=== PATIENT | female | born 1940 | race Caucasian/White ===

== ENCOUNTER 2017-04-16 20:26 | Inpatient (IN) | payer OTHER, MEDICARE ==
--- NOTE | 2017-04-16 20:31 | PDOC ---
History of Present Illness - General History Source: Patient, EMS, Family Exam Limitations: No Limitations - History of Present Illness Initial Comments: 04/16/17 20:31 The patient is a 77 year old female, accompanied by family, with a significant past medical history of colon cancer with metastasis to the liver, diverticulosis, internal hemorrhoids, transverse colon AVM, colon polyps, esophageal and stomach ulcers, who presents to the emergency department via EMS complaining of right sided facial droop, weakness and slurred speech that began approx. 20 minutes ago and lasted for approx. 15 minutes before resolving. The patient's family states the event was witnessed at the dinner table and lasted for 15 minutes. The patient's family explained they notified EMS for help, however, the slurred speech, weakness and right sided facial droop resolved before the ambulance arrived. The patient states she experienced double vision approx. 6 hours ago today that resolved after fifteen minutes. The patient also reports she has been feeling exhausted for the last few months, however, has felt progressively more exhausted in the past two weeks. The patient states she was seen as an outpatient earlier today for a pelvic CT. She denies recent fevers, chills, headache. She denies recent nausea, vomit, diarrhea or constipation. She denies recent chest pain or shortness of breath. Patient was seen and examined by Dr. Lynch immediately upon arrival. Allergies: nebivolol, HCL, Penicillins Primary Care Physician: Dr. Justo Calles Documentation prepared by Justo Gaines, acting as medical detailist for Lizet Lynch MD. <Justo Gaines - Last Filed: 04/17/17 01:22> <Lizet Lynch - Last Filed: 04/17/17 05:00> - General Stated Complaint: STROKE Time Seen by Provider: 04/16/17 20:29 Past History <Justo Gaines - Last Filed: 04/17/17 01:22> - Past Medical History Anemia: No Asthma: Yes (PERSISTENT ASTHMA-NO RECENT ATTACK) Cancer: Yes (COLON CANCER,LIVER CANCER) Cardiac Disorders: Yes (PALPITATIONS; ATRIAL FIB (PAROXYSMAL) CVA: No COPD: No CHF: No Dementia: No Diabetes: No GI Disorders: Yes (GERD,LIEBERMAN'S ESOPHAGUS,ATYPICAL CHEST PAIN,HEARTBURN) Disorders: Yes (H/O RECURRENT URINARY TRACT INFECTION) HTN: Yes Hypercholesterolemia: Yes Liver Disease: Yes Seizures: No Thyroid Disease: No - Surgical History Abdominal Surgery: Yes (REMOVAL 1 LOBE OF THE LIVER) Appendectomy: Yes (DURING LIVER METS RESECTION) Cardiac Surgery: No Cholecystectomy: Yes (DURING LIVER METS RESECTION) Lung Surgery: No Neurologic Surgery: No Orthopedic Surgery: No - Suicide/Smoking/Psychosocial Hx Smoking Status: No Smoking History: Former smoker Have you smoked in the past 12 months: No Number of Cigarettes Smoked Daily: 0 Hx Alcohol Use: No Drug/Substance Use Hx: No Substance Use Type: None Hx Substance Use Treatment: No <Lizet Lynch - Last Filed: 04/17/17 05:00> - Past Medical History Allergies/Adverse Reactions: Allergies Allergy/AdvReac Type Severity Reaction Status Date / Time nebivolol HCl [From Bystolic] Allergy Difficulty Verified 04/16/17 21:01 Breathing Penicillins Allergy Hives Verified 04/16/17 21:01 Home Medications: Ambulatory Orders Diltiazem HCl [Cardizem] 360 mg PO AM 12/09/11 Losartan Potassium [Cozaar] 50 mg PO DAILY 12/09/11 Spironolactone [Aldactone -] 50 mg PO DAILY 12/09/11 Atorvastatin Calcium 20 mg PO DAILY tablet 07/10/14 Pantoprazole Sodium [Protonix -] 40 mg PO BID #30 tablet.ec 11/08/14 Oxycodone HCl 7.5 mg PO PRN PRN 04/24/15 Rivaroxaban [Xarelto -] 15 mg PO DAILY 04/16/17 Review of Systems - Review of Systems Comments:: 04/16/17 20:54 GENERAL/CONSTITUTIONAL: +Weakness (resolved). +Slurred speech (resolved). No fever or chills. HEAD, EYES, EARS, NOSE AND THROAT: No change in vision. No ear pain or discharge. No sore throat. CARDIOVASCULAR: No chest pain or shortness of breath. RESPIRATORY: No cough, wheezing, or hemoptysis. GASTROINTESTINAL: No nausea, vomiting, diarrhea or constipation. GENITOURINARY: No dysuria, frequency, or change in urination. MUSCULOSKELETAL: +Back pain. No joint or muscle swelling or pain. No neck pain. SKIN: No rash NEUROLOGIC: +Right sided facial droop (resolved). No headache, vertigo, loss of consciousness. ENDOCRINE: No increased thirst. No abnormal weight change. HEMATOLOGIC/LYMPHATIC: No anemia, easy bleeding, or history of blood clots. ALLERGIC/IMMUNOLOGIC: No hives or skin allergy. <Justo Gaines - Last Filed: 04/17/17 01:22> *Physical Exam - Physical Exam Comments: 04/16/17 20:56 GENERAL: Awake, alert, and fully oriented, in no acute distress HEAD: No signs of trauma EYES: PERRLA, EOMI, sclera anicteric, conjunctiva clear ENT: Auricles normal inspection, hearing grossly normal, nares patent, oropharynx clear without exudates. Moist mucosa NECK: Normal ROM, supple, no lymphadenopathy, JVD, or masses LUNGS: Breath sounds equal, clear to auscultation bilaterally. No wheezes, and no crackles HEART: Regular rate and rhythm, normal S1 and S2, no murmurs, rubs or gallops ABDOMEN: Soft, nontender, normoactive bowel sounds. No guarding, no rebound. No masses EXTREMITIES: Normal range of motion, no edema. No clubbing or cyanosis. No cords, erythema, or tenderness NEUROLOGICAL: Cranial nerves II through XII grossly intact. Normal speech, normal gait SKIN: Warm, Dry, normal turgor, no rashes or lesions noted. <Justo Gaines - Last Filed: 04/17/17 01:22> NIH Stroke Scale - Last Known Well Date/Time & Onset Date Last Known Well: 04/16/17 Time Last Known Well: 20:00 - Initial Evaluation Level of consciousness: Alert Ask patient the month and their age: Answers both correctly Ask patient to open & close eyes; make fist and let go: Obeys both correctly Best gaze (horizontal eye movement): Normal Visual field testing: No visual field loss Facial paresis (Show teeth/raise eyebrows/close eyes tight): Normal symmetrical movement Motor Function: Left Arm: Normal Motor Function: Right Arm: Normal (extends arm 90 (or 45) degrees for 10 seconds without drift Motor Function: Left Leg: Normal (extends leg 30 degrees for 5 seconds without drift) Motor Function: Right Leg: Normal (extends leg 30 degrees for 5 seconds without drift) Limb Ataxia: No ataxia Sensory(Use pinprick test arms,legs,trunk,face/side to side): Normal Best language (Describe picture, name items, read sentences): No Aphasia Dysarthria (read several words): Normal articulation Extinction and Inattention: No abnormality - Total Score NIH Stroke Scale Score: 0 <Lizet Lynch - Last Filed: 04/17/17 05:00> Heart Score/ECG Review #1 04/16/17 22:21 Vent rate 89 bpm. Normal sinus rhythm. Normal ECG. <Justo Gaines - Last Filed: 04/17/17 01:22> Critical Care Time/MDM Note - Medical Decision Making Note: 04/16/17 20:[address] Justo Calles at 8:42 pm. Pending call back. Second Page sent to Dr. Justo Calles at 9:[address] Caballero partner returned the page at 9:15 pm. Page sent to Dr. Bhatt at 9:18 pm. Page returned by Dr. Pimentel at 9:22 pm. Page sent to Dr. Perry at 9:28 pm. Answering serviced advised Dr. Denney will return the page. Dr. Denney returned the page at 9:30 pm. Page sent to Dr. Denney at 10:20 pm. Page returned by Dr. Denney at 11: [address] Pimentel called at 11:20 pm. Page returned at 11:25 pm. <Justo Gaines - Last Filed: 04/17/17 01:22> - Medical Decision Making Note: 04/16/17 20:34 Pt has a hx of diverticulosis; internal hemorrhoids, transverse colon AVM; colon polyps. Also hx of barrets esophagus; esophageal and stomach ulcers. Hx of colon cancer with mets to the liver; bronchial asthma; on digoxin and coumadin for paroxysmal afib. 04/16/17 20:36 Pt noted to have right facial droop with drooling that began at 8PM. Ambulance called and pt rushed to the ER. She is better at this time. She had no other symptoms, and she has a normal zero stroke scale. Pt sent immediately for CT head. 04/16/17 20:39 Dr. Calles's partner is aware that pt will be admitted; he agrees that pt should be admitted to the hospitalist team 04/16/17 20:47 Dr. 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 Recommends MRI in the AM. 04/16/17 21:[address] Denney is aware of the patient. He recommends atorvastatin to be increased to 40mg QD. 04/16/17 21:[address] Azar placed by myself in the computer. Pt appears to have anemia HB 8.8; I will guaiac her stool. 04/17/17 04:59 guaiac negative. Pt given aspirin. We didn't restart her xarelto, as it is unclear to me what the potential risk of blood thinners is on her metastatic disease. <Lizet Lynch - Last Filed: 04/17/17 05:00> Discharge Disposition <Justo Gaines - Last Filed: 04/17/17 01:22> - Discharge Dispostion Admit: Yes <Lizet Lynch - Last Filed: 04/17/17 05:00> - Diagnosis TIA (transient ischemic attack), Cancer, metastatic to liver, Paroxysmal atrial fibrillation, Anemia - Discharge Dispostion Condition at time of disposition: Guarded
[2017-04-16 21:01] VITALS: BMI 33.2
[2017-04-16 21:21] LABS: BASOPHIL 0.5 % (0-2.0); EOSINOPHIL 1.2 % (0-4.5); MCH 29.4 pg (25.7-33.7); MCHC 33.5 g/dl (32.0-36.0); MEAN CELL VOLUME 87.8 fl (80-96); RDW 14.4 % (11.6-15.6); WHITE BLOOD COUNT 8.7 K/mm3 (4.0-10.0)
[2017-04-16] MEDS ORDERED: ATORVASTATIN CA 40 MG TABLET (FP) PO ONE (21:36)
[2017-04-16 21:47] LABS: AMYLASE 43 U/L (25-115)
[2017-04-16 21:53] LABS: ALBUMIN 3.2 g/dl (3.4-5.0); ALK PHOS 276 U/L (45-117); ANION GAP 8 (8-16); BILIRUBIN,TOTAL 1.7 mg/dL (0.2-1.0); CALCIUM 8.1 mg/dL (8.5-10.1); CO2 25 mmol/L (21-32); CREATININE 1.2 mg/dL (0.55-1.02); GLUCOSE,RANDOM 120 mg/dL (74-106); SGOT/AST 64 U/L (15-37); SGPT/ALT 65 U/L (12-78); TOT PROT 6.4 g/dl (6.4-8.2)
[2017-04-16 22:01] LABS: INR 1.48 (0.82-1.09); PROTHROMBIN TIME (PATIENT) 16.7 SEC (9.98-11.88)
[2017-04-16 22:03] LABS: ACTIVATED PTT 30.6 SECONDS (26.9-34.4)
[2017-04-16] MEDS ORDERED: ATORVASTATIN CA 40 MG TABLET (FP) ONE (22:10)
[2017-04-16 22:35] LABS: HYPOCHROMIA 1+; MACROCYTOSIS 1+; MEAN PLT VOLUME 9.4 fl (7.5-11.1); PLATELET COUNT 82 K/MM3 (134-434)
[2017-04-16] MEDS ORDERED: SODIUM CHLORIDE 0.9% 500 ML INFUS.BAG IV ONE (22:37)
[2017-04-16] MEDS ORDERED: ASPIRIN 81 MG CHEWABLE TABLETS PO ONE (22:38)
[2017-04-16] MEDS ORDERED: ASPIRIN 81 MG CHEWABLE TABLETS ONE (23:24)
--- NOTE | 2017-04-16 23:32 | PN ---
Teaching Attending Note Name of Resident: Jesus Hidalgo ATTENDING PHYSICIAN STATEMENT I saw and evaluated the patient. I reviewed the resident's note and discussed the case with the resident. I agree with the resident's findings and plan as documented. SUBJECTIVE: OBJECTIVE: ASSESSMENT AND PLAN: this is a 77 y/o female patient with hx of paroxysmal atrial fibrillation on riveroxiban, colon cancer with liver mets s/p colectomy, and liver resection 13 years ago, presented to the ER after the patient daughter noticed that she had facial droop, associated with slurred speech. that resolved by the time the patient came to the hospital. when i interviewed the patient, the daughter said that her speech has improved but the facial droop had recurred. patient stated that she felt weaker on her right arm, but that also resolved. patient stated that she has not eaten in 2 days, because she felt nauseated so she hadn't taken her medication neither plan: - admit the patient to tele for stroke - hold anticoagulation until cleared by neurology - repeat Head CT scan - obtain MRI - give the patient aspirn 325mg stat - consult neurology for stroke - start the patient on moderate to high dose statin - maintain permissive hypertension (Sbp 140-160) - IV hydration - pain management 2mg IVP morphine prn pain - Morphine sulfate 15mg q12hrs standing dose - monitor for overdose
[2017-04-17] MEDS ORDERED: morphine SULFATE 4 MG/ML VIAL IVPUSH PRN ×2 (00:23→15:01)
--- NOTE | 2017-04-17 02:14 | HP ---
CHIEF COMPLAINT: Dysarthria, R facial droop PCP: Justo Calles HISTORY OF PRESENT ILLNESS: 77 yo woman w/ pmh of colon/liver ca, chronic afib, HTN, HLD, PUD and diverticulosis who presents to the ED after daughter witnessed her with R side facial droop, R hand weakness and dysarthria that lasted approximately 15-20 minutes and resolved before arrival in ED. Pt endorses 3 days of abdominal pain , fatigue, malaise and poor PO intake prior to today and received an abdominal CT for further work-up of her known liver mets. Pt endorses a prior episode of double vision that lasted 15 minutes earlier in the day. After returning home from the imaging study, pt's daughter noted R side facial droop, dysarthria, and R hand weakness and dysmetria. Pt's daughter immediately notified EMS, however by the time they arrived, the patient's symptoms had resolved. Pt had no LOC, other neurologic symptoms and could comprehend and respond to all conversation. Per pt, she did not note any dysarthria or R hand weakness. Pt has no prior hx of neurologic dz or stroke, however was diagnosed with aFib 4 years ago, for which she was taking xarelto. Pt endorses a prior ?IVC clot in 2003, discovered during her chemotx treatment, but denies any hx of other DVTs, RI, stroke or clotting disorders. Pt had not been taking her xarelto for 2-3 days, due to nausea and poor po intake. Pt denies any fever/chills, MERCER/dizziness, diarrhea/constipation, rashes, CP, SOB , cough, other prior focal neurologic deficits. ER course was notable for: (1) Negative non-con CT scan (2) Hgb 8.8 (3) Recent Travel: None PAST MEDICAL HISTORY: Asthma Diverticulosis Colon/liver cancer Chronic Afib GERD Ervin's esophagus PUD Hemorrhoids Multiple UTI's HLD HTN PAST SURGICAL HISTORY: Cholecystectomy appendectomy liver resection breast cyst excision bowel resection Social History: Smoking: No. Former smoker. Alcohol: No Drugs: No Family History: No prior fam hx of stroke, neurologic disorders or blood clots. Allergies nebivolol HCl [From Bystolic] Allergy (Verified 04/16/17 21:01) Difficulty Breathing sob Penicillins Allergy (Verified 04/16/17 21:01) Hives HOME MEDICATIONS: Home Medications Medication Instructions Recorded Diltiazem HCl [Cardizem] 360 mg PO AM 12/09/11 Losartan Potassium [Cozaar] 50 mg PO DAILY 12/09/11 Spironolactone [Aldactone -] 50 mg PO DAILY 12/09/11 Atorvastatin Calcium 20 mg PO DAILY tablet 07/10/14 Pantoprazole Sodium [Protonix -] 40 mg PO BID #30 tablet.ec 11/08/14 Oxycodone HCl 7.5 mg PO PRN PRN 04/24/15 Rivaroxaban [Xarelto -] 15 mg PO DAILY 04/16/17 REVIEW OF SYSTEMS CONSTITUTIONAL: generalized weakness, malaise, loss of appetite, double vision, lightheadedness Absent: fever, chills, diaphoresis, weight change HEENT: Absent: rhinorrhea, nasal congestion, throat pain, throat swelling, difficulty swallowing CARDIOVASCULAR: irregular heart rate Absent: chest pain, syncope, palpitations, lightheadedness, peripheral edema RESPIRATORY: Absent: cough, shortness of breath, dyspnea with exertion, hemoptysis GASTROINTESTINAL: abdominal pain, Absent: abdominal distension, nausea, vomiting, diarrhea, constipation, melena , hematochezia GENITOURINARY: Absent: dysuria, frequency, urgency, hesitancy, hematuria MUSCULOSKELETAL: Absent: myalgia, arthralgia, joint swelling, back pain, neck pain SKIN: Absent: rash, itching ENDOCRINE: Absent: unexplained weight gain, unexplained weight loss, heat intolerance, cold intolerance NEUROLOGIC: focal weakness Absent: headache, paresthesias, dizziness, unsteady gait, seizure, mental status changes, bladder or bowel incontinence PHYSICAL EXAMINATION Vital Signs - 24 hr 04/16/17 04/17/17 04/17/17 20:27 01:04 01:40 Temperature 98.1 F 97.7 F 98.3 F Pulse Rate 89 83 Pulse Rate [ 79 Right Apical] Respiratory 18 18 20 Rate Blood Pressure 143/82 141/56 Blood Pressure 135/76 [Left Arm] O2 Sat by Pulse 98 99 Oximetry (%) 04/17/17 01:55 Temperature Pulse Rate Pulse Rate [ Right Apical] Respiratory Rate Blood Pressure Blood Pressure [Left Arm] O2 Sat by Pulse 92 L Oximetry (%) GENERAL: Awake, alert, and fully oriented to name/location/date, in no acute distress. HEAD: NCAT EYES: Pupils equal, round and reactive to light, extraocular movements intact, sclera anicteric, conjunctiva clear. No lid lag. EARS, NOSE, THROAT: Ears normal, nares patent, oropharynx clear without exudates. Moist mucous membranes. NECK: Normal range of motion, JVD, or masses. LUNGS: Breath sounds equal, clear to auscultation bilaterally. No wheezes, and no crackles. No accessory muscle use. HEART: Regular rate and rhythm, normal S1 and S2 without murmur, rub or gallop. ABDOMEN: Mildly tender to palpation in BL supra-inguinal regions. Soft, not distended, normoactive bowel sounds, no rebound, no masses. No hepatomegaly or splenomegaly. UPPER EXTREMITIES: 2+ pulses, warm, well-perfused. No cyanosis. No clubbing. No peripheral edema. Anterior bruise on R forearm. LOWER EXTREMITIES: 2+ pulses, warm, well-perfused. No calf tenderness. No peripheral edema. NEUROLOGICAL: Mild dysarthria. Upon cranial nerve exam, R lateral tongue deviation, R facial droop, diminished eyelid closure on R side. EOMI intact. Facial sensation to light touch, preserved BL. 4/5 medical imaging technologist strength in R hand, 5/5 in L hand. 5/5 strength in arm flexors and extensors. 5/5 strength BL in proximal and distal flexors and extensors. Sensation to light touch preserved, equal on both sides in all four extremities/across dermatomes. Gait not evaluated. Psych: Refused serial 7s. wide load escort memory deficit, only able to recall last two president. Abstract thinking intact. SKIN: Warm, dry, normal turgor, normal cap refill. Laboratory Results - last 24 hr CBC, BMP 04/16/17 21:00 04/16/17 21:00 04/16/17 04/16/17 04/16/17 21:00 21:00 21:00 WBC 8.7 D RBC 2.99 L D Hgb 8.8 L D Hct 26.2 L D MCV 87.8 MCH 29.4 MCHC 33.5 RDW 14.4 Plt Count 82 L D MPV 9.4 D Neutrophils % 78.0 Lymphocytes % 12.1 D Monocytes % 8.2 Eosinophils % 1.2 Basophils % 0.5 Hypochromia 1+ Macrocytosis 1+ PT with INR 16.70 H INR 1.48 H PTT (Actin FS) 30.6 Sodium 138 Potassium 4.3 Chloride 105 Carbon Dioxide 25 Anion Gap 8 BUN 23 H Creatinine 1.2 H Creat Clearance w eGFR 43.45 Random Glucose 120 H Calcium 8.1 L Total Bilirubin 1.7 H D AST 64 H D ALT 65 D Alkaline Phosphatase 276 H D Total Protein 6.4 Albumin 3.2 L D Total Amylase Lipase Stool Occult Blood Digoxin 04/16/17 04/16/17 04/16/17 21:00 21:00 22:20 WBC RBC Hgb Hct MCV MCH MCHC RDW Plt Count MPV Neutrophils % Lymphocytes % Monocytes % Eosinophils % Basophils % Hypochromia Macrocytosis PT with INR INR PTT (Actin FS) Sodium Potassium Chloride Carbon Dioxide Anion Gap BUN Creatinine Creat Clearance w eGFR Random Glucose Calcium Total Bilirubin AST ALT Alkaline Phosphatase Total Protein Albumin Total Amylase 43 Lipase 287 Stool Occult Blood Negative Digoxin 0.0787 L No micro pending Imaging: Non Head CT 04/16 - No acute pathology, mass or acute bleed. Chest CT 04/16 - No CT findings of acute pathology are identified involving the chest. Minimal to mild bilateral lower lobe discoid atelectasis/linear scarring. Stable benign 0.4 cm left lower lobe pulmonary nodule in comparison to a [address] study. Possible mild cardiomegaly. ASSESSMENT/PLAN: 77 yo woman w/ pmh of colon/liver ca, chronic afib, HTN, HLD, PUD and diverticulosis who presents to the ED after daughter witnessed her with R side facial droop, R hand weakness and dysarthria that lasted approximately 15-20 minutes and resolved before arrival in ED. #TIA - Thrombolytics contraindicated in this patient, given age/unknown brain parenchyma given metastatic dz - Stat MRI in AM - Hold AC until clearance from neuro team - Aspirin 325mg once. 81mg PO daily - Start moderate/high dose statin - Permissive hypertension (140-160) - Carotid dopplers - Neurology consulted #Afib - Pt on xarelto for AC. Missed last 3 days due to nausea/poor PO intake. - Cardiology consulted (Dr. Azar) - Hold AC in setting of - Cardiac monitoring - F/u EKG results #Mild HERBERTH - BUN/Cr 23/1.2 on admission - IVFs - Daily BMPs - Trend Cr #Anemia - Hgb 8.8. Patient denies any recent bleeds, melena, hematuria - Stool guiac - Trend H/H - Anemia panel #Liver mets - Oncology team consulted (Dr. Bhatt) - Trend LFTs - F/u abdominal CT - Will require outpt f/u #HTN - Hold home HTN meds in setting of possible infarct - Permissive hypertension (140-160) #HLD - Moderate/high dose statin - Lipid panel #Chronic back pain - MS contin 15mg BID - Morphine sulfate 2mg IVP prn - Monitor for signs of overdose #PUD - PPI FEN: Fluids: 75cc NS Electrolytes: Trend BUN/Cr Nutrition: NPO until cleared by S+S Dispo: Admit to tele for monitoring of MS/neurologic assessment in setting of possible stroke. Plan discussed with attending, Dr. Aniceto Hidalgo, PGY1 Visit type - Emergency Visit Emergency Visit: Yes ED Registration Date: 04/16/17 Care time: The patient presented to the Emergency Department on the above date and was hospitalized for further evaluation of their emergent condition. - New Patient This patient is new to me today: Yes Date on this admission: 04/17/17 - Critical Care Critical Care patient: No
[2017-04-17] MEDS ORDERED: ATORVASTATIN CA 40 MG TABLET (FP) PO SCH ×2 (05:00→22:00)
[2017-04-17] MEDS ORDERED: LOSARTAN POTASSIUM 50 MG TABLET (FP) PO SCH (07:00)
[2017-04-17] MEDS ORDERED: PANTOPRAZOLE 40 MG TABLET (FP) PO SCH (07:30)
[2017-04-17 08:18] LABS: INR 1.48 (0.82-1.09); PROTHROMBIN TIME (PATIENT) 16.7 SEC (9.98-11.88)
[2017-04-17 08:21] LABS: ACTIVATED PTT 29.5 SECONDS (26.9-34.4)
[2017-04-17 08:26] LABS: ALK PHOS 254 U/L (45-117); ANION GAP 8 (8-16); BILIRUBIN,TOTAL 2.5 mg/dL (0.2-1.0); CALCIUM 7.9 mg/dL (8.5-10.1); CHOLESTEROL 157 mg/dL (50-200); CO2 24 mmol/L (21-32); CREATININE 1.1 mg/dL (0.55-1.02); GLUCOSE,RANDOM 104 mg/dL (74-106); MAGNESIUM 2.3 mg/dL (1.8-2.4); SGOT/AST 74 U/L (15-37); SGPT/ALT 60 U/L (12-78); THYROID STIMULATING HORMONE 1.03 uIU/ml (0.358-3.74); TOT PROT 5.8 g/dl (6.4-8.2)
--- NOTE | 2017-04-17 08:30 | CON.CARD ---
Consult Consult Specialty:: cardio Referred by:: hospitalist Reason for Consultation:: afib, CVA - History of Present Illness Chief Complaint: slurred speech, facial droop History of Present Illness: 77 year old female presented with right sided facial droop, weakness and slurred speech on DOA. sx's lasted approx 15 min, fully resolved. she also had episode of double vision earlier in the day that fully resolved after about 15 min. sees me for PAF, which is very symptomatic with rapid HRs when it recurs. has had no sx's in long time, however last saw me 05/08 and has not made her f/ u appts since then. she recently held all meds including xarelto for approx 2d due to ongoing sx's of abdominal pain, fatigue, malaise, decr appetite at present she was trying to go to bathroom and legs felt weak and slipped to ground. urinated a bit on floor. denies hitting her head. RN at bedside, she intends to inform hospitalist. pt currently denies any cp, sob, palpitations including at home recently. ongoing diffuse abd pain lower rib cage down to lower quadrants. PMH: PAF, rapid HRs colon cancer with metastasis to the liver, diverticulosis, internal hemorrhoids, transverse colon AVM, colon polyps, severe GERD, ? moran's; esophageal and stomach ulcers - Alcohol/Substance Use Hx Alcohol Use: No - Smoking History Smoking history: Former smoker Have you smoked in the past 12 months: No Aproximately how many cigarettes per day: 0 If you are a former smoker, when did you quit?: 20 years Home Medications - Allergies Allergies/Adverse Reactions: Allergies Allergy/AdvReac Type Severity Reaction Status Date / Time nebivolol HCl [From Bystolic] Allergy Difficulty Verified 04/16/17 21:01 Breathing Penicillins Allergy Hives Verified 04/16/17 21:01 - Home Medications Home Medications: Ambulatory Orders Diltiazem HCl [Cardizem] 360 mg PO AM 12/09/11 Losartan Potassium [Cozaar] 50 mg PO DAILY 12/09/11 Spironolactone [Aldactone -] 50 mg PO DAILY 12/09/11 Atorvastatin Calcium 20 mg PO DAILY tablet 07/10/14 Pantoprazole Sodium [Protonix -] 40 mg PO BID #30 tablet.ec 11/08/14 Oxycodone HCl 7.5 mg PO PRN PRN 04/24/15 Rivaroxaban [Xarelto -] 15 mg PO DAILY 04/16/17 Family Disease History - Family Disease History Family History: Denies (no known CMP) Review of Systems - Review of Systems Constitutional: reports: Loss of Appetite. denies: Chills, Fever Eyes: denies: Eye Pain HENT: denies: Nasal Congestion Neck: denies: Stiffness Cardiovascular: denies: Palpitations Respiratory: denies: Orthopnea, PND Gastrointestinal: denies: Diarrhea, Rectal Bleeding Genitourinary: denies: Burning, Hematuria Musculoskeletal: denies: Muscle Pain Integumentary: denies: Rash Neurological: denies: Numbness, Seizure, Syncope Endocrine: denies: Excessive Sweating Hematology/Lymphatic: denies: Excessive Bleeding Vital Signs: Vital Signs Temperature 97.6 F 04/17/17 06:00 Pulse Rate 71 04/17/17 06:00 Respiratory Rate 20 04/17/17 06:00 Blood Pressure 152/59 04/17/17 06:00 O2 Sat by Pulse Oximetry (%) 92 L 04/17/17 06:00 Constitutional: Yes: Well Nourished, No Distress Eyes: No: Sclera Icterus HENT: No: Nasal Congestion Neck: No: Decreased ROM Respiratory: Yes: CTA Bilaterally. No: Accessory Muscle Use, Rales, Wheezes Gastrointestinal: Yes: Normal Bowel Sounds, Distention (seated on edge of bed). No: Hepatomegaly, Palpable Mass, Tenderness Cardiovascular: Yes: Regular Rate and Rhythm JVD: No Carotid Bruit: No PMI: Non-Displaced Heart Sounds: Yes: S1, S2. No: Gallop Murmur: No: Systolic Murmur, Diastolic Murmur Musculoskeletal: Yes: Other (No kyphosis) Extremities: No: Cold, Cyanosis Edema: No Peripheral Pulses: 2+ Left Carotid, 2+ Right Carotid, 2+ Left Doralis Pedis, 2+ Right Dorsalis Pedis Integumentary: No: Jaundice Neurological: Yes: Alert. No: Seizure Psychiatric: No: Agitated - Other Data Labs, Other Data: CBC, BMP 04/16/17 21:00 INR, PTT INR 1.48 (0.82-1.09) H 04/17/17 06:00 Laboratory Tests 04/16/17 04/16/17 21:00 21:00 WBC 8.7 D Hgb 8.8 L D Plt Count 82 L D Sodium 138 Potassium 4.3 Carbon Dioxide 25 BUN 23 H Creatinine 1.2 H Total Bilirubin 1.7 H D AST 64 H D ALT 65 D Alkaline Phosphatase 276 H D tele: NSR Assessment/Plan CXR: clear lungs/pleura CT head: no acute pathology ECG--NSR, normal axis/intervals; inferior q waves; no ST-T abn (no change vs prior here, 10/2008) TIA: -2 episodes on DOA, in setting of missing home AC dose x 2d -presumed embolic -CT head negative, hence large infarct at risk of hemorrhage seems unlikely -awaiting MRI brain and neuro input this AM re: timing of re-initiation of home AC (xarelto) -check carotid dopplers PAF: -in sinus here -intolerant of low dose metoprolol and bystolic at low doses (profound fatigue, bronchospasm) -has tolerated high dose diltiazem (without signif GERD s.e.) -tolerated digoxin in past, but stopped given age and decr GFR--could add back if rapid HRs -on Xarelto at home--resume once cleared by neuro (acute cva) HTN: -bp controlled here -bp targets per neuro -cont home meds for now CKD: -baseline creat runs 1.1-1.5 -renal fxn stable here CAD: -cor calcium score intermediate (slightly above 50th %ile) -MPI in past equivocal ? apical ischemia vs variable breast artifact -never had anginal sx's -ecg no acute ischemic changes here -cont home regimen: statin (atorva 10 at home), ARB, no ASA (on AC) HPL: -intolerant atorva 20. -LDL runs 90s on atorva 10, similar here -same med regimen asthma: -intolerant of B-B in past -no current wheezing/sob colon cancer with liver mets/anemia/anorexia/abd pain: -? sx's related to tumor -all LFTs mildly elevated, abd distended -per hospitalist +/- Onc as indicated
--- NOTE | 2017-04-17 09:45 | PN ---
Physical Exam: SUBJECTIVE: Patient seen and examined Patient is a 77 y/o female patient with hx of paroxysmal atrial fibrillation on riveroxiban, colon cancer with liver mets s/p colectomy, and liver resection 13 years ago, presented to the ED for having a facial droop, associated with slurred speech that her daughter noticed while visiting her, Her symptoms resolved by the time the patient came to the hospital. As per patient her speech is better but the facial droop continued. Patient stated that she is weaker on her right arm and the left is ok and LEs are ok. Patient stated that she has not eaten in 2 days, because she felt nauseated so she hadn't taken her medication OBJECTIVE: Vital Signs Temperature 99.5 F 04/17/17 09:02 Pulse Rate 75 04/17/17 09:02 Respiratory Rate 20 04/17/17 09:02 Blood Pressure 147/66 04/17/17 09:02 O2 Sat by Pulse Oximetry (%) 92 L 04/17/17 06:00 GENERAL: The patient is awake, alert, and fully oriented, in no acute distress. HEAD: Normal with no signs of trauma. EYES: PERRL, extraocular movements intact, sclera anicteric, conjunctiva clear. ENT: Ears normal, oropharynx clear without exudates, very dry mucous membranes. NECK: Trachea midline, full range of motion, supple. LUNGS: Breath sounds equal, clear to auscultation bilaterally, no wheezes, no crackles, no accessory muscle use. HEART: Regular rate and rhythm, S1, S2 without murmur, rub or gallop. ABDOMEN: Soft, nontender, nondistended, normoactive bowel sounds, no guarding, no rebound, no hepatosplenomegaly, no masses. EXTREMITIES: 2+ pulses, warm, well-perfused, no edema. RUE weak 3/5 , LUE 5/5 , LEs 5/5. NEUROLOGICAL: Cranial nerves II through XII grossly intact. positive facial droop , but normal speech, gait not observed. PSYCH: Normal mood, normal affect. SKIN: Warm, dry, normal turgor, no rashes or lesions noted CBCD WBC 8.7 K/mm3 (4.0-10.0) D 04/16/17 21:00 RBC 2.99 M/mm3 (3.60-5.2) L D 04/16/17 21:00 Hgb 8.8 GM/dL (10.7-15.3) L D 04/16/17 21:00 Hct 26.2 % (32.4-45.2) L D 04/16/17 21:00 MCV 87.8 fl (80-96) 04/16/17 21:00 MCHC 33.5 g/dl (32.0-36.0) 04/16/17 21:00 RDW 14.4 % (11.6-15.6) 04/16/17 21:00 Plt Count 82 K/MM3 (134-434) L D 04/16/17 21:00 MPV 9.4 fl (7.5-11.1) D 04/16/17 21:00 CMP Sodium 137 mmol/L (136-145) 04/17/17 06:00 Potassium 4.5 mmol/L (3.5-5.1) 04/17/17 06:00 Chloride 105 mmol/L (98-107) 04/17/17 06:00 Carbon Dioxide 24 mmol/L (21-32) 04/17/17 06:00 Anion Gap 8 (8-16) 04/17/17 06:00 BUN 20 mg/dL (7-18) H 04/17/17 06:00 Creatinine 1.1 mg/dL (0.55-1.02) H 04/17/17 06:00 Creat Clearance w eGFR 48.04 (>60) 04/17/17 06:00 Random Glucose 104 mg/dL (74-106) 04/17/17 06:00 Calcium 7.9 mg/dL (8.5-10.1) L 04/17/17 06:00 Total Bilirubin 2.5 mg/dL (0.2-1.0) H D 04/17/17 06:00 AST 74 U/L (15-37) H 04/17/17 06:00 ALT 60 U/L (12-78) 04/17/17 06:00 Alkaline Phosphatase 254 U/L (45-117) H 04/17/17 06:00 Total Protein 5.8 g/dl (6.4-8.2) L 04/17/17 06:00 Albumin 3.0 g/dl (3.4-5.0) L 04/17/17 06:00 Active Medications Generic Name Dose Route Start Last Admin Trade Name Freq PRN Reason Stop Dose Admin Aspirin 81 mg 04/17/17 10:00 04/17/17 09:08 Ecotrin - PO 81 mg DAILY ELANA Administration Atorvastatin Calcium 40 mg 04/17/17 22:00 Lipitor - PO HS ELANA Morphine Sulfate 2 mg 04/17/17 00:23 Morphine Sulfate IVPUSH Q4H PRN PAIN Morphine Sulfate 15 mg 04/17/17 10:00 04/17/17 09:09 Ms Contin - PO Not Given BID ELANA Pantoprazole Sodium 40 mg 04/17/17 07:30 04/17/17 09:08 Protonix - PO 40 mg BID ELANA Administration Home Medications Medication Instructions Recorded Diltiazem HCl [Cardizem] 360 mg PO AM 12/09/11 Losartan Potassium [Cozaar] 50 mg PO DAILY 12/09/11 Spironolactone [Aldactone -] 50 mg PO DAILY 12/09/11 Atorvastatin Calcium 20 mg PO DAILY tablet 07/10/14 Pantoprazole Sodium [Protonix -] 40 mg PO BID #30 tablet.ec 11/08/14 Oxycodone HCl 7.5 mg PO PRN PRN 04/24/15 Rivaroxaban [Xarelto -] 15 mg PO DAILY 04/16/17 ASSESSMENT/PLAN: Patient is a 77 yo woman w/ pmh of colon/liver ca, chronic afib, HTN, HLD, PUD and diverticulosis who presents to the ED after daughter witnessed her with R side facial droop, R hand weakness and dysarthria that lasted approximately 15- 20 minutes and resolved before arrival in ED. Patient is admitted for recurrent TIA. #Acute recurrent TIA: On aspirin and started the patient back on Xarelto, discussed with Neurologist and . ok to restart on Xarelto. Seen By Neuro ordered MRI, Thrombolytics not given since was not recommended with hx of metastatic disease. On Lipitor 40mg po daily. Neuro and Cardio consult appreciated. #P-afib on Xarelto will continue # Acute dehydration: patient looks very dry will start her on IVF. D51/2NS at 83cc/hr x 1 liter. #Chronic back pain on MS contin 15mg BID, Morphine sulfate 2mg IVP prn Dysphagia whole diet, with monitoring. DVT Px: On XArelto Visit type - Emergency Visit Emergency Visit: Yes ED Registration Date: 04/16/17 Care time: The patient presented to the Emergency Department on the above date and was hospitalized for further evaluation of their emergent condition. - New Patient This patient is new to me today: Yes Date on this admission: 04/17/17 - Critical Care Critical Care patient: No
[2017-04-17] MEDS ORDERED: morphine SO4 SUSTAINED ACTING 15 MG TABLET.SA PO SCH (10:00)
[2017-04-17] MEDS ORDERED: ASPIRIN COATED 81 MG TABLET.EC PO SCH (10:00)
--- NOTE | 2017-04-17 11:03 | CON.NEURO ---
Consult Consult Specialty:: Neurology Referred by:: Dr. Dean Reason for Consultation:: Stroke - History of Present Illness Chief Complaint: dysarthria, right facial droop and right hand weakness - History Source History Provided By: Patient, Medical Record Limitations to Obtaining History: No Limitations - Past Medical History Cardio/Vascular: Yes: AFIB, HTN Gastrointestinal: Yes: Cancer (colon with liver mets ), Diverticulosis, GERD, Peptic Ulcer Disease Hepatobiliary: Yes: Other (mets to liver recently identified) - Past Surgical History Past Surgical History: Yes: Colectomy - Alcohol/Substance Use Hx Alcohol Use: No - Smoking History Smoking history: Former smoker Have you smoked in the past 12 months: No Aproximately how many cigarettes per day: 0 If you are a former smoker, when did you quit?: 20 years Home Medications - Allergies Allergies/Adverse Reactions: Allergies Allergy/AdvReac Type Severity Reaction Status Date / Time nebivolol HCl [From Bystolic] Allergy Difficulty Verified 04/16/17 21:01 Breathing Penicillins Allergy Hives Verified 04/16/17 21:01 - Home Medications Home Medications: Ambulatory Orders Diltiazem HCl [Cardizem] 360 mg PO AM 12/09/11 Losartan Potassium [Cozaar] 50 mg PO DAILY 12/09/11 Spironolactone [Aldactone -] 50 mg PO DAILY 12/09/11 Atorvastatin Calcium 20 mg PO DAILY tablet 07/10/14 Pantoprazole Sodium [Protonix -] 40 mg PO BID #30 tablet.ec 11/08/14 Oxycodone HCl 7.5 mg PO PRN PRN 04/24/15 Rivaroxaban [Xarelto -] 15 mg PO DAILY 04/16/17 Review of Systems - Review of Systems Constitutional: reports: Lethargy, Loss of Appetite, Malaise Physical Exam-Neuro Vital Signs: Vital Signs Temperature 99.5 F 04/17/17 09:02 Pulse Rate 75 04/17/17 09:02 Respiratory Rate 20 04/17/17 09:02 Blood Pressure 147/66 04/17/17 09:02 O2 Sat by Pulse Oximetry (%) 93 L 04/17/17 09:00 Constitutional: Yes: Thin Labs: CBC, BMP 04/16/17 21:00 04/17/17 06:00 INR, PTT INR 1.48 (0.82-1.09) H 04/17/17 06:00 - Neuro Exam Level Of Consciousness: Yes: Alert, Oriented to Person, Oriented to Place, Oriented to Time Eyes: Yes: MIGUEL, Other (VFF) Speech: Slurred Cranial Nerves II-XII Intact: No (Right central pattern facial weakness) DTR's: 0 Left Achilles, 0 Right Achilles, 2+ Left Bicep, 2+ Right Bicep, 2+ Left Tricep, 2+ Right Tricep, 2+ Left Brachioradialis, 2+ Right Brachioradialis Babinski: Present (right) Response to light touch: Normal Coordination: Normal: Finger to Nose, Heel to Harrison (no ataxia but limited by some weakness) Motor Strength: 4/5: Right Arm, 5/5: Left Arm, Left Leg, Right Leg (Right pronator drift) Gait: Deferred NIH Stroke Scale - Last Known Well Date/Time & Onset Date Last Known Well: 04/16/17 - Initial Evaluation Level of consciousness: Alert Ask patient to open & close eyes; make fist and let go: Obeys both correctly Best gaze (horizontal eye movement): Normal Visual field testing: No visual field loss Facial paresis (Show teeth/raise eyebrows/close eyes tight): Partial paralysis ( total or near paralysis of lower face) Motor Function: Left Arm: Normal Motor Function: Right Arm: Drift Motor Function: Left Leg: Normal (extends leg 30 degrees for 5 seconds without drift) Motor Function: Right Leg: Normal (extends leg 30 degrees for 5 seconds without drift) Limb Ataxia: No ataxia Sensory(Use pinprick test arms,legs,trunk,face/side to side): Normal Best language (Describe picture, name items, read sentences): No Aphasia Dysarthria (read several words): Mild to moderate slurring of words Extinction and Inattention: Inattention or extinction bilaterally to one of the sensory modalities Imaging - Results Cat Scan: Report Reviewed, Image Reviewed (no acute intracranial abnormality) Problem List - Problems (1) Lacunar infarction Code(s): I63.9 - CEREBRAL INFARCTION, UNSPECIFIED (2) Cancer, metastatic to liver Code(s): C78.7 - SECONDARY MALIG NEOPLASM OF LIVER AND INTRAHEPATIC BILE DUCT (3) Paroxysmal atrial fibrillation Code(s): I48.0 - PAROXYSMAL ATRIAL FIBRILLATION Assessment/Plan The patient presented with transient deficits which improved and then got worse again. She had a negative CT scan on presentation but no TPA was given because of rapidly improving symptoms and recent Xarelto use. She now has what appears to be a fixed deficit with mild weakness of the face and hand and some dysarthria. This is likely to be lacunar, which typically stutters, but in the setting of PAF, less likely could be embolic. The course is much more typical of a lacune. There is no neurologic contraindication to anticoagulation, but would review risks in setting of metastatic disease if there are any. I would get an MRI brain, and although contrast would be useful, as she has impaired renal function, contrast may be deferred for the time being. Carotid dopplers should also be performed.
[2017-04-17] MEDS ORDERED: DEXTROSE 5%-0.45% SALINE 1,000 ML IV SCH ×2 (11:45→15:01)
[2017-04-17] MEDS ORDERED: RIVAROXABAN 15 MG TABLET PO SCH (12:00)
[2017-04-17] MEDS ORDERED: AMIODARONE HCL 150 MG/3 ML VIAL ONE (12:57)
[2017-04-17] MEDS ORDERED: AMIODARONE HCL 150 MG/3 ML VIAL IVPB ONE (13:30)
--- NOTE | 2017-04-17 13:45 | HOSP ---
Subjective - Review of Symptoms Events since last encounter: Called by the nurse that the patient went into rapid Afib, cardiology was contacted and patient was started on Amio drip and being transferred to ICU. Intencivist was called and patient was accepted to ICU. Physical Examination Vital Signs: Vital Signs Temperature 99.3 F 04/17/17 10:30 Pulse Rate 113 H 04/17/17 10:30 Respiratory Rate 20 04/17/17 10:30 Blood Pressure 155/74 04/17/17 10:30 O2 Sat by Pulse Oximetry (%) 93 L 04/17/17 09:00 Labs: CBC, BMP 04/16/17 21:00 04/17/17 06:00
--- NOTE | 2017-04-17 14:18 | CONSULT ---
Consult - text type - Consultation Consultation Note: 77 year old female presented with right sided facial droop, weakness and slurred speech. sx's lasted approx 15 min, fully resolved. she also had episode of double vision earlier in the day that fully resolved after about 15 min. she recently held all meds including xarelto for approx 2d due to ongoing sx's of abdominal pain, fatigue, malaise, decr appetite pt currently denies any cp, sob, palpitations. ongoing diffuse abd pain lower rib cage down to lower quadrants. PMH: PAF, rapid HRs colon cancer with metastasis to the liver, > 10yrs. ago, s/p hepatic resection diverticulosis, internal hemorrhoids, transverse colon AVM, colon polyps, severe GERD, ? moran's; esophageal and stomach ulcers - Alcohol/Substance Use Hx Alcohol Use: No - Smoking History Smoking history: Former smoker Allergies/Adverse Reactions: Allergies Allergy/AdvReac Type Severity Reaction Status Date / Time nebivolol HCl [From Bystolic] Allergy Difficulty Verified 04/16/17 21:01 Breathing Penicillins Allergy Hives Verified 04/16/17 21:01 - Home Medications Home Medications: Ambulatory Orders Diltiazem HCl [Cardizem] 360 mg PO AM 12/09/11 Losartan Potassium [Cozaar] 50 mg PO DAILY 12/09/11 Spironolactone [Aldactone -] 50 mg PO DAILY 12/09/11 Atorvastatin Calcium 20 mg PO DAILY tablet 07/10/14 Pantoprazole Sodium [Protonix -] 40 mg PO BID #30 tablet.ec 11/08/14 Oxycodone HCl 7.5 mg PO PRN PRN 04/24/15 Rivaroxaban [Xarelto -] 15 mg PO DAILY 04/16/17 Current Medications Generic Name Dose Route Start Last Admin Trade Name Freq PRN Reason Stop Dose Admin Aspirin 81 mg 04/17/17 10:00 04/17/17 09:08 Ecotrin - PO 81 mg DAILY ELANA Administration Atorvastatin Calcium 40 mg 04/17/17 22:00 Lipitor - PO HS ELANA Chlorhexidine Gluconate 1 applic 04/17/17 22:00 Hibiclens For Decolonization - TP HS ELANA Dextrose/Sodium Chloride 1,000 mls @ 83 mls/hr 04/17/17 11:45 D5-1/2ns - IV 04/17/17 23:48 ASDIR ELANA Amiodarone HCl 450 mg/ 250 mls @ 16.66 mls/hr 04/17/17 14:45 Dextrose IVPB TITR ELANA Protocol 0.5 MG/MIN Morphine Sulfate 2 mg 04/17/17 00:23 Morphine Sulfate IVPUSH Q4H PRN PAIN Morphine Sulfate 15 mg 04/17/17 10:00 04/17/17 09:09 Ms Contin - PO Not Given BID [facility] Mupirocin 1 applic 04/17/17 22:00 Bactroban Ointment (For Decolonization) - NS 04/22/17 21:59 BID [facility] Pantoprazole Sodium 40 mg 04/17/17 07:30 04/17/17 09:08 Protonix - PO 40 mg BID ELANA Administration Rivaroxaban 15 mg 04/17/17 12:00 04/17/17 13:52 Xarelto - PO 15 mg DAILY ELANA Administration Vital Signs: Last Vital Signs Temp Pulse Resp BP Pulse Ox 99.3 F 113 H 20 155/74 93 L 04/17/17 10:30 04/17/17 10:30 04/17/17 10:30 04/17/17 10:30 04/17/17 09:00 Respiratory: Yes: CTA Bilaterally. Gastrointestinal: Yes: Normal Bowel Sounds, Distention (seated on edge of bed). No: Hepatomegaly, Palpable Mass, Tenderness Cardiovascular: Yes: Regular Rate and Rhythm Musculoskeletal: Yes: Other (No kyphosis) Abnormal Lab Results 04/16/17 04/16/17 04/16/17 21:00 21:00 21:00 RBC 2.99 L D Hgb 8.8 L D Hct 26.2 L D Plt Count 82 L D PT with INR 16.70 H INR 1.48 H BUN 23 H Creatinine 1.2 H Random Glucose 120 H Calcium 8.1 L Total Bilirubin 1.7 H D AST 64 H D Alkaline Phosphatase 276 H D Total Protein Albumin 3.2 L D Digoxin 04/16/17 04/17/17 04/17/17 21:00 06:00 06:00 RBC Hgb Hct Plt Count PT with INR 16.70 H INR 1.48 H BUN 20 H Creatinine 1.1 H Random Glucose Calcium 7.9 L Total Bilirubin 2.5 H D AST 74 H Alkaline Phosphatase 254 H Total Protein 5.8 L Albumin 3.0 L Digoxin 0.0787 L Active Medications Generic Name Dose Route Start Last Admin Trade Name Freq PRN Reason Stop Dose Admin Aspirin 81 mg 04/17/17 10:00 04/17/17 09:08 Ecotrin - PO 81 mg DAILY ELANA Administration Atorvastatin Calcium 40 mg 04/17/17 22:00 Lipitor - PO HS [facility] Chlorhexidine Gluconate 1 applic 04/17/17 22:00 Hibiclens For Decolonization - TP HS [facility] Dextrose/Sodium Chloride 1,000 mls @ 83 mls/hr 04/17/17 11:45 D5-1/2ns - IV 04/17/17 23:48 ASDIR ELANA Amiodarone HCl 450 mg/ 250 mls @ 16.66 mls/hr 04/17/17 14:45 Dextrose IVPB TITR ELANA Protocol 0.5 MG/MIN Morphine Sulfate 2 mg 04/17/17 00:23 Morphine Sulfate IVPUSH Q4H PRN PAIN Morphine Sulfate 15 mg 04/17/17 10:00 04/17/17 09:09 Ms Contin - PO Not Given BID [facility] Mupirocin 1 applic 04/17/17 22:00 Bactroban Ointment (For Decolonization) - NS 04/22/17 21:59 BID ELANA Pantoprazole Sodium 40 mg 04/17/17 07:30 04/17/17 09:08 Protonix - PO 40 mg BID ELANA Administration Rivaroxaban 15 mg 04/17/17 12:00 04/17/17 13:52 Xarelto - PO 15 mg DAILY ELANA Administration Assessment/Plan 77 y/o patient with h/o HTN, hyperlipimia, CAD, afib, h/o colon cancer s/p resectionof liver mets > 10yrs. ago, with recent onset fatigue, malaise, wt, loss, nauseea, abdominal pain CT scans showed multiple liver mets, rt. and lt. liver lobe, concerning for mets. she comes in with rt. fcial droop/afib. Stopped xeralto 2d ago. ? lacunar infarct. MRI brain pending. ? hypercoagulab;e state of malignancy discussed with neuro/primary teams Bein transferred to icu for amiodarone drip Patient received 15mg xeralto today. Would consider switching to heparin drip without bolus tomorrow as may need biopsy of liver lesions once stabilized clinically As[place] awaiting MRI of brain Mild thrombocytopenuia--check culture/TSH/B12/folate Discussed withpatients daughter/son--poor performance status , stroke, liver mets. Need for biopsy when stab;e. Treatment options based on biopsy
[2017-04-17] MEDS ORDERED: AMIODARONE HCL INJECTION 450 MG in DEXTROSE 5%-WATER - 241 ML IVPB SCH (14:45)
--- NOTE | 2017-04-17 20:41 | CONSULT ---
Consult Consult Specialty:: PULM/CCM Referred by:: Dr. Natalie Boss Reason for Consultation:: A-Fib w/ RVR - History of Present Illness Chief Complaint: CVA History of Present Illness: Ms. Smith is a 77 y/o woman (pt of Dr. Justo Calles) w/ p-A-Fib on Xarelto, Colon CA w/ extensive mets to liver, diverticulosis, internal hemorrhoids, transverse colon AVMs, colon polyps, esophageal and stomach ulcers. Pt BIBA on 04/16 c/o sudden R sided facial droop, weakness, and slurred speech c/w lacunar infarction (NCHCT negative but NOT a TPA candidate 2/2 recent Xarelto & GI bleeding issues as outlined above ). The pt denied any CP, SOB, fevers, chills, MERCER, N/V/D or constipation. Pt on floor convalescing then A-Fib w/ RVR today requiring Amio load & Amio gtt + a gumby down to floor incident w/ no reported head trauma. Pt Transferred to the ICU for A-Fib w/ RVR. - History Source History Provided By: Patient, Medical Record Limitations to Obtaining History: Clinical Condition - Past Medical History Cardio/Vascular: Yes: AFIB, HTN Gastrointestinal: Yes: Cancer (colon with liver mets ), Diverticulosis, GERD, Peptic Ulcer Disease Hepatobiliary: Yes: Other (mets to liver recently identified) Heme/Onc: Yes: Cancer, Other (Colon CA) - Past Surgical History Past Surgical History: Yes: Colectomy - Alcohol/Substance Use Hx Alcohol Use: No - Smoking History Smoking history: Former smoker Have you smoked in the past 12 months: No Aproximately how many cigarettes per day: 0 If you are a former smoker, when did you quit?: 20 years Home Medications - Allergies Allergies/Adverse Reactions: Allergies Allergy/AdvReac Type Severity Reaction Status Date / Time nebivolol HCl [From Bystolic] Allergy Difficulty Verified 04/16/17 21:01 Breathing Penicillins Allergy Hives Verified 04/16/17 21:01 - Home Medications Home Medications: Ambulatory Orders Diltiazem HCl [Cardizem] 360 mg PO AM 12/09/11 Losartan Potassium [Cozaar] 50 mg PO DAILY 12/09/11 Spironolactone [Aldactone -] 50 mg PO DAILY 12/09/11 Atorvastatin Calcium 20 mg PO DAILY tablet 07/10/14 Pantoprazole Sodium [Protonix -] 40 mg PO BID #30 tablet.ec 11/08/14 Oxycodone HCl 7.5 mg PO PRN PRN 04/24/15 Rivaroxaban [Xarelto -] 15 mg PO DAILY 04/16/17 Family Disease History - Family Disease History Family History: Denies Review of Systems - Review of Systems Constitutional: reports: Loss of Appetite, Malaise, Unintentional Wgt. Loss, Weakness Eyes: reports: Blurred Vision HENT: reports: No Symptoms Neck: reports: No Symptoms Cardiovascular: reports: No Symptoms Respiratory: reports: No Symptoms Gastrointestinal: reports: No Symptoms Genitourinary: reports: No Symptoms Breasts: reports: No Symptoms Reported Musculoskeletal: reports: No Symptoms Integumentary: reports: No Symptoms Neurological: reports: Change in Speech, Weakness Endocrine: reports: Unexplained Weight Loss Hematology/Lymphatic: reports: No Symptoms Psychiatric: reports: No Symptoms Pain Intensity: 0 Physical Exam Vital Signs: Vital Signs Temperature 99.3 F 04/17/17 10:30 Pulse Rate 113 H 04/17/17 10:30 Respiratory Rate 20 04/17/17 10:30 Blood Pressure 155/74 04/17/17 10:30 O2 Sat by Pulse Oximetry (%) 93 L 04/17/17 09:00 Constitutional: Yes: Well Nourished, No Distress, Calm Eyes: Yes: WNL, Conjunctiva Clear, EOM Intact HENT: Yes: Other (R sided Facial Droop) Neck: Yes: WNL, Supple, Trachea Midline Cardiovascular: Yes: WNL, Pulse Irregular Respiratory: Yes: WNL, Regular, CTA Bilaterally Gastrointestinal: Yes: WNL, Normal Bowel Sounds, Soft ...Rectal Exam: Yes: Deferred Renal/: Yes: WNL Breast(s): Yes: WNL Musculoskeletal: Yes: Other (Ecchymosis --> R Hip) Extremities: Yes: Other (R sided weakness.) Edema: No Peripheral Pulses WNL: Yes Neurological: Yes: WNL, Alert, Oriented, Facial Droop, Weakness (R > L) ...Motor Strength: RUE (Weakness), RLE (Weakness) Psychiatric: Yes: WNL, Alert, Oriented Labs: CBC, BMP 04/16/17 21:00 04/17/17 06:00 Imaging - Results Chest X-ray: Image Reviewed (04/16: Clear (My Read).) EKG: Image Reviewed (RSR in the 70's w/o ectopy, No ST or T-wave aberrations, no acute process.) Problem List - Problems (1) Lacunar infarction Code(s): I63.9 - CEREBRAL INFARCTION, UNSPECIFIED (2) Paroxysmal atrial fibrillation Code(s): I48.0 - PAROXYSMAL ATRIAL FIBRILLATION (3) Cancer, metastatic to liver Code(s): C78.7 - SECONDARY MALIG NEOPLASM OF LIVER AND INTRAHEPATIC BILE DUCT Assessment/Plan ASSESS: This is a 77 y/o woman w/ p-A-Fib on Xarelto as well as Colon CA w/ extensive mets to liver who presents now w/ a lacunar infarct c/b A-Fib w/ RVR requiring Amio gtt. Pt is now back in RSR ready for return transfer back to Tele. PLAN: -NPO -Cont Xarelto -Convert IV Amio to PO & Transfer pt to Tele -Supp FiO2 for an SpO2 > 92% -Maintain permissive hypertension (SBP 140-160) -ASA -Lipitor -Repeat NCHCT -Carotid Dopplers -MRI/MRA Brain -S&S -NEURO to follow -Protonix -SCDs -No need for ICU care Thank you for this Interesting Consult DGL [facility] PULM/CCM
--- NOTE | 2017-04-17 22:29 | HOSP ---
Subjective - Review of Symptoms Subjective: Resident was paged on this patient who was transferred to ICU to be put on amio drip to control rapid afib w/ RVR. Patient reportedly fell on 4S prior to arriving to the ICU. Patient had an MRI head planned but unable to complete currently because of her status on amiodarone drip in ICU. Patient states that she hit her right hip. Denies pain to the area. Physical Examination Vital Signs: Vital Signs Temperature 101.6 F H 04/17/17 22:00 Pulse Rate 80 04/17/17 22:00 Respiratory Rate 23 04/17/17 22:00 Blood Pressure 148/58 04/17/17 22:00 O2 Sat by Pulse Oximetry (%) 94 L 04/17/17 21:00 Cardiovascular: Yes: Regular Rate and Rhythm Respiratory: Yes: Regular, CTA Bilaterally Extremities: Yes: Other (large area of ecchymosis noted on posterior R thigh) Peripheral Pulses WNL: Yes Labs: CBC, BMP 04/16/17 21:00 04/17/17 06:00 Hospitalist Encounter Assessment: Large ecchymotic area of posterior R thigh due to trauma from mechanical fall Recommendations/Interventions: Will do X-ray of R hip to r/o fracture Monitor for further swelling, edema, erythema Visit type - Emergency Visit Emergency Visit: No - New Patient This patient is new to me today: Yes Date on this admission: 04/17/17 - Critical Care Critical Care patient: Yes Total Critical Care Time (in minutes): 10
[2017-04-17] MEDS: MUPIROCIN 2% TOPICAL OINTMENT FOR DECOLONIZATION NS SCH (22:33)
[2017-04-17] MEDS: morphine SO4 SUSTAINED ACTING 15 MG TABLET.SA PO SCH (22:33)
[2017-04-17] MEDS: CHLORHEXIDINE GLUCONATE 4% CLEANSER FOR DECOLONIZATION TP SCH (22:33)
[2017-04-17] MEDS: ATORVASTATIN CA 40 MG TABLET (FP) PO SCH (22:33)
[2017-04-17] MEDS: PANTOPRAZOLE 40 MG TABLET (FP) PO SCH (22:33)
[2017-04-17] MEDS ORDERED: ACETAMINOPHEN 325 MG TABLET (FP) PO STA (22:35)
[2017-04-17] MEDS ORDERED: LACTATED RINGERS SOLUTION 1,000 ML/1,000 ML INFUS.BAG IV STA (23:35)
[2017-04-18] MEDS ORDERED: PT OWN MED DRAWER 7, Y5N ONE (01:01)
[2017-04-18 06:47] LABS: BASOPHIL 0.6 % (0-2.0); EOSINOPHIL 0.5 % (0-4.5); MCH 29.1 pg (25.7-33.7); MCHC 32.9 g/dl (32.0-36.0); MEAN CELL VOLUME 88.4 fl (80-96); MEAN PLT VOLUME 9.7 fl (7.5-11.1); NEUTROPHILS 80.6 % (42.8-82.8); PLATELET COUNT 83 K/MM3 (134-434); RDW 14.6 % (11.6-15.6); WHITE BLOOD COUNT 8.8 K/mm3 (4.0-10.0)
[2017-04-18 07:01] LABS: INR 2.35 (0.82-1.09); PROTHROMBIN TIME (PATIENT) 26.5 SEC (9.98-11.88)
[2017-04-18 07:04] LABS: ACTIVATED PTT 28.3 SECONDS (26.9-34.4)
[2017-04-18 07:52] LABS: FERRITIN 1749.629 ng/ml (6.9-282.5); FREE T4 1.21 ng/dl (0.76-1.46); THYROID STIMULATING HORMONE 1.71 uIU/ml (0.358-3.74)
--- NOTE | 2017-04-18 09:12 | PN ---
Progress Note (short form) - Note Progress Note: Patient seen and examined in the ICU. Awake and alert. HR much improved on Amiodarone drip . Denies CP or SOB. No dizziness. Intake & Output 04/15/17 04/16/17 04/17/17 04/18/17 23:59 23:59 23:59 23:59 Intake Total 482 1244.4 Balance 482 1244.4 Weight 170 lb 158 lb 6 oz 163 lb 12.855 oz Last Vital Signs Temp Pulse Resp BP Pulse Ox 98 F 62 16 123/58 94 L 04/18/17 06:00 04/18/17 06:00 04/18/17 06:00 04/18/17 06:00 04/17/17 21:00 Active Medications Aspirin (Ecotrin -) 81 mg PO DAILY [facility] Atorvastatin Calcium (Lipitor -) 40 mg PO HS [facility] Last Admin: 04/17/17 22:33 Dose: 40 mg Chlorhexidine Gluconate (Hibiclens For Decolonization -) 1 applic TP HS [facility] Last Admin: 04/17/17 22:33 Dose: 1 applic Amiodarone HCl 450 mg/ (Dextrose) 250 mls @ 16.66 mls/hr IVPB TITR ELANA; 0.5 MG/ MIN PRN Reason: Protocol Last Titration: 04/17/17 21:00 Dose: 0.5 mg/min, 16.66 mls/hr Dextrose/Sodium Chloride (D5-1/2ns -) 1,000 mls @ 83 mls/hr IV ASDIR ELANA Morphine Sulfate (Ms Contin -) 15 mg PO BID [facility] Last Admin: 04/17/17 22:33 Dose: 15 mg Morphine Sulfate (Morphine Sulfate) 2 mg IVPUSH Q4H PRN PRN Reason: PAIN Mupirocin (Bactroban Ointment (For Decolonization) -) 1 applic NS BID [facility] Stop: 04/22/17 21:59 Last Admin: 04/17/17 22:33 Dose: 1 applic Pantoprazole Sodium (Protonix -) 40 mg PO BID [facility] Last Admin: 04/17/17 22:33 Dose: 40 mg Rivaroxaban (Xarelto -) 15 mg PO DAILY [facility] Constitutional: Yes: Well Nourished, No Distress Eyes: Yes: WNL, Conjunctiva Clear, EOM Intact HENT: Yes: Other (R sided Facial Droop) Neck: Yes: WNL, Supple, Trachea Midline Cardiovascular: Yes: WNL, Pulse Irregular Respiratory: Yes: WNL, Regular, CTA Bilaterally Gastrointestinal: Yes: WNL, Normal Bowel Sounds, Soft ...Rectal Exam: Yes: Deferred Renal/: Yes: WNL Breast(s): Yes: WNL Musculoskeletal: Yes: Other (Ecchymosis --> R Hip) Extremities: Yes: Other (R sided weakness.) Edema: No Peripheral Pulses WNL: Yes Neurological: Yes: WNL, Alert, Oriented, Facial Droop, Weakness (R > L) ...Motor Strength: RUE (Weakness), RLE (Weakness) Psychiatric: Yes: WNL, Alert, Oriented Labs: Laboratory Results - last 24 hr 04/17/17 04/18/17 04/18/17 06:00 05:20 05:20 WBC 8.8 RBC 2.45 L Hgb 7.1 L D Hct 21.7 L D MCV 88.4 MCH 29.1 MCHC 32.9 RDW 14.6 Plt Count 83 L MPV 9.7 Neutrophils % 80.6 Lymphocytes % 8.9 D Monocytes % 9.4 Eosinophils % 0.5 Basophils % 0.6 PT with INR INR PTT (Actin FS) Fibrinogen Sodium 137 Potassium 4.5 Chloride 105 Carbon Dioxide 24 Anion Gap 8 BUN 20 H Creatinine 1.1 H Creat Clearance w eGFR 48.04 Random Glucose 104 Calcium 7.9 L Phosphorus 3.0 Magnesium 2.3 Ferritin 1749.629 H Total Bilirubin 2.5 H D AST 74 H ALT 60 Alkaline Phosphatase 254 H Total Protein 5.8 L Albumin 3.0 L Triglycerides 121 D Cholesterol 157 D Total LDL Cholesterol 98 HDL Cholesterol 42 TSH 1.03 1.71 D Free T4 1.21 04/18/17 05:20 WBC RBC Hgb Hct MCV MCH MCHC RDW Plt Count MPV Neutrophils % Lymphocytes % Monocytes % Eosinophils % Basophils % PT with INR 26.50 H INR 2.35 H D PTT (Actin FS) 28.3 Fibrinogen 146.0 L Sodium Potassium Chloride Carbon Dioxide Anion Gap BUN Creatinine Creat Clearance w eGFR Random Glucose Calcium Phosphorus Magnesium Ferritin Total Bilirubin AST ALT Alkaline Phosphatase Total Protein Albumin Triglycerides Cholesterol Total LDL Cholesterol HDL Cholesterol TSH Free T4 Problem List - Problems (1) Lacunar infarction Code(s): I63.9 - CEREBRAL INFARCTION, UNSPECIFIED (2) Paroxysmal atrial fibrillation Code(s): I48.0 - PAROXYSMAL ATRIAL FIBRILLATION (3) Cancer, metastatic to liver Code(s): C78.7 - SECONDARY MALIG NEOPLASM OF LIVER AND INTRAHEPATIC BILE DUCT Assessment/Plan ASSESS: This is a 77 y/o woman w/ p-A-Fib on Xarelto as well as Colon CA w/ extensive mets to liver who presents now w/ a lacunar infarct c/b A-Fib w/ RVR requiring Amio gtt. Pt is now back in RSR ready for return transfer back to [facility]. PLAN: Amiodarone drip per Cardiology Xarelto Supp FiO2 for an SpO2 > 92% Maintain permissive hypertension (SBP 140-160) ASA Lipitor Carotid Dopplers MRI/MRA Brain Protonix SCDs Dr Lacey Critical care time spent in reviewing chart, evaluating patient and formulating plan - 40 minutes.
[2017-04-18] MEDS: ASPIRIN COATED 81 MG TABLET.EC PO SCH (09:47)
[2017-04-18] MEDS: morphine SO4 SUSTAINED ACTING 15 MG TABLET.SA PO SCH ×2 (09:48→21:58)
[2017-04-18] MEDS: PANTOPRAZOLE 40 MG TABLET (FP) PO SCH ×2 (09:48→21:58)
[2017-04-18] MEDS: MUPIROCIN 2% TOPICAL OINTMENT FOR DECOLONIZATION NS SCH ×2 (09:48→21:56)
[2017-04-18] MEDS ORDERED: RIVAROXABAN 15 MG TABLET PO SCH (10:00)
--- NOTE | 2017-04-18 10:19 | PN ---
Progress Note, Physician Chief Complaint: abd distension/discomfort History of Present Illness: abd discomfort better today palpitations yesterday--resolved no cp, sob - Current Medication List Current Medications: Active Medications Aspirin (Ecotrin -) 81 mg PO DAILY [facility] Last Admin: 04/18/17 09:47 Dose: 81 mg Atorvastatin Calcium (Lipitor -) 40 mg PO HS [facility] Last Admin: 04/17/17 22:33 Dose: 40 mg Chlorhexidine Gluconate (Hibiclens For Decolonization -) 1 applic TP HS [facility] Last Admin: 04/17/17 22:33 Dose: 1 applic Diltiazem HCl (Cardizem Cd -) 360 mg PO DAILY [facility] Last Admin: 04/18/17 09:48 Dose: 360 mg Dextrose/Sodium Chloride (D5-1/2ns -) 1,000 mls @ 83 mls/hr IV ASDIR [facility] Morphine Sulfate (Ms Contin -) 15 mg PO BID [facility] Last Admin: 04/18/17 09:48 Dose: 15 mg Morphine Sulfate (Morphine Sulfate) 2 mg IVPUSH Q4H PRN PRN Reason: PAIN Mupirocin (Bactroban Ointment (For Decolonization) -) 1 applic NS BID [facility] Stop: 04/22/17 21:59 Last Admin: 04/18/17 09:48 Dose: 1 applic Pantoprazole Sodium (Protonix -) 40 mg PO BID [facility] Last Admin: 04/18/17 09:48 Dose: 40 mg Rivaroxaban (Xarelto -) 15 mg PO DAILY [facility] - Objective Vital Signs: Vital Signs Temperature 98 F 04/18/17 06:00 Pulse Rate 62 04/18/17 06:00 Respiratory Rate 16 04/18/17 06:00 Blood Pressure 123/58 04/18/17 06:00 O2 Sat by Pulse Oximetry (%) 94 L 04/17/17 21:00 Constitutional: Yes: Well Nourished, No Distress, Calm Cardiovascular: Yes: Regular Rate and Rhythm, S1, S2. No: JVD, Gallop, Murmur Respiratory: Yes: Regular, CTA Bilaterally. No: Accessory Muscle Use, Rales, Wheezes Gastrointestinal: Yes: Distention Extremities: No: Cold Edema: No Neurological: Yes: Alert, Oriented Psychiatric: No: Agitated Labs: CBC, BMP 04/18/17 05:20 04/17/17 06:00 INR, PTT INR 2.35 (0.82-1.09) H D 04/18/17 05:20 Fibrinogen 146.0 mg/dL (238-498) L 04/18/17 05:20 - ....Imaging EKG: Other (tele: NSR today) Assessment/Plan carotids: mild athero, no stenosis acute CVA: -2 episodes on DOA, in setting of missing home AC dose x 2d -CT head no infarct or bleed -neuro input reviewed: clinical course (stuttering) more likely lacunar than embolic--MRI brain pending (no neuro contraindication to AC) -carotid dopplers unremarkable -f/u echo PAF: -in sinus here -intolerant of low dose metoprolol and bystolic at low doses (profound fatigue, bronchospasm) -has tolerated high dose diltiazem (without signif GERD s.e.) -tolerated digoxin in past, but stopped given age and decr GFR--could add back if rapid HRs -rapid AF 150s on 04/18, began when pt was transported back to the floor from testing. she had not received any of her home cardizem CD 360 mg since admit, hence this may have contributed. -given very short AF duration, with pt's previously known refractory HRs (160) despite this dose of cardizem as outpt, and marked intolerance to even low doses of BB, she was pharmacologically cardioverted with amio bolus yest. -currently in sinus -long term care administrator po amio not a good option given lab evidence of liver dysfunction ( albumin 3.0, LFTs all up) with mult liver tumors per dr kothari -stop amio gtt. resume home cardizem--difficulty swallowing pills at present per RN--will change to short-acting dilt 90mg q6h to be crushed for her, though not a good long-term option--reassess once appetite/GI tolerance improves. -will add digoxin given renal fxn is stable and HR was very rapid on cardizem alone in past. -INR 1.4 on admit, hadn't taken xarelto in approx 48 hrs per family--? lingering drug effect vs liver dysfunction (uncertain per heme) -received xarelto on 04/17, INR 2.3 today -she will need liver biopsy so would like reversible AC agent on board until then -d/w'd dr kothari: plan to hold AC today and start UFH tomorrow -despite some incr risk of bleeding with uncertain degree of decr'd hepatic synthetic function, this pt with malignancy has proven that she remains hypercoagulable given TIA x 2 on DOA; hence benefits of AC likely > risks here. HTN: -bp controlled here -bp targets per neuro -cont home meds for now CKD: -baseline creat runs 1.1-1.5 -renal fxn stable here CAD: -cor calcium score intermediate (slightly above 50th %ile) -MPI in past equivocal ? apical ischemia vs variable breast artifact -never had anginal sx's -ecg no acute ischemic changes here -cont home regimen: statin (atorva 10 at home), ARB, no ASA (on AC) HPL: -intolerant atorva 20. -LDL runs 90s on atorva 10, similar here -same med regimen asthma: -intolerant of B-B in past -no current wheezing/sob colon cancer with liver mets/anemia/anorexia/abd pain: -? sx's related to tumor -all LFTs mildly elevated, abd distended -per hospitalist +/- Onc as indicated ok for transfer to tele est'd time spent in review of data and formulating mgmt plan = 35 min
--- NOTE | 2017-04-18 12:06 | PN ---
Progress Note (short form) - Note Progress Note: Patient off unit in MRI. Will f/u Wednesday. Problem List - Problems (1) Lacunar infarction Code(s): I63.9 - CEREBRAL INFARCTION, UNSPECIFIED (2) Cancer, metastatic to liver Code(s): C78.7 - SECONDARY MALIG NEOPLASM OF LIVER AND INTRAHEPATIC BILE DUCT (3) Paroxysmal atrial fibrillation Code(s): I48.0 - PAROXYSMAL ATRIAL FIBRILLATION
--- NOTE | 2017-04-18 12:58 | PN ---
Progress Note (short form) - Note Progress Note: Patient answers all the questions unable to move her right lower and upper extremities. Son and daughter is at bedside. Vital Signs Temperature 98.9 F 04/18/17 10:00 Pulse Rate 63 04/18/17 10:00 Respiratory Rate 18 04/18/17 10:00 Blood Pressure 132/58 04/18/17 10:00 O2 Sat by Pulse Oximetry (%) 94 L 04/18/17 09:00 GENERAL: The patient is awake, alert, and fully oriented, in no acute distress. HEAD: Normal with no signs of trauma. EYES: PERRL, extraocular movements intact, sclera anicteric, conjunctiva clear, positive for facial droop. ENT: Ears normal, oropharynx clear without exudates, very dry mucous membranes. NECK: Trachea midline, full range of motion, supple. LUNGS: Breath sounds equal, clear to auscultation bilaterally, no wheezes, no crackles, no accessory muscle use. HEART: Regular rate and rhythm, S1, S2 without murmur, rub or gallop. ABDOMEN: Soft, nontender, nondistended, normoactive bowel sounds, no guarding, no rebound, no hepatosplenomegaly, no masses. EXTREMITIES: 2+ pulses, warm, well-perfused, no edema. RUE weak 2/5 , LUE 5/5 , LuEs 5/5.LLE 2/5 NEUROLOGICAL: Cranial nerves II through XII grossly intact. positive facial droop , but normal speech, gait not observed., PSYCH: Normal mood, normal affect. SKIN: Warm, dry, normal turgor, no rashes or lesions noted INR, PTT INR 2.35 (0.82-1.09) H D 04/18/17 05:20 Fibrinogen 146.0 mg/dL (238-498) L 04/18/17 05:20 CBCD WBC 8.8 K/mm3 (4.0-10.0) 04/18/17 05:20 RBC 2.45 M/mm3 (3.60-5.2) L 04/18/17 05:20 Hgb 7.1 GM/dL (10.7-15.3) L D 04/18/17 05:20 Hct 21.7 % (32.4-45.2) L D 04/18/17 05:20 MCV 88.4 fl (80-96) 04/18/17 05:20 MCHC 32.9 g/dl (32.0-36.0) 04/18/17 05:20 RDW 14.6 % (11.6-15.6) 04/18/17 05:20 Plt Count 83 K/MM3 (134-434) L 04/18/17 05:20 MPV 9.7 fl (7.5-11.1) 04/18/17 05:20 CMP Sodium 137 mmol/L (136-145) 04/17/17 06:00 Potassium 4.5 mmol/L (3.5-5.1) 04/17/17 06:00 Chloride 105 mmol/L (98-107) 04/17/17 06:00 Carbon Dioxide 24 mmol/L (21-32) 04/17/17 06:00 Anion Gap 8 (8-16) 04/17/17 06:00 BUN 20 mg/dL (7-18) H 04/17/17 06:00 Creatinine 1.1 mg/dL (0.55-1.02) H 04/17/17 06:00 Creat Clearance w eGFR 48.04 (>60) 04/17/17 06:00 Random Glucose 104 mg/dL (74-106) 04/17/17 06:00 Calcium 7.9 mg/dL (8.5-10.1) L 04/17/17 06:00 Total Bilirubin 2.5 mg/dL (0.2-1.0) H D 04/17/17 06:00 AST 74 U/L (15-37) H 04/17/17 06:00 ALT 60 U/L (12-78) 04/17/17 06:00 Alkaline Phosphatase 254 U/L (45-117) H 04/17/17 06:00 Total Protein 5.8 g/dl (6.4-8.2) L 04/17/17 06:00 Albumin 3.0 g/dl (3.4-5.0) L 04/17/17 06:00 Current Medications Generic Name Dose Route Start Last Admin Trade Name Freq PRN Reason Stop Dose Admin Aspirin 81 mg 04/18/17 10:00 04/18/17 09:47 Ecotrin - PO 81 mg DAILY ELANA Administration Atorvastatin Calcium 40 mg 04/17/17 22:00 04/17/17 22:33 Lipitor - PO 40 mg HS ELANA Administration Chlorhexidine Gluconate 1 applic 04/17/17 22:00 04/17/17 22:33 Hibiclens For Decolonization - TP 1 applic HS ELANA Administration Digoxin 0.125 mg 04/18/17 10:30 Lanoxin - PO DAILY ELANA Diltiazem HCl 90 mg 04/19/17 00:01 Cardizem - PO Q6HPO [facility] Dextrose/Sodium Chloride 1,000 mls @ 83 mls/hr 04/17/17 15:01 D5-1/2ns - IV ASDIR ELANA Morphine Sulfate 15 mg 04/17/17 22:00 04/18/17 09:48 Ms Contin - PO 15 mg BID ELANA Administration Morphine Sulfate 2 mg 04/17/17 15:01 Morphine Sulfate IVPUSH Q4H PRN PAIN Mupirocin 1 applic 04/17/17 22:00 04/18/17 09:48 Bactroban Ointment (For Decolonization) - NS 04/22/17 21:59 1 applic BID [facility] Administration Pantoprazole Sodium 40 mg 04/17/17 22:00 04/18/17 09:48 Protonix - PO 40 mg BID ELANA Administration Rivaroxaban 15 mg 04/18/17 10:00 04/18/17 10:22 Xarelto - PO Not Given DAILY [facility] Home Medications Medication Instructions Recorded Diltiazem HCl [Cardizem] 360 mg PO AM 12/09/11 Losartan Potassium [Cozaar] 50 mg PO DAILY 12/09/11 Spironolactone [Aldactone -] 50 mg PO DAILY 12/09/11 Atorvastatin Calcium 20 mg PO DAILY tablet 07/10/14 Pantoprazole Sodium [Protonix -] 40 mg PO BID #30 tablet.ec 11/08/14 Oxycodone HCl 7.5 mg PO PRN PRN 04/24/15 Rivaroxaban [Xarelto -] 15 mg PO DAILY 04/16/17 carotids: mild athero, no stenosis MRI of the head without contrast: A/P: Patient is a 77 yo woman w/ pmh of colon/liver ca, chronic afib, HTN, HLD, PUD and diverticulosis who presents to the ED after daughter witnessed her with R side facial droop, R hand weakness and dysarthria that lasted approximately 15- 20 minutes and resolved before arrival in ED. Patient is admitted for recurrent TIA. #Acute CVA with recurrent TIAs: will hold Xarelto today , will start Heparin as per discussed with no Heparin bolus as per discussion with Public Affairs Specialist . Neurologist and paper sales representative are on case. MRI Multiple punctate acute infarctions and one moderate sized left MCA branch infarction with petechial hemorrhage. As per neurologist; a bit higher risk,but does not think that the size of the infarction nor the petechial hemorrhage preludes anticoagulation, preferably with a reversible agent for the time being. She is at very high risk for recurrent infarction because of the atrial fibrillation. discussed with Dr. Pimentel. On Lipitor 40mg po daily. #P-afib rate is stable off Xarelto now, off amnio drip today since patient is back to her sinus now , discontinued by paper sales representative , discussed with . # Acute dehydration: patient looks very dry will start her on IVF. D51/2NS at 83cc/hr x 1 liter. f/u echo #Chronic back pain on MS contin 15mg BID, Morphine sulfate 2mg IVP prn HTN: controlled on Cardizem 90mg q6 ,continue CKD: baseline creat runs 1.1-1.5, stable CAD: cont home regimen: statin (atorva 10 at home), ARB, no ASA (on AC) HPL: intolerant atorva 20; LDL in 90s asthma: intolerant of B-B in past; no current wheezing/sob Hx of colon cancer with liver mets all LFTs mildly elevated, abd distended Dysphagia whole diet, with monitoring. DVT Px: On XArelto( hold for now) , will start Heparin without BOLUS in ICU monitor setting. Visit type - Emergency Visit Emergency Visit: Yes ED Registration Date: 04/16/17 Care time: The patient presented to the Emergency Department on the above date and was hospitalized for further evaluation of their emergent condition. - New Patient This patient is new to me today: No - Critical Care Critical Care patient: Yes Total Critical Care Time (in minutes): 35 Critical Care Statement: The care of this patient involved high complexity decision making to prevent further life threatening deterioration of the patient 's condition and/or to evaluate & treat vital organ system(s) failure or risk of failure.
[2017-04-18] MEDS: DIGOXIN 0.125 MG TABLET (FP) PO SCH (16:45)
--- NOTE | 2017-04-18 16:56 | PN ---
Progress Note (short form) - Note Progress Note: Patient seen and examined Lethargic, Rt. hemiparesis Arousable. Oriented in place and person Last Vital Signs Temp Pulse Resp BP Pulse Ox 98.6 F 50 L 21 103/46 94 L 04/18/17 14:00 04/18/17 16:45 04/18/17 16:00 04/18/17 16:00 04/18/17 09:00 Cor: RSR, No murmurs, No gallops Lungs: Clear to P&A Abd: Soft, Normal bowel sounds, No organomegaly Ext:Rt. hemiplegia Abnormal Lab Results 04/18/17 04/18/17 04/18/17 05:20 05:20 05:20 RBC 2.45 L Hgb 7.1 L D Hct 21.7 L D Plt Count 83 L PT with INR 26.50 H INR 2.35 H D Fibrinogen 146.0 L Ferritin 1749.629 H 04/18/17 17:00 RBC Hgb Hct Plt Count PT with INR 20.50 H INR 1.81 H Fibrinogen 175.0 L Ferritin Home Medication List Medication Instructions Recorded Confirmed Type Diltiazem HCl [Cardizem] 360 mg PO AM 12/09/11 04/16/17 History Losartan Potassium [Cozaar] 50 mg PO DAILY 12/09/11 04/16/17 History Spironolactone [Aldactone -] 50 mg PO DAILY 12/09/11 04/16/17 History Atorvastatin Calcium 20 mg PO DAILY tablet 07/10/14 04/16/17 History Oxycodone HCl 7.5 mg PO PRN PRN 04/24/15 04/16/17 History Rivaroxaban [Xarelto -] 15 mg PO DAILY 04/16/17 04/16/17 History Active Medications Generic Name Dose Route Start Last Admin Trade Name Freq PRN Reason Stop Dose Admin Aspirin 81 mg 04/18/17 10:00 04/18/17 09:47 Ecotrin - PO 81 mg DAILY ELANA Administration Atorvastatin Calcium 40 mg 04/17/17 22:00 04/17/17 22:33 Lipitor - PO 40 mg HS ELANA Administration Chlorhexidine Gluconate 1 applic 04/17/17 22:00 04/17/17 22:33 Hibiclens For Decolonization - TP 1 applic HS ELANA Administration Digoxin 0.125 mg 04/18/17 10:30 04/18/17 16:45 Lanoxin - PO Not Given DAILY [facility] Diltiazem HCl 90 mg 04/19/17 00:01 Cardizem - PO Q6HPO [facility] Dextrose/Sodium Chloride 1,000 mls @ 83 mls/hr 04/17/17 15:01 D5-1/2ns - IV ASDIR ELANA Morphine Sulfate 15 mg 04/17/17 22:00 04/18/17 09:48 Ms Contin - PO 15 mg BID ELANA Administration Morphine Sulfate 2 mg 04/17/17 15:01 Morphine Sulfate IVPUSH Q4H PRN PAIN Mupirocin 1 applic 04/17/17 22:00 04/18/17 09:48 Bactroban Ointment (For Decolonization) - NS 04/22/17 21:59 1 applic BID ELANA Administration Pantoprazole Sodium 40 mg 04/17/17 22:00 04/18/17 09:48 Protonix - PO 40 mg BID ELANA Administration A/P 77 y/o patient with h/o HTN, hyperlipimia, CAD, afib, h/o colon cancer s/p resectionof liver mets > 10yrs. ago, with recent onset fatigue, malaise, wt, loss, nauseea, abdominal pain CT scans showed multiple liver mets, rt. and lt. liver lobe, concerning for mets. she comes in with rt. fcial droop/afib. Stopped xeralto 2d ago. Resumed xeralto yesterday Progression of CVA -- hypercoagulable state of malignancy MRI Mod. Lt. frontal infarct with petechial hemorrhages and multiple b/l cerebral and cerebellar infarcts discussed with neurology high risk of bleeding/clotting . high risk of clotting given hypercoagulable state of malignancy and high risk of bleeding given extensive liver mets. difficult situation. discussed with patients son and daughter will start heparin drip without bolus. High risk of bleeding/clotting they understand Poor prognosis
[2017-04-18 17:54] LABS: INR 1.81 (0.82-1.09); PROTHROMBIN TIME (PATIENT) 20.5 SEC (9.98-11.88)
[2017-04-18 17:57] LABS: ACTIVATED PTT 27.2 SECONDS (26.9-34.4)
[2017-04-18] MEDS ORDERED: HEPARIN NA (PORCINE) 5,000 UNITS/ML 1ML VIAL IVPUSH PRN ×2 (18:06)
[2017-04-18] MEDS ORDERED: HEPARIN INFUSION - 25,000 UNITS/500 ML INFUS.BAG IVPB SCH (18:15)
[2017-04-18] MEDS: PHYTONADIONE 10 MG/1 ML AMP SQ SCH (21:56)
[2017-04-18] MEDS: CHLORHEXIDINE GLUCONATE 4% CLEANSER FOR DECOLONIZATION TP SCH (21:57)
[2017-04-18] MEDS: ATORVASTATIN CA 40 MG TABLET (FP) PO SCH (21:57)
[2017-04-19] MEDS: dilTIAZem HCL 60 MG TABLET (FP) PO SCH ×3 (00:19→17:51)
--- NOTE | 2017-04-19 06:32 | PN ---
Physical Exam: SUBJECTIVE: Patient seen and examined by me this AM - No major complaints. In good spirits, interactive with interviewer. - Denies any MERCER/dizziness, CP, palpitations, cough, SOB, N/V, fevers/chills, diarrhea/constipation, dysuria OBJECTIVE: Vital Signs Intake & Output 04/16/17 04/17/17 04/18/17 04/19/17 23:59 23:59 23:59 23:59 Intake Total 482 2273.4 1603 Output Total 1100 400 Balance 482 1173.4 1203 Weight 77.111 kg 71.838 kg 74.3 kg 73.663 kg Period Temp Pulse Resp BP Sys/Sheppard Pulse Ox Last 24 Hr 98.2 F-98.9 F 46-82 14-21 97-140/43-59 94-98 GENERAL: Awake, alert, and fully oriented to name/location/date, in no acute distress. Resting comfortably HEAD: NCAT EYES: Pupils equal, round and reactive to light, sclera anicteric, conjunctiva clear. No lid lag. Significant R sided visual field defect. Pt cannot look to R (lateral deviation of r eye, medial deviation of L eye), w/ mild deviation to L of both eyes. EARS, NOSE, THROAT: Ears normal, nares patent, oropharynx clear without exudates. Moist mucous membranes. NECK: Normal range of motion, JVD, or masses. LUNGS: Breath sounds equal, clear to auscultation bilaterally. No wheezes, and no crackles. No accessory muscle use. HEART: Regular rate and rhythm, normal S1 and S2 without murmur, rub or gallop. ABDOMEN: Soft, not distended, normoactive bowel sounds, no rebound, no masses. No hepatomegaly or splenomegaly. UPPER EXTREMITIES: 2+ pulses, warm, well-perfused. No cyanosis. No clubbing. No peripheral edema. Still w/ anterior bruise on R forearm, healing. LOWER EXTREMITIES: 2+ pulses, warm, well-perfused. No calf tenderness. No peripheral edema. NEUROLOGICAL: Mild dysarthria. Still with R lateral tongue deviation, R facial droop, diminished eyelid closure strength on R side. Unable to look right, slight L side drift on both eyes. Facial sensation to light touch diminished on R side. 1/5 shoulder shrug on R side, preserved on L side. 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 Complete paralysis of R hand, arm. 5/5 strength in arm flexors and extensors in L arm. 5/5 strength in L leg, 0/5 in distal muscle groups on R side, 3/5 in proximal muscle groups. Complete hemiparesis to light touch in R arm and leg. preserved light touch sensation on L side. unable to evaluate gait. 2+ L biceps, patellar reflex. 3+ R biceps, patellar reflex. Psych: Refused serial 3s. equipment operator intermodal yard memory deficit, unable/refused to list current/prior presidents. Poor mental calculation (unable to tabulate 7 quarters value). Poor abstract thinking. Short term memory deficit (0/3 object recall). SKIN: Warm, dry, normal turgor, normal cap refill. Laboratory Results - last 24 hr CBC, BMP 04/19/17 05:00 04/19/17 05:00 Laboratory Tests 04/16/17 04/16/17 04/16/17 21:00 21:00 21:00 WBC 8.7 D RBC 2.99 L D Hgb 8.8 L D Hct 26.2 L D MCV 87.8 MCH 29.4 MCHC 33.5 RDW 14.4 Plt Count 82 L D MPV 9.4 D Neutrophils % 78.0 Lymphocytes % 12.1 D Monocytes % 8.2 Eosinophils % 1.2 Basophils % 0.5 Hypochromia 1+ Macrocytosis 1+ PT with INR 16.70 H INR 1.48 H PTT (Actin FS) 30.6 Fibrinogen Sodium 138 Potassium 4.3 Chloride 105 Carbon Dioxide 25 Anion Gap 8 BUN 23 H Creatinine 1.2 H Creat Clearance w eGFR 43.45 Random Glucose 120 H Hemoglobin A1c % Calcium 8.1 L Phosphorus Magnesium Iron TIBC Iron Saturation Ferritin Total Bilirubin 1.7 H D AST 64 H D ALT 65 D Alkaline Phosphatase 276 H D Total Protein 6.4 Albumin 3.2 L D Triglycerides Cholesterol Total LDL Cholesterol HDL Cholesterol Total Amylase Lipase Vitamin B12 TSH Free T4 Stool Occult Blood Digoxin Blood Type Antibody Screen Crossmatch 04/16/17 04/16/17 04/16/17 21:00 21:00 22:20 WBC RBC Hgb Hct MCV MCH MCHC RDW Plt Count MPV Neutrophils % Lymphocytes % Monocytes % Eosinophils % Basophils % Hypochromia Macrocytosis PT with INR INR PTT (Actin FS) Fibrinogen Sodium Potassium Chloride Carbon Dioxide Anion Gap BUN Creatinine Creat Clearance w eGFR Random Glucose Hemoglobin A1c % Calcium Phosphorus Magnesium Iron TIBC Iron Saturation Ferritin Total Bilirubin AST ALT Alkaline Phosphatase Total Protein Albumin Triglycerides Cholesterol Total LDL Cholesterol HDL Cholesterol Total Amylase 43 Lipase 287 Vitamin B12 TSH Free T4 Stool Occult Blood Negative Digoxin 0.0787 L Blood Type Antibody Screen Crossmatch 04/17/17 04/17/17 04/17/17 06:00 06:00 06:00 WBC RBC Hgb Hct MCV MCH MCHC RDW Plt Count MPV Neutrophils % Lymphocytes % Monocytes % Eosinophils % Basophils % Hypochromia Macrocytosis PT with INR 16.70 H INR 1.48 H PTT (Actin FS) 29.5 Fibrinogen Sodium 137 Potassium 4.5 Chloride 105 Carbon Dioxide 24 Anion Gap 8 BUN 20 H Creatinine 1.1 H Creat Clearance w eGFR 48.04 Random Glucose 104 Hemoglobin A1c % 5.4 D Calcium 7.9 L Phosphorus 3.0 Magnesium 2.3 Iron TIBC Iron Saturation Ferritin Total Bilirubin 2.5 H D AST 74 H ALT 60 Alkaline Phosphatase 254 H Total Protein 5.8 L Albumin 3.0 L Triglycerides 121 D Cholesterol 157 D Total LDL Cholesterol 98 HDL Cholesterol 42 Total Amylase Lipase Vitamin B12 TSH 1.03 Free T4 Stool Occult Blood Digoxin Blood Type Antibody Screen Crossmatch 04/18/17 04/18/17 04/18/17 05:20 05:20 05:20 WBC 8.8 RBC 2.45 L Hgb 7.1 L D Hct 21.7 L D MCV 88.4 MCH 29.1 MCHC 32.9 RDW 14.6 Plt Count 83 L MPV 9.7 Neutrophils % 80.6 Lymphocytes % 8.9 D Monocytes % 9.4 Eosinophils % 0.5 Basophils % 0.6 Hypochromia Macrocytosis PT with INR INR PTT (Actin FS) Fibrinogen Sodium Potassium Chloride Carbon Dioxide Anion Gap BUN Creatinine Creat Clearance w eGFR Random Glucose Hemoglobin A1c % Calcium Phosphorus Magnesium Iron 27 TIBC 187 L Iron Saturation 14 L Ferritin 1749.629 H Total Bilirubin AST ALT Alkaline Phosphatase Total Protein Albumin Triglycerides Cholesterol Total LDL Cholesterol HDL Cholesterol Total Amylase Lipase Vitamin B12 654 TSH 1.71 D Free T4 1.21 Stool Occult Blood Digoxin Blood Type Antibody Screen Crossmatch 04/18/17 04/18/17 04/18/17 05:20 17:00 17:00 WBC RBC Hgb Hct MCV MCH MCHC RDW Plt Count MPV Neutrophils % Lymphocytes % Monocytes % Eosinophils % Basophils % Hypochromia Macrocytosis PT with INR 26.50 H 20.50 H INR 2.35 H D 1.81 H PTT (Actin FS) 28.3 27.2 Fibrinogen 146.0 L 175.0 L Sodium Potassium Chloride Carbon Dioxide Anion Gap BUN Creatinine Creat Clearance w eGFR Random Glucose Hemoglobin A1c % Calcium Phosphorus Magnesium Iron TIBC Iron Saturation Ferritin Total Bilirubin AST ALT Alkaline Phosphatase Total Protein Albumin Triglycerides Cholesterol Total LDL Cholesterol HDL Cholesterol Total Amylase Lipase Vitamin B12 TSH Free T4 Stool Occult Blood Digoxin Blood Type A POSITIVE Antibody Screen Negative Crossmatch See Detail 04/19/17 04/19/17 04/19/17 00:30 05:00 05:00 WBC 9.9 RBC 3.16 L D Hgb 9.4 L D Hct 27.7 L D MCV 87.9 MCH 29.9 MCHC 34.1 RDW 14.4 Plt Count 91 L MPV 10.2 Neutrophils % Lymphocytes % Monocytes % Eosinophils % Basophils % Hypochromia Macrocytosis PT with INR 18.50 H INR 1.64 H PTT (Actin FS) 49.0 H D Fibrinogen Sodium Potassium Chloride Carbon Dioxide Anion Gap BUN Creatinine Creat Clearance w eGFR Random Glucose Hemoglobin A1c % Calcium Phosphorus Magnesium Iron TIBC Iron Saturation Ferritin Total Bilirubin AST ALT Alkaline Phosphatase Total Protein Albumin Triglycerides Cholesterol Total LDL Cholesterol HDL Cholesterol Total Amylase Lipase Vitamin B12 TSH Free T4 Stool Occult Blood Digoxin Blood Type Antibody Screen Crossmatch 04/19/17 04/19/17 05:00 05:00 WBC RBC Hgb Hct MCV MCH MCHC RDW Plt Count MPV Neutrophils % Lymphocytes % Monocytes % Eosinophils % Basophils % Hypochromia Macrocytosis PT with INR INR PTT (Actin FS) Fibrinogen 195.0 L Sodium 134 L Potassium 4.8 Chloride 103 Carbon Dioxide 25 Anion Gap 6 L BUN 23 H Creatinine 1.3 H Creat Clearance w eGFR 39.61 Random Glucose 96 Hemoglobin A1c % Calcium 7.2 L Phosphorus Magnesium Iron TIBC Iron Saturation Ferritin Total Bilirubin 3.3 H D AST 100 H D ALT 72 Alkaline Phosphatase 234 H Total Protein 5.3 L Albumin 2.6 L Triglycerides Cholesterol Total LDL Cholesterol HDL Cholesterol Total Amylase Lipase Vitamin B12 TSH Free T4 Stool Occult Blood Digoxin Blood Type Antibody Screen Crossmatch Active Medications Generic Name Dose Route Start Last Admin Trade Name Freq PRN Reason Stop Dose Admin Aspirin 81 mg 04/18/17 10:00 04/18/17 09:47 Ecotrin - PO 81 mg DAILY ELANA Administration Atorvastatin Calcium 40 mg 04/17/17 22:00 04/18/17 21:57 Lipitor - PO 40 mg HS ELANA Administration Chlorhexidine Gluconate 1 applic 04/17/17 22:00 04/18/17 21:57 Hibiclens For Decolonization - TP 1 applic HS ELANA Administration Digoxin 0.125 mg 04/18/17 10:30 04/18/17 16:45 Lanoxin - PO Not Given DAILY ELANA Diltiazem HCl 90 mg 04/19/17 00:01 04/19/17 06:13 Cardizem - PO 90 mg Q6HPO ELANA Administration Heparin Sodium (Porcine) 1,000 unit 04/18/17 18:06 04/19/17 01:06 Heparin - IVPUSH 1,000 unit PRN PRN Administration Heparin Heparin Sodium (Porcine) 5,000 unit 04/18/17 18:06 Heparin - IVPUSH PRN PRN Heparin Dextrose/Sodium Chloride 1,000 mls @ 83 mls/hr 04/17/17 15:01 D5-1/2ns - IV ASDIR ELANA Heparin Sodium/Dextrose 25,000 units in 500 mls @ 16 mls/hr 04/18/17 18:15 01:01 Heparin Infusion - IVPB 900 units/hr TITR ELANA 18 mls/hr Protocol Titration 800 UNITS/HR Morphine Sulfate 15 mg 04/17/17 22:00 04/18/17 21:58 Ms Contin - PO 15 mg BID ELANA Administration Morphine Sulfate 2 mg 04/17/17 15:01 Morphine Sulfate IVPUSH Q4H PRN PAIN Mupirocin 1 applic 04/17/17 22:00 04/18/17 21:56 Bactroban Ointment (For Decolonization) - NS 04/22/17 21:59 1 applic BID ELANA Administration Pantoprazole Sodium 40 mg 04/17/17 22:00 04/18/17 21:58 Protonix - PO 40 mg BID ELANA Administration Phytonadione 5 mg 04/18/17 20:15 04/18/17 21:56 Aqua Mephyton Injection - SQ 04/20/17 10:01 5 mg DAILY ELANA Administration Microbiology 04/17/17 16:10 Blood - Peripheral Venous Blood Culture - Preliminary NO GROWTH OBTAINED AFTER 24 HOURS, INCUBATION TO CONTINUE FOR 4 DAYS. 04/17/17 16:10 Blood - Peripheral Venous Blood Culture - Preliminary NO GROWTH OBTAINED AFTER 24 HOURS, INCUBATION TO CONTINUE FOR 4 DAYS. Imaging: Non Head CT 04/16 - No acute pathology, mass or acute bleed. Chest CT 04/16 - No CT findings of acute pathology are identified involving the chest. Minimal to mild bilateral lower lobe discoid atelectasis/linear scarring. Stable benign 0.4 cm left lower lobe pulmonary nodule in comparison to a [address] study. Possible mild cardiomegaly. Head MRI 04/18 - Multiple bilateral cerebral and cerebellar acute infarcts are noted as discussed above. An acute left frontal cortical infarct is seen containing a trace amount of acute petechial blood. ASSESSMENT/PLAN: 77 yo woman w/ pmh of colon/liver ca, chronic afib, HTN, HLD, PUD and diverticulosis who presented to the ED after daughter witnessed her with R side facial droop, R hand weakness and dysarthria, intially resolved, then worsened during admission to include fixed R side paralysis/hemiparesis. Brain MRI with multiple bilateral cerebral/cerebellar infarcts, w/ evidence of mild acute bleeding, believed to be embolic shower or possible lacunar infarct. #Acute multi-infarct CVA - MRI w/ multiple bilateral cerebral/cerebellar infarcts. Pt with R sided hemiparesis/paralysis, dysarthria. - Serial neuro exams qshift - Repeat head CT in 48 hours. - Continue heparin gtt. No boluses. Bridge to coumadin - Off aspirin - Atorvastatin 40mg daily - Carotid doppler w/ mild atherosclerotic dz w/ no significant plaque - F/u echo results. Ordered on admission, still pending - Neurology following. Recs greatly appreciated. #Afib - Pt on xarelto for AC as outpt. Held on admission. Resumed on 04/17, transitioned to heparin gtt 04/18 - Cardiology consulted (Dr. Azar). Recs appreciated. - Rapid Afib w/ rvr to 150s on 04/18 - Poor BB tolerance (fatigue, bronchospasm) - High dose Cardizem 60mg q6h per cardiology - Continue heparin gtt for AC - Cardiac monitoring - F/u EKG results - Off amiodarone gtt #Mild HERBERTH - BUN/Cr 23/1.2 on admission. Remained in range of 1.1-1.3 - Continue IVFs - Daily BMPs - Trend Cr #Anemia - Hgb 7.1 04/18 AM. Transfused 2 units pRBCs per Heme/onc team, f/u Hgb 9.4 04/19. Patient denies any recent bleeds, melena, hematuria - Continue to Trend H/H - Iron 27, TIBC 187, iron sat 14, ferritin 1750 - Monitor for signs of bleeding - High risk of bleeding/clotting given malignancy, liver mets, baseline elevated INR - Heme/onc following. Recs appreciated #Liver mets - Oncology team following - Continue to trend LFTs - Bx of liver lesions - Will require outpt f/u for further management #HTN - Cardizem 60mg q6 - Monitor for hypotension given bradycardia to 40s today #HLD - Atorvastatin 40mg PO #Chronic back pain - MS contin 15mg BID #PUD - PPI #PPX: - heparin gtt FEN: Fluids:83 d51/2ns Electrolytes: Trend BUN/Cr Nutrition: dysphagia puree per S+S Dispo: Transfer to tele for continued monitoring in setting of multi-infarct/ lacunar stroke and paroxysmal aFib. Plan discussed with attending, Dr. Karyn Hidalgo, PGY1 Visit type - Emergency Visit Emergency Visit: Yes ED Registration Date: 04/16/17 Care time: The patient presented to the Emergency Department on the above date and was hospitalized for further evaluation of their emergent condition. - New Patient This patient is new to me today: No - Critical Care Critical Care patient: Yes Total Critical Care Time (in minutes): 35 Critical Care Statement: The care of this patient involved high complexity decision making to prevent further life threatening deterioration of the patient 's condition and/or to evaluate & treat vital organ system(s) failure or risk of failure.
[2017-04-19 06:33] LABS: INR 1.64 (0.82-1.09); PROTHROMBIN TIME (PATIENT) 18.5 SEC (9.98-11.88)
[2017-04-19 06:39] LABS: MCH 29.9 pg (25.7-33.7); MCHC 34.1 g/dl (32.0-36.0); MEAN CELL VOLUME 87.9 fl (80-96); MEAN PLT VOLUME 10.2 fl (7.5-11.1); PLATELET COUNT 91 K/MM3 (134-434); RDW 14.4 % (11.6-15.6); WHITE BLOOD COUNT 9.9 K/mm3 (4.0-10.0)
[2017-04-19 08:01] LABS: ALBUMIN 2.6 g/dl (3.4-5.0); ANION GAP 6 (8-16); BILIRUBIN,TOTAL 3.3 mg/dL (0.2-1.0); CALCIUM 7.2 mg/dL (8.5-10.1); CO2 25 mmol/L (21-32); CREATININE 1.3 mg/dL (0.55-1.02); GLUCOSE,RANDOM 96 mg/dL (74-106); SGOT/AST 100 U/L (15-37); SGPT/ALT 72 U/L (12-78)
[2017-04-19 08:02] LABS: ALK PHOS 234 U/L (45-117); TOT PROT 5.3 g/dl (6.4-8.2)
--- NOTE | 2017-04-19 08:54 | PN ---
Progress Note (short form) - Note Progress Note: 77 yo woman w/ pmh of colon/liver ca, chronic afib, HTN, HLD, PUD and diverticulosis who presents to the ED after daughter witnessed her with R side facial droop, R hand weakness and dysarthria that lasted approximately 15-20 minutes and resolved before arrival in ED. Patient is admitted for recurrent TIA. noted to have inc right side weakness yesterday. Found to have embolic shower . MRI as below. MRI CLINICAL INFORMATION GIVEN: TIA The exam consists of sagittal, coronal and transaxial images obtained utilizing fast spin-echo, fast spin-echo FLAIR, susceptibility weighted and diffusion weighted spin-echo echo - planar pulse sequences. A moderate-sized acute infarct is seen involving the left frontal cortex and adjacent insular cortex. A trace amount of acute petechial blood is seen within the left frontal cortical component. Multiple punctate acute nonhemorrhagic infarcts are seen within the frontal, temporal and parietal cortices bilaterally as well as the basal ganglia bilaterally and cerebellar hemispheres bilaterally. There is also a punctate right occipital cortical infarct. There is no extra-axial fluid collection. The ventricles , cisterns and craniocervical junction appear unremarkable. Signal void is seen within the intracranial vertebral and internal carotid arteries as well as the basilar artery consistent with vessel patency. IMPRESSION: Multiple bilateral cerebral and cerebellar acute infarcts are noted as discussed above. An acute left frontal cortical infarct is seen containing a trace amount of acute petechial blood. EXAm : awake and alert, right sided neglect vs field cut (likely latter) , right hemiparesis 2/5 (F/A/L) ; embolic shower ( with largest in L MCa distribution) in setting of AFIB--with future risk of rembolization , although large stroke size with inherent risk for hemorrhagic transformation; can do AC with heparin for now, consider repeat HD ct in 48 hours to follow evolution of stroke. DC ASA when heparin starts. Statin, REHAB. Dr [place]
[2017-04-19] MEDS: PANTOPRAZOLE 40 MG TABLET (FP) PO SCH ×2 (09:15→21:23)
[2017-04-19] MEDS: morphine SO4 SUSTAINED ACTING 15 MG TABLET.SA PO SCH ×2 (09:15→21:23)
[2017-04-19] MEDS: PHYTONADIONE 10 MG/1 ML AMP SQ SCH (09:15)
[2017-04-19] MEDS: ASPIRIN COATED 81 MG TABLET.EC PO SCH (09:16)
[2017-04-19] MEDS: MUPIROCIN 2% TOPICAL OINTMENT FOR DECOLONIZATION NS SCH ×2 (09:19→21:23)
--- NOTE | 2017-04-19 10:19 | CONSULT ---
Admitting History and Physical - Primary Care Physician PCP: Natalie Boss - Admission History of Present Illness: Per EMR: 77 yo woman w/ pmh of colon/liver ca, chronic afib, HTN, HLD, PUD and diverticulosis who presents to the ED after daughter witnessed her with R side facial droop, R hand weakness and dysarthria that lasted approximately 15-20 minutes and resolved before arrival in ED. Patient is admitted for recurrent TIA, noted to have increased right side weakness and found to have embolic shower. MRI Multiple bilateral cerebral and cerebellar acute infarcts are noted as discussed above. An acute left frontal cortical infarct is seen containing a trace amount of acute petechial blood. History Source: Family Member, Medical Record Limitations to Obtaining History: Clinical Condition, Poor Historian - Past Medical History Cardiovascular: Yes: AFIB, HTN Gastrointestinal: Yes: Cancer (colon with liver mets ), Diverticulosis, GERD, Peptic Ulcer Disease Hepatobiliary: Yes: Other (mets to liver recently identified) Heme/Onc: Yes: Cancer, Other (Colon CA) - Past Surgical History Past Surgical History: Yes: Colectomy - Smoking History Smoking history: Former smoker Have you smoked in the past 12 months: No Aproximately how many cigarettes per day: 0 If you are a former smoker, when did you quit?: 20 years - Alcohol/Substance Use Hx Alcohol Use: No History - Admission Reason For Visit: ANEMIA,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 Chest CT 04/16 - No CT findings of acute pathology are identified involving the chest. Minimal to mild bilateral lower lobe discoid atelectasis/ linear scarring. Stable benign 0.4 cm left lower lobe pulmonary nodule in comparison to a [address] study. Possible mild cardiomegaly.) MRI: Report Reviewed (CLINICAL INFORMATION GIVEN: TIA The exam consists of sagittal, coronal and transaxial images obtained utilizing fast spin-echo, fast spin-echo FLAIR, susceptibility weighted and diffusion weighted spin-echo echo - planar pulse sequences. A moderate-sized acute infarct is seen involving the left frontal cortex and adjacent insular cortex. A trace amount of acute petechial blood is seen within the left frontal cortical component. Multiple punctate acute nonhemorrhagic infarcts are seen within the frontal, temporal and parietal cortices bilaterally as well as the basal ganglia bilaterally and cerebellar hemispheres bilaterally. There is also a punctate right occipital cortical infarct. There is no extra-axial fluid collection. The ventricles , cisterns and craniocervical junction appear unremarkable. Signal void is seen within the intracranial vertebral and internal carotid arteries as well as the basilar artery consistent with vessel patency. IMPRESSION: Multiple bilateral cerebral and cerebellar acute infarcts are noted as discussed above. An acute left frontal cortical infarct is seen containing a trace amount of acute petechial blood.) - General Mental Status: Awake and Alert, Able to Follow Commands, Forgetful, Vague, Intermittently Confused Attention: Distractible Ability to Follow Directions: Fair Head/Neck Control: Good - Hearing Hearing: Normal Hearing Aide: No Speech Evaluation - Communication Primary Language: SL[place] Communication: Yes: Simple Responses - Speech Production Able to Make Needs Known: Yes: WNL Intelligibility: Yes: WNL - Speech Characteristics Voice Loudness: Normal Voice Pitch: Yes: Normal Voice Phonatory-based Quality: Yes: Normal Speech Pattern: Normal Speech Clarity: < 100% Nasal Resonance: Normal Articulation: Yes: Precise Rate of Speech: Intact - Language/Auditory Comprehension Follows: Yes: 1 Stage Simple Commands - Language/Verbal Expression Aware of Errors: No Attempts to Correct Errors: No - Memory/Perception Short Term Memory: Yes: Moderately Impaired Hemaniopsia: Yes: Right Visual Neglect: Yes: Right - Swallow Evaluation/Bedside Assessment Current Nutritional Intake: Dysphagia Whole, Ogden Textured Liquids, Other ( Monitor while eating) Facial Symmetry at Rest: Facial Droop Right Facial Symmetry on Retraction: Facial Droop Right Pucker Lips: Droops Right Smile: Droops Right Lingual Movement: Deviates Right Lingual Speed of Movement: Reduced (mild) Lingual Movement Strgth Against Opposition: Reduced (mild) Lingual Movement Characteristics: Normal Velopharyngeal Movement: Normal Laryngeal Movement: Reduced Excursion, Labored,delay initiation, Reduced Velocity Rate of Intake: Slow/Holding Labial Seal: Impaired Right Chewing: Impaired Oral Prep Time: Increased A-P Transit: Impaired Pocketing: Present Right Timing of Swallow: Delayed Coughing/Throat Clear: No Change in Voice: No Recommendations - Speech Evaluation, Impression/Plan Impression: Cognitive deficits with impaired memory and insight. Right neglect/ hemianopsia. Able to cross midline with moderate cues. - Disposition Discharge to: To be Determined - Dysphagia Impressions/Plan Swallowing Skills: Impaired Dysphagia Impressions: Mild Impairment, Moderate Impairment, Risk of Aspiration *Silent aspiration: cannot be R/O at bedside Dysphagia Treatment Plan: Chin Tuck/Down, Safe Rate, 1/2 tsp. at a time, Elevate HOB during feed Recommendations: Modified Barium Swallow (to upgrade diet with safety) - Recommendations Diet Consistency: Dysphagia Pureed Medication Administration: Crushed with applesauce Liquids: Ogden Thick Supplement: Magic Cup, Other (Ensure Compact)
[2017-04-19] MEDS ORDERED: dilTIAZem HCL 60 MG TABLET (FP) PO SCH (10:25)
--- NOTE | 2017-04-19 10:25 | PN ---
Progress Note, Physician Chief Complaint: rapid AF, CVA History of Present Illness: denies palpitations, sob, cp abd discomfort continues - Current Medication List Current Medications: Active Medications Atorvastatin Calcium (Lipitor -) 40 mg PO HS [facility] Last Admin: 04/18/17 21:57 Dose: 40 mg Chlorhexidine Gluconate (Hibiclens For Decolonization -) 1 applic TP HS [facility] Last Admin: 04/18/17 21:57 Dose: 1 applic Digoxin (Lanoxin -) 0.125 mg PO DAILY [facility] Last Admin: 04/18/17 16:45 Dose: Not Given Diltiazem HCl (Cardizem -) 90 mg PO Q6HPO [facility] Last Admin: 04/19/17 06:13 Dose: 90 mg Dextrose/Sodium Chloride (D5-1/2ns -) 1,000 mls @ 83 mls/hr IV ASDIR ELANA Heparin Sodium/Dextrose (Heparin Infusion -) 25,000 units in 500 mls @ 16 mls/ hr IVPB TITR ELANA; 800 UNITS/HR PRN Reason: Protocol Last Titration: 04/19/17 01:01 Dose: 900 units/hr, 18 mls/hr Morphine Sulfate (Ms Contin -) 15 mg PO BID [facility] Last Admin: 04/19/17 09:15 Dose: 15 mg Morphine Sulfate (Morphine Sulfate) 2 mg IVPUSH Q4H PRN PRN Reason: PAIN Mupirocin (Bactroban Ointment (For Decolonization) -) 1 applic NS BID [facility] Stop: 04/22/17 21:59 Last Admin: 04/19/17 09:19 Dose: 1 applic Pantoprazole Sodium (Protonix -) 40 mg PO BID [facility] Last Admin: 04/19/17 09:15 Dose: 40 mg Phytonadione (Aqua Mephyton Injection -) 5 mg SQ DAILY [facility] Stop: 04/20/17 10:01 Last Admin: 04/19/17 09:15 Dose: 5 mg - Objective Vital Signs: Vital Signs Temperature 98.6 F 04/19/17 06:00 Pulse Rate 55 L 04/19/17 10:12 Respiratory Rate 15 04/19/17 08:00 Blood Pressure 110/47 04/19/17 08:00 O2 Sat by Pulse Oximetry (%) 90 L 04/19/17 10:12 Constitutional: Yes: Well Nourished, No Distress, Calm Cardiovascular: Yes: Regular Rate and Rhythm, S1, S2. No: JVD, Gallop, Murmur Respiratory: Yes: Regular, CTA Bilaterally. No: Accessory Muscle Use, Rales, Wheezes Gastrointestinal: Yes: Distention Extremities: No: Cold Edema: No Neurological: Yes: Alert. No: Seizure Psychiatric: No: Agitated Labs: CBC, BMP 04/19/17 05:00 04/19/17 05:00 INR, PTT INR 1.64 (0.82-1.09) H 04/19/17 05:00 Fibrinogen 195.0 mg/dL (238-498) L 04/19/17 05:00 - ....Imaging EKG: Other (tele: NSR with sinus esteban 40s often, to 50s) Assessment/Plan carotids: mild athero, no stenosis acute CVA: -2 episodes on DOA, in setting of missing home AC dose x 2d -CT head no infarct or bleed -neuro input reviewed: clinical course (stuttering) more likely lacunar than embolic--MRI brain pending (no neuro contraindication to AC) -carotid dopplers unremarkable -f/u echo PAF, sick sinus syndrome: -in sinus here -intolerant of low dose metoprolol and bystolic at low doses (profound fatigue, bronchospasm) -has tolerated high dose diltiazem (without signif GERD s.e.) -tolerated digoxin in past, but stopped given age and decr GFR--could add back if rapid HRs -rapid AF 150s on 04/18, began when pt was transported back to the floor from testing. she had not received any of her home cardizem CD 360 mg since admit, hence this may have contributed. -given very short AF duration, with pt's previously known refractory HRs (160) despite this dose of cardizem as outpt, and marked intolerance to even low doses of BB, she was pharmacologically cardioverted with amio bolus yest. -currently in sinus -longterm po amio not a good option given lab evidence of liver dysfunction ( albumin 3.0, LFTs all up) with mult liver tumors per dr kothari -stop amio gtt. resume home cardizem--difficulty swallowing pills at present per RN--will change to short-acting dilt 90mg q6h to be crushed for her, though not a good long-term option--reassess once appetite/GI tolerance improves. -will add digoxin given renal fxn is stable and HR was very rapid on cardizem alone in past. -04/19: currently sinus esteban 40s consistently, ? hi vagal tone given ongoing GI sx's and bedrest--d/c digoxin, decr diltiazem dose -if recurrent rapid AF, will consider flecainide or other anti-arrhythmic, with EP input (if any are safe with liver dysfunction) -hope to avoid AVN ablation/PPM; -INR 1.4 on admit, hadn't taken xarelto in approx 48 hrs per family--? lingering drug effect vs liver dysfunction (uncertain per heme) -received xarelto on 04/17, INR 2.3 today -she will need liver biopsy so would like reversible AC agent on board until then -d/w'd dr kothari: transitioned pt to [facility] gtt now -despite some incr risk of bleeding with uncertain degree of decr'd hepatic synthetic function, this pt with malignancy has proven that she remains hypercoagulable given TIA x 2 on DOA; hence benefits of AC likely > risks here. HTN: -bp controlled here -bp targets per neuro -cont home meds for now CKD: -baseline creat runs 1.1-1.5 -renal fxn stable here CAD: -cor calcium score intermediate (slightly above 50th %ile) -MPI in past equivocal ? apical ischemia vs variable breast artifact -never had anginal sx's -ecg no acute ischemic changes here -cont home regimen: statin (atorva 10 at home), ARB, no ASA (on AC) HPL: -intolerant atorva 20. -LDL runs 90s on atorva 10, similar here -same med regimen asthma: -intolerant of B-B in past -no current wheezing/sob colon cancer with liver mets/anemia/anorexia/abd pain: -? sx's related to tumor -all LFTs mildly elevated, abd distended -per hospitalist +/- Onc as indicated ok for transfer to tele est'd time spent in review of data and formulating mgmt plan = 35 min
--- NOTE | 2017-04-19 11:58 | PN ---
Teaching Attending Note Name of Resident: Eric Acosta ATTENDING PHYSICIAN STATEMENT I saw and evaluated the patient. I reviewed the resident's note and discussed the case with the resident. I agree with the resident's findings and plan as documented. SUBJECTIVE: Patient seen and examined in the ICU. Drowsy but easily arousable. Mildly confused. HR better. Denies CP or SOB. No dizziness. Intake & Output 04/16/17 04/17/17 04/18/17 04/19/17 23:59 23:59 23:59 23:59 Intake Total 482 2273.4 1603 Output Total 1100 400 Balance 482 1173.4 1203 Weight 170 lb 158 lb 6 oz 163 lb 12.855 oz 162 lb 6.4 oz Last Vital Signs Temp Pulse Resp BP Pulse Ox 99.0 F 55 L 17 119/46 90 L 04/19/17 10:00 04/19/17 10:12 04/19/17 10:00 04/19/17 10:00 04/19/17 10:12 Active Medications Atorvastatin Calcium (Lipitor -) 40 mg PO HS [facility] Last Admin: 04/18/17 21:57 Dose: 40 mg Chlorhexidine Gluconate (Hibiclens For Decolonization -) 1 applic TP HS [facility] Last Admin: 04/18/17 21:57 Dose: 1 applic Diltiazem HCl (Cardizem -) 60 mg PO Q6HPO [facility] Dextrose/Sodium Chloride (D5-1/2ns -) 1,000 mls @ 83 mls/hr IV ASDIR ELANA Heparin Sodium/Dextrose (Heparin Infusion -) 25,000 units in 500 mls @ 16 mls/ hr IVPB TITR ELANA; 800 UNITS/HR PRN Reason: Protocol Last Titration: 04/19/17 01:01 Dose: 900 units/hr, 18 mls/hr Morphine Sulfate (Ms Contin -) 15 mg PO BID [facility] Last Admin: 04/19/17 09:15 Dose: 15 mg Morphine Sulfate (Morphine Sulfate) 2 mg IVPUSH Q4H PRN PRN Reason: PAIN Mupirocin (Bactroban Ointment (For Decolonization) -) 1 applic NS BID [facility] Stop: 04/22/17 21:59 Last Admin: 04/19/17 09:19 Dose: 1 applic Pantoprazole Sodium (Protonix -) 40 mg PO BID [facility] Last Admin: 04/19/17 09:15 Dose: 40 mg Phytonadione (Aqua Mephyton Injection -) 5 mg SQ DAILY [facility] Stop: 04/20/17 10:01 Last Admin: 04/19/17 09:15 Dose: 5 mg Constitutional: Yes: Well Nourished, No Distress Eyes: Yes: WNL, Conjunctiva Clear, EOM Intact HENT: Yes: Other (R sided Facial Droop) Neck: Yes: WNL, Supple, Trachea Midline Cardiovascular: Yes: WNL, Pulse Irregular Respiratory: Yes: WNL, Regular, CTA Bilaterally Gastrointestinal: Yes: WNL, Normal Bowel Sounds, Soft ...Rectal Exam: Yes: Deferred Renal/: Yes: WNL Breast(s): Yes: WNL Musculoskeletal: Yes: Other (Ecchymosis --> R Hip) Extremities: Yes: Other (R sided weakness.) Edema: No Peripheral Pulses WNL: Yes Neurological: Yes: WNL, Alert, Oriented, Facial Droop, Weakness (R > L) ...Motor Strength: RUE (Weakness), RLE (Weakness) Psychiatric: Yes: WNL, Alert, Oriented Labs: Laboratory Results - last 24 hr 04/18/17 04/18/17 04/18/17 05:20 05:20 17:00 WBC RBC Hgb Hct MCV MCH MCHC RDW Plt Count MPV Manual Slide Review PT with INR INR PTT (Actin FS) Fibrinogen Sodium Potassium Chloride Carbon Dioxide Anion Gap BUN Creatinine Creat Clearance w eGFR Random Glucose Calcium Iron 27 TIBC 187 L Iron Saturation 14 L Total Bilirubin AST ALT Alkaline Phosphatase Total Protein Albumin Vitamin B12 654 Blood Type A POSITIVE Antibody Screen Negative Crossmatch See Detail 04/18/17 04/19/17 04/19/17 17:00 00:30 05:00 WBC 9.9 RBC 3.16 L D Hgb 9.4 L D Hct 27.7 L D MCV 87.9 MCH 29.9 MCHC 34.1 RDW 14.4 Plt Count 91 L MPV 10.2 Manual Slide Review No Result Required. PT with INR 20.50 H INR 1.81 H PTT (Actin FS) 27.2 49.0 H D Fibrinogen 175.0 L Sodium Potassium Chloride Carbon Dioxide Anion Gap BUN Creatinine Creat Clearance w eGFR Random Glucose Calcium Iron TIBC Iron Saturation Total Bilirubin AST ALT Alkaline Phosphatase Total Protein Albumin Vitamin B12 Blood Type Antibody Screen Crossmatch 04/19/17 04/19/17 04/19/17 05:00 05:00 05:00 WBC RBC Hgb Hct MCV MCH MCHC RDW Plt Count MPV Manual Slide Review PT with INR 18.50 H INR 1.64 H PTT (Actin FS) Fibrinogen 195.0 L Sodium 134 L Potassium 4.8 Chloride 103 Carbon Dioxide 25 Anion Gap 6 L BUN 23 H Creatinine 1.3 H Creat Clearance w eGFR 39.61 Random Glucose 96 Calcium 7.2 L Iron TIBC Iron Saturation Total Bilirubin 3.3 H D AST 100 H D ALT 72 Alkaline Phosphatase 234 H Total Protein 5.3 L Albumin 2.6 L Vitamin B12 Blood Type Antibody Screen Crossmatch 04/19/17 05:00 WBC RBC Hgb Hct MCV MCH MCHC RDW Plt Count MPV Manual Slide Review PT with INR INR PTT (Actin FS) 56.5 H Fibrinogen Sodium Potassium Chloride Carbon Dioxide Anion Gap BUN Creatinine Creat Clearance w eGFR Random Glucose Calcium Iron TIBC Iron Saturation Total Bilirubin AST ALT Alkaline Phosphatase Total Protein Albumin Vitamin B12 Blood Type Antibody Screen Crossmatch Problem List - Problems (1) Lacunar infarction Code(s): I63.9 - CEREBRAL INFARCTION, UNSPECIFIED (2) Paroxysmal atrial fibrillation Code(s): I48.0 - PAROXYSMAL ATRIAL FIBRILLATION (3) Cancer, metastatic to liver Code(s): C78.7 - SECONDARY MALIG NEOPLASM OF LIVER AND INTRAHEPATIC BILE DUCT Assessment/Plan ASSESS: This is a 77 y/o woman w/ p-A-Fib on Xarelto as well as Colon CA w/ extensive mets to liver who presents now w/ a lacunar infarct c/b A-Fib w/ RVR requiring Amio gtt. Pt is now back in [facility] ready for return transfer back to [facility]. PLAN: Rate control per Cardiology IV Heparin O2 for an SpO2 > 92% BP control Lipitor Protonix SCDs Follow Coags Cardiac Telemetry monitoring Should further discuss GOC Dr Lacey Critical care time spent in reviewing chart, evaluating patient and formulating plan - 40 minutes.
[2017-04-19] MEDS: DIGOXIN 0.125 MG TABLET (FP) PO SCH (12:17)
--- NOTE | 2017-04-19 14:42 | PN ---
Physical Exam: SUBJECTIVE: Patient seen and examined at bedside. Pt has no complaints at this time. Facial droop is persistent at this time. OBJECTIVE: Vital Signs Period Temp Pulse Resp BP Sys/Sheppard Pulse Ox Last 24 Hr 98.2 F-99.0 F 46-82 14-21 97-121/43-56 90-98 GENERAL: The patient is awake, alert, and fully oriented, in no acute distress. HEAD: Normal with no signs of trauma. R facial droop. EYES: PERRL, extraocular movements intact, sclera anicteric, conjunctiva clear. No ptosis. ENT:oropharynx clear without exudates, moist mucous membranes. NECK: Trachea midline, full range of motion, supple. LUNGS: Breath sounds equal, clear to auscultation bilaterally, no wheezes, no crackles, no accessory muscle use. HEART: Regular rate and rhythm, S1, S2 without murmur, rub or gallop. ABDOMEN: Soft, nontender, nondistended, normoactive bowel sounds, no guarding, no rebound, no hepatosplenomegaly, no masses. EXTREMITIES: 2+ pulses, warm, well-perfused, no edema. NEUROLOGICAL: Right facial droop. Right sided weakness diffusely PSYCH: Normal mood, normal affect. SKIN: Warm, dry, normal turgor, no rashes or lesions noted Laboratory Results - last 24 hr 04/18/17 04/18/17 04/18/17 05:20 17:00 17:00 WBC RBC Hgb Hct MCV MCH MCHC RDW Plt Count MPV Manual Slide Review PT with INR 20.50 H INR 1.81 H PTT (Actin FS) 27.2 Fibrinogen 175.0 L Sodium Potassium Chloride Carbon Dioxide Anion Gap BUN Creatinine Creat Clearance w eGFR Random Glucose Calcium Iron 27 TIBC 187 L Iron Saturation 14 L Total Bilirubin AST ALT Alkaline Phosphatase Total Protein Albumin Blood Type A POSITIVE Antibody Screen Negative Crossmatch See Detail 04/19/17 04/19/17 04/19/17 00:30 05:00 05:00 WBC 9.9 RBC 3.16 L D Hgb 9.4 L D Hct 27.7 L D MCV 87.9 MCH 29.9 MCHC 34.1 RDW 14.4 Plt Count 91 L MPV 10.2 Manual Slide Review No Result Required. PT with INR 18.50 H INR 1.64 H PTT (Actin FS) 49.0 H D Fibrinogen Sodium Potassium Chloride Carbon Dioxide Anion Gap BUN Creatinine Creat Clearance w eGFR Random Glucose Calcium Iron TIBC Iron Saturation Total Bilirubin AST ALT Alkaline Phosphatase Total Protein Albumin Blood Type Antibody Screen Crossmatch 04/19/17 04/19/17 04/19/17 05:00 05:00 05:00 WBC RBC Hgb Hct MCV MCH MCHC RDW Plt Count MPV Manual Slide Review PT with INR INR PTT (Actin FS) 56.5 H Fibrinogen 195.0 L Sodium 134 L Potassium 4.8 Chloride 103 Carbon Dioxide 25 Anion Gap 6 L BUN 23 H Creatinine 1.3 H Creat Clearance w eGFR 39.61 Random Glucose 96 Calcium 7.2 L Iron TIBC Iron Saturation Total Bilirubin 3.3 H D AST 100 H D ALT 72 Alkaline Phosphatase 234 H Total Protein 5.3 L Albumin 2.6 L Blood Type Antibody Screen Crossmatch Active Medications Generic Name Dose Route Start Last Admin Trade Name Freq PRN Reason Stop Dose Admin Atorvastatin Calcium 40 mg 04/17/17 22:00 04/18/17 21:57 Lipitor - PO 40 mg HS E[facility]NA Administration Chlorhexidine Gluconate 1 applic 04/17/17 22:00 04/18/17 21:57 Hibiclens For Decolonization - TP 1 applic HS E[facility]NA Administration Diltiazem HCl 60 mg 04/19/17 10:25 04/19/17 12:02 Cardizem - PO Not Given Q6HPO ELANA Dextrose/Sodium Chloride 1,000 mls @ 83 mls/hr 04/17/17 15:01 D5-1/2ns - IV ASDIR ELANA Heparin Sodium/Dextrose 25,000 units in 500 mls @ 16 mls/hr 04/18/17 18:15 01:01 Heparin Infusion - IVPB 900 units/hr TITR ELANA 18 mls/hr Protocol Titration 800 UNITS/HR Morphine Sulfate 15 mg 04/17/17 22:00 04/19/17 09:15 Ms Contin - PO 15 mg BID E[facility] Administration Morphine Sulfate 2 mg 04/17/17 15:01 Morphine Sulfate IVPUSH Q4H PRN PAIN Mupirocin 1 applic 04/17/17 22:00 04/19/17 09:19 Bactroban Ointment (For Decolonization) - NS 04/22/17 21:59 1 applic BID [facility] Administration Pantoprazole Sodium 40 mg 04/17/17 22:00 04/19/17 09:15 Protonix - PO 40 mg BID [facility] Administration Phytonadione 5 mg 04/18/17 20:15 04/19/17 09:15 Aqua Mephyton Injection - SQ 04/20/17 10:01 5 mg DAILY [facility] Administration ASSESSMENT/PLAN: Pt is a 77F w/ PMH colon CA with mult mets to liver, pAfib on Xarelto who presented to ED with R facial droop. Pt had missed a few days of Xarelto. Pt found to have lacunar infarct and Afib w/ RVR requiring amio drip. #CVA -likely 2/2 to missed Xarelto doses in pt w/ Afib -persistent R facial droop -CT & MRI done. B/l cerebral and cerebellar infarcts, left frontal infarct. -neuro on board #Afib -Af w/ RVR requiring Amio drip. rate in low 100s at this time -on heparin -Tele monitoring -cardizem #HTN -BP under control currently #HLD -statin #Colon CA with liver mets -Heme/Onc on board -f/u recs #PUD -Protonix #FEN #PPx -heparin -Protonix #Dispo -transfer to Tele Eric Acosta MD PGY-1 ICU Visit type - Emergency Visit Emergency Visit: No - New Patient This patient is new to me today: No - Critical Care Critical Care patient: No - Discharge Referral Referred to [facility] No
[2017-04-19] MEDS ORDERED: morphine SULFATE 4 MG/ML VIAL IVPUSH PRN (16:42)
[2017-04-19] MEDS ORDERED: DEXTROSE 5%-0.45% SALINE 1,000 ML IV SCH (16:42)
[2017-04-19] MEDS: HEPARIN INFUSION - 25,000 UNITS/500 ML INFUS.BAG IVPB SCH (17:49)
--- NOTE | 2017-04-19 17:50 | PN ---
Progress Note (short form) - Note Progress Note: Patient seen and examined More awake today conversant Last Vital Signs Temp Pulse Resp BP Pulse Ox 98.6 F 54 L 16 109/40 90 L 04/19/17 14:00 04/19/17 16:00 04/19/17 16:00 04/19/17 16:00 04/19/17 10:12 Cor: RSR, No murmurs, No gallops Lungs: Clear to P&A Abd: Soft, Normal bowel sounds, No organomegaly Ext:Rt. hemiparesis Abnormal Lab Results 04/18/17 04/18/17 04/18/17 05:20 17:00 17:00 RBC Hgb Hct Plt Count PT with INR 20.50 H INR 1.81 H PTT (Actin FS) Fibrinogen 175.0 L Sodium Anion Gap BUN Creatinine Calcium TIBC 187 L Iron Saturation 14 L Total Bilirubin AST Alkaline Phosphatase Total Protein Albumin Crossmatch See Detail 04/19/17 04/19/17 04/19/17 00:30 05:00 05:00 RBC 3.16 L D Hgb 9.4 L D Hct 27.7 L D Plt Count 91 L PT with INR 18.50 H INR 1.64 H PTT (Actin FS) 49.0 H D Fibrinogen Sodium Anion Gap BUN Creatinine Calcium TIBC Iron Saturation Total Bilirubin AST Alkaline Phosphatase Total Protein Albumin Crossmatch 04/19/17 04/19/17 04/19/17 05:00 05:00 05:00 RBC Hgb Hct Plt Count PT with INR INR PTT (Actin FS) 56.5 H Fibrinogen 195.0 L Sodium 134 L Anion Gap 6 L BUN 23 H Creatinine 1.3 H Calcium 7.2 L TIBC Iron Saturation Total Bilirubin 3.3 H D AST 100 H D Alkaline Phosphatase 234 H Total Protein 5.3 L Albumin 2.6 L Crossmatch Active Medications Generic Name Dose Route Start Last Admin Trade Name Freq PRN Reason Stop Dose Admin Atorvastatin Calcium 40 mg 04/19/17 22:00 Lipitor - PO HS ELANA Chlorhexidine Gluconate 1 applic 04/19/17 22:00 Hibiclens For Decolonization - TP HS ELANA Diltiazem HCl 60 mg 04/19/17 18:00 Cardizem - PO Q6HPO ELANA Dextrose/Sodium Chloride 1,000 mls @ 83 mls/hr 04/19/17 16:42 D5-1/2ns - IV ASDIR ELANA Heparin Sodium/Dextrose 25,000 units in 500 mls @ 16 mls/hr 04/19/17 16:42 Heparin Infusion - IVPB TITR [facility] Protocol 800 UNITS/HR Morphine Sulfate 15 mg 04/19/17 22:00 Ms Contin - PO BID ELANA Morphine Sulfate 2 mg 04/19/17 16:42 Morphine Sulfate IVPUSH Q4H PRN PAIN Mupirocin 1 applic 04/19/17 22:00 Bactroban Ointment (For Decolonization) - NS 04/22/17 21:59 BID [facility] Pantoprazole Sodium 40 mg 04/19/17 22:00 Protonix - PO BID [facility] Phytonadione 5 mg 04/20/17 10:00 Aqua Mephyton Injection - SQ 04/20/17 10:01 DAILY ELANA A/P 77 y/o patient with h/o HTN, hyperlipimia, CAD, afib, h/o colon cancer s/p resectionof liver mets > 10yrs. ago, with recent onset fatigue, malaise, wt, loss, nauseea, abdominal pain CT scans showed multiple liver mets, rt. and lt. liver lobe, concerning for mets. she comes in with rt. fcial droop/afib. Stopped xeralto 2d ago. Resumed xeralto 04/17---switched to heparin 04/18 MRI Mod. Lt. frontal infarct with petechial hemorrhages and multiple b/l cerebral and cerebellar infarcts high risk of bleeding/clotting . high risk of clotting given hypercoagulable state of malignancy and high risk of bleeding given extensive liver mets/ baseline elevated INR. to repeat Ct head per neurology in 48hrs, ? biopsy of liver lesions
--- NOTE | 2017-04-19 20:22 | PN ---
Teaching Attending Note Name of Resident: Jesus Hidalgo ATTENDING PHYSICIAN STATEMENT I saw and evaluated the patient. I reviewed the resident's note and discussed the case with the resident. I agree with the resident's findings and plan as documented. SUBJECTIVE: Patient is comfortable, with no acute distress.follows command. OBJECTIVE: Vital Signs Temperature 99.1 F 04/19/17 18:33 Pulse Rate 57 L 04/19/17 18:33 Respiratory Rate 18 04/19/17 18:33 Blood Pressure 125/49 04/19/17 18:33 O2 Sat by Pulse Oximetry (%) 90 L 04/19/17 10:12 CBCD WBC 9.9 K/mm3 (4.0-10.0) 04/19/17 05:00 RBC 3.16 M/mm3 (3.60-5.2) L D 04/19/17 05:00 Hgb 9.4 GM/dL (10.7-15.3) L D 04/19/17 05:00 Hct 27.7 % (32.4-45.2) L D 04/19/17 05:00 MCV 87.9 fl (80-96) 04/19/17 05:00 MCHC 34.1 g/dl (32.0-36.0) 04/19/17 05:00 RDW 14.4 % (11.6-15.6) 04/19/17 05:00 Plt Count 91 K/MM3 (134-434) L 04/19/17 05:00 MPV 10.2 fl (7.5-11.1) 04/19/17 05:00 CMP Sodium 134 mmol/L (136-145) L 04/19/17 05:00 Potassium 4.8 mmol/L (3.5-5.1) 04/19/17 05:00 Chloride 103 mmol/L (98-107) 04/19/17 05:00 Carbon Dioxide 25 mmol/L (21-32) 04/19/17 05:00 Anion Gap 6 (8-16) L 04/19/17 05:00 BUN 23 mg/dL (7-18) H 04/19/17 05:00 Creatinine 1.3 mg/dL (0.55-1.02) H 04/19/17 05:00 Creat Clearance w eGFR 39.61 (>60) 04/19/17 05:00 Random Glucose 96 mg/dL (74-106) 04/19/17 05:00 Calcium 7.2 mg/dL (8.5-10.1) L 04/19/17 05:00 Total Bilirubin 3.3 mg/dL (0.2-1.0) H D 04/19/17 05:00 AST 100 U/L (15-37) H D 04/19/17 05:00 ALT 72 U/L (12-78) 04/19/17 05:00 Alkaline Phosphatase 234 U/L (45-117) H 04/19/17 05:00 Total Protein 5.3 g/dl (6.4-8.2) L 04/19/17 05:00 Albumin 2.6 g/dl (3.4-5.0) L 04/19/17 05:00 Current Medications Generic Name Dose Route Start Last Admin Trade Name Freq PRN Reason Stop Dose Admin Atorvastatin Calcium 40 mg 04/19/17 22:00 Lipitor - PO HS [facility] Chlorhexidine Gluconate 1 applic 04/19/17 22:00 Hibiclens For Decolonization - TP HS ELANA Diltiazem HCl 60 mg 04/19/17 18:00 04/19/17 17:51 Cardizem - PO Not Given Q6HPO ELANA Dextrose/Sodium Chloride 1,000 mls @ 83 mls/hr 04/19/17 16:42 D5-1/2ns - IV ASDIR ELANA Heparin Sodium/Dextrose 25,000 units in 500 mls @ 16 mls/hr 04/19/17 16:42 17:49 Heparin Infusion - IVPB 900 units/hr TITR ELANA 18 mls/hr Protocol Administration 800 UNITS/HR Morphine Sulfate 15 mg 04/19/17 22:00 Ms Contin - PO BID ELANA Morphine Sulfate 2 mg 04/19/17 16:42 Morphine Sulfate IVPUSH Q4H PRN PAIN Mupirocin 1 applic 04/19/17 22:00 Bactroban Ointment (For Decolonization) - NS 04/22/17 21:59 BID [facility] Pantoprazole Sodium 40 mg 04/19/17 22:00 Protonix - PO BID [facility] Phytonadione 5 mg 04/20/17 10:00 Aqua Mephyton Injection - SQ 04/20/17 10:01 DAILY ELANA Home Medications Medication Instructions Recorded Diltiazem HCl [Cardizem] 360 mg PO AM 12/09/11 Losartan Potassium [Cozaar] 50 mg PO DAILY 12/09/11 Spironolactone [Aldactone -] 50 mg PO DAILY 12/09/11 Atorvastatin Calcium 20 mg PO DAILY tablet 07/10/14 Pantoprazole Sodium [Protonix -] 40 mg PO BID #30 tablet.ec 11/08/14 Oxycodone HCl 7.5 mg PO PRN PRN 04/24/15 Rivaroxaban [Xarelto -] 15 mg PO DAILY 04/16/17 PE:very mild dysarthria, right side hemiplegia, p=0/5 right side, 5/5 left side. rest of PE per resident's note carotids: mild athero, no stenosis MRI of the head without contrast: CLINICAL INFORMATION GIVEN: TIA The exam consists of sagittal, coronal and transaxial images obtained utilizing fast spin-echo, fast spin-echo FLAIR, susceptibility weighted and diffusion weighted spin-echo echo - planar pulse sequences. A moderate-sized acute infarct is seen involving the left frontal cortex and adjacent insular cortex. A trace amount of acute petechial blood is seen within the left frontal cortical component. Multiple punctate acute nonhemorrhagic infarcts are seen within the frontal, temporal and parietal cortices bilaterally as well as the basal ganglia bilaterally and cerebellar hemispheres bilaterally. There is also a punctate right occipital cortical infarct. There is no extra-axial fluid collection. The ventricles , cisterns and craniocervical junction appear unremarkable. Signal void is seen within the intracranial vertebral and internal carotid arteries as well as the basilar artery consistent with vessel patency. IMPRESSION: Multiple bilateral cerebral and cerebellar acute infarcts are noted as discussed above. An acute left frontal cortical infarct is seen containing a trace amount of acute petechial blood. ASSESSMENT AND PLAN: Patient is a 77 yo woman w/ pmh of colon/liver ca, chronic afib, HTN, HLD, PUD and diverticulosis who presents to the ED after daughter witnessed her with R side facial droop, R hand weakness and dysarthria that lasted approximately 15- 20 minutes and resolved before arrival in ED. Patient is admitted for recurrent TIA. #Acute CVA started the patient on Heparin drip continue as per discussed with no Heparin bolus as per discussion with Production Expert . Neurologist and blender conveyor operator are on case as well, agreeable to Heparin drip since has a high risk for further infarction. MRI Multiple punctate acute infarctions and one moderate sized left MCA branch infarction with petechial hemorrhage. As per neurologist; a high risk for bleed ,but does not think that the size of the infarction nor the petechial hemorrhage preludes anticoagulation , preferably with a reversible agent for the time being. She is at very high risk for recurrent infarction because of the atrial fibrillation. discussed with Dr. Pimentel. continue Lipitor 40mg po daily. #P-afib rate is controlled on Heparin drip now s/p off Xarelto now, off amnio drip today since patient is back to her sinus now , discontinued by blender conveyor operator , discussed with . # Acute dehydration: patient looks very dry continue IVF. D51/2NS at 83cc/hr for now #Chronic back pain on MS contin 15mg BID, Morphine sulfate 2mg IVP prn HTN: controlled on Cardizem 60mg q6 reduced from 90mg since developed bradycardia CKD: stable baseline creat runs 1.1-1.5 CAD: cont home regimen: statin (atorva 10 at home), ARB, off ASA now HPL: intolerant atorva 20; LDL in 90s asthma: intolerant of B-B in past; no current wheezing/sob Hx of colon cancer with liver mets all LFTs mildly elevated. Dysphagia whole diet, with monitoring. DVT Px: on Heparin drip , off XArelto discontinued as per Production Expert continue Heparin without BOLUS in ICU monitor setting.
[2017-04-19] MEDS ORDERED: CHLORHEXIDINE GLUCONATE 4% CLEANSER FOR DECOLONIZATION TP SCH (22:00)
[2017-04-19] MEDS ORDERED: ATORVASTATIN CA 40 MG TABLET (FP) PO SCH (22:00)
--- NOTE | 2017-04-19 23:05 | EKG ---
Test Reason : Blood Pressure : / mmHG Vent. Rate : 089 BPM Atrial Rate : 089 BPM P-R Int : 168 ms QRS Dur : 074 ms QT Int : 356 ms P-R-T Axes : 067 -20 011 degrees QTc Int : 433 ms NORMAL SINUS RHYTHM NORMAL ECG WHEN COMPARED WITH ECG OF 19-NOV-2008 17:46, T WAVE VARIATION Confirmed by ELVA MOON MD ([id number]) on 04/19/2017 11:05:16 PM Referred By: Confirmed By:ELVA MOON MD
[2017-04-20] MEDS: dilTIAZem HCL 60 MG TABLET (FP) PO SCH ×4 (00:52→17:35)
[2017-04-20 06:29] LABS: BASOPHIL 0.5 % (0-2.0); EOSINOPHIL 2.5 % (0-4.5); MCH 29.4 pg (25.7-33.7); MCHC 33.6 g/dl (32.0-36.0); MEAN CELL VOLUME 87.5 fl (80-96); MEAN PLT VOLUME 10.1 fl (7.5-11.1); NEUTROPHILS 74.6 % (42.8-82.8); PLATELET COUNT 95 K/MM3 (134-434); RDW 14.5 % (11.6-15.6); WHITE BLOOD COUNT 7.7 K/mm3 (4.0-10.0)
[2017-04-20 07:09] LABS: ALBUMIN 2.2 g/dl (3.4-5.0); ANION GAP 7 (8-16); BILIRUBIN,TOTAL 2.4 mg/dL (0.2-1.0); CO2 23 mmol/L (21-32); CREATININE 1.1 mg/dL (0.55-1.02); GLUCOSE,RANDOM 123 mg/dL (74-106); SGOT/AST 91 U/L (15-37); SGPT/ALT 70 U/L (12-78); TOT PROT 4.9 g/dl (6.4-8.2)
--- NOTE | 2017-04-20 07:23 | PN ---
Physical Exam: SUBJECTIVE: Patient seen and examined this AM - No major overnight events. Pt with no new complaints. Tired, but in NAD. - R-sided paralysis, facial droop, dysarthria still present. - Denies any fever, CP, SOB, N/V, LE edema, palpitations. - Endorses feeling better today. 1 BM overnight OBJECTIVE: Vital Signs Intake & Output 04/17/17 04/18/17 04/19/17 04/20/17 23:59 23:59 23:59 23:59 Intake Total 482 2273.4 3035 1212 Output Total 1100 1320 300 Balance 482 1173.4 1715 912 Weight 71.838 kg 74.3 kg 73.663 kg 77.156 kg Period Temp Pulse Resp BP Sys/Sheppard Pulse Ox Last 24 Hr 98.3 F-99.1 F 51-103 13-18 104-125/40-68 90-96 GENERAL: A&O to name and place but not date. Drowsy today, in NAD. HEAD: NCAT EYES: Pupils equal, round and reactive to light, sclera anicteric, conjunctiva clear. No lid lag. Still with significant R sided visual field defect. Pt cannot look to R (lateral deviation of r eye, medial deviation of L eye), w/ mild deviation to L of both eyes. Unclear if motor defect or due to visual field deficit. EARS, NOSE, THROAT: Ears normal, nares patent, oropharynx clear without exudates. Moist mucous membranes. NECK: Normal range of motion, JVD, or masses. LUNGS: Breath sounds equal, clear to auscultation bilaterally. No wheezes, and no crackles. No accessory muscle use. HEART: Regular rate and rhythm, normal S1 and S2 without murmur, rub or gallop. ABDOMEN: Soft, not distended, normoactive bowel sounds, no rebound, no masses. No hepatomegaly or splenomegaly. UPPER EXTREMITIES: 2+ pulses, warm, well-perfused. No cyanosis. No clubbing. No peripheral edema. LOWER EXTREMITIES: 2+ pulses, warm, well-perfused. No calf tenderness. No peripheral edema. NEUROLOGICAL: Still with mild dysarthria. Unchanged R lateral tongue deviation, R facial droop, diminished eyelid closure strength on R side. Unable to look right, slight L side drift on both eyes. No facial sensation to light touch on R side. 1/5 shoulder shrug on R side, preserved on L side. 0/5 real estate appraiser strength in R hand, 5/5 in L hand. Complete paralysis of R hand, arm. 5/5 strength in L arm , leg grossly. 3/5 in R proximal muscle groups. Still with complete hemiparesis to light touch in R arm and leg. preserved light touch sensation on L side. unable to evaluate gait. 2+ L biceps, patellar reflex. 3+ R biceps, 2 patellar reflex. + babinski on R side, - on L SKIN: Warm, dry, normal turgor, normal cap refill. Laboratory Results - last 24 hr CBC, BMP 04/20/17 05:00 04/20/17 05:00 Laboratory Results - last 24 hr 04/19/17 04/19/17 04/20/17 05:00 05:00 05:00 WBC RBC Hgb Hct MCV MCH MCHC RDW Plt Count MPV Neutrophils % Lymphocytes % Monocytes % Eosinophils % Basophils % Manual Slide Review No Result Required. PTT (Actin FS) 56.5 H Sodium 133 L Potassium 4.1 Chloride 103 Carbon Dioxide 23 Anion Gap 7 L BUN 20 H Creatinine 1.1 H Creat Clearance w eGFR 48.04 Random Glucose 123 H D Calcium 7.0 L Total Bilirubin 2.4 H D AST 91 H ALT 70 Alkaline Phosphatase 268 H Total Protein 4.9 L Albumin 2.2 L Digoxin 0.0702 L 04/20/17 04/20/17 05:00 05:00 WBC 7.7 RBC 3.06 L Hgb 9.0 L Hct 26.8 L MCV 87.5 MCH 29.4 MCHC 33.6 RDW 14.5 Plt Count 95 L MPV 10.1 Neutrophils % 74.6 Lymphocytes % 10.7 D Monocytes % 11.7 H Eosinophils % 2.5 D Basophils % 0.5 Manual Slide Review PTT (Actin FS) 62.2 H Sodium Potassium Chloride Carbon Dioxide Anion Gap BUN Creatinine Creat Clearance w eGFR Random Glucose Calcium Total Bilirubin AST ALT Alkaline Phosphatase Total Protein Albumin Digoxin 04/18/17 04/19/17 04/19/17 05:20 05:00 05:00 WBC RBC Hgb Hct MCV MCH MCHC RDW Plt Count MPV Neutrophils % Lymphocytes % Monocytes % Eosinophils % Basophils % Manual Slide Review No Result Required. PTT (Actin FS) Sodium 134 L Potassium 4.8 Chloride 103 Carbon Dioxide 25 Anion Gap 6 L BUN 23 H Creatinine 1.3 H Creat Clearance w eGFR 39.61 Random Glucose 96 Calcium 7.2 L Iron 27 TIBC 187 L Iron Saturation 14 L Total Bilirubin 3.3 H D AST 100 H D ALT 72 Alkaline Phosphatase 234 H Total Protein 5.3 L Albumin 2.6 L 04/19/17 04/20/17 04/20/17 05:00 05:00 05:00 WBC 7.7 RBC 3.06 L Hgb 9.0 L Hct 26.8 L MCV 87.5 MCH 29.4 MCHC 33.6 RDW 14.5 Plt Count 95 L MPV 10.1 Neutrophils % 74.6 Lymphocytes % 10.7 D Monocytes % 11.7 H Eosinophils % 2.5 D Basophils % 0.5 Manual Slide Review PTT (Actin FS) 56.5 H 62.2 H Sodium Potassium Chloride Carbon Dioxide Anion Gap BUN Creatinine Creat Clearance w eGFR Random Glucose Calcium Iron TIBC Iron Saturation Total Bilirubin AST ALT Alkaline Phosphatase Total Protein Albumin Active Medications Generic Name Dose Route Start Last Admin Trade Name Freq PRN Reason Stop Dose Admin Atorvastatin Calcium 40 mg 04/19/17 22:00 04/19/17 21:23 Lipitor - PO 40 mg HS ELANA Administration Chlorhexidine Gluconate 1 applic 04/19/17 22:00 04/19/17 21:23 Hibiclens For Decolonization - TP 1 applic HS ELANA Administration Diltiazem HCl 60 mg 04/19/17 18:00 04/20/17 05:50 Cardizem - PO 60 mg Q6HPO ELANA Administration Dextrose/Sodium Chloride 1,000 mls @ 83 mls/hr 04/19/17 16:42 04/19/17 21:25 D5-1/2ns - IV 83 mls/hr ASDIR ELANA Administration Heparin Sodium/Dextrose 25,000 units in 500 mls @ 16 mls/hr 04/19/17 16:42 17:49 Heparin Infusion - IVPB 900 units/hr TITR [facility] 18 mls/hr Protocol Administration 800 UNITS/HR Morphine Sulfate 15 mg 04/19/17 22:00 04/19/17 21:23 Ms Contin - PO 15 mg BID ELANA Administration Morphine Sulfate 2 mg 04/19/17 16:42 Morphine Sulfate IVPUSH Q4H PRN PAIN Mupirocin 1 applic 04/19/17 22:00 04/19/17 21:23 Bactroban Ointment (For Decolonization) - NS 04/22/17 21:59 1 applic BID ELANA Administration Pantoprazole Sodium 40 mg 04/19/17 22:00 04/19/17 21:23 Protonix - PO 40 mg BID ELANA Administration Phytonadione 5 mg 04/20/17 10:00 Aqua Mephyton Injection - SQ 04/20/17 10:01 DAILY [facility] Microbiology 04/17/17 16:10 Blood - Peripheral Venous Blood Culture - Preliminary NO GROWTH OBTAINED AFTER 48 HOURS, INCUBATION TO CONTINUE FOR 3 DAYS. 04/17/17 16:10 Blood - Peripheral Venous Blood Culture - Preliminary NO GROWTH OBTAINED AFTER 48 HOURS, INCUBATION TO CONTINUE FOR 3 DAYS. EKG 04/16 - Normal ekg. NSR. Rate of 90. Normal axis. Imaging: Non Head CT 04/16 - No acute pathology, mass or acute bleed. Chest CT 04/16 - No CT findings of acute pathology are identified involving the chest. Minimal to mild bilateral lower lobe discoid atelectasis/linear scarring. Stable benign 0.4 cm left lower lobe pulmonary nodule in comparison to a [address] study. Possible mild cardiomegaly. Head MRI 04/18 - Multiple bilateral cerebral and cerebellar acute infarcts are noted as discussed above. An acute left frontal cortical infarct is seen containing a trace amount of acute petechial blood. Echo 04/20 - Received this AM. results pending. ASSESSMENT/PLAN: 77 yo woman w/ pmh of colon/liver ca, chronic afib, HTN, HLD, PUD and diverticulosis who presented to the ED after daughter witnessed her with R side facial droop, R hand weakness and dysarthria, intially resolved, then worsened during admission to include fixed R side paralysis/hemiparesis. Brain MRI with multiple bilateral cerebral/cerebellar infarcts, w/ evidence of mild acute bleeding, believed to be embolic shower or possible lacunar infarct. #Acute multi-infarct CVA - MRI w/ multiple bilateral cerebral/cerebellar infarcts. Pt with R sided hemiparesis/paralysis, dysarthria. - Serial neuro exams qshift - Repeat head CT tomorrow AM. - Continue heparin gtt. No boluses. Bridge to coumadin, confirm w/ heme/onc - Atorvastatin 40mg daily - Carotid doppler w/ mild atherosclerotic dz w/ no significant plaque - F/u echo results. Ordered on admission, done this morning 04/20 - Neurology following. Recs greatly appreciated. #Afib - Pt on xarelto for AC as outpt. Held on admission. Resumed on 04/17, transitioned to heparin gtt 04/18. Found to be in A-flutter today w/ rate in 80s - Cardiology consulted (Dr. Azar). Recs appreciated. - Rapid Afib w/ rvr to 150s on 04/18 - Poor BB tolerance (fatigue, bronchospasm) - High dose Cardizem 60mg q6h per cardiology. 30mg prn dose added for breakthrough tachy. - Continue heparin gtt for AC per neuro. F/u with heme/onc for fci AC plan. - Cardiac monitoring - F/u EKG results - Off amiodarone gtt #Mild HERBERTH - BUN/Cr 23/1.2 on admission. Remained in range of 1.1-1.3 - Continue IVFs 50cc NS - Daily BMPs - Trend Cr #Anemia - Hgb 7.1 04/18 AM. Transfused 2 units pRBCs per Heme/onc team, f/u Hgb 9.4 04/19. Patient denies any recent bleeds, melena, hematuria - Continue to Trend H/H - Iron 27, TIBC 187, iron sat 14, ferritin 1750 - Monitor for signs of bleeding - High risk of bleeding/clotting given malignancy, liver mets, baseline elevated INR - Heme/onc following. Recs appreciated #Transaminitis/Hyperbilirubinemia - T Bili decreased from 3.3 -> 2.4 this AM. LFTs downtrending. - trend LFTs - Send d-bili - Consider hemolysis panel #Mild Hyponatremia - 133 this AM - Switched from 1/2d5NS to NS - Daily labs #Liver mets - Oncology team following - Continue to trend LFTs - Bx of liver lesions - Will require outpt f/u for further management #HTN - Cardizem 60mg q6 - Monitor for hypotension given bradycardia to 40s today #HLD - Atorvastatin 40mg PO #Chronic back pain - MS contin 15mg BID #PUD - PPI #PPX: - heparin gtt FEN: Fluids: NS 50cc/hr Electrolytes: Trend BUN/Cr Nutrition: dysphagia puree per S+S Dispo: Transfer to tele for continued monitoring in setting of multi-infarct/ lacunar stroke and paroxysmal aFib. Plan discussed with attending, Dr. Karyn Hidalgo, PGY1 Visit type - Emergency Visit Emergency Visit: Yes ED Registration Date: 04/16/17 Care time: The patient presented to the Emergency Department on the above date and was hospitalized for further evaluation of their emergent condition. - New Patient This patient is new to me today: No - Critical Care Critical Care patient: Yes Total Critical Care Time (in minutes): 35 Critical Care Statement: The care of this patient involved high complexity decision making to prevent further life threatening deterioration of the patient 's condition and/or to evaluate & treat vital organ system(s) failure or risk of failure.
[2017-04-20 07:24] LABS: ALK PHOS 268 U/L (45-117)
--- NOTE | 2017-04-20 07:34 | MSN ---
Progress Note (short form) - Note Progress Note: SUBJECTIVE CC: R facial droop, diplopia, slurred speech, weakness HPI: 77 year old woman with PMHx of paroxysmal a-fib currently controlled with heparin gtt, colon ca w/ liver mets s/p liver resection and colectomy, diverticulosis, PUD, HTN and hyperlipidemia presented to the ER on 04/16/17 20: 30 with complaint of R sided facial droop, weakness, and slurred speech. Patient 's family stated the event was witnessed at the dinner table, lasting for approximately 15 minutes and resolved before EMS arrived. Pt also reported transient diplopia, fatigue for the past two weeks. Patient reports she was dx with paroxysmal a-fib in 2012 managed with xarelto. Pt stated she was experiencing nausea and poor po intake for the past 3 days prior to admission and did not take any medications, including xarelto, during this time. Pt denied recent fevers, chills, headache, n/v, chest pain, SOB or constipation at the time. Pt denied loss of consciousness and was able to comprehend and respond appropriately to all conversation. Pt reported abdominal discomfort upon admission. Since admission, Pt has undergone head CT which showed no acute pathology, chest CT w/o acute pathology, and head MRI showing multiple b/l cerebral and cerebellar infarcts with an acute L frontal cortical infarct containing a trace amount of acute petechial blood. Pt is now hemiparetic on the R side with R facial droop, decreased sensation on R side hyperreflexic on R side and positive Babinski on R foot. Pt had an episode of rapid A-fib with HR 113 BPM on 04/17/17 13:41, beginning when pt was transported back to [facility] from testing; she had not yet received any of her home cardizem since admission. She was pharmacologically converted with Amiodarone bolus 150 mg at 04/17/17 13:20 and then continued on Amio drip 16.66 mls/hr @ 0.5 mg/min. Pt was transferred to the ICU due to rapid A-fib with RVR. Xarelto 15 mg PO daily home med was D/C 04/17/17 13:52 and Heparin IV 16 mls/hr @800 U/hr was begun on 04/18/17 18:15 as per neurologist recommendations for CVA with inherent risk for hemorrhagic transformation. Amiodarone was d/c by Dr. Azar on 04/19/17 10:24 due to lab evidence of liver dysfunction with mult. liver tumors per Dr. Pimentel. Home cardizem 60mg q6h was restarted on 04/19/17 afternoon. Patient was seen and examined today. R side of body has increased flaccid muscle tone compared to yesterday. Rapid alternating movements and pronator drift are absent on L side. No overnight events. Pt no longer reports abdominal discomfort. OBJECTIVE Last Vital Signs Temp Pulse Resp BP Pulse Ox 98.4 F 80 16 93/45 95 04/20/17 10:00 04/20/17 12:00 04/20/17 12:00 04/20/17 12:00 04/20/17 08:06 General: Pt is alert and oriented, drowsy, cooperative with interview in no acute distress. Head: Normocephalic, atraumatic. Eyes: PERRLA, no APD, no scleroicterus, moist and pink conjunctiva. Eyes deviated to L. Nose: Nares patent. Throat: Moist mucus membranes. Uvula deviated, tongue deviates to L side. Heart: Afib, no murmurs, rubs, gallops Lungs: CTAB, no crackles/wheezing/rhonchi, chest is non-tender to palpation. Abdomen: Soft, NT/ND, +BS in all 4 quadrants. Extremities: No clubbing, cyanosis, or edema. +2 radial pulses, +2 DP pulses. Neurological Exam: Mental status: Orientation: Alert and oriented to person and place, not to time. Language: Fluent, mild dysarthria Cognition: MMSE = 17/30 Orientation 2/5 State, county, town, building, floor 5/5 Apple, table, margoth (repeat) 3/3 Serial 7's 0/5 Apple, table, margoth (recall, 0 semantic cues) 0/3 Pencil, watch 2/2 No ifs ands or buts 05/24 Paper in L hand, fold in half, put on floor 2/3 Close your eyes 05/24 Write a sentence 05/24 Copy pentagons 0 Cranial nerves/Muscle strength CN II: PERRLA, can recognize objects and shapes, not letters (w/ or w/o bifocals at near and far vision) CN III/IV/: eyes deviated to L side, unsure if EOM intact due to patient drowsiness, will retest tomorrow. CN VII: Facial movement asymmetrical, R facial droop CN VIII: hearing intact to voice and finger rub B/L CN IX/X/XII: tongue deviated to L side, uvula deviation, gag reflex not tested due to pt discomfort. CN XI: able to rotate head against resistance B/L, SCM & trapezius 0/5 muscle strength on R side, 5/5 muscle strength on L side. Flaccid motor tone on R side, normal tone on L side. R side biceps, triceps, SCM, Wrist flexors/extensors, finger hands hanger 0/5 R side finger abductors, hip flexors, quadriceps, plantar flexors and extensors 0/5 L side biceps, triceps, SCM, wrist flexors/extensors, finger hands hanger 5/5 L side finger abductors, hip flexors, quadriceps, plantar flexors and extensors 5/5 Reflexes L biceps 2/5, L brachioradialis 2/5, L patellar 2/5 R biceps 3/5, R brachioradialis 3/5, R patellar 3/5 Babinski present on R side, absent on L side Sensation: Sensation intact to soft touch throughout L side of body, absent on R side of body Cerebellar fxn: Finger to nose test: normal on L, absent on R Heel to webster test: normal on L, absent on R Rapid alternating movements: normal on L, absent on R Pronator drift: will retest tomorrow Gait: Not tested due to hemiparesis Labs: CBC, BMP 04/20/17 05:00 04/20/17 05:00 Anion Gap Anion Gap 7 (8-16) L 04/20/17 05:00 Abnormal Lab Results 04/20/17 04/20/17 04/20/17 05:00 05:00 05:00 RBC 3.06 L Hgb 9.0 L Hct 26.8 L Plt Count 95 L Monocytes % 11.7 H PTT (Actin FS) 62.2 H Sodium 133 L Anion Gap 7 L BUN 20 H Creatinine 1.1 H Random Glucose 123 H D Calcium 7.0 L Total Bilirubin 2.4 H D AST 91 H Alkaline Phosphatase 268 H Total Protein 4.9 L Albumin 2.2 L Digoxin 0.0702 L Laboratory Results - last 24 hr 04/20/17 04/20/17 04/20/17 05:00 05:00 05:00 WBC 7.7 RBC 3.06 L Hgb 9.0 L Hct 26.8 L MCV 87.5 MCH 29.4 MCHC 33.6 RDW 14.5 Plt Count 95 L MPV 10.1 Neutrophils % 74.6 Lymphocytes % 10.7 D Monocytes % 11.7 H Eosinophils % 2.5 D Basophils % 0.5 PTT (Actin FS) 62.2 H Sodium 133 L Potassium 4.1 Chloride 103 Carbon Dioxide 23 Anion Gap 7 L BUN 20 H Creatinine 1.1 H Creat Clearance w eGFR 48.04 Random Glucose 123 H D Calcium 7.0 L Total Bilirubin 2.4 H D AST 91 H ALT 70 Alkaline Phosphatase 268 H Total Protein 4.9 L Albumin 2.2 L Digoxin 0.0702 L INR, PTT INR 1.64 (0.82-1.09) H 04/19/17 05:00 Fibrinogen 195.0 mg/dL (238-498) L 04/19/17 05:00 Imaging: Non Head CT 04/16 - No acute pathology, mass or acute bleed. Chest CT 04/16 - No CT findings of acute pathology are identified involving the chest. Minimal to mild bilateral lower lobe discoid atelectasis/linear scarring. Stable benign 0.4 cm left lower lobe pulmonary nodule in comparison to a [address] study. Possible mild cardiomegaly. Head MRI 04/18 - Multiple bilateral cerebral and cerebellar acute infarcts are noted as discussed above. An acute left frontal cortical infarct is seen containing a trace amount of acute petechial blood. ASSESSMENT/PLAN: 77 year old woman with PMHx of p-a-fib on heparin gtt, colon ca w/ liver mets s/ p liver resection & colectomy, HTN, HLD, PUD and diverticulosis admitted for R side facial droop, R hand weakness and dysarthria that resolved then worsened during admission. She now has fixed R hemiparesis. Brain MRI shows multiple B/L cerebral/cerebellar infarcts with evidence of mild acute bleeding, believed to be embolic shower in distribution of L MCA or possible lacunar infarct. #Acute multi-infarct CVA - MRI w/ multiple bilateral cerebral/cerebellar infarcts. R sided hemiparesis/paralysis, dysarthria. - Serial neuro exams every shift. - Repeat head CT ordered for 04/21/17 9:00 AM - Continue heparin gtt. No boluses. Bridge to coumadin - Atorvastatin 40mg daily - F/u echo results. Ordered on admission, was performed today. - Neurology on board, recs appreciated. #Afib - Pt on xarelto home med. Held on admission secondary to acute CVA. Resumed on 04/17, transitioned to heparin gtt 04/18 - Rapid Afib w/ rvr beginning 04/17; HR to 150s on 04/18 - Poor BB tolerance (fatigue, bronchospasm) - High dose Cardizem 60mg q6h per cardiology - Continue heparin gtt for AC - Cardiac monitoring - F/u EKG results - Off amiodarone gtt per cardiology #Mild HERBERTH - BUN/Cr 23/1.2 on admission. Remained in range of 1.1-1.3 - Continue IVFs - Daily BMPs - Trend Cr - BUN/CR remains stable at pt baseline. #Anemia - Hgb 7.1 04/18 AM. Transfused 2 units pRBCs per Heme/onc team, f/u Hgb 9.4 04/19. - Hb now 9.0 04/20/17 5:00 AM - Patient denies any recent bleeds, melena, hematuria - Continue to Trend H/H - Iron 27, TIBC 187, iron sat 14, ferritin 1750 - Monitor for signs of bleeding - High risk of bleeding/clotting given malignancy, liver mets, baseline elevated INR - Heme/onc following. Recs appreciated #Liver mets - Oncology team following - Continue to trend LFTs - Bx of liver lesions - Will require outpatient f/u for further management #HTN - continue Cardizem 60mg q6 #HLD - Atorvastatin 40mg PO #Chronic back pain - MS contin 15mg BID #PUD - continue Protonix #PPX: - heparin gtt FEN: Fluids: IV NS 50 cc/hr Electrolytes: Trend BUN/Cr
[2017-04-20] MEDS ORDERED: PT OWN MED DRAWER 7, Y5N ONE (09:18)
[2017-04-20] MEDS ORDERED: PHYTONADIONE 10 MG/1 ML AMP SQ SCH (10:00)
[2017-04-20] MEDS ORDERED: SODIUM CHLORIDE 1,000 ML IV SCH (10:15)
[2017-04-20] MEDS: morphine SO4 SUSTAINED ACTING 15 MG TABLET.SA PO SCH ×2 (10:18→22:00)
[2017-04-20] MEDS: PANTOPRAZOLE 40 MG TABLET (FP) PO SCH (10:18)
[2017-04-20] MEDS: MUPIROCIN 2% TOPICAL OINTMENT FOR DECOLONIZATION NS SCH (10:29)
--- NOTE | 2017-04-20 11:22 | PN ---
Progress Note (short form) - Note Progress Note: Chief Complaint: rapid AF, CVA History of Present Illness: dilt decreased from 90 q6h to 60 q6h yesterday b/c of HR's in 40's. Na trending down. Changed from D5 to NS today. denies palpitations, sob, cp. + sleepy today. Current Medications Atorvastatin Calcium (Lipitor -) 40 mg PO HS [facility] Last Admin: 04/19/17 21:23 Dose: 40 mg Chlorhexidine Gluconate (Hibiclens For Decolonization -) 1 applic TP HS [facility] Last Admin: 04/19/17 21:23 Dose: 1 applic Diltiazem HCl (Cardizem -) 60 mg PO Q6HPO [facility] Last Admin: 04/20/17 05:50 Dose: 60 mg Heparin Sodium/Dextrose (Heparin Infusion -) 25,000 units in 500 mls @ 16 mls/ hr IVPB TITR [facility]; 800 UNITS/HR PRN Reason: Protocol Last Admin: 04/19/17 17:49 Dose: 900 units/hr, 18 mls/hr Sodium Chloride (Normal Saline -) 1,000 mls @ 50 mls/hr IV ASDIR E[facility] Stop: 04/21/17 10:03 Last Admin: 04/20/17 10:24 Dose: 50 mls/hr Morphine Sulfate (Ms Contin -) 15 mg PO BID [facility] Last Admin: 04/20/17 10:18 Dose: Not Given Morphine Sulfate (Morphine Sulfate) 2 mg IVPUSH Q4H PRN PRN Reason: PAIN Mupirocin (Bactroban Ointment (For Decolonization) -) 1 applic NS BID [facility] Stop: 04/22/17 21:59 Last Admin: 04/20/17 10:29 Dose: 1 applic Pantoprazole Sodium (Protonix -) 40 mg PO BID [facility] Last Admin: 04/20/17 10:18 Dose: 40 mg Vital Signs - 24 hr 04/19/17 04/19/17 04/19/17 12:00 12:17 14:00 Temperature 98.6 F Pulse Rate 55 L 51 L 53 L Respiratory 17 16 Rate Blood Pressure 118/50 108/45 O2 Sat by Pulse Oximetry (%) 04/19/17 04/19/17 04/19/17 16:00 18:33 20:58 Temperature 99.1 F Pulse Rate 54 L 57 L Respiratory 16 18 Rate Blood Pressure 109/40 125/49 O2 Sat by Pulse 95 Oximetry (%) 04/19/17 04/19/17 04/20/17 21:05 22:41 00:27 Temperature 98.7 F Pulse Rate 72 103 H 92 H Respiratory 18 13 13 Rate Blood Pressure 114/47 104/68 116/54 O2 Sat by Pulse Oximetry (%) 04/20/17 04/20/17 04/20/17 02:00 04:00 06:00 Temperature 98.3 F 98.6 F Pulse Rate 82 91 H 91 H Respiratory 18 18 14 Rate Blood Pressure 119/68 107/68 116/66 O2 Sat by Pulse Oximetry (%) 04/20/17 04/20/17 04/20/17 07:56 08:00 08:06 Temperature Pulse Rate 82 Respiratory 14 13 Rate Blood Pressure 114/61 O2 Sat by Pulse 95 Oximetry (%) 04/20/17 10:00 Temperature 98.4 F Pulse Rate 82 Respiratory 16 Rate Blood Pressure 103/53 O2 Sat by Pulse Oximetry (%) Intake & Output 04/18/17 04/19/17 04/20/17 04/21/17 07:59 07:59 07:59 07:59 Intake Total 1726.4 2632 2644 Output Total 1500 1220 Balance 1726.4 1132 1424 Weight 163 lb 12.855 oz 162 lb 6.4 oz 170 lb 1.6 oz Constitutional: Yes: Well Nourished, No Distress, Calm Cardiovascular: Yes: Regular Rate and Rhythm, S1, S2. No: JVD, Gallop, Murmur Respiratory: Yes: Regular, CTA Bilaterally. No: Accessory Muscle Use, Rales, Wheezes Gastrointestinal: Yes: Distention Extremities: No: Cold Edema: No Neurological: Yes: Alert. No: Seizure Psychiatric: No: Agitated Labs: CBC, BMP 04/20/17 05:00 04/20/17 05:00 Laboratory Tests 04/18/17 04/20/17 04/20/17 05:20 05:00 05:00 PTT (Actin FS) 62.2 H Total Bilirubin 2.4 H D AST 91 H ALT 70 Alkaline Phosphatase 268 H Albumin 2.2 L TSH 1.71 D Digoxin 0.0702 L - ....Imaging EKG: Other (tele: NSR with sinus esteban 40s often, to 50s) Assessment/Plan carotids: mild athero, no stenosis acute CVA: -2 episodes on DOA, in setting of missing home AC dose x 2d -neuro input reviewed: embolic shower ( with largest in L MCa distribution) in setting of AFIB--with future risk of rembolization , although large stroke size with inherent risk for hemorrhagic transformation -> Ok for heparin gtt for now, consider repeat HD ct to follow evolution of stroke. con't Statin, REHAB. -carotid dopplers unremarkable -echo ordered, pending. PAF, sick sinus syndrome: -intolerant of low dose metoprolol and bystolic at low doses (profound fatigue, bronchospasm) -has tolerated high dose diltiazem (without signif GERD s.e.) -tolerated digoxin in past, but stopped given age and decr GFR--could add back if rapid HRs -rapid AF 150s on 04/18, began when pt was transported back to the floor from testing. she had not received any of her home cardizem CD 360 mg since admit, hence this may have contributed. Given very short AF duration, with pt's previously known refractory HRs (160) despite this dose of cardizem as outpt, and marked intolerance to even low doses of BB, she was pharmacologically cardioverted with amio bolus. [facility] po amio not a good option given lab evidence of liver dysfunction (albumin 3.0, LFTs all up) with mult liver tumors per dr kothari --> stopped amio gtt and resumed home cardizem (c/b difficulty swallowing pills --> changed to short-acting dilt 90mg q6h to be crushed for her , though not a good long-term option--reassess once appetite/GI tolerance improves). -if recurrent rapid AF, will consider flecainide or other anti-arrhythmic, with EP input (if any are safe with liver dysfunction) -hope to avoid AVN ablation/PPM; -04/19: currently sinus esteban 40s consistently, ? hi vagal tone given ongoing GI sx's and bedrest decr diltiazem dose - 04/20: bradycardia improved, con't same mgm't - Had been on xarelto at home. despite some incr risk of bleeding with uncertain degree of decr'd hepatic synthetic function, this pt with malignancy has proven that she remains hypercoagulable given TIA x 2 on DOA; hence benefits of AC likely > risks here. Changed to reversible hep gtt per neuro in recent infarcts and also in anticipation of possible liver bx. HTN: -bp controlled here/borderline low on dilt. (holding home aldactone/losartan) -bp targets per neuro CKD: -baseline creat runs 1.1-1.5 -renal fxn stable here. 04/19 hyponatremia slightly worse. IVF changed from D5 to NS. CAD: -cor calcium score intermediate (slightly above 50th %ile) -MPI in past equivocal ? apical ischemia vs variable breast artifact -never had anginal sx's -ecg no acute ischemic changes here -cont home regimen: statin (atorva 10 at home), no ASA (on AC) HPL: -LDL runs 90s on atorva 10, similar here. intolerant atorva 20 in past, but tolerating atorva 40 here in setting of cva. ? need to decrease dose in setting of liver mets/mildly elevated lfts. asthma: -intolerant of B-B in past -no current wheezing/sob colon cancer with liver mets/anemia/anorexia/abd pain: -? sx's related to tumor -all LFTs mildly elevated, abd distended -per hospitalist +/- Onc as indicated ok for transfer to tele est'd time spent in review of data and formulating mgmt plan = 35 min
--- NOTE | 2017-04-20 11:25 | PN ---
Progress Note (short form) - Note Progress Note: 77 yo woman w/ pmh of colon/liver ca, chronic afib, HTN, HLD, PUD and diverticulosis who presents to the ED after daughter witnessed her with R side facial droop, R hand weakness and dysarthria that lasted approximately 15-20 minutes and resolved before arrival in ED. Patient is admitted for recurrent TIA. noted to have inc right side weakness yesterday. Found to have embolic shower . -Today pts.exam reveals plegic right side --Await repeat CT head, increased weakness on right side is likely due to focal cerebral edema. QWould cont. heparin. Jameson Flynn MD
--- NOTE | 2017-04-20 11:58 | PN ---
Teaching Attending Note Name of Resident: Eric Acosta ATTENDING PHYSICIAN STATEMENT I saw and evaluated the patient. I reviewed the resident's note and discussed the case with the resident. I agree with the resident's findings and plan as documented. SUBJECTIVE: Patient seen and examined in the ICU. Remains drowsy but easily arousable. Mildly confused. Weakness on the right slightly worse today. HR better. Denies CP or SOB. No dizziness. Intake & Output 04/17/17 04/18/17 04/19/17 04/20/17 23:59 23:59 23:59 23:59 Intake Total 482 2273.4 3035 1212 Output Total 1100 1320 300 Balance 482 1173.4 1715 912 Weight 158 lb 6 oz 163 lb 12.855 oz 162 lb 6.4 oz 170 lb 1.6 oz Last Vital Signs Temp Pulse Resp BP Pulse Ox 98.4 F 82 16 103/53 95 04/20/17 10:00 04/20/17 10:00 04/20/17 10:00 04/20/17 10:00 04/20/17 08:06 Active Medications Atorvastatin Calcium (Lipitor -) 40 mg PO HS [facility] Last Admin: 04/19/17 21:23 Dose: 40 mg Chlorhexidine Gluconate (Hibiclens For Decolonization -) 1 applic TP HS [facility] Last Admin: 04/19/17 21:23 Dose: 1 applic Diltiazem HCl (Cardizem -) 60 mg PO Q6HPO [facility] Last Admin: 04/20/17 05:50 Dose: 60 mg Heparin Sodium/Dextrose (Heparin Infusion -) 25,000 units in 500 mls @ 16 mls/ hr IVPB TITR E[facility]; 800 UNITS/HR PRN Reason: Protocol Last Admin: 04/19/17 17:49 Dose: 900 units/hr, 18 mls/hr Sodium Chloride (Normal Saline -) 1,000 mls @ 50 mls/hr IV ASDIR [facility] Stop: 04/21/17 10:03 Last Admin: 04/20/17 10:24 Dose: 50 mls/hr Morphine Sulfate (Ms Contin -) 15 mg PO BID [facility] Last Admin: 04/20/17 10:18 Dose: Not Given Morphine Sulfate (Morphine Sulfate) 2 mg IVPUSH Q4H PRN PRN Reason: PAIN Mupirocin (Bactroban Ointment (For Decolonization) -) 1 applic NS BID [facility] Stop: 04/22/17 21:59 Last Admin: 04/20/17 10:29 Dose: 1 applic Pantoprazole Sodium (Protonix -) 40 mg PO BID [facility] Last Admin: 04/20/17 10:18 Dose: 40 mg Constitutional: Yes: Well Nourished, No Distress Eyes: Yes: WNL, Conjunctiva Clear, EOM Intact HENT: Yes: Other (R sided Facial Droop) Neck: Yes: WNL, Supple, Trachea Midline Cardiovascular: Yes: WNL, Pulse Irregular Respiratory: Yes: Few rhonchi Gastrointestinal: Yes: WNL, Normal Bowel Sounds, Soft ...Rectal Exam: Yes: Deferred Renal/: Yes: WNL Breast(s): Yes: WNL Musculoskeletal: Yes: Other (Ecchymosis --> R Hip) Extremities: Yes: Other (R sided weakness.) Edema: No Peripheral Pulses WNL: Yes Neurological: Yes: WNL, Alert, Oriented, Facial Droop, Weakness (R > L) ...Motor Strength: RUE (Weakness), RLE (Weakness) Psychiatric: Yes: WNL, Alert, Oriented Labs: Laboratory Results - last 24 hr 04/20/17 04/20/17 04/20/17 05:00 05:00 05:00 WBC 7.7 RBC 3.06 L Hgb 9.0 L Hct 26.8 L MCV 87.5 MCH 29.4 MCHC 33.6 RDW 14.5 Plt Count 95 L MPV 10.1 Neutrophils % 74.6 Lymphocytes % 10.7 D Monocytes % 11.7 H Eosinophils % 2.5 D Basophils % 0.5 PTT (Actin FS) 62.2 H Sodium 133 L Potassium 4.1 Chloride 103 Carbon Dioxide 23 Anion Gap 7 L BUN 20 H Creatinine 1.1 H Creat Clearance w eGFR 48.04 Random Glucose 123 H D Calcium 7.0 L Total Bilirubin 2.4 H D AST 91 H ALT 70 Alkaline Phosphatase 268 H Total Protein 4.9 L Albumin 2.2 L Digoxin 0.0702 L Problem List - Problems (1) Lacunar infarction Code(s): I63.9 - CEREBRAL INFARCTION, UNSPECIFIED (2) Paroxysmal atrial fibrillation Code(s): I48.0 - PAROXYSMAL ATRIAL FIBRILLATION (3) Cancer, metastatic to liver Code(s): C78.7 - SECONDARY MALIG NEOPLASM OF LIVER AND INTRAHEPATIC BILE DUCT Assessment/Plan ASSESS: This is a 77 y/o woman w/ p-A-Fib on Xarelto as well as Colon CA w/ extensive mets to liver who presents now w/ a lacunar infarct c/b A-Fib w/ RVR requiring Amio gtt. Pt is now back in [facility] ready for return transfer back to [facility]. PLAN: Rate control per Cardiology IV Heparin O2 for an SpO2 > 92% BP control Lipitor Protonix SCDs Follow Coags Cardiac Telemetry monitoring For possible biopsy Should further discuss GOC Dr Lacey Critical care time spent in reviewing chart, evaluating patient and formulating plan - 40 minutes.
[2017-04-20] MEDS ORDERED: dilTIAZem HCL 30 MG TABLET (FP) PO ONE (12:46)
--- NOTE | 2017-04-20 13:04 | PN ---
Physical Exam: SUBJECTIVE: Patient seen and examined at bedside. No acute events overnight. NAD. Afebrile. Pt has no new complaints. Facial droop and paralaysis are the same since yesterday. OBJECTIVE: Vital Signs Period Temp Pulse Resp BP Sys/Sheppard Pulse Ox Last 24 Hr 98.3 F-99.1 F 53-103 13-18 93-125/40-68 95-95 GENERAL: The patient is awake, alert, and fully oriented, in no acute distress. HEAD: Normal with no signs of trauma. R facial droop. EYES: PERRL, extraocular movements intact, sclera anicteric, conjunctiva clear. No ptosis. ENT:oropharynx clear without exudates, moist mucous membranes. NECK: Trachea midline, full range of motion, supple. LUNGS: Breath sounds equal, clear to auscultation bilaterally, no wheezes, no crackles, no accessory muscle use. HEART: Regular rate and rhythm, S1, S2 without murmur, rub or gallop. ABDOMEN: Soft, nontender, nondistended, normoactive bowel sounds, no guarding, no rebound, no hepatosplenomegaly, no masses. EXTREMITIES: 2+ pulses, warm, well-perfused, no edema. NEUROLOGICAL: Right facial droop. Right sided weakness 0/5 diffusely PSYCH: Normal mood, normal affect. SKIN: Warm, dry, normal turgor, no rashes or lesions noted Laboratory Results - last 24 hr 04/20/17 04/20/17 04/20/17 05:00 05:00 05:00 WBC 7.7 RBC 3.06 L Hgb 9.0 L Hct 26.8 L MCV 87.5 MCH 29.4 MCHC 33.6 RDW 14.5 Plt Count 95 L MPV 10.1 Neutrophils % 74.6 Lymphocytes % 10.7 D Monocytes % 11.7 H Eosinophils % 2.5 D Basophils % 0.5 PTT (Actin FS) 62.2 H Sodium 133 L Potassium 4.1 Chloride 103 Carbon Dioxide 23 Anion Gap 7 L BUN 20 H Creatinine 1.1 H Creat Clearance w eGFR 48.04 Random Glucose 123 H D Calcium 7.0 L Total Bilirubin 2.4 H D AST 91 H ALT 70 Alkaline Phosphatase 268 H Total Protein 4.9 L Albumin 2.2 L Digoxin 0.0702 L Active Medications Generic Name Dose Route Start Last Admin Trade Name Freq PRN Reason Stop Dose Admin Atorvastatin Calcium 40 mg 04/19/17 22:00 04/19/17 21:23 Lipitor - PO 40 mg HS ELANA Administration Chlorhexidine Gluconate 1 applic 04/19/17 22:00 04/19/17 21:23 Hibiclens For Decolonization - TP 1 applic HS ELANA Administration Diltiazem HCl 60 mg 04/19/17 18:00 04/20/17 05:50 Cardizem - PO 60 mg Q6HPO ELANA Administration Diltiazem HCl 30 mg 04/20/17 12:46 Cardizem - PO 04/20/17 12:47 PRN ONE Heparin Sodium/Dextrose 25,000 units in 500 mls @ 16 mls/hr 04/19/17 16:42 17:49 Heparin Infusion - IVPB 900 units/hr TITR ELANA 18 mls/hr Protocol Administration 800 UNITS/HR Sodium Chloride 1,000 mls @ 50 mls/hr 04/20/17 10:15 04/20/17 10:24 Normal Saline - IV 04/21/17 10:03 50 mls/hr ASDIR ELANA Administration Morphine Sulfate 15 mg 04/19/17 22:00 04/20/17 10:18 Ms Contin - PO Not Given BID ELANA Morphine Sulfate 2 mg 04/19/17 16:42 Morphine Sulfate IVPUSH Q4H PRN PAIN Mupirocin 1 applic 04/19/17 22:00 04/20/17 10:29 Bactroban Ointment (For Decolonization) - NS 04/22/17 21:59 1 applic BID ELANA Administration Ranitidine HCl 150 mg 04/21/17 10:00 Zantac - PO DAILY [facility] ASSESSMENT/PLAN: Pt is a 77F w/ PMH colon CA with mult mets to liver, pAfib on Xarelto who presented to ED with R facial droop. Pt had missed a few days of Xarelto. Pt found to have lacunar infarct and Afib w/ RVR requiring amio drip. #Neuro -CVA -CT & MRI done. B/l cerebral and cerebellar infarcts, left frontal infarct. -likely 2/2 to missed Xarelto doses in pt w/ Afib -persistent R facial droop and right sided weakness -neuro on board -per neuro, c/w heparin for now #Afib -Af w/ RVR requiring Amio drip. rate in low 100s at this time. Amio drip completed -on heparin -Tele monitoring -cardidaniel #HTN -BP under control currently -Pt on NS #HLD -statin #Colon CA with liver mets -Heme/Onc on board -per heme/onc, pt is at high risk of clot due to hypercoagulable state #PUD -Zantac #FEN -NS at 50 -hyponatremia -dysphagia diet #PPx -heparin -zantac D/C bravo #Dispo -transfer to Tele Eric Acosta MD PGY-1 ICU Visit type - Emergency Visit Emergency Visit: No - New Patient This patient is new to me today: No - Critical Care Critical Care patient: No - Discharge Referral Referred to [facility] Med [facility] No
--- NOTE | 2017-04-20 14:12 | PN ---
Progress Note, WIRE STRETCHER - Note Progress Note: For me, speech production is more precise, swallow seems improved in VOM and ROM. More readily crossing midline to the right with mild cues. Still confused with deficits in memory and insight. Accepting Magic cup. Consider adding Ensure compact. Selected Entries 04/20/17 04/20/17 04/20/17 02:00 06:00 10:00 Breakfast Temperature 98.3 F 98.6 F 98.4 F 04/20/17 13:06 Breakfast 25% Temperature Laboratory Tests 04/20/17 05:00 WBC 7.7 Responsive cough with sip trial of thin liquid. Took magic cup, mashed potatoes without difficulty. MBS to upgrade diet with safety 04/21? if medically stable.
[2017-04-20] MEDS: HEPARIN INFUSION - 25,000 UNITS/500 ML INFUS.BAG IVPB SCH ×2 (16:51→17:38)
--- NOTE | 2017-04-20 17:21 | PN ---
Teaching Attending Note Name of Resident: Jesus Hidalgo ATTENDING PHYSICIAN STATEMENT I saw and evaluated the patient. I reviewed the resident's note and discussed the case with the resident. I agree with the resident's findings and plan as documented. SUBJECTIVE: Patient is comfortably lying in bed , follows commands. OBJECTIVE: Vital Signs Temperature 99.7 F H 04/20/17 16:00 Pulse Rate 65 04/20/17 16:00 Respiratory Rate 18 04/20/17 16:00 Blood Pressure 105/56 04/20/17 16:00 O2 Sat by Pulse Oximetry (%) 95 04/20/17 08:06 CBCD WBC 7.7 K/mm3 (4.0-10.0) 04/20/17 05:00 RBC 3.06 M/mm3 (3.60-5.2) L 04/20/17 05:00 Hgb 9.0 GM/dL (10.7-15.3) L 04/20/17 05:00 Hct 26.8 % (32.4-45.2) L 04/20/17 05:00 MCV 87.5 fl (80-96) 04/20/17 05:00 MCHC 33.6 g/dl (32.0-36.0) 04/20/17 05:00 RDW 14.5 % (11.6-15.6) 04/20/17 05:00 Plt Count 95 K/MM3 (134-434) L 04/20/17 05:00 MPV 10.1 fl (7.5-11.1) 04/20/17 05:00 CMP Sodium 133 mmol/L (136-145) L 04/20/17 05:00 Potassium 4.1 mmol/L (3.5-5.1) 04/20/17 05:00 Chloride 103 mmol/L (98-107) 04/20/17 05:00 Carbon Dioxide 23 mmol/L (21-32) 04/20/17 05:00 Anion Gap 7 (8-16) L 04/20/17 05:00 BUN 20 mg/dL (7-18) H 04/20/17 05:00 Creatinine 1.1 mg/dL (0.55-1.02) H 04/20/17 05:00 Creat Clearance w eGFR 48.04 (>60) 04/20/17 05:00 Random Glucose 123 mg/dL (74-106) H D 04/20/17 05:00 Calcium 7.0 mg/dL (8.5-10.1) L 04/20/17 05:00 Total Bilirubin 2.4 mg/dL (0.2-1.0) H D 04/20/17 05:00 AST 91 U/L (15-37) H 04/20/17 05:00 ALT 70 U/L (12-78) 04/20/17 05:00 Alkaline Phosphatase 268 U/L (45-117) H 04/20/17 05:00 Total Protein 4.9 g/dl (6.4-8.2) L 04/20/17 05:00 Albumin 2.2 g/dl (3.4-5.0) L 04/20/17 05:00 Current Medications Generic Name Dose Route Start Last Admin Trade Name Freq PRN Reason Stop Dose Admin Atorvastatin Calcium 40 mg 04/19/17 22:00 04/19/17 21:23 Lipitor - PO 40 mg HS ELANA Administration Chlorhexidine Gluconate 1 applic 04/19/17 22:00 04/19/17 21:23 Hibiclens For Decolonization - TP 1 applic HS ELANA Administration Diltiazem HCl 60 mg 04/19/17 18:00 04/20/17 13:00 Cardizem - PO 60 mg Q6HPO ELANA Administration Heparin Sodium/Dextrose 25,000 units in 500 mls @ 16 mls/hr 04/19/17 16:42 16:51 Heparin Infusion - IVPB 900 units/hr TITR ELANA 18 mls/hr Protocol Administration 800 UNITS/HR Sodium Chloride 1,000 mls @ 50 mls/hr 04/20/17 10:15 04/20/17 10:24 Normal Saline - IV 04/21/17 10:03 50 mls/hr ASDIR ELANA Administration Morphine Sulfate 15 mg 04/19/17 22:00 04/20/17 10:18 Ms Contin - PO Not Given BID ELANA Morphine Sulfate 2 mg 04/19/17 16:42 Morphine Sulfate IVPUSH Q4H PRN PAIN Mupirocin 1 applic 04/19/17 22:00 04/20/17 10:29 Bactroban Ointment (For Decolonization) - NS 04/22/17 21:59 1 applic BID ELANA Administration Ranitidine HCl 150 mg 04/21/17 10:00 Zantac - PO DAILY [facility] Home Medications Medication Instructions Recorded Diltiazem HCl [Cardizem] 360 mg PO AM 12/09/11 Losartan Potassium [Cozaar] 50 mg PO DAILY 12/09/11 Spironolactone [Aldactone -] 50 mg PO DAILY 12/09/11 Atorvastatin Calcium 20 mg PO DAILY tablet 07/10/14 Pantoprazole Sodium [Protonix -] 40 mg PO BID #30 tablet.ec 11/08/14 Oxycodone HCl 7.5 mg PO PRN PRN 04/24/15 Rivaroxaban [Xarelto -] 15 mg PO DAILY 04/16/17 No change in PE PE:very mild dysarthria, right side hemiplegia, p=0/5 right side, 5/5 left side. rest of PE per resident's note carotids: mild athero, no stenosis MRI of the head without contrast: CLINICAL INFORMATION GIVEN: TIA The exam consists of sagittal, coronal and transaxial images obtained utilizing fast spin-echo, fast spin-echo FLAIR, susceptibility weighted and diffusion weighted spin-echo echo - planar pulse sequences. A moderate-sized acute infarct is seen involving the left frontal cortex and adjacent insular cortex. A trace amount of acute petechial blood is seen within the left frontal cortical component. Multiple punctate acute nonhemorrhagic infarcts are seen within the frontal, temporal and parietal cortices bilaterally as well as the basal ganglia bilaterally and cerebellar hemispheres bilaterally. There is also a punctate right occipital cortical infarct. There is no extra-axial fluid collection. The ventricles , cisterns and craniocervical junction appear unremarkable. Signal void is seen within the intracranial vertebral and internal carotid arteries as well as the basilar artery consistent with vessel patency. IMPRESSION: Multiple bilateral cerebral and cerebellar acute infarcts are noted as discussed above. An acute left frontal cortical infarct is seen containing a trace amount of acute petechial blood. ASSESSMENT AND PLAN: Patient is a 77 yo woman w/ pmh of colon/liver ca, chronic afib, HTN, HLD, PUD and diverticulosis who presents to the ED after daughter witnessed her with R side facial droop, R hand weakness and dysarthria that lasted approximately 15- 20 minutes and resolved before arrival in ED. Patient is admitted for recurrent TIA. #Acute CVA with right sided hemiplegia continue Heparin drip as per discussed with no Heparin bolus as per discussion with Temperature Control Inspector . Neurologist and unit assembler are on case as well, agreeable to Heparin drip since has a high risk for further infarction. #P-afib rate is controlled on Cardizem 60mg continue also on Heparin drip now s/ p off Xarelto now, s/p amnio drip , patient is back to her sinus now , discontinued by unit assembler , discussed with . # Acute dehydration: continue IVF. D51/2NS at 83cc/hr #Chronic back pain on MS contin 15mg BID, Morphine sulfate 2mg IVP prn HTN: controlled on Cardizem 60mg q6 reduced from 90mg since developed bradycardia CKD: stable baseline creat runs 1.1-1.5 CAD: cont home regimen: statin (atorva 10 at home), ARB, off ASA now HPL: intolerant atorva 20; LDL in 90s asthma: intolerant of B-B in past; no current wheezing/sob Hx of colon cancer with liver mets all LFTs mildly elevated. Dysphagia whole diet, with monitoring. DVT Px: on Heparin drip , off XArelto discontinued as per Temperature Control Inspector continue Heparin without BOLUS in ICU monitor setting.
[2017-04-20] MEDS ORDERED: HEPARIN INFUSION - 25,000 UNITS/500 ML INFUS.BAG IVPB SCH (18:29)
[2017-04-20] MEDS ORDERED: morphine SULFATE 4 MG/ML VIAL IVPUSH PRN (18:29)
[2017-04-20 18:59] LABS: INR 1.35 (0.82-1.09); PROTHROMBIN TIME (PATIENT) 15.3 SEC (9.98-11.88)
--- NOTE | 2017-04-20 20:17 | PN ---
Progress Note (short form) - Note Progress Note: Patient seen and examined Family at bedside and reviewed case with them Past history of colon ca with liver mets treated with liver resection and chemotherapy greater than 10 years earlier. Presents now with multiple DATA GOVERNANCE CONSULTANT infarcts , hypercoaguable state, liver masses suspicious for mets. Was being monitored with colonoscopies post treatment. Has atrial fib . Currently on heparin drip. Last Vital Signs Temp Pulse Resp BP Pulse Ox 99.7 F H 75 18 116/41 95 04/20/17 16:00 04/20/17 18:00 04/20/17 18:00 04/20/17 18:00 04/20/17 08:06 HEENT: ERVIN, EOM Intact Oropharynx: No thrush, No mucositis,facial weakness Right sided weakness Cor: atrial fib Lungs:decreased breath sounds Abd: Soft, Normal bowel sounds, No organomegaly Ext:No significant edema Skin: No rashes, Integument intact right sided weakness CBC, BMP 04/20/17 05:00 04/20/17 05:00 Current Medications Generic Name Dose Route Start Last Admin Trade Name Freq PRN Reason Stop Dose Admin Atorvastatin Calcium 40 mg 04/20/17 22:00 Lipitor - PO HS ELANA Chlorhexidine Gluconate 1 applic 04/20/17 22:00 Hibiclens For Decolonization - TP HS ELANA Diltiazem HCl 60 mg 04/21/17 00:00 Cardizem - PO Q6HPO ELANA Sodium Chloride 1,000 mls @ 50 mls/hr 04/20/17 10:15 04/20/17 10:24 Normal Saline - IV 04/21/17 10:03 50 mls/hr ASDIR ELANA Administration Heparin Sodium/Dextrose 25,000 units in 500 mls @ 16 mls/hr 04/20/17 18:29 18:48 Heparin Infusion - IVPB 900 units/hr TITR ELANA 18 mls/hr Protocol Administration 800 UNITS/HR Morphine Sulfate 15 mg 04/20/17 22:00 Ms Contin - PO BID ELANA Morphine Sulfate 2 mg 04/20/17 18:29 Morphine Sulfate IVPUSH Q4H PRN PAIN Mupirocin 1 applic 04/20/17 22:00 Bactroban Ointment (For Decolonization) - NS 04/22/17 21:59 BID ELANA Ranitidine HCl 150 mg 04/21/17 10:00 Zantac - PO DAILY ELANA Impression: Hypercoaguable state likely causing DATA GOVERNANCE CONSULTANT events with multiple infarcts. Atrial fib Heparin therapy Liver masses suspicious for mets Anemia Thrombocytopenia Plan: Swallowing study P.T. Would obtain pallitive care consult Defer for now on establishing diagnosis of ca by liver biopsy as it will not change prognosis nor management. In future, based upon status can decide. Q & A Time > 30 minutes
[2017-04-20] MEDS ORDERED: CHLORHEXIDINE GLUCONATE 4% CLEANSER FOR DECOLONIZATION TP SCH (22:00)
[2017-04-20] MEDS: ATORVASTATIN CA 40 MG TABLET (FP) PO SCH (22:00)
[2017-04-20] MEDS ORDERED: MUPIROCIN 2% TOPICAL OINTMENT FOR DECOLONIZATION NS SCH (22:00)
[2017-04-21] MEDS: dilTIAZem HCL 60 MG TABLET (FP) PO SCH ×4 (00:05→19:35)
--- NOTE | 2017-04-21 05:59 | HOSP ---
Subjective - Review of Symptoms Subjective: Paged earlier by nursing staff about concern of urinary retention due to pt not voiding since bravo was removed. Bladder scan at the time was noted to be 300cc. Plan was to repeat bladder scan in 2 hrs to see progression. --Repeat bladder scan showing 520cc/hr When talking to pt she states, how she, "will pee. [she] knows it." Option of straight catherization was presented to pt and pt is adamantly refusing care. Pt is of sound mind and has intact decision-making ability. Pt has refused medications prior including her Cardizem. Risks of waiting to void has been explained including, but not limited to possible bladder rupture if obstructive process is occurring. Pt accepted risk again stating "This is a bunch of nonsense." --Will let day team know about refusal Physical Examination Vital Signs: Vital Signs Temperature 98.0 F 04/21/17 02:00 Pulse Rate 100 H 04/21/17 02:00 Respiratory Rate 18 04/21/17 02:00 Blood Pressure 123/98 04/21/17 02:00 O2 Sat by Pulse Oximetry (%) 95 04/20/17 21:00 Labs: CBC, BMP 04/20/17 05:00 04/20/17 05:00
--- NOTE | 2017-04-21 06:56 | PN ---
Physical Exam: SUBJECTIVE: Patient seen and examined this AM by me - Seen in AM. More agitated, determined to leave. Endorses exasperation with medical staff. No other major overnight events. - Pt unable to void after bravo d/c yesterday. Bladder scans overnight 300, 520ml. Counseled that she will require straight cath in AM. Per nursing cath, but residual volume on f/u bladder scan 427cc. Bravo was placed in PM - Denies CP, SOB, cough, N/V, new focal neurologic deficits, MERCER/dizziness. States that she feels her R leg is improving and she can move it. - Pt with trace evidence of hemorrhagic conversion in anterior portion of L MCA infarct demarkation. Neurology/Dr. Flynn informed, advised cessation of all AC for 3 days. Pt heparin gtt held. - Family meeting this PM regarding update on hospital course. Son (health-care proxy) was informed update about progression of events since admission, appraised of recent evidence of possible hemorrhagic conversation and decision to d/c heparin gtt. Family acknowledged understanding, aware of risks/benefits and tenuous situation with balancing risk of future clots/current possible bleed. - Code status discussed with pt at bedside with Dr. Herring in attendance. Pt stated she wants DNR/DNI status, understands the implications and gave verbal confirmation. OBJECTIVE: Vital Signs Intake & Output 04/18/17 04/19/17 04/20/17 04/21/17 23:59 23:59 23:59 23:59 Intake Total 2273.4 3035 1928 716 Output Total 1100 1320 700 Balance 1173.4 1715 1228 716 Weight 74.3 kg 73.663 kg 77.156 kg Period Temp Pulse Resp BP Sys/Sheppard Pulse Ox Last 24 Hr 97.3 F-99.7 F 65-126 13-18 93-130/41-98 95-95 GENERAL: A&O to name and place but not date (states it is april). More agitated today, alert. HEAD: NCAT EYES: Pupils equal, round and reactive to light, sclera anicteric, conjunctiva clear. No lid lag. No longer with visual field defect. R lateral gaze improved BL, though still limited in range, velocity. All other EOMI intact. EARS, NOSE, THROAT: R tongue deviation, L uvular deviation. Ears normal, nares patent, oropharynx clear without exudates. Moist mucous membranes. NECK: Normal range of motion, JVD, or masses. LUNGS: Bibasilar crackles. No wheezes, and no crackles. No accessory muscle use. HEART: Irregularly irregular, normal S1 and S2 without murmur, rub or gallop. ABDOMEN: Soft, not distended, normoactive bowel sounds, no rebound, no masses. No hepatomegaly or splenomegaly. UPPER EXTREMITIES: 2+ pulses, warm, well-perfused. No cyanosis. No clubbing. LOWER EXTREMITIES: 2+ pulses, warm, well-perfused. No calf tenderness. No peripheral edema. NEUROLOGICAL: Improving dysarthria. Still w/ R lateral tongue deviation, improved R facial droop. Decreased facial sensation to light touch on R side V1. Endorses no sensation v2-3 on R side to light touch. 1/5 shoulder shrug on R side, 5/5 L side. 0/5 welding systems and equipment repairer strength in R hand, 5/5 in L hand. 0/5 R hand, arm. 5/5 strength in L arm, leg grossly. 3/5 in R proximal muscle groups. 1/5 dorsi/plantar flexion. Still with complete hemiparesis to light touch in R arm. BL sensation to light touch sensation now. unable to evaluate gait. 2+ L biceps, patellar reflex. 3+ R biceps, 2+ patellar reflex. Still with + babinski on R side, - on L SKIN: Warm, dry, normal turgor, normal cap refill. Laboratory Results - last 24 hr CBC, BMP CBC, BMP 04/21/17 06:00 Laboratory Results - last 24 hr 04/18/17 04/20/17 04/21/17 05:20 17:00 06:00 WBC RBC Hgb Hct 21.9 L MCV MCH MCHC RDW Plt Count MPV Neutrophils % Lymphocytes % Monocytes % Eosinophils % Basophils % PT with INR 15.30 H INR 1.35 H PTT (Actin FS) 63.2 H Folate 2071 Folate Hemolysate 453.5 04/21/17 06:00 WBC 9.8 RBC 3.28 L Hgb 9.7 L Hct 28.5 L MCV 86.9 MCH 29.4 MCHC 33.8 RDW 14.5 Plt Count 116 L D MPV 9.2 Neutrophils % 81.9 Lymphocytes % 7.4 L D Monocytes % 9.8 Eosinophils % 0.4 D Basophils % 0.5 PT with INR INR PTT (Actin FS) Folate Folate Hemolysate Active Medications Generic Name Dose Route Start Last Admin Trade Name Freq PRN Reason Stop Dose Admin Atorvastatin Calcium 40 mg 04/20/17 22:00 04/20/17 22:00 Lipitor - PO Not Given HS ELANA Diltiazem HCl 60 mg 04/21/17 00:00 04/21/17 06:19 Cardizem - PO 60 mg Q6HPO ELANA Administration Sodium Chloride 1,000 mls @ 50 mls/hr 04/20/17 10:15 04/20/17 10:24 Normal Saline - IV 04/21/17 10:03 50 mls/hr ASDIR ELANA Administration Heparin Sodium/Dextrose 25,000 units in 500 mls @ 16 mls/hr 04/20/17 18:29 18:48 Heparin Infusion - IVPB 900 units/hr TITR ELANA 18 mls/hr Protocol Administration 800 UNITS/HR Morphine Sulfate 15 mg 04/20/17 22:00 04/20/17 22:00 Ms Contin - PO Not Given BID ELANA Morphine Sulfate 2 mg 04/20/17 18:29 Morphine Sulfate IVPUSH Q4H PRN PAIN Ranitidine HCl 150 mg 04/21/17 10:00 Zantac - PO DAILY [facility] 04/17/17 16:10 Blood - Peripheral Venous Blood Culture - Preliminary NO GROWTH OBTAINED AFTER 72 HOURS, INCUBATION TO CONTINUE FOR 2 DAYS. 04/17/17 16:10 Blood - Peripheral Venous Blood Culture - Preliminary NO GROWTH OBTAINED AFTER 72 HOURS, INCUBATION TO CONTINUE FOR 2 DAYS. 04/18/17 18:00 Urine - Urine Bravo Urine Culture - Final NO GROWTH OBTAINED Imaging: Non Head CT 04/16 - No acute pathology, mass or acute bleed. Chest CT 04/16 - No CT findings of acute pathology are identified involving the chest. Minimal to mild bilateral lower lobe discoid atelectasis/linear scarring. Stable benign 0.4 cm left lower lobe pulmonary nodule in comparison to a 2004 CT study. Possible mild cardiomegaly. Head MRI 04/18 - Multiple bilateral cerebral and cerebellar acute infarcts are noted as discussed above. An acute left frontal cortical infarct is seen containing a trace amount of acute petechial blood. Echo 04/20 - LV function normal. Mild biatrial enlargement. Mild MR, TR. Moderate aortic regurgitation. Normal RV pressure. Mild pulmonic valve regurgitation. Non-con CT head 04/21 - Left middle cerebral artery territory acute/subacute infarct with faint hemorrhagic transformation seen along its anterior margin. Moderate chronic microvascular ischemic changes are present. Previously visualized small other acute/subacute infarcts are difficult to evaluate on this exam. Follow-up MRI would be the study of choice for further evaluation. ASSESSMENT/PLAN: 77 yo woman w/ pmh of colon/liver ca, chronic afib, HTN, HLD, PUD and diverticulosis who presented to the ED after daughter witnessed her with R side facial droop, R hand weakness and dysarthria, intially resolved, then worsened during admission to include fixed R side paralysis/hemiparesis. Brain MRI with multiple bilateral cerebral/cerebellar infarcts, w/ evidence of mild acute bleeding, believed to be embolic shower or possible lacunar infarct. F/u CT scan notable for possible hemorrhagic conversion and heparin gtt held at recommendation of neurology/Dr. Flynn for 3 days with f/u CT scan order for 12 hours later to r/o significant bleed. #Acute multi-infarct CVA - MRI w/ multiple bilateral cerebral/cerebellar infarcts. Pt with R sided hemiparesis/paralysis, dysarthria. Repeat head CT scan 04/21 with suspected hemorrhagic conversion, heparin gtt held per neuro recs - Serial neuro exams qshift - Holding heparin gtt in setting of suspected hemorrhagic conversion for 72 hours. - f/u repeat CT scan tonight - Atorvastatin 40mg daily - Carotid doppler w/ mild atherosclerotic dz w/ no significant plaque - Echo (04/21) with no residual clot, but technically limited - Neurology following. Continue recs greatly appreciated. - Will require heme/onc recs for long-term AC #Afib - Pt on xarelto for AC as outpt. Started on heparin gtt, held now in setting of suspected hemorrhagic conversion - Cardiology following. Recs appreciated. - Rapid Afib w/ rvr to 150s on 04/18 - Poor BB tolerance (fatigue, bronchospasm) - Switched to cardizem CD 240mg daily #Mild HERBERTH - BUN/Cr 23/1.2 on admission. Remained in range of 1.1-1.3 - Continue IVFs 50cc NS - Daily BMPs - Trend Cr #Anemia - Hgb 9.7 uptrending (9.0 yesterday) - Continue to Trend H/H - Iron 27, TIBC 187, iron sat 14, ferritin 1750 - Monitor for signs of bleeding - High risk of bleeding/clotting given malignancy, liver mets, baseline elevated INR - Ferrous sulfate 325 BID - Heme/onc following. Recs appreciated #Urinary retention - bladder scan this AM 520cc in AM. Failed TOV overnight after d/c bravo yesterday - Straight cath in AM. repeat 420 cc on bladder scan. Bravo placed #Transaminitis/Hyperbilirubinemia - T Bili 2.4 (04/20). Repeat LFTs tomorrow. - Continue to trend LFTs #Liver mets - Oncology team following - Continue to trend LFTs - Bx of liver lesion - Will require outpt f/u for further management #HTN - Cardizem CD 240mg - Monitor for bradycardia, hypotension #HLD - Atorvastatin 40mg PO #Chronic back pain - MS contin 15mg BID PO - d/c IV morphine #PUD - Zantac #PPX: - SCDs FEN: Fluids: NS 50cc/hr Electrolytes: Trend BUN/Cr Nutrition: dysphagia puree per S+S Code status: DNR/DNI Dispo: Monitor on tele for continued monitoring in setting of multi-infarct/ lacunar stroke and paroxysmal aFib. Plan discussed with attending, Dr. Mandie Hidalgo, PGY1 Visit type - Emergency Visit Emergency Visit: Yes ED Registration Date: 04/16/17 Care time: The patient presented to the Emergency Department on the above date and was hospitalized for further evaluation of their emergent condition. - New Patient This patient is new to me today: No - Critical Care Critical Care patient: No
[2017-04-21 07:26] LABS: BASOPHIL 0.5 % (0-2.0); EOSINOPHIL 0.4 % (0-4.5); MCH 29.4 pg (25.7-33.7); MCHC 33.8 g/dl (32.0-36.0); MEAN CELL VOLUME 86.9 fl (80-96); MEAN PLT VOLUME 9.2 fl (7.5-11.1); NEUTROPHILS 81.9 % (42.8-82.8); PLATELET COUNT 116 K/MM3 (134-434); RDW 14.5 % (11.6-15.6); WHITE BLOOD COUNT 9.8 K/mm3 (4.0-10.0)
--- NOTE | 2017-04-21 07:44 | MSN ---
Addendum entered and electronically signed by RickeyJoselyn JcarlosQuentinKeyona, 15:45: repeat bladder scan 04/21 3:12 PM -- 437 cc/hr order for straight cath explained to patient and she is cooperative and agreeable. Original Note: Progress Note (short form) - Note Progress Note: SUBJECTIVE CC: R facial droop, diplopia, slurred speech, weakness HPI: 77 year old woman with PMHx of paroxysmal a-fib currently controlled with heparin gtt, colon ca w/ liver mets s/p liver resection and colectomy, diverticulosis, PUD, HTN and hyperlipidemia presented to the ER on 04/16/17 20: 30 with complaint of R sided facial droop, weakness, and slurred speech. Patient 's family stated the event was witnessed at the dinner table, lasting for approximately 15 minutes and resolved before EMS arrived. Pt also reported transient diplopia, fatigue for the past two weeks. Patient reports she was dx with paroxysmal a-fib in 2012 managed with xarelto. Pt stated she was experiencing nausea and poor po intake for the past 3 days prior to admission and did not take any medications, including xarelto, during this time. Pt denied recent fevers, chills, headache, n/v, chest pain, SOB or constipation at the time. Pt denied loss of consciousness and was able to comprehend and respond appropriately to all conversation. Pt reported abdominal discomfort upon admission. Since admission, Pt has undergone head CT which showed no acute pathology, chest CT w/o acute pathology, and head MRI showing multiple b/l cerebral and cerebellar infarcts with an acute L frontal cortical infarct containing a trace amount of acute petechial blood with possible lacunar stroke in L MCA distribution. Pt is now hemiparetic on the R side with R facial droop, decreased sensation on R side, hyperreflexic on R side and positive Babinski on R foot. Pt had an episode of rapid A-fib with HR 113 BPM on 04/17/17 13:41, beginning when pt was transported back to [facility] from testing; she had not yet received any of her home cardizem since admission. She was pharmacologically converted with Amiodarone bolus 150 mg at 04/17/17 13:20 and then continued on Amio drip 16.66 mls/hr @ 0.5 mg/min. Pt was transferred to the ICU due to rapid A-fib with RVR. Xarelto 15 mg PO daily home med was D/C 04/17/17 13:52 and Heparin IV 16 mls/hr @800 U/hr was begun on 04/18/17 18:15 as per neurologist recommendations for CVA with inherent risk for hemorrhagic transformation. Amiodarone was d/c by Dr. Azar on 04/19/17 10:24 due to lab evidence of liver dysfunction with mult. liver tumors per Dr. Pimentel. Home cardizem 60mg q6h was restarted on 04/19/17 afternoon. Pt was transferred from ICU to fourth floor yesterday evening. Bravo cath was removed around 04/20/17 18:00 prior to transfer to fourth floor. boat repairer was paged by nursing staff yesterday evening after the transfer regarding concern of urinary retention since pt had not voided since bravo was removed. Bladder scan at the time was 300cc. Repeat bladder scan at 20:00 showed 520cc/ hr urinary retention. Patient was seen and examined today at 8:00 AM. R side of body has increased muscle tone compared to yesterday. Motor strength on R LE appears to be better than yesterday with voluntary movement. Eyes appear to be less deviated to left side as compared to yesterday. Dysarthria sounds as if it is improving. Pt was drowsy, slightly irritated and stated she was unable to void. Pt re-examined at 2:20 PM, pt has not been able to void since bravo cath was removed yesterday evening. Pt was counseled to continue drinking thickened liquids to encourage voiding. Pt states, "I think I will be able to go later". Pt states she is in a better mood than yesterday and hopeful that she is regaining motor strength and sensation on the R side. Family was at bedside and pt appears relaxed and comfortable. OBJECTIVE Last Vital Signs Temp Pulse Resp BP Pulse Ox 98.7 F 87 18 123/78 95 04/21/17 10:00 04/21/17 11:37 04/21/17 11:19 04/21/17 11:19 04/21/17 13:19 General: Pt alert and oriented to name and place, cooperative with interview in no acute distress, resting comfortably. Head: normocephalic, atraumatic Eyes: pupils equal, round and reactive to light, unable to accomodate, no APD, sclera anicteric, conjunctiva clear. No lid lag on top and bottom. Significant R sided visual field defect. Right eye medial deviation; Left eye lateral deviation. Unable to look to right side. Heart: Afib, no murmurs appreciated. Lungs: CTAB, no crackles/wheezing/rhonchi. Chest nontender to palpation. Abdomen: Soft, NT/ND, +BS in all 4 quadrants Upper extremities: 2+ radial pulses, warm, well perfused. Normal capillary refill <2s. No cyanosis, clubbing or peripheral edema. Lower extremities: 2+ dorsalis pedis pulses, warm, well perfused. Normal capillary refill <2s. No cyanosis, clubbing or peripheral edema. NEUROLOGICAL EXAM: Fluent, trace dysarthria. Unchanged R lateral tongue deviation, R facial droop, diminished eyelid closure strength on R side. Unable to look right, slight L side drift on both eyes. No facial sensation to light touch on R side. Cranial nerves/Muscle strength CN II: Pupils equal, round and reactive to light. Still having difficulty recognizing letters at near and far distance with/without bifocals. CN III/IV/: eyes laterally deviated to L side, CN VII: Facial movement asymmetrical, R facial droop CN VIII: hearing intact to voice and finger rub B/L CN IX/X/XII: tongue laterally deviated to R side, uvula deviation to L side, gag reflex not tested due to pt discomfort. CN XI: able to rotate head against resistance B/L, SCM & trapezius 0/5 muscle strength on R side, 5/5 muscle strength on L side. 0/5 shoulder shrug. R side biceps, triceps, SCM, Wrist flexors/extensors, finger statement clerk, finger abductors 0/5 R side hip flexors 1/5, quadriceps 1/5, plantar flexors and extensors 1/5 L side biceps, triceps, SCM, wrist flexors/extensors, finger statement clerk 5/5 L side finger abductors, hip flexors, quadriceps, plantar flexors and extensors 5/5 Reflexes L biceps 2/5, L brachioradialis 2/5, L patellar 2/5 R biceps 3/5, R brachioradialis 3/5, R patellar 3/5 Babinski present on R side, absent on L side Sensation: Sensation intact to soft touch throughout L side of body Sensation intact to soft touch and finger taps C5, C6 dermatome distribution on R side; absent in C7, C8 dermatome distribution on R side Sensation intact to soft touch and finger taps L5, S1 dermatome distribution on R side; absent in L2 to L4 dermatome distribution on R side. Cerebellar fxn: Rapid alternating movements: normal on L, absent on R Gait: Not tested due to hemiparesis CBC, BMP 04/21/17 06:00 Abnormal Lab Results 04/20/17 04/20/17 04/21/17 05:00 17:00 06:00 RBC 3.28 L Hgb 9.7 L Hct 28.5 L Plt Count 116 L D Lymphocytes % 7.4 L D PT with INR 15.30 H INR 1.35 H Sodium 133 L Anion Gap 7 L BUN 20 H Creatinine 1.1 H Random Glucose 123 H D Calcium 7.0 L Total Bilirubin 2.4 H D AST 91 H Alkaline Phosphatase 268 H Total Protein 4.9 L Albumin 2.2 L Digoxin 0.0702 L Laboratory Results - last 24 hr 04/20/17 04/20/17 04/21/17 05:00 17:00 06:00 WBC 9.8 RBC 3.28 L Hgb 9.7 L Hct 28.5 L MCV 86.9 MCH 29.4 MCHC 33.8 RDW 14.5 Plt Count 116 L D MPV 9.2 Neutrophils % 81.9 Lymphocytes % 7.4 L D Monocytes % 9.8 Eosinophils % 0.4 D Basophils % 0.5 PT with INR 15.30 H INR 1.35 H Sodium 133 L Potassium 4.1 Chloride 103 Carbon Dioxide 23 Anion Gap 7 L BUN 20 H Creatinine 1.1 H Creat Clearance w eGFR 48.04 Random Glucose 123 H D Calcium 7.0 L Total Bilirubin 2.4 H D AST 91 H ALT 70 Alkaline Phosphatase 268 H Total Protein 4.9 L Albumin 2.2 L Digoxin 0.0702 L Hepatic Panel Total Bilirubin 2.4 mg/dL (0.2-1.0) H D 04/20/17 05:00 AST 91 U/L (15-37) H 04/20/17 05:00 ALT 70 U/L (12-78) 04/20/17 05:00 Alkaline Phosphatase 268 U/L (45-117) H 04/20/17 05:00 Albumin 2.2 g/dl (3.4-5.0) L 04/20/17 05:00 Imaging: Non contrast Head CT 04/16 - No acute pathology, mass or acute bleed. Chest CT 04/16 - No CT findings of acute pathology are identified involving the chest. Minimal to mild bilateral lower lobe discoid atelectasis/linear scarring. Stable benign 0.4 cm left lower lobe pulmonary nodule in comparison to a [address] study. Possible mild cardiomegaly. Head MRI 04/18 - Multiple bilateral cerebral and cerebellar acute infarcts are noted as discussed above. An acute left frontal cortical infarct is seen containing a trace amount of acute petechial blood. Non contrast Head CT 04/21 - L MCA territory acute/subacute infarct with faint hemorrhagic transformation seen along its anterior margin. Moderate chronic microvascular ischemic changes are present. Previously visualized small other acute/subacute infarcts difficult to evaluate on this exam. Recommended follow up MRI of head for further eval. Echo 04/20/17 - Normal L ventricular size, thickness and function. Normal L vent. EF. Upper septal hypertrophy sigmoid septum, normal variant. Mild dilation of L atrium. Mild dilation of R atrium. Mild mitral valve thickening. Mild wen regurg. Mild tricuspid regurg. R ventricular systolic pressure normal. Moderate aortic regurg. Mild pulmonic valvular regurg. R ventricular not well visualized. -- study technically difficult due to suboptimal images. Regional wall motion abnormalities cannot be excluded due to limited visualization. ASSESSMENT/PLAN: 77 year old woman with PMHx of p-a-fib on heparin gtt, colon ca w/ liver mets s/ p liver resection & colectomy, HTN, HLD, PUD and diverticulosis admitted for R side facial droop, R hand weakness and dysarthria that resolved then worsened during admission. She now has fixed R hemiparesis. Brain MRI shows multiple B/L cerebral/cerebellar infarcts with evidence of mild acute bleeding, believed to be embolic shower in distribution of L MCA or possible lacunar infarct. #Urinary retention - bladder scan 04/20 18:00 -- 300 cc/hr - bladder scan 04/20 20:00 -- 520 cc/hr - repeat bladder scan 04/21 3:12 PM -- 437 cc/hr #Acute multi-infarct CVA - MRI w/ multiple bilateral cerebral/cerebellar infarcts. R sided hemiparesis/paralysis, dysarthria. - Serial neuro exams every shift. - Neuro recommended to stop all anticoagulants 04/21 - hold for 3 days due to head CT findings. - Repeat head MRI ordered per recommendation from head CT findings. - Atorvastatin 40mg daily - no acute changes seen on echo. - Neurology on board, recs appreciated. - Neuro on board, recs appreciated. #Afib - Pt on xarelto home med. Held on admission secondary to acute CVA. Resumed on 04/17, transitioned to heparin gtt 04/18 - Rapid Afib w/ rvr beginning 04/17; HR to 150s on 04/18 - Poor BB tolerance (fatigue, bronchospasm) - High dose Cardizem 60mg q6h per cardiology - Cardizem 60 mg q6h D/C 04/21/17 14:50; switched to Cardizem Cd 240 mg PO daily #Mild HERBERTH - BUN/Cr 23/1.2 on admission. Remained in range of 1.1-1.3 - Daily BMPs - Trend Cr - BUN/CR remains stable at pt baseline. #Anemia - Hgb 7.1 04/18 AM. Transfused 2 units pRBCs per Heme/onc team, f/u Hgb 9.4 04/19. - Hb now 9.7 04/21/17 - Patient denies any recent bleeds, melena, hematuria - Continue to Trend H/H - Iron 27, TIBC 187, iron sat 14, ferritin 1750 - Iron twice a day. - Monitor for signs of bleeding - High risk of bleeding/clotting given malignancy, liver mets, baseline elevated INR - Heme/onc following. Recs appreciated #Liver mets - Oncology team following - Continue to trend LFTs - Bx of liver lesions - Will require outpatient f/u for further management #HTN - switched to Cardizem Cd 240 mg PO daily 04/21/17 #HLD - Atorvastatin 40mg PO #Chronic back pain - MS contin 15mg BID #PUD - continue Protonix #PPX: - All anticoagulants D/C per neuro recommendations; hold for 3 days then reevaluate. FEN: Nutrition: Thickened liquid puree diet Electrolytes: Trend BUN/Cr
[2017-04-21 08:07] LABS: HEMATOCRIT 21.9 % (34.0-46.6)
[2017-04-21 08:21] LABS: ANION GAP 8 (8-16); CALCIUM 7.6 mg/dL (8.5-10.1); CO2 22 mmol/L (21-32); CREATININE 1.1 mg/dL (0.55-1.02); GLUCOSE,RANDOM 137 mg/dL (74-106)
--- NOTE | 2017-04-21 10:47 | PN ---
Progress Note (short form) - Note Progress Note: Patient seen and examined O/E HEENT: ERVIN, EOM Intact Oropharynx: No thrush, No mucositis,facial weakness Right sided weakness Cor: irregualr Lungs:decreased breath sounds Abd: Soft, Normal bowel sounds, No organomegaly Ext:No significant edema Skin: No rashes, Integument intact right sided weakness Last Vital Signs Temp Pulse Resp BP Pulse Ox 97.3 F L 126 H 18 130/73 95 04/21/17 06:00 04/21/17 06:00 04/21/17 06:00 04/21/17 06:00 04/20/17 21:00 CBC, BMP 04/21/17 06:00 04/21/17 06:00 Current Medications Generic Name Dose Route Start Last Admin Trade Name Freq PRN Reason Stop Dose Admin Atorvastatin Calcium 40 mg 04/20/17 22:00 04/20/17 22:00 Lipitor - PO Not Given HS ELANA Diltiazem HCl 60 mg 04/21/17 00:00 04/21/17 06:19 Cardizem - PO 60 mg Q6HPO ELANA Administration Heparin Sodium/Dextrose 25,000 units in 500 mls @ 16 mls/hr 04/20/17 18:29 18:48 Heparin Infusion - IVPB 900 units/hr TITR ELANA 18 mls/hr Protocol Administration 800 UNITS/HR Morphine Sulfate 15 mg 04/20/17 22:00 04/20/17 22:00 Ms Contin - PO Not Given BID ELANA Morphine Sulfate 2 mg 04/20/17 18:29 Morphine Sulfate IVPUSH Q4H PRN PAIN Ranitidine HCl 150 mg 04/21/17 10:00 Zantac - PO DAILY ELANA INR, PTT INR 1.35 (0.82-1.09) H 04/20/17 17:00 Fibrinogen 195.0 mg/dL (238-498) L 04/19/17 05:00 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 Atrial fib Heparin therapy Liver masses suspicious for mets Anemia Thrombocytopenia Plan: will f/u CTH repeat Would need ad terminal makeup operator AC choice of AC to be determined Suspicion of metastatic ca , w/u deferred for now in her present condition consider palliative eval too.
[2017-04-21] MEDS: RANITIDINE HCL 150 MG TABLET (FP) PO SCH (11:12)
[2017-04-21] MEDS: morphine SO4 SUSTAINED ACTING 15 MG TABLET.SA PO SCH ×3 (11:12→23:02)
--- NOTE | 2017-04-21 11:32 | PN ---
Progress Note (short form) - Note Progress Note: History of Present Illness: no cp sob palps dizzy Current Medications Generic Name Dose Route Start Last Admin Trade Name Freq PRN Reason Stop Dose Admin Atorvastatin Calcium 40 mg 04/20/17 22:00 04/20/17 22:00 Lipitor - PO Not Given HS ELANA Diltiazem HCl 60 mg 04/21/17 00:00 04/21/17 11:13 Cardizem - PO 60 mg Q6HPO ELANA Administration Heparin Sodium/Dextrose 25,000 units in 500 mls @ 16 mls/hr 04/20/17 18:29 11:14 Heparin Infusion - IVPB 900 units/hr TITR ELANA 18 mls/hr Protocol Titration 800 UNITS/HR Morphine Sulfate 15 mg 04/20/17 22:00 04/21/17 11:12 Ms Contin - PO 15 mg BID ELANA Administration Morphine Sulfate 2 mg 04/20/17 18:29 Morphine Sulfate IVPUSH Q4H PRN PAIN Ranitidine HCl 150 mg 04/21/17 10:00 04/21/17 11:12 Zantac - PO 150 mg DAILY ELANA Administration Vital Signs Period Temp Pulse Resp BP Sys/Sheppard Pulse Ox Last 24 Hr 97.3 F-99.7 F 65-126 16-18 93-130/41-98 95 Constitutional: Yes: Well Nourished, No Distress, Calm Cardiovascular: Yes: Regular Rate and Rhythm, S1, S2. No: JVD, Gallop, Murmur Respiratory: Yes: Regular, CTA Bilaterally. No: Accessory Muscle Use, Rales, Wheezes Gastrointestinal: Yes: Distention Extremities: No: Cold Edema: No Neurological: Yes: Alert. No: Seizure Psychiatric: No: Agitated Labs: CBC, BMP 04/21/17 06:00 04/21/17 06:00 tele: afib, rate controlled carotids: mild athero, no stenosis echo 03/2017: tds; nl lv, rv not seen, mild lily, mild mr, mild pr, mild tr, mod ar, nl rvsp Assessment/Plan acute CVA: -2 episodes on DOA, in setting of missing home AC dose x 2d -neuro input reviewed: embolic shower ( with largest in L MCa distribution) in setting of AFIB--with future risk of rembolization , although large stroke size with inherent risk for hemorrhagic transformation -> Ok for heparin gtt for now, consider repeat HD ct to follow evolution of stroke. con't Statin, REHAB. -carotid dopplers unremarkable -echo tds but unremarkable PAF, sick sinus syndrome: -intolerant of low dose metoprolol and bystolic at low doses (profound fatigue, bronchospasm) -has tolerated high dose diltiazem (without signif GERD s.e.) -tolerated digoxin in past, but stopped given age and decr GFR--could add back if rapid HRs -rapid AF 150s on 04/18, began when pt was transported back to the floor from testing. she had not received any of her home cardizem CD 360 mg since admit, hence this may have contributed. Given very short AF duration, with pt's previously known refractory HRs (160) despite this dose of cardizem as outpt, and marked intolerance to even low doses of BB, she was pharmacologically cardioverted with amio bolus. skilled nursing po amio not a good option given lab evidence of liver dysfunction (albumin 3.0, LFTs all up) with mult liver tumors per dr kothari --> stopped amio gtt and resumed home cardizem (c/b difficulty swallowing pills --> changed to short-acting dilt 90mg q6h to be crushed for her , though not a good long-term option--reassess once appetite/GI tolerance improves). -if recurrent rapid AF, will consider flecainide or other anti-arrhythmic, with EP input (if any are safe with liver dysfunction) -hope to avoid AVN ablation/PPM; -04/19: currently sinus esteban 40s consistently, ? hi vagal tone given ongoing GI sx's and bedrest decr diltiazem dose - 04/20-29: bradycardia improved, con't same mgm't - Had been on xarelto at home. despite some incr risk of bleeding with uncertain degree of decr'd hepatic synthetic function, this pt with malignancy has proven that she remains hypercoagulable given TIA x 2 on DOA; hence benefits of AC likely > risks here. Changed to reversible hep gtt per neuro in recent infarcts and also in anticipation of possible liver bx. HTN: -bp controlled here/borderline low on dilt. (holding home aldactone/losartan) -bp targets per neuro CKD: -baseline creat runs 1.1-1.5 -renal fxn stable here. 04/19 hyponatremia slightly worse. IVF changed from D5 to NS. CAD: -cor calcium score intermediate (slightly above 50th %ile) -MPI in past equivocal ? apical ischemia vs variable breast artifact -never had anginal sx's -ecg no acute ischemic changes here -cont home regimen: statin (atorva 10 at home), no ASA (on AC) HPL: -LDL runs 90s on atorva 10, similar here. intolerant atorva 20 in past, but tolerating atorva 40 here in setting of cva. ? need to decrease dose in setting of liver mets/mildly elevated lfts. asthma: -intolerant of B-B in past -no current wheezing/sob colon cancer with liver mets/anemia/anorexia/abd pain: -? sx's related to tumor -all LFTs mildly elevated, abd distended -per hospitalist +/- Onc as indicated
[2017-04-21] MEDS ORDERED: SODIUM CHLORIDE 1,000 ML IV SCH (16:00)
[2017-04-21] MEDS ORDERED: GLYCERIN 1 RECTAL SUPPOSITORY, ADULT PR ONE (16:08)
[2017-04-21] MEDS: FERROUS SO4 325 MG TABLET (FP) PO SCH ×2 (16:45→23:03)
[2017-04-21] MEDS: POLYETHYLENE GLYCOL 3350 119 GM BTL PO SCH ×2 (16:46→23:03)
--- NOTE | 2017-04-21 17:27 | PN ---
Teaching Attending Note Name of Resident: Jesus Hidalgo ATTENDING PHYSICIAN STATEMENT I saw and evaluated the patient. I reviewed the resident's note and discussed the case with the resident. I agree with the resident's findings and plan as documented. SUBJECTIVE: Denies any pain .denies any visual field deficits. over night she had urinary retention but refused bravo and straight cath . OBJECTIVE: NAD , AAOX3 HEENT: dry MM. no LAP . R lower facial droop. EOMI intact except fro a minimal lag in R lateral gaze. Uvula is deviated to R . has difficulty sticking her tongue out . CV: irreg irreg Lung: bibasilar crackles Abd: soft, NT< ND, NL BS Ext: no edema , no erythema . Neuro exam : R lower facial droop. EOMI intact except for a minimal lag in R lateral gaze. Uvula is deviated to R . has difficulty sticking her tongue out . round equal pupils , reactive to light . visual filed with LL field defect. Strength : RUE: shoulder shrug 1/5 . shoulder abduction , flexion, biceps, triceps and wrist flexion/ extension 0/5 . hand coldfusion 0/5 LUE: shoulder shrug, shoulder abduction , flexion, biceps, triceps and wrist flexion/ extension 5/5 . hand coldfusion 5/5 RLE: hip flexion 1/5, knee flexion/extension 0/5, ankle dorsiflexion/plantar flexion 1/5 . Babinski's upwards. LLE: hip flexion 5/5, knee flexion/extension 5/5, ankle dorsiflexion/plantar flexion 5/5 . Babinski's downwards Sensation to light touch : NL all over and symmetric ASSESSMENT AND PLAN: 77 y/o unfortunate lady with h/o A fib, TIAx2 , colon cancer and newly diagnosed liver mass HLP, PUD and other medical problems who presented with facial droop , dysarthria, and R sided weakness. 1- Acute CVA with multiple infarcts ( L MCA with brain stem infarcts ) : in setting of A fib . motor function and sensation slightly improved - repeat CT scan today with evidence of hemorrhage. - repeat CT scan in 12 hours - dc heparin gtt - D/w Dr. Redding: will monitor x 3 days before decision on resuming AC - speech eval , PT eval 2- Chronic back pain: - dc IV morphine 3- A fib with RVR: now controlled . - change short acting cardizem to po - off heparin gtt for above reason 4- h/o HTN: BP is nL now - cont to hold losartan - cont cardizem 5- Urinary retention : - insert bravo . agreeable 6- HERBERTH: due to volume depletion . low oral intake - ass IVF - encourage oral feeding 7- Add SCDs HLOC . D/W family in detail. DNR/DNI
[2017-04-21] MEDS ORDERED: oxyCODONE HCL 5 MG TABLET PO PRN (17:30)
--- NOTE | 2017-04-21 19:51 | PN ---
Progress Note (short form) - Note Progress Note: 77 yo woman w/ pmh of colon/liver ca, chronic afib, HTN, HLD, PUD and diverticulosis who presents to the ED after daughter witnessed her with R side facial droop, R hand weakness and dysarthria that lasted approximately 15-20 minutes and resolved before arrival in ED. Patient is admitted for recurrent TIA. noted to have inc right side weakness yesterday. Found to have embolic shower . -Today 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 --Repeat CT head reveals acute/subacute left MCA territory infarct with minimal hemorrhagic transformation along ant. edges A&P: Left MCA territory infarct, with minimal hemorrhagic transformation. Would hold a/c for three days than resume. Pt. requires long-term anticoagulation given risk of embolii(as has already ocurred), given this risk and her malignancy induced hypercoagulable state it would be reasonable to anticoagulate her in the longer term. Would repeat CT head on Wednesday am and if not contraindicated would resume a/c. Thank you, Jameson Flynn MD
[2017-04-21] MEDS: ATORVASTATIN CA 40 MG TABLET (FP) PO SCH (23:02)
[2017-04-22] MEDS: dilTIAZem HCL 60 MG TABLET (FP) PO SCH (01:15)
--- NOTE | 2017-04-22 06:33 | MSN ---
Progress Note (short form) - Note Progress Note: SUBJECTIVE CC: R facial droop, diplopia, slurred speech, weakness HPI: Patient was seen and examined today. R side of body appears to have flaccid motor tone. Eyes appear to be less deviated to left lateral gaze as compared to yesterday. Mild dysarthria sounds unchanged from yesterday. Pt is in better mood today and states she is tolerating the Edwards cath well with no c/ o. Pt denies CP, SOB, cough, dizziness, N/V, new focal neurologic deficits, leg swelling and pain. She is hopeful she will regain motor strength and sensation on R side of body. All AC (hep gtt) currently held for 3 days as per neuro rec (Dr. Flynn) on due to risk of hemorrhagic conversion. Will continue to hold hep gtt for 2 days. ASA 81mg PO daily added to her medication list 04/22. Nurse reported BP was low this morning -- approximately 90/60. Cardizem Cd was held until BP is stable. OBJECTIVE Last Vital Signs Temp Pulse Resp BP Pulse Ox 97.9 F 90 18 112/62 89 L 04/22/17 10:00 04/22/17 10:00 04/22/17 10:00 04/22/17 10:00 04/22/17 09:00 General: Pt is alert and oriented, cooperative with interview in no acute distress. Head: normocephalic, atraumatic Eyes: pupils equal, round and reactive to light, unable to accommodate, no APD, sclera anicteric, conjunctiva clear. No lid lag on top and bottom. Significant R sided visual field defect. Right eye medial deviation; Left eye lateral deviation. Unable to look to right side. Heart: Afib, no murmurs appreciated. Lungs: CTAB, no crackles/wheezing/rhonchi. Chest nontender to palpation. Abdomen: Soft, NT/ND, +BS in all 4 quadrants Upper extremities: 2+ radial pulses, warm, well perfused. Normal capillary refill <2s. No cyanosis, clubbing or peripheral edema. Large ecchymosis noted on L cubital fossa; unchanged in size or coloration from yesterday. Lower extremities: 2+ dorsalis pedis pulses, warm, well perfused. Normal capillary refill <2s. No cyanosis, clubbing or peripheral edema. NEUROLOGICAL EXAM: Fluent, dysarthric. Mild R lateral tongue deviation at rest, R facial droop. Unable to look right on voluntary gaze, slight L side drift on both eyes at rest. Cranial nerves/Muscle strength CN II: Pupils equal, round and reactive to light. Still having difficulty recognizing letters at near and far distance with/without bifocals. CN III/IV/: eyes laterally deviated to L side, CN VII: Facial movement asymmetrical, R facial droop CN VIII: hearing intact to voice and finger rub B/L CN IX/X/XII: tongue laterally deviated to R side at rest; pt able to move tongue completely to R, unable to move tongue to L. Uvula - mild deviation to L , gag reflex not tested. CN XI: able to rotate head against resistance B/L, SCM & trapezius 0/5 muscle strength on R side, 5/5 muscle strength on L side. 0/5 shoulder shrug. R side biceps, triceps, SCM, Wrist flexors/extensors, finger aircraft ordnance technician, finger abductors 0/5 R side hip flexors 0/5, quadriceps 0/5, plantar flexors and extensors 1/5 L side biceps, triceps, SCM, wrist flexors/extensors, finger aircraft ordnance technician 5/5 L side finger abductors, hip flexors, quadriceps, plantar flexors and extensors 5/5 Reflexes L biceps +2, L brachioradialis +2, L patellar +2 R biceps +3, R brachioradialis +3, R patellar +3 Babinski reflex: + R, - L Sensation: No facial sensation to light touch on R side. Sensation intact to soft touch throughout L side of body Sensation absent to soft touch and finger taps C5, C6, C7, C8 dermatome distribution on R side Sensation intact to soft touch and finger taps L5, S1 dermatome distribution on R side; absent in L2 to L4 dermatome distribution on R side. Cerebellar fxn: Rapid alternating movements: normal on L, absent on R Gait: Not tested due to hemiparesis LABS CBC, BMP 04/22/17 06:30 04/22/17 06:30 Abnormal Lab Results 04/18/17 04/22/17 04/22/17 17:00 06:30 06:30 WBC 10.6 H RBC 2.96 L Hgb 8.7 L D Hct 26.4 L Plt Count 123 L Monocytes % 10.6 H Chloride 108 H Anion Gap 6 L BUN 21 H Calcium 7.6 L Total Bilirubin 2.1 H AST 282 H D ALT 214 H D Alkaline Phosphatase 339 H D Total Protein 5.3 L Albumin 2.3 L Crossmatch See Detail Laboratory Results - last 24 hr 04/18/17 04/22/17 04/22/17 17:00 06:30 06:30 WBC 10.6 H RBC 2.96 L Hgb 8.7 L D Hct 26.4 L MCV 89.1 MCH 29.4 MCHC 33.0 RDW 15.4 Plt Count 123 L MPV 9.1 Neutrophils % 78.0 Lymphocytes % 9.5 D Monocytes % 10.6 H Eosinophils % 1.2 D Basophils % 0.7 PTT (Actin FS) 30.9 D Sodium Potassium Chloride Carbon Dioxide Anion Gap BUN Creatinine Creat Clearance w eGFR Random Glucose Calcium Total Bilirubin AST ALT Alkaline Phosphatase Total Protein Albumin Blood Type A POSITIVE Antibody Screen Negative Crossmatch See Detail 04/22/17 06:30 WBC RBC Hgb Hct MCV MCH MCHC RDW Plt Count MPV Neutrophils % Lymphocytes % Monocytes % Eosinophils % Basophils % PTT (Actin FS) Sodium 137 Potassium 4.4 Chloride 108 H Carbon Dioxide 23 Anion Gap 6 L BUN 21 H Creatinine 1.0 Creat Clearance w eGFR 53.62 Random Glucose 102 D Calcium 7.6 L Total Bilirubin 2.1 H AST 282 H D ALT 214 H D Alkaline Phosphatase 339 H D Total Protein 5.3 L Albumin 2.3 L Blood Type Antibody Screen Crossmatch Imaging: Non contrast Head CT 04/16 - No acute pathology, mass or acute bleed. Chest CT 04/16 - No CT findings of acute pathology are identified involving the chest. Minimal to mild bilateral lower lobe discoid atelectasis/linear scarring. Stable benign 0.4 cm left lower lobe pulmonary nodule in comparison to a [address] study. Possible mild cardiomegaly. Head MRI 04/18 - Multiple bilateral cerebral and cerebellar acute infarcts are noted as discussed above. An acute left frontal cortical infarct is seen containing a trace amount of acute petechial blood. Non contrast Head CT 04/21 AM- L MCA territory acute/subacute infarct with faint hemorrhagic transformation seen along its anterior margin. Moderate chronic microvascular ischemic changes are present. Previously visualized small other acute/subacute infarcts difficult to evaluate on this exam. Recommended follow up MRI of head for further eval. Echo 04/20/17 - Normal L ventricular size, thickness and function. Normal L vent. EF. Upper septal hypertrophy sigmoid septum, normal variant. Mild dilation of L atrium. Mild dilation of R atrium. Mild mitral valve thickening. Mild wen regurg. Mild tricuspid regurg. R ventricular systolic pressure normal. Moderate aortic regurg. Mild pulmonic valvular regurg. R ventricular not well visualized. -- study technically difficult due to suboptimal images. Regional wall motion abnormalities cannot be excluded due to limited visualization. Repeat non contrast head CT 04/21 PM - Unchanged extent of L MCA territory infarct with stable local mass effects and no evidence of hemorrhagic transformation. Medications: Active Medications Generic Name Dose Route Start Last Admin Trade Name Freq PRN Reason Stop Dose Admin Aspirin 81 mg 04/22/17 09:15 04/22/17 10:02 Ecotrin - PO Not Given DAILY ELANA Atorvastatin Calcium 40 mg 04/20/17 22:00 04/21/17 23:02 Lipitor - PO 40 mg HS ELANA Administration Diltiazem HCl 240 mg 04/22/17 10:00 04/22/17 09:38 Cardizem Cd - PO Not Given DAILY ELANA Ferrous Sulfate 325 mg 04/21/17 15:00 04/22/17 09:13 Feosol - PO 325 mg BID ELANA Administration Sodium Chloride 1,000 mls @ 100 mls/hr 04/22/17 12:35 04/22/17 12:49 Normal Saline - IV 04/22/17 15:55 100 mls/hr ASDIR ELANA Administration Morphine Sulfate 15 mg 04/21/17 17:45 04/22/17 09:18 Ms Contin - PO Not Given BID ELANA Polyethylene Glycol 17 gm 04/21/17 16:15 04/22/17 09:56 Miralax (For Daily Use) - PO 17 gm BID ELANA Administration Ranitidine HCl 150 mg 04/21/17 10:00 04/22/17 09:13 Zantac - PO 150 mg DAILY ELANA Administration ASSESSMENT/PLAN 77 year old woman with PMHx of paroxysmal afib, colon ca w/ liver mets s/p liver resection & colectomy, HTN, HLD, PUD and diverticulosis admitted for R side facial droop, R hand weakness and dysarthria that resolved then worsened during admission to include fixed R hemiparesis. Pt remains stable, no new focal neurologic deficits. #Acute multi-infarct CVA - MRI w/ multiple bilateral cerebral/cerebellar infarcts and large infarct in L MCA territory. Pt with R sided hemiparesis/ paralysis, dysarthria. - Repeat head CT scan 04/21 with suspected hemorrhagic conversion, heparin gtt held for 2 more days per neuro recs - f/u CT scan 04/21 23:00 unchanged - ASA 81 mg PO daily added to med regimen - Serial neuro exams qshift - Atorvastatin 40mg daily - Neurology following. Recs appreciated. - Hep to coumadin bridge for terminal superintendent AC. Heme/onc recs appreciated regarding residential AC. #Afib - Pt on xarelto for AC as outpatient. Started on heparin gtt in ICU, held on 04/21 for 3 days due to suspected hemorrhagic conversion - Continue to hold hep gtt for 2 days as per neuro rec. ASA 81 mg PO daily added to med regimen. - Hep to coumadin bridge for residential AC. - Cardiology following. Recs appreciated. - Rapid Afib w/ rvr to 150s on 04/18; pharmacological conversion with amio gtt - Poor BB tolerance (fatigue, bronchospasm) in ER - Continue cardizem CD 240mg daily; pt tolerating well. #Mild HERBERTH - BUN/Cr 23/1.2 on admission. Remained in range of 1.1-1.3 - IVF NS 100 cc/hr - Daily BMPs - Continue to trend Cr #Anemia - Hgb 8.7 downtrending (9.7 04/21) - Continue to Trend H/H - Monitor for signs of bleeding - High risk of bleeding/clotting given malignancy, liver mets, baseline elevated INR, held hep gtt ppx - Ferrous sulfate 325 BID - Heme/onc following. Continued recs appreciated. #Urinary retention - Edwards placed 12/19 PM for urinary retention; pt tolerating well - Continue voiding trials to see if cath is necessary. #Liver mets - Oncology team following. - No longer necessary to trend LFTs given known liver masses. Will not slip box changer. - Bx of liver masses - Will need outpt f/u for further management #HTN - Cardizem CD 240mg PO daily - Monitor for bradycardia, hypotension #HLD - Atorvastatin 40mg PO daily #Chronic back pain - MS contin 15mg BID PO #PUD - Zantac 150 mg PO daily #PPX: - SCDs - ASA 81 mg PO daily FEN: Fluids: NS 100cc/hr Electrolytes: Trend BUN/Cr Nutrition: dysphagia puree per S+S Code status: DNR/DNI Dispo: Monitor on tele for continued monitoring in setting of multi-infarct/ lacunar stroke and paroxysmal aFib.
[2017-04-22 07:53] LABS: BASOPHIL 0.7 % (0-2.0); EOSINOPHIL 1.2 % (0-4.5); MCH 29.4 pg (25.7-33.7); MEAN CELL VOLUME 89.1 fl (80-96); MEAN PLT VOLUME 9.1 fl (7.5-11.1); PLATELET COUNT 123 K/MM3 (134-434); RDW 15.4 % (11.6-15.6); WHITE BLOOD COUNT 10.6 K/mm3 (4.0-10.0)
--- NOTE | 2017-04-22 08:13 | PN ---
Physical Exam: SUBJECTIVE: Patient seen and examined by me this AM - No major overnight events. Decreased UOP per nursing. Pt with no complaints - Denies fever/chills, MERCER/dizziness, SOB, cough, N/V, abdominal pain, dysuria, diarrhea. Feels that she can move her L foot a little more - Per nursing, pt w/ minimal bravo outpt in AM. Bladder scan with 200cc. Instructed to flush bravo, rescan in PM. - Constipation of 5+ days with no BM OBJECTIVE: Vital Signs CBC, BMP 04/22/17 06:30 Period Temp Pulse Resp BP Sys/Sheppard Pulse Ox Last 24 Hr 98.2 F-99 F 87-99 18-18 109-145/52-78 95-98 GENERAL: A&O to name and place but not date (states it is april). More agitated today, alert. HEAD: NCAT EYES: Pupils equal, round and reactive to light, sclera anicteric, conjunctiva clear. No lid lag. No visual field defect. R lateral gaze improved BL, though still limited in range, velocity. All other EOMI intact. EARS, NOSE, THROAT: R tongue deviation, L uvular deviation. Ears normal, nares patent, oropharynx clear without exudates. Moist mucous membranes. NECK: Normal range of motion, JVD, or masses. LUNGS: Still with trace bibasilar crackles. No wheezes, and no crackles. No accessory muscle use. HEART: Irregularly irregular, normal S1 and S2 without murmur, rub or gallop. ABDOMEN: Soft, not distended, normoactive bowel sounds, no rebound, no masses. No hepatomegaly or splenomegaly. UPPER EXTREMITIES: 2+ pulses, warm, well-perfused. No cyanosis. No clubbing. LOWER EXTREMITIES: 2+ pulses, warm, well-perfused. No calf tenderness. No peripheral edema. NEUROLOGICAL: Still with dysarthria. Still w/ R lateral tongue deviation, improved R facial droop. Endorses BL symmetric facial sensation. 0/5 shoulder shrug on R side, 5/5 L side. 0/5 vending route driver strength in R hand, 5/5 in L hand. 0/5 R hand, arm. 5/5 strength in L arm, leg grossly. No pronator drift, dysdiadokinesia in L hand. 1/5 in R proximal muscle groups. 1/5 dorsi/plantar flexion. No sensation light touch in R arm. BL sensation to light touch sensation now in LEs, except lateral L hip. unable to evaluate gait. 2+ L biceps, patellar reflex. 3+ R biceps, 2+ patellar reflex. Still with + babinski on R side, - on L SKIN: Warm, dry, normal turgor, normal cap refill. Laboratory Results - last 24 hr CBC, BMP 04/22/17 06:30 04/18/17 04/18/17 04/21/17 05:20 17:00 06:00 WBC RBC Hgb Hct 21.9 L MCV MCH MCHC RDW Plt Count MPV Neutrophils % Lymphocytes % Monocytes % Eosinophils % Basophils % Sodium 135 L Potassium 4.1 Chloride 105 Carbon Dioxide 22 Anion Gap 8 BUN 19 H Creatinine 1.1 H Random Glucose 137 H Calcium 7.6 L Folate 2071 Folate Hemolysate 453.5 Blood Type A POSITIVE Antibody Screen Negative Crossmatch See Detail 04/22/17 06:30 WBC 10.6 H RBC 2.96 L Hgb 8.7 L D Hct 26.4 L MCV 89.1 MCH 29.4 MCHC 33.0 RDW 15.4 Plt Count 123 L MPV 9.1 Neutrophils % 78.0 Lymphocytes % 9.5 D Monocytes % 10.6 H Eosinophils % 1.2 D Basophils % 0.7 Sodium Potassium Chloride Carbon Dioxide Anion Gap BUN Creatinine Random Glucose Calcium Folate Folate Hemolysate Blood Type Antibody Screen Crossmatch Active Medications Generic Name Dose Route Start Last Admin Trade Name Freq PRN Reason Stop Dose Admin Atorvastatin Calcium 40 mg 04/20/17 22:00 04/21/17 23:02 Lipitor - PO 40 mg HS ELANA Administration Diltiazem HCl 240 mg 04/22/17 10:00 Cardizem Cd - PO DAILY ELANA Ferrous Sulfate 325 mg 04/21/17 15:00 04/21/17 23:03 Feosol - PO 325 mg BID ELANA Administration Sodium Chloride 1,000 mls @ 50 mls/hr 04/21/17 16:00 04/21/17 16:46 Normal Saline - IV 04/22/17 15:55 50 mls/hr ASDIR ELANA Administration Morphine Sulfate 15 mg 04/21/17 17:45 04/21/17 23:02 Ms Contin - PO 15 mg BID ELANA Administration Polyethylene Glycol 17 gm 11/29/17 16:15 04/21/17 23:03 Miralax (For Daily Use) - PO 17 gm BID ELANA Administration Ranitidine HCl 150 mg 04/21/17 10:00 04/21/17 11:12 Zantac - PO 150 mg DAILY ELANA Administration Microbiology 04/17/17 16:10 Blood - Peripheral Venous Blood Culture - Preliminary NO GROWTH OBTAINED AFTER 96 HOURS, INCUBATION TO CONTINUE FOR 1 DAYS. 04/17/17 16:10 Blood - Peripheral Venous Blood Culture - Preliminary NO GROWTH OBTAINED AFTER 96 HOURS, INCUBATION TO CONTINUE FOR 1 DAYS. 04/20/17 11:00 Nares - Mrsa Screen - Left MRSA Screen - Final NO MRSA ISOLATED 04/20/17 11:00 Nares - Right Nares MRSA Screen - Final NO MRSA ISOLATED 04/18/17 18:00 Urine - Urine Bravo Urine Culture - Final NO GROWTH OBTAINED Imaging: Non Head CT 04/16 - No acute pathology, mass or acute bleed. Chest CT 04/16 - No CT findings of acute pathology are identified involving the chest. Minimal to mild bilateral lower lobe discoid atelectasis/linear scarring. Stable benign 0.4 cm left lower lobe pulmonary nodule in comparison to a [address] study. Possible mild cardiomegaly. Head MRI 04/18 - Multiple bilateral cerebral and cerebellar acute infarcts are noted as discussed above. An acute left frontal cortical infarct is seen containing a trace amount of acute petechial blood. Echo 04/20 - LV function normal. Mild biatrial enlargement. Mild MR, TR. Moderate aortic regurgitation. Normal RV pressure. Mild pulmonic valve regurgitation. Non-con CT head 04/21 - Left middle cerebral artery territory acute/subacute infarct with faint hemorrhagic transformation seen along its anterior margin. Moderate chronic microvascular ischemic changes are present. Previously visualized small other acute/subacute infarcts are difficult to evaluate on this exam. Follow-up MRI would be the study of choice for further evaluation. F/u non-con CT 04/21 PM - Unchanged extent of the left MCA territory infarct with stable local mass effects and no evidence of hemorrhagic transformation. ASSESSMENT/PLAN: 77 yo woman w/ pmh of colon/liver ca, chronic afib, HTN, HLD, PUD and diverticulosis who presented to the ED after daughter witnessed her with R side facial droop, R hand weakness and dysarthria, intially resolved, then worsened during admission to include fixed R side paralysis/hemiparesis. Brain MRI with multiple bilateral cerebral/cerebellar infarcts, w/ evidence of mild acute bleeding, believed to be embolic shower or possible lacunar infarct. F/u CT scan notable for possible hemorrhagic conversion and heparin gtt held at recommendation of neurology/Dr. Flynn, however repeat CT with no evidence of hemorrhagic conversion. Per Dr. Redding, start on ASA, hold hep gtt for 3 days. #Acute multi-infarct CVA - MRI w/ multiple bilateral cerebral/cerebellar infarcts. Pt with R sided hemiparesis/paralysis, dysarthria. Repeat head CT scan 04/21 with suspected hemorrhagic conversion, heparin gtt held per neuro recs - Serial neuro exams qshift - Holding heparin gtt in setting of suspected hemorrhagic conversion until sat 04/24 - repeat CT with no evidence of hemorrhagic conversion - Atorvastatin 40mg daily - Carotid doppler w/ mild atherosclerotic dz w/ no significant plaque - Echo (04/21) with no residual clot, but technically limited - Neurology following. Continue recs greatly appreciated. - Will require heme/onc recs for long-term AC - start on ASA #Afib - Pt on xarelto for AC as outpt. Started on heparin gtt, held now in setting of suspected hemorrhagic conversion. - Cardiology following. Recs appreciated. - Rapid Afib w/ rvr to 150s on 04/18 - Poor BB tolerance (fatigue, bronchospasm) - Held cardizem CD in setting of hypotension to 90s systolic this AM. Restarted on Cardizem 30mg q6h #Mild HERBERTH - BUN/Cr 23/1.2 on admission. Remained in range of 1.1-1.3 - Increase IVFs from 50 to 100cc - Daily BMPs - Trend Cr #Anemia - Hgb 9.7 uptrending (9.0 yesterday) - Continue to Trend H/H - Iron 27, TIBC 187, iron sat 14, ferritin 1750 - Monitor for signs of bleeding - High risk of bleeding/clotting given malignancy, liver mets, baseline elevated INR - D/c Ferrous sulfate 325 BID. Likely not iron deficient, more likely anemia of chronic dz - Heme/onc following. Recs appreciated #Urinary retention - Bravo placed yesterday - Monitor for adequate flow. Flush if needed. #Transaminitis/Hyperbilirubinemia - AST 282, ALT 218, Alk phos 339. Uptrending. Tbili downtrending 2.4 -> 2.1 today - Continue to trend LFTs - Likely due to hypoperfusion, especially considering limited hepatic reserve #Liver mets - Oncology team following - Continue to trend LFTs - Bx of liver lesion - Will require outpt f/u for further management #HTN - Cardizem CD 240mg held due to hypotension. Switched to cardizem 30mg q6h - Continue to monitor for bradycardia, hypotension #HLD - Atorvastatin 40mg PO #Chronic back pain - MS contin 15mg BID PO #PUD - Zantac #PPX: - SCDs FEN: Fluids: NS 100cc/hr Electrolytes: Trend BUN/Cr Nutrition: dysphagia puree per S+S Code status: DNR/DNI Dispo: Monitor on tele for continued monitoring in setting of multi-infarct/ lacunar stroke and paroxysmal aFib. Plan discussed with attending, Dr. Mandie Hidalgo, PGY1 Visit type - Emergency Visit Emergency Visit: Yes ED Registration Date: 04/16/17 Care time: The patient presented to the Emergency Department on the above date and was hospitalized for further evaluation of their emergent condition. - New Patient This patient is new to me today: No - Critical Care Critical Care patient: No
[2017-04-22 08:29] LABS: ALBUMIN 2.3 g/dl (3.4-5.0); ANION GAP 6 (8-16); BILIRUBIN,TOTAL 2.1 mg/dL (0.2-1.0); CALCIUM 7.6 mg/dL (8.5-10.1); CO2 23 mmol/L (21-32); GLUCOSE,RANDOM 102 mg/dL (74-106); SGOT/AST 282 U/L (15-37); SGPT/ALT 214 U/L (12-78); TOT PROT 5.3 g/dl (6.4-8.2)
[2017-04-22 08:30] LABS: ALK PHOS 339 U/L (45-117)
[2017-04-22] MEDS: RANITIDINE HCL 150 MG TABLET (FP) PO SCH (09:13)
[2017-04-22] MEDS: FERROUS SO4 325 MG TABLET (FP) PO SCH ×2 (09:13→21:57)
[2017-04-22] MEDS: morphine SO4 SUSTAINED ACTING 15 MG TABLET.SA PO SCH ×2 (09:18→21:51)
--- NOTE | 2017-04-22 09:41 | PN ---
Progress Note (short form) - Note Progress Note: 77 yo woman w/ pmh of colon/liver ca, chronic afib, HTN, HLD, PUD and diverticulosis who presents to the ED after daughter witnessed her with R side facial droop, R hand weakness and dysarthria that lasted approximately 15-20 minutes and resolved before arrival in ED. Patient is admitted for recurrent TIA. noted to have inc right side weakness yesterday. Found to have embolic shower . Vital Signs Temperature 99 F 04/22/17 06:00 Pulse Rate 89 04/22/17 06:00 Respiratory Rate 18 04/22/17 06:00 Blood Pressure 119/54 04/22/17 06:00 O2 Sat by Pulse Oximetry (%) 98 04/21/17 22:00 CBCD WBC 10.6 K/mm3 (4.0-10.0) H 04/22/17 06:30 RBC 2.96 M/mm3 (3.60-5.2) L 04/22/17 06:30 Hgb 8.7 GM/dL (10.7-15.3) L D 04/22/17 06:30 Hct 26.4 % (32.4-45.2) L 04/22/17 06:30 MCV 89.1 fl (80-96) 04/22/17 06:30 MCHC 33.0 g/dl (32.0-36.0) 04/22/17 06:30 RDW 15.4 % (11.6-15.6) 04/22/17 06:30 Plt Count 123 K/MM3 (134-434) L 04/22/17 06:30 MPV 9.1 fl (7.5-11.1) 04/22/17 06:30 CMP Sodium 137 mmol/L (136-145) 04/22/17 06:30 Potassium 4.4 mmol/L (3.5-5.1) 04/22/17 06:30 Chloride 108 mmol/L (98-107) H 04/22/17 06:30 Carbon Dioxide 23 mmol/L (21-32) 04/22/17 06:30 Anion Gap 6 (8-16) L 04/22/17 06:30 BUN 21 mg/dL (7-18) H 04/22/17 06:30 Creatinine 1.0 mg/dL (0.55-1.02) 04/22/17 06:30 Creat Clearance w eGFR 53.62 (>60) 04/22/17 06:30 Calcium 7.6 mg/dL (8.5-10.1) L 04/22/17 06:30 Total Bilirubin 2.1 mg/dL (0.2-1.0) H 04/22/17 06:30 AST 282 U/L (15-37) H D 04/22/17 06:30 ALT 214 U/L (12-78) H D 04/22/17 06:30 Alkaline Phosphatase 339 U/L (45-117) H D 04/22/17 06:30 Total Protein 5.3 g/dl (6.4-8.2) L 04/22/17 06:30 Albumin 2.3 g/dl (3.4-5.0) L 04/22/17 06:30 -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 --Repeat CT head reveals acute/subacute left MCA territory infarct with minimal hemorrhagic transformation along ant. edges A&P: Left MCA territory infarct, with minimal hemorrhagic transformation. Would hold a/c for three days than resume. Pt. requires long-term anticoagulation given risk of embolii(as has already ocurred), afib, given this risk and her malignancy induced hypercoagulable state it would be reasonable to anticoagulate her in the longer term- coumadin. spoke to team Dr Redding
[2017-04-22] MEDS: ASPIRIN COATED 81 MG TABLET.EC PO SCH ×2 (09:56→10:02)
[2017-04-22] MEDS: POLYETHYLENE GLYCOL 3350 119 GM BTL PO SCH ×2 (09:56→21:58)
--- NOTE | 2017-04-22 10:48 | PN ---
Progress Note (short form) - Note Progress Note: History of Present Illness: no cp sob palps dizzy Current Medications Generic Name Dose Route Start Last Admin Trade Name Zari PRN Reason Stop Dose Admin Aspirin 81 mg 04/22/17 09:15 04/22/17 10:02 Ecotrin - PO Not Given DAILY ELANA Atorvastatin Calcium 40 mg 04/20/17 22:00 04/21/17 23:02 Lipitor - PO 40 mg HS ELANA Administration Diltiazem HCl 240 mg 04/22/17 10:00 04/22/17 09:38 Cardizem Cd - PO Not Given DAILY ELANA Ferrous Sulfate 325 mg 04/21/17 15:00 04/22/17 09:13 Feosol - PO 325 mg BID ELANA Administration Sodium Chloride 1,000 mls @ 50 mls/hr 04/21/17 16:00 04/21/17 16:46 Normal Saline - IV 04/22/17 15:55 50 mls/hr ASDIR ELANA Administration Morphine Sulfate 15 mg 04/21/17 17:45 04/22/17 09:18 Ms Contin - PO Not Given BID ELANA Polyethylene Glycol 17 gm 04/21/17 16:15 04/22/17 09:56 Miralax (For Daily Use) - PO 17 gm BID ELANA Administration Ranitidine HCl 150 mg 04/21/17 10:00 04/22/17 09:13 Zantac - PO 150 mg DAILY ELANA Administration Vital Signs Period Temp Pulse Resp BP Sys/Sheppard Pulse Ox Last 24 Hr 98.2 F-99 F 87-99 18-18 109-145/54-78 95-98 Constitutional: Yes: Well Nourished, No Distress, Calm Cardiovascular: Yes: Regular Rate and Rhythm, S1, S2. No: JVD, Gallop, Murmur Respiratory: Yes: Regular, CTA Bilaterally. No: Accessory Muscle Use, Rales, Wheezes Gastrointestinal: Yes: Distention Extremities: No: Cold Edema: No Neurological: Yes: Alert. No: Seizure Psychiatric: No: Agitated Labs: CBC, BMP 04/22/17 06:30 04/22/17 06:30 tele: afib, rate controlled carotids: mild athero, no stenosis echo 03/2017: tds; nl lv, rv not seen, mild lily, mild mr, mild pr, mild tr, mod ar, nl rvsp Assessment/Plan acute CVA: -2 episodes on DOA, in setting of missing home AC dose x 2d (has afib) -neuro input reviewed: embolic shower ( with largest in L MCa distribution) -holding ac for now as per neuro due to minimal hemoragic transformation on imaging -carotid dopplers unremarkable -echo tds but unremarkable PAF, sick sinus syndrome: -intolerant of low dose metoprolol and bystolic at low doses (profound fatigue, bronchospasm) -has tolerated high dose diltiazem (without signif GERD s.e.) -tolerated digoxin in past, but stopped given age and decr GFR--could add back if rapid HRs -rapid AF 150s on 04/18, began when pt was transported back to the floor from testing. she had not received any of her home cardizem CD 360 mg since admit, hence this may have contributed. Given very short AF duration, with pt's previously known refractory HRs (160) despite this dose of cardizem as outpt, and marked intolerance to even low doses of BB, she was pharmacologically cardioverted with amio bolus. equipment operator intermodal yard po amio not a good option given lab evidence of liver dysfunction (albumin 3.0, LFTs all up) with mult liver tumors per dr kothari --> stopped amio gtt and resumed home cardizem (c/b difficulty swallowing pills --> changed to short-acting dilt 90mg q6h to be crushed for her , though not a good long-term option--reassess once appetite/GI tolerance improves). -if recurrent rapid AF, will consider flecainide or other anti-arrhythmic, with EP input (if any are safe with liver dysfunction) -hope to avoid AVN ablation/PPM; -04/19: currently sinus esteban 40s consistently, ? hi vagal tone given ongoing GI sx's and bedrest decr diltiazem dose - 04/20-30: bradycardia improved, con't same mgm't - Had been on xarelto at home. despite some incr risk of bleeding with uncertain degree of decr'd hepatic synthetic function, this pt with malignancy has proven that she remains hypercoagulable given TIA x 2 on DOA; hence benefits of AC likely > risks here HTN: -stable CKD: -baseline creat runs 1.1-1.5 -renal fxn stable here. 04/19 hyponatremia slightly worse. IVF changed from D5 to NS. CAD: -cor calcium score intermediate (slightly above 50th %ile) -MPI in past equivocal ? apical ischemia vs variable breast artifact -never had anginal sx's -ecg no acute ischemic changes here -cont home regimen: statin (atorva 10 at home), no ASA (on AC) HPL: -LDL runs 90s on atorva 10, similar here. intolerant atorva 20 in past, but tolerating atorva 40 here in setting of cva. ? need to decrease dose in setting of liver mets/mildly elevated lfts. asthma: -intolerant of B-B in past -no current wheezing/sob colon cancer with liver mets/anemia/anorexia/abd pain: -? sx's related to tumor -all LFTs mildly elevated, abd distended -per hospitalist +/- Onc as indicated
--- NOTE | 2017-04-22 12:16 | PN ---
Progress Note, [employer] - Note Progress Note: Selected Entries 04/21/17 04/21/17 04/21/17 02:00 03:00 06:00 Breakfast Lunch 50% Temperature 98.0 F 98.6 F 97.3 F L 04/21/17 04/21/17 04/21/17 09:10 10:00 18:46 Breakfast 25% Lunch Temperature 98.7 F 98.2 F 04/21/17 04/22/17 04/22/17 22:00 02:00 06:00 Breakfast Lunch Temperature 98.2 F 98.4 F 99 F 04/22/17 04/22/17 10:00 10:48 Breakfast 50% Lunch Temperature 97.9 F Laboratory Tests 04/22/17 06:30 WBC 10.6 H Reviewed MBS and rec of chopped/nectar thick liquids with meals with nursing and family. Between meals, trial of free water protocol. Monitor tolerance.
[2017-04-22] MEDS ORDERED: SODIUM CHLORIDE 1,000 ML IV SCH (12:35)
--- NOTE | 2017-04-22 15:36 | PN ---
Teaching Attending Note Name of Resident: Jesus Hidalgo ATTENDING PHYSICIAN STATEMENT I saw and evaluated the patient. I reviewed the resident's note and discussed the case with the resident. I agree with the resident's findings and plan as documented. SUBJECTIVE: No fever or chills. no pain, she feels her R sided strength is coming back OBJECTIVE: NAD , AAOX3 CV: irreg irreg Lung: bibasilar crackles, improved Ext: no edema , no erythema . Neuro exam : R lower facial droop. EOMI intact except for a minimal lag in R lateral gaze. Uvula is deviated to R . minimal tongue movement to L. round equal pupils , reactive to light . Strength : RUE: shoulder shrug 1/5. shoulder abduction , flexion, biceps, triceps and wrist flexion/ extension 0/5 . hand sap bpc developer 0/5 LUE: shoulder shrug, shoulder abduction , flexion, biceps, triceps and wrist flexion/ extension 5/5 . hand sap bpc developer 5/5 RLE: hip flexion 1/5, knee flexion/extension 0/5, ankle dorsiflexion/plantar flexion 1/5. Babinski's upwards. LLE: hip flexion 5/5, knee flexion/extension 5/5, ankle dorsiflexion/plantar flexion 5/5 . Babinski's downwards Sensation to light touch: NL all over and symmetric except for decreased sensation on leg and foot reflexes : 2+ biceps b/l. knee jerk 1+ b/l ASSESSMENT AND PLAN: 77 y/o unfortunate lady with h/o A fib, TIAx2 , colon cancer and newly diagnosed liver mass HLP, PUD and other medical problems who presented with facial droop , dysarthria, and R sided weakness. 1- Acute CVA with multiple infarcts with small peticheal bleed after AC Imaging d/w Dr. Shankar this am , Blood seen o n MRI and CT form yesterday am, but not on CT last night ( CT sensitivity < MRI). d/w Dr. Redding. - hold AC till Wednesday - start ASA in mean time - follow neuro exam - PT - Avoid hypotension: hypotensive this am , increase IVF 2- A fib with RVR: now controlled. Cardizem held this am due to hypotension - resume cardizem when BP improves. can do short acting 30 q6 today then switch to CD in am 4- H/o HTN: - cont to hold losartan - resume cardizem as soon as appropriate 5- Urinary retention : - insert bravo. agreeable 6- HERBERTH: due to volume depletion. low oral intake - increase IVF - encourage oral intake 7- SCDs HLOC . DNR/DNI
[2017-04-22] MEDS ORDERED: dilTIAZem HCL 60 MG TABLET (FP) PO SCH (18:00)
[2017-04-22] MEDS: ATORVASTATIN CA 40 MG TABLET (FP) PO SCH (21:57)
[2017-04-23] MEDS: dilTIAZem HCL 30 MG TABLET (FP) PO SCH ×2 (01:19→05:03)
--- NOTE | 2017-04-23 06:16 | MSN ---
Progress Note (short form) - Note Progress Note: SUBJECTIVE CC: R facial droop, diplopia, slurred speech, weakness HPI: Patient was seen and examined today. She states she feels better today and believes her R side is moving better. She reports having had a bowel movement on 04/21. Nurse states her bowel movement was a smear with normal coloration. Pt states she has no urge to have BM. Pt encouraged to increase oral intake of thickened nutrients. Pt also reports sleeping throughout the night, eating "about the same" as before admission to the hospital, and less diplopia. Pt denies new bruises, headache, blurry vision, n/v, or diarrhea. OBJECTIVE Last Vital Signs Temp Pulse Resp BP Pulse Ox 99 F 128 H 20 125/60 93 L 04/23/17 05:53 04/23/17 05:53 04/23/17 05:53 04/23/17 05:53 04/22/17 22:00 General: Pt is alert and oriented, cooperative with interview in no acute distress. Head: normocephalic, atraumatic Eyes: pupils equal, round and reactive to light. EOMI with mild difficulty on R lateral gaze. No APD, sclera anicteric, conjunctiva clear. No lid lag on top and bottom. No R visual field defect to finger counting. Mild right eye medial deviation; mild left eye lateral deviation at rest. Throat: Tongue appears dry; Mild dryness of mucous membranes Heart: Irregularly irregular, no murmurs appreciated. Lungs: CTAB, no crackles/wheezing/rhonchi. Chest nontender to palpation. Abdomen: Soft, NT/ND, +BS in all 4 quadrants; tympanic to percussion in all 4 quadrants. Upper extremities: 2+ radial pulses, warm, well perfused. Normal capillary refill <2s. No cyanosis, clubbing or peripheral edema. Large ecchymosis noted on L antecubital fossa; decreased in size and pipe supervisor in coloration compared to yesterday. Lower extremities: 2+ dorsalis pedis pulse on R; 1+ dorsalis pedis pulse on L, warm, well perfused. Normal capillary refill <2s. No cyanosis, clubbing or peripheral edema. NEUROLOGICAL EXAM: Fluent, dysarthric. Mild R lateral tongue deviation at rest, R facial droop. Slight L side drift on both eyes at rest. Cranial nerves/Muscle strength CN II: Pupils equal, round and reactive to light. CN III/IV/: eyes laterally deviated to L side, CN VII: Facial movement asymmetrical, R facial droop CN VIII: hearing intact to voice and finger rub B/L CN IX/X/XII: tongue mild lateral deviation to R side at rest; pt able to move tongue completely to R and L. Gag reflex not tested. CN XI: able to rotate head against resistance B/L, SCM & trapezius 0/5 muscle strength on R side, 5/5 muscle strength on L side. 0/5 shoulder shrug. R side biceps, triceps, SCM, Wrist flexors/extensors, finger endless steamer tender, finger abductors 0/5 R side hip flexors 0/5, quadriceps 0/5, plantar flexors and extensors 1/5 L side biceps, triceps, SCM, wrist flexors/extensors, finger endless steamer tender 5/5 L side finger abductors, hip flexors, quadriceps, plantar flexors and extensors 5/5 Reflexes L biceps +2, L brachioradialis +2, L patellar +2 R biceps +3, R brachioradialis +3, R patellar +3 Babinski reflex: + R, - L Sensation: No facial sensation to light touch on R side. Sensation intact to soft touch throughout L side of body Sensation absent to soft touch throughout R side of body Cerebellar fxn: Rapid alternating movements: normal on L, absent on R Finger to nose: Mild impairment Gait: Not tested due to hemiparesis Labs: CBC, BMP 04/23/17 07:00 04/23/17 07:00 Abnormal Lab Results 04/23/17 04/23/17 07:00 07:00 WBC 11.3 H RBC 2.82 L Hgb 8.2 L Hct 25.0 L Plt Count 105 L Monocytes % 10.4 H Chloride 110 H Carbon Dioxide 20 L BUN 24 H Random Glucose 112 H Calcium 7.7 L Total Bilirubin 1.9 H AST 287 H ALT 271 H D Alkaline Phosphatase 358 H Total Protein 5.2 L Albumin 2.3 L Laboratory Results - last 24 hr 04/23/17 04/23/17 07:00 07:00 WBC 11.3 H RBC 2.82 L Hgb 8.2 L Hct 25.0 L MCV 88.9 MCH 29.0 MCHC 32.6 RDW 15.5 Plt Count 105 L MPV 9.2 Neutrophils % 79.2 Lymphocytes % 8.1 Monocytes % 10.4 H Eosinophils % 1.5 Basophils % 0.8 Sodium 138 Potassium 4.6 Chloride 110 H Carbon Dioxide 20 L Anion Gap 8 BUN 24 H Creatinine 1.0 Creat Clearance w eGFR 53.62 Random Glucose 112 H Calcium 7.7 L Total Bilirubin 1.9 H AST 287 H ALT 271 H D Alkaline Phosphatase 358 H Total Protein 5.2 L Albumin 2.3 L Hepatic Panel Total Bilirubin 1.9 mg/dL (0.2-1.0) H 04/23/17 07:00 AST 287 U/L (15-37) H 04/23/17 07:00 ALT 271 U/L (12-78) H D 04/23/17 07:00 Alkaline Phosphatase 358 U/L (45-117) H 04/23/17 07:00 Albumin 2.3 g/dl (3.4-5.0) L 04/23/17 07:00 Active Medications Generic Name Dose Route Start Last Admin Trade Name Yousifq PRN Reason Stop Dose Admin Aspirin 81 mg 04/22/17 09:15 04/23/17 09:31 Ecotrin - PO 81 mg DAILY ELANA Administration Atorvastatin Calcium 40 mg 04/20/17 22:00 04/22/17 21:57 Lipitor - PO 40 mg HS ELANA Administration Diltiazem HCl 240 mg 04/24/17 10:00 Cardizem Cd - PO DAILY ELANA Ferrous Sulfate 325 mg 04/21/17 15:00 04/23/17 09:31 Feosol - PO 325 mg BID ELANA Administration Sodium Chloride 1,000 mls @ 100 mls/hr 04/23/17 06:00 04/23/17 06:30 Normal Saline - IV 100 mls/hr ASDIR ELANA Administration Morphine Sulfate 15 mg 04/21/17 17:45 04/23/17 09:30 Ms Contin - PO Not Given BID ELANA Polyethylene Glycol 17 gm 04/21/17 16:15 04/23/17 09:31 Miralax (For Daily Use) - PO 17 gm BID ELANA Administration Ranitidine HCl 150 mg 04/21/17 10:00 04/23/17 09:31 Zantac - PO 150 mg DAILY ELANA Administration Imaging: Non contrast Head CT 04/16 - No acute pathology, mass or acute bleed. Chest CT 04/16 - No CT findings of acute pathology are identified involving the chest. Minimal to mild bilateral lower lobe discoid atelectasis/linear scarring. Stable benign 0.4 cm left lower lobe pulmonary nodule in comparison to a [address] study. Possible mild cardiomegaly. Head MRI 04/18 - Multiple bilateral cerebral and cerebellar acute infarcts are noted as discussed above. An acute left frontal cortical infarct is seen containing a trace amount of acute petechial blood. Non contrast Head CT 04/21 AM- L MCA territory acute/subacute infarct with faint hemorrhagic transformation seen along its anterior margin. Moderate chronic microvascular ischemic changes are present. Previously visualized small other acute/subacute infarcts difficult to evaluate on this exam. Recommended follow up MRI of head for further eval. Echo 04/20/17 - Normal L ventricular size, thickness and function. Normal L vent. EF. Upper septal hypertrophy sigmoid septum, normal variant. Mild dilation of L atrium. Mild dilation of R atrium. Mild mitral valve thickening. Mild wen regurg. Mild tricuspid regurg. R ventricular systolic pressure normal. Moderate aortic regurg. Mild pulmonic valvular regurg. R ventricular not well visualized. -- study technically difficult due to suboptimal images. Regional wall motion abnormalities cannot be excluded due to limited visualization. Repeat non contrast head CT 04/21 PM - Unchanged extent of L MCA territory infarct with stable local mass effects and no evidence of hemorrhagic transformation. ASSESSMENT/PLAN 77 year old woman with PMHx of paroxysmal afib, colon ca w/ liver mets s/p liver resection & colectomy, HTN, HLD, PUD and diverticulosis admitted for R side facial droop, R hand weakness and dysarthria that resolved then worsened during admission to include fixed R hemiparesis. Pt remains stable, no new focal neurologic deficits. #Acute multi-infarct CVA - MRI w/ multiple bilateral cerebral/cerebellar infarcts and large infarct in L MCA territory. Pt with R sided hemiparesis/ paralysis, dysarthria. - Repeat head CT scan 04/21 with suspected hemorrhagic conversion, heparin gtt held until 04/24 per neuro recs - f/u CT scan 04/21 23:00 unchanged - ASA 81 mg PO daily added to med regimen in meantime - Serial neuro exams qshift - Atorvastatin 40mg daily - Neurology following. Recs appreciated. 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 Heme/onc recs appreciated regarding termite exterminator helper AC. #Afib - Pt on xarelto for AC as outpatient. Started on heparin gtt in ICU, held on 04/21 due to suspected hemorrhagic conversion - Continue to hold hep gtt until 04/24. ASA 81 mg PO daily added to med regimen in meantime. 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 - Cardiology following. Recs appreciated. - Pt given one dose Cardizem Cd 120 mg PO today; will restart Cardizem Cd 240 mg PO daily tomorrow. #Mild HERBERTH - BUN/Cr 23/1.2 on admission. Remained in range of 1.1-1.3 - IVF NS 100 cc/hr - likely secondary to dehydration and anorexia secondary to ca - Daily BMPs - Continue to trend Cr #Anemia - Hb 8.2 04/23 Hb 8.7 04/22 Hb 9.7 04/21 - Continue to Trend H/H; likely anemia of chronic disease given iron studies - Monitor for signs of bleeding - High risk of bleeding/clotting given malignancy, liver mets, baseline elevated INR, held hep gtt ppx - Heme/onc following. Continued recs appreciated. #Urinary retention - Edwards placed 12/19 PM for urinary retention; pt tolerating well - Continue voiding trials - continue to monitor urine output #Liver mets - Oncology team following - Abd US ordered 04/23 to further evaluate persistent elevation of liver enzymes - Will need outpt f/u for further management #HTN - Pt given one dose Cardizem Cd 120 mg PO today; will restart Cardizem Cd 240 mg PO daily tomorrow. - Monitor for bradycardia, hypotension #HLD - Atorvastatin 40mg PO daily #Chronic back pain - MS contin 15mg BID PO #PUD - Zantac 150 mg PO daily #PPX: - SCDs - ASA 81 mg PO daily FEN: Fluids: NS 100cc/hr Electrolytes: Trend BUN/Cr Nutrition: dysphagia puree per S+S Code status: DNR/DNI
[2017-04-23] MEDS: SODIUM CHLORIDE 1,000 ML IV SCH ×2 (06:30→18:54)
[2017-04-23 07:09] LABS: BASOPHIL 0.8 % (0-2.0); EOSINOPHIL 1.5 % (0-4.5); MCHC 32.6 g/dl (32.0-36.0); MEAN CELL VOLUME 88.9 fl (80-96); MEAN PLT VOLUME 9.2 fl (7.5-11.1); NEUTROPHILS 79.2 % (42.8-82.8); PLATELET COUNT 105 K/MM3 (134-434); RDW 15.5 % (11.6-15.6); WHITE BLOOD COUNT 11.3 K/mm3 (4.0-10.0)
[2017-04-23 07:45] LABS: CALCIUM 7.7 mg/dL (8.5-10.1)
[2017-04-23 07:51] LABS: ALBUMIN 2.3 g/dl (3.4-5.0); ALK PHOS 358 U/L (45-117); ANION GAP 8 (8-16); BILIRUBIN,TOTAL 1.9 mg/dL (0.2-1.0); CO2 20 mmol/L (21-32); GLUCOSE,RANDOM 112 mg/dL (74-106); SGOT/AST 287 U/L (15-37); SGPT/ALT 271 U/L (12-78); TOT PROT 5.2 g/dl (6.4-8.2)
--- NOTE | 2017-04-23 08:42 | PN ---
Physical Exam: SUBJECTIVE: Patient seen and examined by me this AM - Pt with no complaints. Denies fever/chills, CP/palps, SOB/cough, abdominal pain, dysuria, diarrhea, rashes or new neuro symptoms, diplopia - Endorse persistent constipation. Edwards with continued drainage, low UOP - sleeping, eating well. Pleasant and in good spirits. - Pt tachy to 128 overnight per nursing. Improved after scheduled 30mg cardizem dose OBJECTIVE: Vital Signs Intake & Output 04/20/17 04/21/17 04/22/17 04/23/17 23:59 23:59 23:59 23:59 Intake Total 1928 1185 1135 Output Total 700 400 350 Balance 1228 785 785 Weight 77.156 kg Period Temp Pulse Resp BP Sys/Sheppard Pulse Ox Last 24 Hr 97.8 F-99.7 F 84-128 16-20 92-153/34-90 89-93 GENERAL: A&Ox2. Calm, NAD HEAD: NCAT EYES: Pupils equal, round and reactive to light, sclera slightly icteric, conjunctiva clear. No lid lag. No visual field defect. Still with R lateral gaze improvement BL, though still limited in range, velocity. All other EOMI intact. EARS, NOSE, THROAT: R tongue deviation, L uvular deviation. Ears normal, nares patent, oropharynx clear without exudates. Moist mucous membranes. NECK: Normal range of motion, JVD, or masses. LUNGS: trace bibasilar crackles. No wheezes, and no crackles. No accessory muscle use. HEART: Irregularly irregular tachy, normal S1 and S2 without murmur, rub or gallop. ABDOMEN: Soft, not distended, normoactive bowel sounds, no rebound, no masses. No hepatomegaly or splenomegaly. UPPER EXTREMITIES: 2+ pulses, warm, well-perfused. No cyanosis. No clubbing. LOWER EXTREMITIES: 2+ pulses, warm, well-perfused. No calf tenderness. No peripheral edema. NEUROLOGICAL: Still with dysarthria. Still w/ R lateral tongue deviation, R facial droop. Endorses BL symmetric facial sensation. 0/5 shoulder shrug on R side, 5/5 L side. 0/5 music professor strength in R hand, 5/5 in L hand. 0/5 R hand, arm. 5/5 strength in L arm, leg grossly. No pronator drift, dysdiadokinesia in L hand. 2/5 in R proximal muscle groups. 1/5 dorsi/plantar flexion in L leg No sensation light touch in R arm. endorses no sensation to light touch on R, preserved on L today. unable to evaluate gait, bedbound. 2+ L biceps, patellar reflex. 2+ R biceps, 1+ patellar reflex. Still with + babinski on R side, - on L SKIN: Warm, dry, normal turgor, normal cap refill. Laboratory Results - last 24 hr CBC, BMP 04/23/17 07:00 04/23/17 07:00 04/23/17 04/23/17 07:00 07:00 WBC 11.3 H RBC 2.82 L Hgb 8.2 L Hct 25.0 L MCV 88.9 MCH 29.0 MCHC 32.6 RDW 15.5 Plt Count 105 L MPV 9.2 Neutrophils % 79.2 Lymphocytes % 8.1 Monocytes % 10.4 H Eosinophils % 1.5 Basophils % 0.8 Sodium 138 Potassium 4.6 Chloride 110 H Carbon Dioxide 20 L Anion Gap 8 BUN 24 H Creatinine 1.0 Creat Clearance w eGFR 53.62 Random Glucose 112 H Calcium 7.7 L Total Bilirubin 1.9 H AST 287 H ALT 271 H D Alkaline Phosphatase 358 H Total Protein 5.2 L Albumin 2.3 L Active Medications Generic Name Dose Route Start Last Admin Trade Name Freq PRN Reason Stop Dose Admin Aspirin 81 mg 04/22/17 09:15 04/22/17 10:02 Ecotrin - PO Not Given DAILY ELANA Atorvastatin Calcium 40 mg 04/20/17 22:00 04/22/17 21:57 Lipitor - PO 40 mg HS ELANA Administration Diltiazem HCl 30 mg 04/22/17 20:27 04/23/17 05:03 Cardizem - PO 30 mg Q6HPO ELANA Administration Ferrous Sulfate 325 mg 04/21/17 15:00 04/22/17 21:57 Feosol - PO 325 mg BID ELANA Administration Sodium Chloride 1,000 mls @ 100 mls/hr 04/23/17 06:00 04/23/17 06:30 Normal Saline - IV 100 mls/hr ASDIR ELANA Administration Morphine Sulfate 15 mg 04/21/17 17:45 04/22/17 21:51 Ms Contin - PO Not Given BID ELANA Polyethylene Glycol 17 gm 04/21/17 16:15 04/22/17 21:58 Miralax (For Daily Use) - PO 17 gm BID ELANA Administration Ranitidine HCl 150 mg 04/21/17 10:00 04/22/17 09:13 Zantac - PO 150 mg DAILY ELANA Administration Microbiology 04/17/17 16:10 Blood - Peripheral Venous Blood Culture - Final NO GROWTH AFTER 5 DAYS INCUBATION 04/17/17 16:10 Blood - Peripheral Venous Blood Culture - Final NO GROWTH AFTER 5 DAYS INCUBATION 04/20/17 11:00 Nares - Mrsa Screen - Left MRSA Screen - Final NO MRSA ISOLATED 04/20/17 11:00 Nares - Right Nares MRSA Screen - Final NO MRSA ISOLATED 04/18/17 18:00 Urine - Urine Edwards Urine Culture - Final NO GROWTH OBTAINED Tele 04/23 - Aflutter with variable conduction. Rates in range list above. Imaging: Non Head CT 04/16 - No acute pathology, mass or acute bleed. Chest CT 04/16 - No CT findings of acute pathology are identified involving the chest. Minimal to mild bilateral lower lobe discoid atelectasis/linear scarring. Stable benign 0.4 cm left lower lobe pulmonary nodule in comparison to a [address] study. Possible mild cardiomegaly. Head MRI 04/18 - Multiple bilateral cerebral and cerebellar acute infarcts are noted as discussed above. An acute left frontal cortical infarct is seen containing a trace amount of acute petechial blood. Echo 04/20 - LV function normal. Mild biatrial enlargement. Mild MR, TR. Moderate aortic regurgitation. Normal RV pressure. Mild pulmonic valve regurgitation. Non-con CT head 04/21 - Left middle cerebral artery territory acute/subacute infarct with faint hemorrhagic transformation seen along its anterior margin. Moderate chronic microvascular ischemic changes are present. Previously visualized small other acute/subacute infarcts are difficult to evaluate on this exam. Follow-up MRI would be the study of choice for further evaluation. F/u non-con CT 04/21 PM - Unchanged extent of the left MCA territory infarct with stable local mass effects and no evidence of hemorrhagic transformation. ASSESSMENT/PLAN: 77 yo woman w/ pmh of colon/liver ca, chronic afib, HTN, HLD, PUD and diverticulosis who presented to the ED after daughter witnessed her with R side facial droop, R hand weakness and dysarthria, intially resolved, then worsened during admission to include fixed R side paralysis/hemiparesis. Brain MRI with multiple bilateral cerebral/cerebellar infarcts, w/ evidence of mild acute bleeding, believed to be embolic shower or possible lacunar infarct. F/u CT scan notable for possible hemorrhagic conversion and heparin gtt held at recommendation of neurology/Dr. Flynn, however repeat CT with no evidence of hemorrhagic conversion. Per Dr. Redding, start on ASA, hold hep gtt for 3 days. #Acute multi-infarct CVA - MRI w/ multiple bilateral cerebral/cerebellar infarcts. Pt with R sided hemiparesis/paralysis, dysarthria. Repeat head CT scan 04/21 with suspected hemorrhagic conversion, heparin gtt held per neuro recs - Serial neuro exams qshift - Holding heparin gtt in setting of suspected hemorrhagic conversion until sat 04/24 - repeat CT with no evidence of hemorrhagic conversion - Atorvastatin 40mg daily - Carotid doppler w/ mild atherosclerotic dz w/ no significant plaque - Echo (04/21) with no residual clot, but technically limited - Neurology following. Continue recs greatly appreciated. - Will require heme/onc recs for long-term AC - ASA 81mg #Afib/Aflutter - Pt on xarelto for AC as outpt. Started on heparin gtt, held now in setting of suspected hemorrhagic conversion. - Aflutter overnight variable block, rates up to 128. - Cardiology following. Recs appreciated. - Rapid Afib w/ rvr to 150s on 04/18 - Poor BB tolerance (fatigue, bronchospasm) - No hypotension overnight. Cardizem 120 CD today, increase to 240 mg tomorrow #Mild HERBERTH - BUN/Cr 23/1.2 on admission. Remained in range of 1.1-1.3 - IVFs 100cc - Daily BMPs - Trend Cr #Anemia - Hgb 8.2 today. - Continue to Trend H/H - Iron 27, TIBC 187, iron sat 14, ferritin 1750 - Monitor for signs of bleeding - Type and cross sent today. Transfuse at <7 - High risk of bleeding/clotting given malignancy, liver mets, baseline elevated INR - Heme/onc following. Recs appreciated #Urinary retention - Edwards - Monitor for adequate flow. Flush if needed. #Transaminitis/Hyperbilirubinemia - LFTs still uptrending - RUQ U/S w/ doppler - Continue to trend LFTs - Likely due to hypoperfusion, especially considering limited hepatic reserve #Liver mets - Oncology team following - Continue to trend LFTs - Bx of liver lesion - Will require outpt f/u for further management #HTN - Cardizem CD 120mg daily, 240 mg tomorrow - Continue to monitor for bradycardia, hypotension #HLD - Atorvastatin 40mg PO #Chronic back pain - MS contin 15mg BID PO #PUD - Zantac #PPX: - SCDs FEN: Fluids: NS 100cc/hr Electrolytes: Trend BUN/Cr Nutrition: dysphagia puree per S+S Code status: DNR/DNI Dispo: Monitor on tele for continued monitoring in setting of multi-infarct/ lacunar stroke and paroxysmal aFib. Plan discussed with attending, Dr. aMndie Hidalgo, PGY1 Visit type - Emergency Visit Emergency Visit: Yes ED Registration Date: 04/16/17 Care time: The patient presented to the Emergency Department on the above date and was hospitalized for further evaluation of their emergent condition. - New Patient This patient is new to me today: No - Critical Care Critical Care patient: No
[2017-04-23] MEDS: morphine SO4 SUSTAINED ACTING 15 MG TABLET.SA PO SCH ×2 (09:30→22:22)
[2017-04-23] MEDS: ASPIRIN COATED 81 MG TABLET.EC PO SCH (09:31)
[2017-04-23] MEDS: RANITIDINE HCL 150 MG TABLET (FP) PO SCH (09:31)
[2017-04-23] MEDS: POLYETHYLENE GLYCOL 3350 119 GM BTL PO SCH ×2 (09:31→22:23)
[2017-04-23] MEDS: FERROUS SO4 325 MG TABLET (FP) PO SCH ×2 (09:31→22:22)
--- NOTE | 2017-04-23 11:00 | PN ---
Progress Note (short form) - Note Progress Note: History of Present Illness: no cp sob palps dizzy Current Medications Generic Name Dose Route Start Last Admin Trade Name Zari PRN Reason Stop Dose Admin Aspirin 81 mg 04/22/17 09:15 04/23/17 09:31 Ecotrin - PO 81 mg DAILY ELANA Administration Atorvastatin Calcium 40 mg 04/20/17 22:00 04/22/17 21:57 Lipitor - PO 40 mg HS ELANA Administration Diltiazem HCl 240 mg 04/24/17 10:00 Cardizem Cd - PO DAILY ELANA Diltiazem HCl 120 mg 04/23/17 11:00 Cardizem Cd - PO 04/23/17 11:01 ONCE ONE Ferrous Sulfate 325 mg 04/21/17 15:00 04/23/17 09:31 Feosol - PO 325 mg BID ELANA Administration Sodium Chloride 1,000 mls @ 100 mls/hr 04/23/17 06:00 04/23/17 06:30 Normal Saline - IV 100 mls/hr ASDIR ELANA Administration Morphine Sulfate 15 mg 04/21/17 17:45 04/23/17 09:30 Ms Contin - PO Not Given BID ELANA Polyethylene Glycol 17 gm 04/21/17 16:15 04/23/17 09:31 Miralax (For Daily Use) - PO 17 gm BID ELANA Administration Ranitidine HCl 150 mg 04/21/17 10:00 04/23/17 09:31 Zantac - PO 150 mg DAILY ELANA Administration Vital Signs Period Temp Pulse Resp BP Sys/Sheppard Pulse Ox Last 24 Hr 97.8 F-99.7 F 84-128 16-20 121-153/50-90 93-95 Constitutional: Yes: Well Nourished, No Distress, Calm Cardiovascular: Yes: Regular Rate and Rhythm, S1, S2. No: JVD, Gallop, Murmur Respiratory: Yes: Regular, CTA Bilaterally. No: Accessory Muscle Use, Rales, Wheezes Gastrointestinal: Yes: Distention Extremities: No: Cold Edema: No Neurological: Yes: Alert. No: Seizure Psychiatric: No: Agitated Labs: CBC, BMP 04/23/17 07:00 04/23/17 07:00 tele: afib, rate mostly controlled carotids: mild athero, no stenosis echo 03/2017: tds; nl lv, rv not seen, mild lily, mild mr, mild pr, mild tr, mod ar, nl rvsp Assessment/Plan acute CVA: -2 episodes on DOA, in setting of missing home AC dose x 2d (has afib) -neuro input reviewed: embolic shower ( with largest in L MCa distribution) -holding ac for now as per neuro due to minimal hemoragic transformation on imaging -carotid dopplers unremarkable -echo tds but unremarkable PAF, sick sinus syndrome: -intolerant of low dose metoprolol and bystolic at low doses (profound fatigue, bronchospasm) -has tolerated high dose diltiazem (without signif GERD s.e.) -tolerated digoxin in past, but stopped given age and decr GFR--could add back if rapid HRs -rapid AF 150s on 04/18, began when pt was transported back to the floor from testing. she had not received any of her home cardizem CD 360 mg since admit, hence this may have contributed. Given very short AF duration, with pt's previously known refractory HRs (160) despite this dose of cardizem as outpt, and marked intolerance to even low doses of BB, she was pharmacologically cardioverted with amio bolus. technician terminal and repeater po amio not a good option given lab evidence of liver dysfunction (albumin 3.0, LFTs all up) with mult liver tumors per dr kothari --> stopped amio gtt and resumed home cardizem (c/b difficulty swallowing pills --> changed to short-acting dilt 90mg q6h to be crushed for her , though not a good long-term option--reassess once appetite/GI tolerance improves). -if recurrent rapid AF, will consider flecainide or other anti-arrhythmic, with EP input (if any are safe with liver dysfunction) -hope to avoid AVN ablation/PPM; -04/19: currently sinus esteban 40s consistently, ? hi vagal tone given ongoing GI sx's and bedrest decr diltiazem dose - 04/20-04/23: bradycardia improved, con't same mgm't. can change to long acting cardizem when able to tolerate (cannot be crushed). - Had been on xarelto at home. despite some incr risk of bleeding with uncertain degree of decr'd hepatic synthetic function, this pt with malignancy has proven that she remains hypercoagulable given TIA x 2 on DOA; hence benefits of AC likely > risks here HTN: -stable CKD: -baseline creat runs 1.1-1.5 -renal fxn stable here. 04/19 hyponatremia slightly worse. IVF changed from D5 to NS. CAD: -cor calcium score intermediate (slightly above 50th %ile) -MPI in past equivocal ? apical ischemia vs variable breast artifact -never had anginal sx's -ecg no acute ischemic changes here -cont home regimen: statin (atorva 10 at home), no ASA (on AC) HPL: -LDL runs 90s on atorva 10, similar here. intolerant atorva 20 in past, but tolerating atorva 40 here in setting of cva. ? need to decrease dose in setting of liver mets/mildly elevated lfts. asthma: -intolerant of B-B in past -no current wheezing/sob colon cancer with liver mets/anemia/anorexia/abd pain: -? sx's related to tumor -all LFTs mildly elevated, abd distended -per hospitalist +/- Onc as indicated
--- NOTE | 2017-04-23 15:53 | PN ---
Progress Note (short form) - Note Progress Note: Patient seen and examined More alert and communicative Still with dense right hemiplegia Last Vital Signs Temp Pulse Resp BP Pulse Ox 98.3 F 99 H 16 143/68 95 04/23/17 15:15 04/23/17 15:15 04/23/17 15:15 04/23/17 15:15 04/23/17 09:00 Right facial Lungs- diminished breath sounds bilateral Cor -A.f Abdomen -soft Ext- no significant edema Current Medications Generic Name Dose Route Start Last Admin Trade Name Zari PRN Reason Stop Dose Admin Aspirin 81 mg 04/22/17 09:15 04/23/17 09:31 Ecotrin - PO 81 mg DAILY ELANA Administration Atorvastatin Calcium 40 mg 04/20/17 22:00 04/22/17 21:57 Lipitor - PO 40 mg HS ELANA Administration Diltiazem HCl 240 mg 04/24/17 10:00 Cardizem Cd - PO DAILY ELANA Ferrous Sulfate 325 mg 04/21/17 15:00 04/23/17 09:31 Feosol - PO 325 mg BID ELANA Administration Sodium Chloride 1,000 mls @ 100 mls/hr 04/23/17 06:00 04/23/17 06:30 Normal Saline - IV 100 mls/hr ASDIR ELANA Administration Morphine Sulfate 15 mg 04/21/17 17:45 04/23/17 09:30 Ms Contin - PO Not Given BID ELANA Polyethylene Glycol 17 gm 04/21/17 16:15 04/23/17 09:31 Miralax (For Daily Use) - PO 17 gm BID ELANA Administration Ranitidine HCl 150 mg 04/21/17 10:00 04/23/17 09:31 Zantac - PO 150 mg DAILY ELANA Administration CBC, BMP 04/23/17 07:00 04/23/17 07:00 INR, PTT INR 1.35 (0.82-1.09) H 04/20/17 17:00 Fibrinogen 195.0 mg/dL (238-498) L 04/19/17 05:00 Impression: Hypercoaguable state Cerebral /cerebellar infarcts Right hemiplegia CT - component of hemorrhage Anemia Thrombocytopenia Plan: per neurology- follow up CT Decision re a/c pending f/u CT of head Active P.T. Monitor CBC Social service
--- NOTE | 2017-04-23 16:04 | PN ---
Progress Note, DOMAIN ARCHITECT - Note Progress Note: 77 yo seen at bedside and DOMAIN ARCHITECT reviewed chart. Meal intake is slightly better today. Pt has MBS with recommendations for chopped and nectar thicken liquids. Pt current diet is still pureed in chart. DOMAIN ARCHITECT review recommendations with cupola charger. DOMAIN ARCHITECT will continue to monitor intake.
--- NOTE | 2017-04-23 16:28 | PN ---
Teaching Attending Note Name of Resident: Jesus Hidalgo ATTENDING PHYSICIAN STATEMENT I saw and evaluated the patient. I reviewed the resident's note and discussed the case with the resident. I agree with the resident's findings and plan as documented. SUBJECTIVE: No fever or chills. no events over night OBJECTIVE: NAD , AAOX3 . dry MM CV: irreg irreg Lung: bibasilar crackles Ext: no edema, no erythema . Neuro exam: R lower facial droop. EOMI intact except for a minimal lag in R lateral gaze. Uvula is deviated to R. minimal tongue movement to L. round equal pupils , reactive to light . Strength : RUE: Shoulder shrug 0/5. shoulder abduction , flexion, biceps, triceps and wrist flexion/ extension 0/5 . hand surveyor geophysical prospecting 0/5 LUE: shoulder shrug, shoulder abduction , flexion, biceps, triceps and wrist flexion/ extension 5/5 . hand surveyor geophysical prospecting 4/5 RLE: hip flexion 1/5, knee flexion/extension 0/5, ankle dorsiflexion/plantar flexion 1/5. Babinski's upwards. LLE: hip flexion 5/5, knee flexion/extension 5/5, ankle dorsiflexion/plantar flexion 5/5 . Babinski's downwards Sensation to light touch: NL all over and symmetric except for decreased sensation on leg and foot reflexes : 2+ biceps b/l. knee jerk 1+ b/l ASSESSMENT AND PLAN: 77 y/o unfortunate lady with h/o A fib, TIAx2 , colon cancer and newly diagnosed liver mass HLP, PUD and other medical problems who presented with facial droop , dysarthria, and R sided weakness. 1- Acute CVA with multiple infarcts with small peticheal bleed after AC Stable neuro exam. - resume AC tomorrow. Will bridge to coumadin with heparin gtt - will stop ASa - avoid hypotension 2- A fib with RVR: increased HR this am after decreasing dose of cardizem due to hypotension - start cardizem CD 240 daily . monitor BP 3- H/o HTN: - cont to hold losartan - resume cardizem as above 4- Urinary retention : cont bravo 5- HERBERTH: due to volume depletion. Cont to have low oral intake - Cont IVF for now - encourage oral intake 6- Elevated LFTS: likely due to the liver masses and increased dose of statin - will obtain US doppler to also evaluate for portal vein thrombosis given her hx HLOC . DNR/DNI
[2017-04-23] MEDS: ATORVASTATIN CA 40 MG TABLET (FP) PO SCH (22:23)
[2017-04-24] MEDS: SODIUM CHLORIDE 1,000 ML IV SCH (05:00)
[2017-04-24 07:24] LABS: BASOPHIL 0.5 % (0-2.0); EOSINOPHIL 1.4 % (0-4.5); MCH 29.5 pg (25.7-33.7); MCHC 33.1 g/dl (32.0-36.0); NEUTROPHILS 76.7 % (42.8-82.8); PLATELET COUNT 102 K/MM3 (134-434); RDW 15.5 % (11.6-15.6); WHITE BLOOD COUNT 10.4 K/mm3 (4.0-10.0)
[2017-04-24 07:38] LABS: ALBUMIN 2.2 g/dl (3.4-5.0); ALK PHOS 388 U/L (45-117); ANION GAP 6 (8-16); BILIRUBIN,DIRECT 0.9 mg/dL (0.0-0.2); CALCIUM 7.4 mg/dL (8.5-10.1); CO2 22 mmol/L (21-32); CREATININE 0.9 mg/dL (0.55-1.02); GLUCOSE,RANDOM 89 mg/dL (74-106); SGOT/AST 257 U/L (15-37); SGPT/ALT 256 U/L (12-78)
--- NOTE | 2017-04-24 09:02 | PN ---
Physical Exam: SUBJECTIVE: Patient seen and examined by me this AM - No overnight. No complaints this AM. Denies fever/chills, cough, sob, palpitations, CP, n/v, abdominal pain, peripheral edema or new neuro symptoms - More somnolent this AM, however just woke up. - Low grade fever to 100.1 overnight. Good uop with bravo. Still tachy to 110s overnight. OBJECTIVE: Vital Signs Intake & Output 04/21/17 04/22/17 04/23/17 04/24/17 23:59 23:59 23:59 23:59 Intake Total 1185 1135 360 Output Total 400 350 800 300 Balance 785 785 -440 -300 Period Temp Pulse Resp BP Sys/Sheppard Pulse Ox Last 24 Hr 98.1 F-100.1 F 95-113 16-20 125-143/59-77 91-95 GENERAL: A&Ox2. Somnolent, NAD HEAD: NCAT EYES: Pupils equal, round and reactive to light, sclera slightly icteric, conjunctiva clear. No lid lag. No visual field defect. Still with R lateral gaze improvement BL, though still limited in range, velocity. All other EOMI intact. EARS, NOSE, THROAT: R tongue deviation, L uvular deviation. Ears normal, nares patent, oropharynx clear without exudates. Moist mucous membranes. NECK: Normal range of motion, JVD, or masses. LUNGS: Trace bibasilar crackles. No wheezes, and no crackles. No accessory muscle use. HEART: Irregularly irregular tachy, normal S1 and S2 without murmur, rub or gallop. ABDOMEN: Soft, not distended, normoactive bowel sounds, no rebound, no masses. No hepatomegaly or splenomegaly. UPPER EXTREMITIES: 2+ pulses, warm, well-perfused. No cyanosis. No clubbing. LOWER EXTREMITIES: 2+ pulses, warm, well-perfused. No calf tenderness. No peripheral edema. NEUROLOGICAL: dysarthria improved. Still w/ R lateral tongue deviation, R facial droop. Endorses BL symmetric facial sensation. 0/5 shoulder shrug on R side, 5/5 L side. 0/5 cellar packer strength in R hand, 5/5 in L hand. 0/5 R hand, arm. 5/5 strength in L arm, leg grossly. No pronator drift, dysdiadokinesia in L hand. 1/5 in R proximal muscle groups. 2/5 dorsi/plantar flexion in L leg No sensation light touch in R arm. endorses no sensation to light touch on R, preserved on L today. unable to evaluate gait, bedbound. 2+ L biceps, patellar reflex. 3+ R biceps, 1+ patellar reflex. Still with + babinski on R side, - on L Psych: Impair abstract thought, calculation, short term memory (0/3 objects), skilled nursing memory (past presidents). Able to name pen and phone. SKIN: Warm, dry, normal turgor, normal cap refill. Laboratory Results - last 24 hr CBC, BMP 04/24/17 06:00 04/24/17 06:00 04/18/17 04/23/17 04/24/17 17:00 17:45 06:00 WBC 10.4 H RBC 2.70 L Hgb 8.0 L Hct 24.0 L MCV 89.0 MCH 29.5 MCHC 33.1 RDW 15.5 Plt Count 102 L MPV 9.0 Neutrophils % 76.7 Lymphocytes % 11.2 D Monocytes % 10.2 Eosinophils % 1.4 Basophils % 0.5 Sodium Potassium Chloride Carbon Dioxide Anion Gap BUN Creatinine Random Glucose Calcium Total Bilirubin Direct Bilirubin AST ALT Alkaline Phosphatase Total Protein Albumin Blood Type A POSITIVE Antibody Screen Negative Crossmatch See Detail 04/24/17 06:00 WBC RBC Hgb Hct MCV MCH MCHC RDW Plt Count MPV Neutrophils % Lymphocytes % Monocytes % Eosinophils % Basophils % Sodium 139 Potassium 4.5 Chloride 111 H Carbon Dioxide 22 Anion Gap 6 L BUN 20 H Creatinine 0.9 Random Glucose 89 D Calcium 7.4 L Total Bilirubin 2.0 H Direct Bilirubin 0.9 H AST 257 H ALT 256 H Alkaline Phosphatase 388 H Total Protein 5.0 L Albumin 2.2 L Blood Type Antibody Screen Crossmatch Active Medications Generic Name Dose Route Start Last Admin Trade Name Zari PRN Reason Stop Dose Admin Aspirin 81 mg 04/22/17 09:15 04/23/17 09:31 Ecotrin - PO 81 mg DAILY ELANA Administration Atorvastatin Calcium 40 mg 04/20/17 22:00 04/23/17 22:23 Lipitor - PO 40 mg HS ELANA Administration Diltiazem HCl 240 mg 04/24/17 10:00 Cardizem Cd - PO DAILY ELANA Ferrous Sulfate 325 mg 04/21/17 15:00 04/23/17 22:22 Feosol - PO 325 mg BID ELANA Administration Sodium Chloride 1,000 mls @ 100 mls/hr 04/23/17 06:00 04/24/17 05:00 Normal Saline - IV 100 mls/hr ASDIR ELANA Administration Morphine Sulfate 15 mg 04/21/17 17:45 04/23/17 22:22 Ms Contin - PO 15 mg BID ELANA Administration Polyethylene Glycol 17 gm 04/21/17 16:15 04/23/17 22:23 Miralax (For Daily Use) - PO 17 gm BID ELANA Administration Ranitidine HCl 150 mg 04/21/17 10:00 04/23/17 09:31 Zantac - PO 150 mg DAILY ELANA Administration Microbiology 04/17/17 16:10 Blood - Peripheral Venous Blood Culture - Final NO GROWTH AFTER 5 DAYS INCUBATION 04/17/17 16:10 Blood - Peripheral Venous Blood Culture - Final NO GROWTH AFTER 5 DAYS INCUBATION 04/20/17 11:00 Nares - Mrsa Screen - Left MRSA Screen - Final NO MRSA ISOLATED 04/20/17 11:00 Nares - Right Nares MRSA Screen - Final NO MRSA ISOLATED 04/18/17 18:00 Urine - Urine Bravo Urine Culture - Final NO GROWTH OBTAINED Tele 04/24 - Afib/flutter with variable conduction. Rates in range list above. Imaging: Non Head CT 04/16 - No acute pathology, mass or acute bleed. Chest CT 04/16 - No CT findings of acute pathology are identified involving the chest. Minimal to mild bilateral lower lobe discoid atelectasis/linear scarring. Stable benign 0.4 cm left lower lobe pulmonary nodule in comparison to a [address] study. Possible mild cardiomegaly. Head MRI 04/18 - Multiple bilateral cerebral and cerebellar acute infarcts are noted as discussed above. An acute left frontal cortical infarct is seen containing a trace amount of acute petechial blood. Echo 04/20 - LV function normal. Mild biatrial enlargement. Mild MR, TR. Moderate aortic regurgitation. Normal RV pressure. Mild pulmonic valve regurgitation. Non-con CT head 04/21 - Left middle cerebral artery territory acute/subacute infarct with faint hemorrhagic transformation seen along its anterior margin. Moderate chronic microvascular ischemic changes are present. Previously visualized small other acute/subacute infarcts are difficult to evaluate on this exam. Follow-up MRI would be the study of choice for further evaluation. F/u non-con CT 04/21 PM - Unchanged extent of the left MCA territory infarct with stable local mass effects and no evidence of hemorrhagic transformation. CXR 04/24 - Possibel infiltrate at R base. RUQ U/S w/ doppler 04/24 - Multiple hepatic masses with the largest measuring 11.7 cm in maximum dimension. Limited Doppler evaluation of the liver due to the presence of masses. However, there is normal vascular flow in the main portal vein, right and left portal vein as well as at the confluence of the hepatic veins. Status post cholecystectomy. Mild dilatation of the common bile duct measuring 1.2 cm in AP dimension. ASSESSMENT/PLAN: 77 yo woman w/ pmh of colon/liver ca, chronic afib, HTN, HLD, PUD and diverticulosis who presented to the ED after daughter witnessed her with R side facial droop, R hand weakness and dysarthria, intially resolved, then worsened during admission to include fixed R side paralysis/hemiparesis. Brain MRI with multiple bilateral cerebral/cerebellar infarcts, w/ evidence of mild acute bleeding, believed to be embolic shower or possible lacunar infarct. F/u CT scan notable for possible hemorrhagic conversion and heparin gtt held at recommendation of neurology/Dr. Flynn, however repeat CT with no evidence of hemorrhagic conversion. Will receive repeat head CT today with restart of heparin + coumadin in PM if no further bleeding. #Acute multi-infarct CVA - MRI w/ multiple bilateral cerebral/cerebellar infarcts. Pt with R sided hemiparesis/paralysis, dysarthria. Repeat head CT scan 04/21 with suspected hemorrhagic conversion, heparin gtt held per neuro recs. Will undergo f/u head CT today. - Serial neuro exams qshift - Will restart heparin gtt if head CT normal - f/u repeat Head CT today - Atorvastatin 40mg daily - Carotid doppler w/ mild atherosclerotic dz w/ no significant plaque - Echo (04/21) with no residual clot, but technically limited - Neurology following. Continue recs greatly appreciated. - Will require heme/onc recs for long-term AC - ASA 81mg #Afib/Aflutter - Pt on xarelto for AC as outpt. Started on heparin gtt, held now in setting of suspected hemorrhagic conversion. - Aflutter/fib overnight with variable conduction, up to 110s - Cardiology following. Recs appreciated. - Poor BB tolerance (fatigue, bronchospasm) - Cardizem switch from CD 240mg to cardizem short acting 60mg q6h # Fever/leukocytosis - 11.3 yesterday, low grade fever to 100.1 overnight - urine cx sent - CXR with possible RLL infiltrate - Trend fever, WBC #Anemia - Hgb 8.2-> 8.0 today. - Continue to Trend H/H - Iron 27, TIBC 187, iron sat 14, ferritin 1750 - Monitor for signs of bleeding - Type and cross sent today. Transfuse at <7 - High risk of bleeding/clotting given malignancy, liver mets, baseline elevated INR - Heme/onc following. Recs appreciated #Urinary retention - Bravo - Monitor for adequate flow. Flush if needed. #Transaminitis/Hyperbilirubinemia - LFTs still uptrending - RUQ U/S w/ doppler notable for good flow, multiple liver lesions. Will get MRI - Continue to trend LFTs - Likely due to hypoperfusion, especially considering limited hepatic reserve #Liver mets - F/u abdominal MRI - Oncology team following - Continue to trend LFTs - Bx of liver lesion - Will require outpt f/u for further management #HTN - Switch back to Cardizem 60mg QID from CD - Continue to monitor for bradycardia, hypotension #HLD - Atorvastatin 40mg PO #Chronic back pain - MS contin 15mg BID PO #PUD - Zantac #PPX: - SCDs FEN: Fluids: NS 50cc/hr Electrolytes: Trend BUN/Cr Nutrition: dysphagia puree per S+S Code status: DNR/DNI Dispo: Monitor on tele for continued monitoring in setting of multi-infarct/ lacunar stroke and paroxysmal aFib. Plan discussed with attending, Dr. Mandie Hidalgo, PGY1 Visit type - Emergency Visit Emergency Visit: Yes ED Registration Date: 04/16/17 Care time: The patient presented to the Emergency Department on the above date and was hospitalized for further evaluation of their emergent condition. - New Patient This patient is new to me today: No - Critical Care Critical Care patient: No
[2017-04-24] MEDS ORDERED: PT OWN MED DRAWER 7, Y5N ONE (09:58)
[2017-04-24] MEDS: morphine SO4 SUSTAINED ACTING 15 MG TABLET.SA PO SCH (10:16)
[2017-04-24] MEDS: RANITIDINE HCL 150 MG TABLET (FP) PO SCH (10:16)
[2017-04-24] MEDS: FERROUS SO4 325 MG TABLET (FP) PO SCH ×2 (10:16→22:00)
[2017-04-24] MEDS: ASPIRIN COATED 81 MG TABLET.EC PO SCH (10:17)
[2017-04-24] MEDS: POLYETHYLENE GLYCOL 3350 119 GM BTL PO SCH ×2 (10:17→22:00)
[2017-04-24] MEDS ORDERED: SODIUM CHLORIDE 1,000 ML IV SCH ×2 (10:21)
[2017-04-24] MEDS ORDERED: dilTIAZem HCL 60 MG TABLET (FP) PO SCH ×2 (10:30→11:45)
--- NOTE | 2017-04-24 10:51 | PN ---
Progress Note (short form) - Note Progress Note: History of Present Illness: no cp sob palps dizzy Current Medications Generic Name Dose Route Start Last Admin Trade Name Zari PRN Reason Stop Dose Admin Aspirin 81 mg 04/22/17 09:15 04/24/17 10:17 Ecotrin - PO 81 mg DAILY ELANA Administration Atorvastatin Calcium 40 mg 04/20/17 22:00 04/23/17 22:23 Lipitor - PO 40 mg HS ELANA Administration Diltiazem HCl 60 mg 04/24/17 10:30 Cardizem - PO Q6HPO ELANA Ferrous Sulfate 325 mg 04/21/17 15:00 04/24/17 10:16 Feosol - PO 325 mg BID ELANA Administration Sodium Chloride 1,000 mls @ 50 mls/hr 04/24/17 10:21 Normal Saline - IV ASDIR ELANA Morphine Sulfate 15 mg 04/21/17 17:45 04/24/17 10:16 Ms Contin - PO 15 mg BID ELANA Administration Polyethylene Glycol 17 gm 04/21/17 16:15 04/24/17 10:17 Miralax (For Daily Use) - PO 17 gm BID ELANA Administration Ranitidine HCl 150 mg 04/21/17 10:00 04/24/17 10:16 Zantac - PO 150 mg DAILY ELANA Administration Vital Signs Period Temp Pulse Resp BP Sys/Sheppard Pulse Ox Last 24 Hr 98.1 F-100.1 F 99-113 16-20 125-143/59-77 91 Constitutional: Yes: Well Nourished, No Distress, Calm Cardiovascular: Yes: Regular Rate and Rhythm, S1, S2. No: JVD, Gallop, Murmur Respiratory: Yes: Regular, CTA Bilaterally. No: Accessory Muscle Use, Rales, Wheezes Gastrointestinal: Yes: Distention Extremities: No: Cold Edema: No Neurological: Yes: Alert. No: Seizure Psychiatric: No: Agitated Labs: CBC, BMP 04/24/17 06:00 04/24/17 06:00 tele: afib, some rvr at times carotids: mild athero, no stenosis echo 03/2017: tds; nl lv, rv not seen, mild lily, mild mr, mild pr, mild tr, mod ar, nl rvsp Assessment/Plan acute CVA: -2 episodes on DOA, in setting of missing home AC dose x 2d (has afib) -neuro input reviewed: embolic shower ( with largest in L MCa distribution) -holding ac for now as per neuro due to minimal hemoragic transformation on imaging-->plans to resume today per neuro -carotid dopplers unremarkable -echo tds but unremarkable PAF, sick sinus syndrome: -intolerant of low dose metoprolol and bystolic at low doses (profound fatigue, bronchospasm) -has tolerated high dose diltiazem (without signif GERD s.e.) -tolerated digoxin in past, but stopped given age and decr GFR--could add back if rapid HRs -rapid AF 150s on 04/18, began when pt was transported back to the floor from testing. she had not received any of her home cardizem CD 360 mg since admit, hence this may have contributed. Given very short AF duration, with pt's previously known refractory HRs (160) despite this dose of cardizem as outpt, and marked intolerance to even low doses of BB, she was pharmacologically cardioverted with amio bolus. vermin exterminator po amio not a good option given lab evidence of liver dysfunction (albumin 3.0, LFTs all up) with mult liver tumors per dr kothari --> stopped amio gtt and resumed home cardizem (c/b difficulty swallowing pills --> changed to short-acting dilt 90mg q6h to be crushed for her , though not a good long-term option--reassess once appetite/GI tolerance improves). -if recurrent rapid AF, will consider flecainide or other anti-arrhythmic, with EP input (if any are safe with liver dysfunction) -hope to avoid AVN ablation/PPM; -04/19: currently sinus esteban 40s consistently, ? hi vagal tone given ongoing GI sx's and bedrest decr diltiazem dose - 04/20-04/23: bradycardia improved, con't same mgm't. can change to long acting cardizem when able to tolerate (cannot be crushed). -04/24: on long acting dilt now. monitor tele, may need to increase dose if still with rvr. - Had been on xarelto at home. despite some incr risk of bleeding with uncertain degree of decr'd hepatic synthetic function, this pt with malignancy has proven that she remains hypercoagulable given TIA x 2 on DOA; hence benefits of AC likely > risks here HTN: -stable CKD: -baseline creat runs 1.1-1.5 -renal fxn stable here. 04/19 hyponatremia slightly worse. IVF changed from D5 to NS. CAD: -cor calcium score intermediate (slightly above 50th %ile) -MPI in past equivocal ? apical ischemia vs variable breast artifact -never had anginal sx's -ecg no acute ischemic changes here -cont home regimen: statin (atorva 10 at home), no ASA (on AC) HPL: -cont statin asthma: -intolerant of B-B in past -no current wheezing/sob colon cancer with liver mets/anemia/anorexia/abd pain: -? sx's related to tumor -all LFTs mildly elevated, abd distended -per hospitalist +/- Onc as indicated
--- NOTE | 2017-04-24 11:42 | PN ---
Teaching Attending Note Name of Resident: Jesus Hidalgo ATTENDING PHYSICIAN STATEMENT I saw and evaluated the patient. I reviewed the resident's note and discussed the case with the resident. I agree with the resident's findings and plan as documented. SUBJECTIVE: fever last night , denies any pain, SOB or cough OBJECTIVE: NAD, AAOX3. dry MM CV: irreg irreg Lung: bibasilar crackles. Ext: trace edema , no erythema . Neuro exam: R lower facial droop. Uvula is deviated to R. minimal tongue movement to L. round equal pupils, reactive to light . Strength: RUE: Shoulder shrug 0/5. shoulder abduction , flexion, biceps, triceps and wrist flexion/ extension 0/5 . hand online trader 0/5 LUE: shoulder shrug, shoulder abduction , flexion, biceps, triceps and wrist flexion/ extension 5/5 . hand online trader 4/5 RLE: hip flexion 1/5, knee flexion/extension 0/5, ankle dorsiflexion/plantar flexion 1/5. Babinski's upwards. LLE: hip flexion 5/5, knee flexion/extension 5/5, ankle dorsiflexion/plantar flexion 5/5 . Babinski's downwards Sensation to light touch:decreased on RUE and RLE reflexes : 2+ biceps b/l. knee jerk 1+ b/l ASSESSMENT AND PLAN: 77 y/o unfortunate lady with h/o A fib, TIAx2 , colon cancer and newly diagnosed liver mass HLP, PUD and other medical problems who presented with facial droop , dysarthria, and R sided weakness. 1- Acute CVA with multiple infarcts with small peticheal bleed after AC Stable neuro exam. -Repeat CT scan this am , beforre starting AC -If stable findings , will start heparin gtt with bridging to coumadin ( hold starting coumadin until after the MRCP, see below ) 2- A fib with RVR: increased HR this am after decreasing dose of cardizem due to hypotension - Cont cardizem CD 240 daily . monitor BP , can increase dose if needed - tele reviewed, afib/Aflutter with variable block 3- H/o HTN: - cont to hold losartan. - cardizem as above 4- Urinary retention : cont bravo 5- HERBERTH: due to volume depletion. Cont to have low oral intake - decrease IVF . - encourage oral intake 6- Elevated LFTS:US with multiple liver masses . but also with dilation in CBD 1.2 Cm . - MRCP to evaluate CBD , tumor vs stones to evaluate possible need for stenting - monitor LFTS HLOC . DNR/DNI
--- NOTE | 2017-04-24 12:12 | PN ---
Progress Note (short form) - Note Progress Note: Hematology/Oncology Follow-up Note S: Patient visited at bedside today. Feels well withuot any concerns. She was with her grandchildren at bedside. Last Vital Signs Temp Pulse Resp BP Pulse Ox 98.1 F 113 H 20 130/61 91 L 04/24/17 06:00 04/24/17 06:00 04/24/17 06:00 04/24/17 06:00 04/23/17 21:00 Physical Exam : AOx3. PERRLA Irregular pulse CTA(BL) Soft abdomen Right sided hemiplegia CBC, BMP 04/24/17 06:00 04/24/17 06:00 Current Medications Generic Name Dose Route Start Last Admin Trade Name Freq PRN Reason Stop Dose Admin Atorvastatin Calcium 40 mg 04/20/17 22:00 04/23/17 22:23 Lipitor - PO 40 mg HS ELANA Administration Ferrous Sulfate 325 mg 04/21/17 15:00 04/24/17 10:16 Feosol - PO 325 mg BID ELANA Administration Sodium Chloride 1,000 mls @ 50 mls/hr 04/24/17 10:21 Normal Saline - IV ASDIR ELANA Morphine Sulfate 15 mg 04/21/17 17:45 04/24/17 10:16 Ms Contin - PO 15 mg BID ELANA Administration Polyethylene Glycol 17 gm 04/21/17 16:15 04/24/17 10:17 Miralax (For Daily Use) - PO 17 gm BID ELANA Administration Ranitidine HCl 150 mg 04/21/17 10:00 04/24/17 10:16 Zantac - PO 150 mg DAILY ELANA Administration A/P : 77 y/o female with Hx of colon cancer with multiple liver mets, A.fib, CAD, new CVA - counts stable today, will continue to monitor her for supportive transfusions as required - Neuro and cards weighing in decision regarding AC, holding off currently -recent USG doppler of the liver shows the presence of multiple hepatic masses measuring 11.7 cms in max dimension with normal vascular flow, mild CBD dilatation -Will have to review office records during the week to see if CBD dilatation is new -can consider GI consult and MRCP
[2017-04-24] MEDS ORDERED: HEPARIN NA (PORCINE) 5,000 UNITS/ML 1ML VIAL IVPUSH PRN ×2 (16:45)
[2017-04-24] MEDS: HEPARIN INFUSION - 25,000 UNITS/500 ML INFUS.BAG IVPB SCH (20:16)
[2017-04-24] MEDS: oxyCODONE HCL 5 MG TABLET PO SCH (22:00)
[2017-04-24] MEDS: ATORVASTATIN CA 40 MG TABLET (FP) PO SCH (22:00)
--- NOTE | 2017-04-25 01:00 | HOSP ---
Subjective - Review of Symptoms Events since last encounter: Called to bedside due to pt wheezing, JVD noted by nursing staff. Pt denies any cough/SOB, fevers/chills, CP, abdominal pain. VS T100.6 orally, Pulse 94, BP 136/63, satting 94% on 2L NC. PE notable for JVD to mandibular angle, 2+ pitting edema in L arm, 1+ BL pitting edema in LEs. Upper airway wheezing noted w/ BL crackles, L>R. Pt ordered for CXR and tylenol 650 mg PO for fever. Repeat rectal temp 101.9. CXR with suspicious RLL consolidation. Blood cx, sputum cx, lactate and CBC sent. Pt started on Vanc 1gm daily, Cefepime 2mg once. ID will be consulted in AM. Pt ordered for Duonebs 1x. If lactate normal, will consider giving lasix IV. Plan discussed with attending, Dr. Milla Hidalgo, PGY1 General: No: Chills, Night Sweats HEENT: No: Sinus Congestion Pulmonary: Yes: Other (upper airway wheezing; BL crackles, L>R). No: Dyspnea, Cough Cardiovascular: No: Chest Pain, Palpitations Gastrointestinal: No: Abdominal Pain Physical Examination Vital Signs: Vital Signs Temperature 99.3 F 04/24/17 22:00 Pulse Rate 88 04/24/17 22:00 Respiratory Rate 18 04/24/17 22:00 Blood Pressure 124/65 04/24/17 22:00 O2 Sat by Pulse Oximetry (%) 95 04/24/17 21:00 Labs: CBC, BMP 04/24/17 06:00 04/24/17 06:00 Visit type - Emergency Visit Emergency Visit: No - New Patient This patient is new to me today: No - Critical Care Critical Care patient: No
[2017-04-25] MEDS ORDERED: CEFEPIME HCL 2 GM VIAL (RESTRICTED TO ID) IVPB ONE (01:25)
[2017-04-25] MEDS ORDERED: VANCOMYCIN 1 GRAM (PRE-DOCKED) 1,000 MG/250 ML BAG IVPB SCH (01:30)
[2017-04-25] MEDS ORDERED: ALBUTEROL SO4 2.5/IPRATROPIUM 0.5 INH SOL 3 ML VIAL.NEB. NEB ONE (01:30)
[2017-04-25] MEDS: ACETAMINOPHEN 325 MG TABLET (FP) PO PRN ×2 (01:54→21:22)
[2017-04-25 01:59] LABS: BASOPHIL 0.8 % (0-2.0); EOSINOPHIL 2.1 % (0-4.5); MCH 28.8 pg (25.7-33.7); MCHC 32.1 g/dl (32.0-36.0); MEAN CELL VOLUME 89.7 fl (80-96); MEAN PLT VOLUME 9.5 fl (7.5-11.1); NEUTROPHILS 79.5 % (42.8-82.8); PLATELET COUNT 107 K/MM3 (134-434); WHITE BLOOD COUNT 9.4 K/mm3 (4.0-10.0)
[2017-04-25] MEDS ORDERED: VANCOMYCIN 1,000 MG in DEXTROSE 5%-WATER - 250 ML IVPB ONE (02:00)
[2017-04-25] MEDS ORDERED: CEFEPIME 2 GM in DEXTROSE 5%-WATER - 100 ML IVPB ONE (02:00)
[2017-04-25 07:25] LABS: INR 1.66 (0.82-1.09); PROTHROMBIN TIME (PATIENT) 18.8 SEC (9.98-11.88)
[2017-04-25 09:14] LABS: ALBUMIN 2.1 g/dl (3.4-5.0); ALK PHOS 400 U/L (45-117); ANION GAP 9 (8-16); BILIRUBIN,TOTAL 1.5 mg/dL (0.2-1.0); CALCIUM 7.5 mg/dL (8.5-10.1); CO2 19 mmol/L (21-32); CREATININE 1.1 mg/dL (0.55-1.02); GLUCOSE,RANDOM 138 mg/dL (74-106); SGOT/AST 240 U/L (15-37); SGPT/ALT 249 U/L (12-78); TOT PROT 5.1 g/dl (6.4-8.2)
[2017-04-25] MEDS ORDERED: PT OWN MED DRAWER 7, Y5N ONE (09:39)
[2017-04-25] MEDS: POLYETHYLENE GLYCOL 3350 119 GM BTL PO SCH ×2 (09:47→21:24)
[2017-04-25] MEDS: FERROUS SO4 325 MG TABLET (FP) PO SCH ×2 (09:47→21:22)
[2017-04-25] MEDS: RANITIDINE HCL 150 MG TABLET (FP) PO SCH (09:47)
[2017-04-25] MEDS: oxyCODONE HCL 5 MG TABLET PO SCH (09:48)
--- NOTE | 2017-04-25 10:57 | PN ---
Progress Note (short form) - Note Progress Note: History of Present Illness: no cp sob palps dizzy Current Medications Generic Name Dose Route Start Last Admin Trade Name Freq PRN Reason Stop Dose Admin Acetaminophen 650 mg 04/25/17 00:53 04/25/17 01:54 Tylenol - PO 650 mg Q6H PRN Administration FEVER OR PAIN Atorvastatin Calcium 40 mg 04/20/17 22:00 04/24/17 22:00 Lipitor - PO 40 mg HS ELANA Administration Diltiazem HCl 240 mg 04/25/17 10:00 04/25/17 09:47 Cardizem Cd - PO 240 mg DAILY ELANA Administration Ferrous Sulfate 325 mg 04/21/17 15:00 04/25/17 09:47 Feosol - PO 325 mg BID ELANA Administration Heparin Sodium (Porcine) 5,000 unit 04/24/17 16:45 Heparin - IVPUSH PRN PRN Heparin Sodium (Porcine) 1,000 unit 04/24/17 16:45 Heparin - IVPUSH PRN PRN Heparin Sodium/Dextrose 25,000 units in 500 mls @ 20 mls/hr 04/24/17 16:45 10:31 Heparin Infusion - IVPB 900 units/hr TITR ELANA 18 mls/hr Protocol Titration 1,000 UNITS/HR Oxycodone HCl 5 mg 04/24/17 22:00 04/25/17 09:48 Roxicodone - PO 04/25/17 21:59 Not Given BID ELANA Polyethylene Glycol 17 gm 04/21/17 16:15 04/25/17 09:47 Miralax (For Daily Use) - PO 17 gm BID ELANA Administration Ranitidine HCl 150 mg 04/21/17 10:00 04/25/17 09:47 Zantac - PO 150 mg DAILY ELANA Administration Vancomycin HCl 1,000 mg 04/25/17 01:30 Vancomycin (Pre-Docked) IVPB DAILY ELANA Protocol Vital Signs Period Temp Pulse Resp BP Sys/Sheppard Pulse Ox Last 24 Hr 98.2 F-101.9 F 86-89 18-24 112-132/63-69 95 Constitutional: Yes: Well Nourished, No Distress, Calm Cardiovascular: Yes: Regular Rate and Rhythm, S1, S2. No: JVD, Gallop, Murmur Respiratory: Yes: Regular, CTA Bilaterally. No: Accessory Muscle Use, Rales, Wheezes Gastrointestinal: Yes: Distention Extremities: No: Cold Edema: No Neurological: Yes: Alert. No: Seizure Psychiatric: No: Agitated Labs: CBC, BMP 04/25/17 01:27 04/25/17 06:00 tele: afib, rate controlled carotids: mild athero, no stenosis echo 03/2017: tds; nl lv, rv not seen, mild lily, mild mr, mild pr, mild tr, mod ar, nl rvsp Assessment/Plan acute CVA: -2 episodes on DOA, in setting of missing home AC dose x 2d (has afib) -neuro input reviewed: embolic shower ( with largest in L MCa distribution) -holding ac for now as per neuro due to minimal hemoragic transformation on imaging -carotid dopplers unremarkable -echo tds but unremarkable PAF, sick sinus syndrome: -intolerant of low dose metoprolol and bystolic at low doses (profound fatigue, bronchospasm) -has tolerated high dose diltiazem (without signif GERD s.e.) -tolerated digoxin in past, but stopped given age and decr GFR--could add back if rapid HRs -rapid AF 150s on 04/18, began when pt was transported back to the floor from testing. she had not received any of her home cardizem CD 360 mg since admit, hence this may have contributed. Given very short AF duration, with pt's previously known refractory HRs (160) despite this dose of cardizem as outpt, and marked intolerance to even low doses of BB, she was pharmacologically cardioverted with amio bolus. fdc po amio not a good option given lab evidence of liver dysfunction (albumin 3.0, LFTs all up) with mult liver tumors per dr kothari --> stopped amio gtt and resumed home cardizem (c/b difficulty swallowing pills --> changed to short-acting dilt 90mg q6h to be crushed for her , though not a good long-term option--reassess once appetite/GI tolerance improves). -if recurrent rapid AF, will consider flecainide or other anti-arrhythmic, with EP input (if any are safe with liver dysfunction) -hope to avoid AVN ablation/PPM; -04/19: currently sinus esteban 40s consistently, ? hi vagal tone given ongoing GI sx's and bedrest decr diltiazem dose - 04/20-04/23: bradycardia improved, con't same mgm't. can change to long acting cardizem when able to tolerate (cannot be crushed). -04/24-3: on long acting dilt now. monitor tele, may need to increase dose if still with rvr. -had been holding ac due to minimal hemoragic transformation on imaging, resume when ok by neuro HTN: -stable CKD: -baseline creat runs 1.1-1.5 -renal fxn stable here. 04/19 hyponatremia slightly worse. IVF changed from D5 to NS. CAD: -cor calcium score intermediate (slightly above 50th %ile) -MPI in past equivocal ? apical ischemia vs variable breast artifact -never had anginal sx's -ecg no acute ischemic changes here -cont home regimen: statin (atorva 10 at home), no ASA (on AC) HPL: -cont statin asthma: -intolerant of B-B in past -no current wheezing/sob colon cancer with liver mets/anemia/anorexia/abd pain: -? sx's related to tumor -all LFTs mildly elevated, abd distended -per hospitalist +/- Onc as indicated
--- NOTE | 2017-04-25 12:31 | PN ---
Progress Note (short form) - Note Progress Note: 77 yo woman w/ pmh of colon/liver ca, chronic afib, HTN, HLD, PUD and diverticulosis who presents to the ED after daughter witnessed her with R side facial droop, R hand weakness and dysarthria that lasted approximately 15-20 minutes and resolved before arrival in ED. Patient is admitted for recurrent TIA. noted to have inc right side weakness yesterday. Found to have embolic shower, coumdin being held for last 3 days due to hemorrhagic transformation of left MCA erritory infarct with minimal petechial hge. -Today pts.exam- remains plegic right side and with improved Brocas aphasia- she has more spontaneous speech. A&P: -Repeat CT head pending, she has not had clinical worsening, can reinitiate coumadin as planned. Thank you, Jameson Flynn MD
--- NOTE | 2017-04-25 13:40 | PN ---
Progress Note, Physician History of Present Illness: PULMPNARY ALERT,HAD EPISODE OF SOB,BRONCHOSPASM EARLIER THIS MORNING + FEBRILE 100.6. PT GIVEN NEB TX WITH IMPROVEMENT STARTED ANTIBIOTICS FOR POSSIBLE PNEUMONIA. - Current Medication List Current Medications: Active Medications Acetaminophen (Tylenol -) 650 mg PO Q6H PRN PRN Reason: FEVER OR PAIN Last Admin: 04/25/17 01:54 Dose: 650 mg Atorvastatin Calcium (Lipitor -) 40 mg PO HS [facility] Last Admin: 04/24/17 22:00 Dose: 40 mg Diltiazem HCl (Cardizem Cd -) 240 mg PO DAILY [facility] Last Admin: 04/25/17 09:47 Dose: 240 mg Ferrous Sulfate (Feosol -) 325 mg PO BID [facility] Last Admin: 04/25/17 09:47 Dose: 325 mg Heparin Sodium (Porcine) (Heparin -) 5,000 unit IVPUSH PRN PRN Heparin Sodium (Porcine) (Heparin -) 1,000 unit IVPUSH PRN PRN Heparin Sodium/Dextrose (Heparin Infusion -) 25,000 units in 500 mls @ 20 mls/ hr IVPB TITR ELANA; 1,000 UNITS/HR PRN Reason: Protocol Last Titration: 04/25/17 10:31 Dose: 900 units/hr, 18 mls/hr Oxycodone HCl (Roxicodone -) 5 mg PO BID [facility] Stop: 04/25/17 21:59 Last Admin: 04/25/17 09:48 Dose: Not Given Polyethylene Glycol (Miralax (For Daily Use) -) 17 gm PO BID [facility] Last Admin: 04/25/17 09:47 Dose: 17 gm Ranitidine HCl (Zantac -) 150 mg PO DAILY [facility] Last Admin: 04/25/17 09:47 Dose: 150 mg Vancomycin HCl (Vancomycin (Pre-Docked)) 1,000 mg IVPB DAILY [facility] PRN Reason: Protocol - Objective Vital Signs: Vital Signs Temperature 98.8 F 04/25/17 10:00 Pulse Rate 82 04/25/17 10:00 Respiratory Rate 20 04/25/17 10:00 Blood Pressure 122/66 04/25/17 10:00 O2 Sat by Pulse Oximetry (%) 94 L 04/25/17 10:00 Constitutional: Yes: Well Nourished, Calm Eyes: Yes: WNL HENT: Yes: WNL Neck: Yes: WNL Cardiovascular: Yes: Pulse Irregular, S1, S2 Respiratory: Yes: Rales (BIBASILAR CRACKLES) Gastrointestinal: Yes: Normal Bowel Sounds, Soft Extremities: Yes: WNL Edema: Yes Labs: CBC, BMP 04/25/17 01:27 04/25/17 06:00 INR, PTT INR 1.66 (0.82-1.09) H 04/25/17 06:00 Fibrinogen 195.0 mg/dL (238-498) L 04/19/17 05:00 - ....Imaging Chest X-ray: Report Reviewed, Image Reviewed (CARDIOMEGALY ,NO INFILTRATES) Problem List - Problems (1) CVA (cerebral vascular accident) Code(s): I63.9 - CEREBRAL INFARCTION, UNSPECIFIED (2) Anemia Code(s): D64.9 - ANEMIA, UNSPECIFIED (3) Cancer, metastatic to liver Code(s): C78.7 - SECONDARY MALIG NEOPLASM OF LIVER AND INTRAHEPATIC BILE DUCT (4) Lacunar infarction Code(s): I63.9 - CEREBRAL INFARCTION, UNSPECIFIED (5) TIA (transient ischemic attack) Code(s): G45.9 - TRANSIENT CEREBRAL ISCHEMIC ATTACK, UNSPECIFIED (6) Dyspnea Code(s): R06.00 - DYSPNEA, UNSPECIFIED (7) Bronchospasm Code(s): J98.01 - ACUTE BRONCHOSPASM (8) Acute bronchospasm Code(s): J98.01 - ACUTE BRONCHOSPASM (9) Asthma Code(s): J45.909 - UNSPECIFIED ASTHMA, UNCOMPLICATED (10) Afib Code(s): I48.91 - UNSPECIFIED ATRIAL FIBRILLATION Assessment/Plan Impression: Bronchospasm SOB ?Asp Hypercoaguable state likely causing [employer] events with multiple infarcts. Atrial fib Colon ca Liver masses suspicious for mets Anemia Thrombocytopenia Asthma Acute kidney injury Plan inhaled bronchodilators supplemental o2 cultures antibiotics as per ID f/u chest x-rays monitor lytes steroids if pt developes recurrent bronchospasm DR MARTIN
--- NOTE | 2017-04-25 14:41 | PN ---
Progress Note (short form) - Note Progress Note: Subjective: fever last night . had wheezing per night team. cxray was done and abx were given . Objective: Vital Signs: Last Vital Signs Temp Pulse Resp BP Pulse Ox 98.8 F 82 20 122/66 94 L 04/25/17 10:00 04/25/17 10:00 04/25/17 10:00 04/25/17 10:00 04/25/17 10:00 Laboratory Results - last 24 hr 04/24/17 04/25/17 04/25/17 16:10 01:27 01:27 WBC 9.4 RBC 2.75 L Hgb 7.9 L Hct 24.7 L MCV 89.7 MCH 28.8 MCHC 32.1 RDW 16.0 H Plt Count 107 L MPV 9.5 Neutrophils % 79.5 Lymphocytes % 7.5 L D Monocytes % 10.1 Eosinophils % 2.1 Basophils % 0.8 PT with INR INR PTT (Actin FS) Sodium Potassium Chloride Carbon Dioxide Anion Gap BUN Creatinine Creat Clearance w eGFR Random Glucose Lactic Acid 1.1 Calcium Total Bilirubin AST ALT Alkaline Phosphatase Ammonia 25.6 Total Protein Albumin 04/25/17 04/25/17 04/25/17 01:27 06:00 06:00 WBC RBC Hgb Hct MCV MCH MCHC RDW Plt Count MPV Neutrophils % Lymphocytes % Monocytes % Eosinophils % Basophils % PT with INR 18.80 H INR 1.66 H PTT (Actin FS) 71.3 H D Sodium 140 Potassium 4.4 Chloride 112 H Carbon Dioxide 19 L Anion Gap 9 BUN 28 H D Creatinine 1.1 H D Creat Clearance w eGFR 48.04 Random Glucose 138 H D Lactic Acid Calcium 7.5 L Total Bilirubin 1.5 H D AST 240 H ALT 249 H Alkaline Phosphatase 400 H Ammonia Total Protein 5.1 L Albumin 2.1 L 04/25/17 06:00 WBC RBC Hgb Hct MCV MCH MCHC RDW Plt Count MPV Neutrophils % Lymphocytes % Monocytes % Eosinophils % Basophils % PT with INR INR PTT (Actin FS) 91.1 H Sodium Potassium Chloride Carbon Dioxide Anion Gap BUN Creatinine Creat Clearance w eGFR Random Glucose Lactic Acid Calcium Total Bilirubin AST ALT Alkaline Phosphatase Ammonia Total Protein Albumin Physical Exam: NAD, AAOX3. dry MM CV: irreg irreg , minimal JVD Lung: minimal bibasilar crackles. Ext: trace edema , no erythema . Neuro exam: R lower facial droop. Uvula is deviated to R. minimal tongue movement to L. round equal pupils, reactive to light . Strength: RUE: Shoulder shrug 0/5. shoulder abduction , flexion, biceps, triceps and wrist flexion/ extension 0/5 . hand market master 0/5 LUE: shoulder shrug, shoulder abduction , flexion, biceps, triceps and wrist flexion/ extension 5/5 . hand market master 4/5 RLE: hip flexion 1/5, knee flexion/extension 0/5, ankle dorsiflexion/plantar flexion 1/5. Babinski's upwards. LLE: hip flexion 5/5, knee flexion/extension 5/5, ankle dorsiflexion/plantar flexion 5/5 . Babinski's downwards Sensation to light touch:decreased on RUE and RLE reflexes : 2+ biceps b/l. knee jerk 1+ b/l ASSESSMENT AND PLAN: 77 y/o unfortunate lady with h/o A fib, TIAx2 , colon cancer and newly diagnosed liver mass HLP, PUD and other medical problems who presented with facial droop , dysarthria, and R sided weakness. 1- Acute CVA with multiple infarcts with small peticheal bleed after AC Stable neuro exam. - Repeat CT with no bleed. Cont heparin gtt - hold off on starting coumadin until after the MRCP incase a stent is needed 2- fever and wheezing last night , she has no leukocytosis , and cxray not necessarily show aan infiltrate. last night had wheezing and JVD per night team .IVF stopped ABx given. of course PNA can't be r/o completely. possibly mild fluid overload caused the wheezing . IVF stopped. - ID consulted - d/w Dr. Atkinson, for repeat cxary. - follow urine cx 3-A fib with RVR: - Cont cardizem CD 240 daily . monitor BP 3- H/o HTN: - cont to hold losartan. - Cont cardizem 4-HERBERTH: worsening cr could be due pre-renal azotemia ( not sure if it is from decreased ANALYTICS DEVELOPER or volume depletion ) - will check cr while holding IVF. if cont to worsen then , she might need diuresis . 5- Elevated LFTS: US with multiple liver masses. But also with dilation in CBD 1.2 Cm. - MRCP to evaluate CBD , tumor/Mets vs stones to evaluate possible need for stenting - monitor LFTS HLOC . DNR/DNI Visit type - Emergency Visit Emergency Visit: Yes ED Registration Date: 04/16/17 Care time: The patient presented to the Emergency Department on the above date and was hospitalized for further evaluation of their emergent condition. - New Patient This patient is new to me today: No - Critical Care Critical Care patient: No
[2017-04-25] MEDS: ATORVASTATIN CA 40 MG TABLET (FP) PO SCH (21:22)
[2017-04-25] MEDS: HEPARIN INFUSION - 25,000 UNITS/500 ML INFUS.BAG IVPB SCH (21:23)
[2017-04-25] MEDS: ALBUTEROL SO4 2.5/IPRATROPIUM 0.5 INH SOL 3 ML VIAL.NEB. NEB PRN (22:30)
--- NOTE | 2017-04-26 06:32 | PN ---
Physical Exam: SUBJECTIVE: Patient seen and examined by me this AM - No complaints. Febrile again overnight to 101, w/ accompanying tachy to 113. No other infectious symptoms - Denies any fever/chills, CP, SOB/cough, MERCER/dizziness, N/V, abdominal pain, dysuria. Still constipated, endorses mild bloating/discomfort. States she felt a little tachy overnight - No other major overnight events. Being treated for possible HCAP, though less likely now OBJECTIVE: Vital Signs Intake & Output 04/23/17 04/24/17 04/25/17 04/26/17 23:59 23:59 23:59 23:59 Intake Total 682 212 0682 119 Output Total 800 700 600 Balance -440 -100 688 119 Period Temp Pulse Resp BP Sys/Sheppard Pulse Ox Last 24 Hr 98.0 F-101 F 75-113 18-20 122-148/57-84 94-94 GENERAL: A&Ox2. Somnolent, NAD HEAD: NCAT EYES: Pupils equal, round and reactive to light, sclera slightly icteric, conjunctiva clear. No lid lag. No visual field defect. Still with R lateral gaze improvement BL, though still limited in range, velocity. All other EOMI intact. EARS, NOSE, THROAT: R tongue deviation improved, L uvular deviation. Ears normal , nares patent, oropharynx clear without exudates. Moist mucous membranes. NECK: Normal range of motion, JVD, or masses. LUNGS: Mild bibasilar crackles, worse on L. No wheezes. No accessory muscle use. HEART: Irregularly irregular, normal S1 and S2 without murmur, rub or gallop. ABDOMEN: Soft, not distended, normoactive bowel sounds, no rebound, no masses. No hepatomegaly or splenomegaly. UPPER EXTREMITIES: 2+ pulses, warm, well-perfused. No cyanosis. No clubbing. LOWER EXTREMITIES: 2+ pulses, warm, well-perfused. No calf tenderness. No peripheral edema. NEUROLOGICAL: Minimal dysarthria . Improved R lateral tongue deviation, R facial droop. Endorses BL symmetric facial sensation to light touch. 0/5 shoulder shrug on R side, 5/5 L side. 0/5 fisher diving strength in R hand, 5/5 in L hand. 0/5 R hand, arm. 5/5 strength in L arm, leg grossly. No pronator drift, dysdiadokinesia in L hand. 1/5 in R proximal muscle groups. 2/5 dorsi/plantar flexion in L leg No sensation light touch in R arm. endorses no sensation to light touch on R, preserved on L today. unable to evaluate gait, bedbound. 2+ L biceps, patellar reflex. 3+ R biceps, 1+ patellar reflex. Still with + babinski on R side, - on L SKIN: Warm, dry, normal turgor, normal cap refill. Laboratory Results - last 24 hr CBC, BMP CBC, BMP 04/26/17 05:40 04/26/17 05:40 04/25/17 01:27 04/25/17 06:00 04/25/17 04/25/17 04/25/17 06:00 06:00 06:00 PT with INR 18.80 H INR 1.66 H PTT (Actin FS) 91.1 H Sodium 140 Potassium 4.4 Chloride 112 H Carbon Dioxide 19 L Anion Gap 9 BUN 28 H D Creatinine 1.1 H D Creat Clearance w eGFR 48.04 Random Glucose 138 H D Calcium 7.5 L Total Bilirubin 1.5 H D AST 240 H ALT 249 H Alkaline Phosphatase 400 H Total Protein 5.1 L Albumin 2.1 L 04/25/17 16:35 PT with INR INR PTT (Actin FS) 85.8 H Sodium Potassium Chloride Carbon Dioxide Anion Gap BUN Creatinine Creat Clearance w eGFR Random Glucose Calcium Total Bilirubin AST ALT Alkaline Phosphatase Total Protein Albumin Active Medications Generic Name Dose Route Start Last Admin Trade Name Freq PRN Reason Stop Dose Admin Acetaminophen 650 mg 04/25/17 00:53 04/25/17 21:22 Tylenol - PO 650 mg Q6H PRN Administration FEVER OR PAIN Albuterol/Ipratropium 1 amp 04/25/17 13:49 04/25/17 22:30 Duoneb - NEB 1 amp Q4H PRN Administration SHORTNESS OF BREATH Atorvastatin Calcium 40 mg 04/20/17 22:00 04/25/17 21:22 Lipitor - PO 40 mg HS ELANA Administration Diltiazem HCl 240 mg 04/25/17 10:00 04/25/17 09:47 Cardizem Cd - PO 240 mg DAILY ELANA Administration Ferrous Sulfate 325 mg 04/21/17 15:00 04/25/17 21:22 Feosol - PO 325 mg BID ELANA Administration Heparin Sodium (Porcine) 5,000 unit 04/24/17 16:45 Heparin - IVPUSH PRN PRN Heparin Sodium (Porcine) 1,000 unit 04/24/17 16:45 Heparin - IVPUSH PRN PRN Heparin Sodium/Dextrose 25,000 units in 500 mls @ 20 mls/hr 04/24/17 16:45 21:23 Heparin Infusion - IVPB 850 units/hr TITR ELANA 17 mls/hr Protocol Administration 1,000 UNITS/HR Polyethylene Glycol 17 gm 04/21/17 16:15 04/25/17 21:24 Miralax (For Daily Use) - PO 17 gm BID ELANA Administration Ranitidine HCl 150 mg 04/21/17 10:00 04/25/17 09:47 Zantac - PO 150 mg DAILY ELANA Administration Vancomycin HCl 1,000 mg 04/25/17 01:30 Vancomycin (Pre-Docked) IVPB DAILY ELANA Protocol Microbiology 04/25/17 01:27 Blood - Peripheral Venous Blood Culture - Preliminary NO GROWTH OBTAINED AFTER 24 HOURS, INCUBATION TO CONTINUE FOR 4 DAYS. 04/25/17 01:27 Blood - Peripheral Venous Blood Culture - Preliminary NO GROWTH OBTAINED AFTER 24 HOURS, INCUBATION TO CONTINUE FOR 4 DAYS. 04/17/17 16:10 Blood - Peripheral Venous Blood Culture - Final NO GROWTH AFTER 5 DAYS INCUBATION 04/17/17 16:10 Blood - Peripheral Venous Blood Culture - Final NO GROWTH AFTER 5 DAYS INCUBATION 04/20/17 11:00 Nares - Mrsa Screen - Left MRSA Screen - Final NO MRSA ISOLATED 04/20/17 11:00 Nares - Right Nares MRSA Screen - Final NO MRSA ISOLATED 04/18/17 18:00 Urine - Urine Edwards Urine Culture - Final NO GROWTH OBTAINED Tele 04/24 - Afib/flutter with variable conduction. Rates in range list above. Imaging: Non Head CT 04/16 - No acute pathology, mass or acute bleed. Chest CT 04/16 - No CT findings of acute pathology are identified involving the chest. Minimal to mild bilateral lower lobe discoid atelectasis/linear scarring. Stable benign 0.4 cm left lower lobe pulmonary nodule in comparison to a [address] study. Possible mild cardiomegaly. Head MRI 04/18 - Multiple bilateral cerebral and cerebellar acute infarcts are noted as discussed above. An acute left frontal cortical infarct is seen containing a trace amount of acute petechial blood. Echo 04/20 - LV function normal. Mild biatrial enlargement. Mild MR, TR. Moderate aortic regurgitation. Normal RV pressure. Mild pulmonic valve regurgitation. Non-con CT head 04/21 - Left middle cerebral artery territory acute/subacute infarct with faint hemorrhagic transformation seen along its anterior margin. Moderate chronic microvascular ischemic changes are present. Previously visualized small other acute/subacute infarcts are difficult to evaluate on this exam. Follow-up MRI would be the study of choice for further evaluation. F/u non-con CT 04/21 PM - Unchanged extent of the left MCA territory infarct with stable local mass effects and no evidence of hemorrhagic transformation. CXR 04/24 - Possible infiltrate at R base. RUQ U/S w/ doppler 04/24 - Multiple hepatic masses with the largest measuring 11.7 cm in maximum dimension. Limited Doppler evaluation of the liver due to the presence of masses. However, there is normal vascular flow in the main portal vein, right and left portal vein as well as at the confluence of the hepatic veins. Status post cholecystectomy. Mild dilatation of the common bile duct measuring 1.2 cm in AP dimension. CXR 04/25 - Cardiomegaly. Scoliosis. No infiltrates or failure CXR 04/26 - Since the prior study 04/25/2017, again noted is a weak inspiration with prominent mediastinum, increased central markings and degenerative changes. There is no sign of true infiltrate or failure. Correlation recommended. ASSESSMENT/PLAN: 77 yo woman w/ pmh of colon/liver ca, chronic afib, HTN, HLD, PUD and diverticulosis who presented to the ED after daughter witnessed her with R side facial droop, R hand weakness and dysarthria, intially resolved, then worsened during admission to include fixed R side paralysis/hemiparesis. Brain MRI with multiple bilateral cerebral/cerebellar infarcts, w/ evidence of mild acute bleeding, believed to be embolic shower or possible lacunar infarct. CT head 04/24 w/ no evidence of bleed, heparin restarted w/ coumadin held as pt may need biliary stent due to Kj-dil on US. F/u MRCP. Pt with multiple episodes of bradycardia to 30s due to AV steven conduction delay of Aflutter in setting of cardizem CD increase to 360. Will monitor for further episodes of bradycardia w / atropine/external pacing readily available. #Acute multi-infarct CVA - MRI w/ multiple bilateral cerebral/cerebellar infarcts. Pt with R sided hemiparesis/paralysis, dysarthria. F/u CT head 04/24 neg for bleed. restarted on heparin, coumadin held as may need biliary stent - Serial neuro exams qshift - Heparin gtt restarted on 04/24. Will restart coumadin after MRCP result and possible stent - Atorvastatin 40mg daily - Neurology following. Continue recs greatly appreciated. - Will require heme/onc recs for long-term AC - ASA 81mg #Symptomatic bradycardia- multiple episode of prolonged steven conduction block of aflutter w/ increased cardizem CD to 360 - Switch to cardizem 60mg q6h - Monitor for further episodes of bradycardia - If hemodynamically unstable, atropine/external pacing pads #Afib/Aflutter - Pt on xarelto for AC as outpt. Started on heparin gtt, held now in setting of suspected hemorrhagic conversion. - Aflutter/fib since admission - Cardiology following. Recs appreciated. - Poor BB tolerance (fatigue, bronchospasm) - Cardizem switch from CD 240mg to 360 this AM. Pt esteban to 30s with prolonged conduction blocks. Switch back to cardizem 60mg q6h tomorrow. # Fever/leukocytosis - 9.4 WBC today, low grade fever again overnight to 101.9 - urine cx + for group D strep. Given one dose of vanc - f/u with ID for coverage - CXR with possible RLL infiltrate - Trend fever, WBC #Anemia - Hgb 7.9 today. - Continue to Trend H/H - Iron 27, TIBC 187, iron sat 14, ferritin 1750 - Monitor for signs of bleeding - Type and cross sent today. Transfuse at <7 - High risk of bleeding/clotting given malignancy, liver mets, baseline elevated INR - Heme/onc following. Recs appreciated #Urinary retention - d/c Edwards - TOV today - Flomax 0.4 mg daily #Transaminitis/Hyperbilirubinemia - LFTs stable - RUQ U/S w/ doppler notable for good flow, multiple liver lesions. f/u MRCP - May require biliary stenting given Kj DIL - Continue to trend LFTs - Likely due to hypoperfusion, especially considering limited hepatic reserve #Liver mets - F/u abdominal MRRP - Oncology team following - Continue to trend LFTs - Bx of liver lesion - Will require outpt f/u for further management #HTN - Switch back to Cardizem 60mg QID from CD 360 - Continue to monitor for bradycardia, hypotension #HLD - Atorvastatin 40mg PO #Chronic back pain - MS contin 15mg BID PO #PUD - Zantac #PPX: - SCDs FEN: Fluids: PO hydration Electrolytes: Daily BMPs Nutrition: dysphagia puree per S+S Code status: DNR/DNI Dispo: Monitor on tele for continued monitoring in setting of multi-infarct/ lacunar stroke and paroxysmal aFib. Plan discussed with attending, Dr. Mandie Hidalgo, PGY1 Visit type - Emergency Visit Emergency Visit: Yes ED Registration Date: 04/16/17 Care time: The patient presented to the Emergency Department on the above date and was hospitalized for further evaluation of their emergent condition. - New Patient This patient is new to me today: No - Critical Care Critical Care patient: No
[2017-04-26 07:05] LABS: BASOPHIL 0.7 % (0-2.0); EOSINOPHIL 0.6 % (0-4.5); MCH 28.8 pg (25.7-33.7); MCHC 32.1 g/dl (32.0-36.0); MEAN CELL VOLUME 89.6 fl (80-96); MEAN PLT VOLUME 9.3 fl (7.5-11.1); NEUTROPHILS 81.8 % (42.8-82.8); PLATELET COUNT 128 K/MM3 (134-434); RDW 15.7 % (11.6-15.6); WHITE BLOOD COUNT 9.5 K/mm3 (4.0-10.0)
--- NOTE | 2017-04-26 07:31 | MSN ---
Progress Note (short form) - Note Progress Note: SUBJECTIVE CC: R facial droop, diplopia, slurred speech, weakness HPI: Patient was seen and examined today. Over the weekend, pt was febrile and physical exam/imaging were suspicious for possible hospital acquired pneumonia. Pt was given tylenol 650 mg PO for fever; given one dose of IV Cefepime 2 gm in D5W at 200cc/hr, one dose IV Vanc 1 gm in D5W at 250 cc/hr and given duoneb 1 amp neb q4hr PRN. She denies fever, diaphoresis, n/v, sob, rash, headache, pain , swelling, new ecchymosis or petechiae. She also reports good bowel movements and denies any discomfort from the Edwards cath. Pt reports feeling a lot better. OBJECTIVE Last Vital Signs Temp Pulse Resp BP Pulse Ox 98.6 F 100 H 18 148/65 94 L 04/26/17 05:42 04/26/17 05:42 04/26/17 05:42 04/26/17 05:42 04/25/17 22:00 General: Pt is alert and oriented, cooperative with interview in no acute distress. Head: normocephalic, atraumatic Eyes: pupils equal, round and reactive to light. EOMI with mild difficulty on R lateral gaze unchanged. No APD, sclera anicteric, conjunctiva clear. No lid lag on top and bottom. Able to close eyes tightly against resistance with mild weakness on R eye. No R visual field defect to finger counting. Mild right eye medial deviation; mild left eye lateral deviation at rest. Pt able to recognize and read letters on visual acuity chart at near distance with bifocals. Throat: Tongue appears desiccated- unchanged from previous; moist mucous membranes with what appears to be petechiae on upper hard palate. Neck: B/L JVD up to mid-neck Heart: Irregularly irregular, no murmurs appreciated. Lungs: Breath sounds CTA in B/L upper lobes and R middle lobe; no crackles/ wheezing/rhonchi noted. Breath sounds mildly diminished in B/L lower lobes with some difficulty having pt sit up for comprehensive B/L lower lobe examination. Chest nontender to palpation. Pt is not using accessory muscles. Abdomen: Soft, NT/ND, +BS in all 4 quadrants; tympanic to percussion in all 4 quadrants. Upper extremities: 2+ radial pulses, warm, well perfused. Normal capillary refill <2s. No cyanosis, clubbing or peripheral edema. Lower extremities: 1+ B/L dorsalis pedis pulse; 2+ B/L PT pulse. Normal capillary refill <2s. 1+ pitting edema B/L; appears worse on R side. No cyanosis or clubbing. Skin: Large ecchymosis noted on L antecubital fossa; decreased in size and sap project manager in coloration. Ecchymosis noted on R patellar region. NEUROLOGICAL EXAM: Fluent, dysarthric. Mild R lateral tongue deviation at rest, R facial droop. Cranial nerves/Muscle strength CN II: Pupils equal, round and reactive to light. CN III/IV/: eyes mild lateral deviation to L side at rest; EOMI with mild difficulty on R lateral gaze unchanged. CN VII: Facial movement asymmetrical, R facial droop with facial expressions. CN VIII: hearing intact to voice and finger rub B/L CN IX/X/XII: tongue mild lateral deviation to R side at rest; pt unable to move tongue completely to R and L. worse moving to L. Gag reflex not tested. CN XI: able to rotate head against resistance B/L, SCM & trapezius 0/5 muscle strength on R side, 5/5 muscle strength on L side. 0/5 shoulder shrug. R side biceps, triceps, SCM, Wrist flexors/extensors, finger agriculture extension specialist, finger abductors 0/5 R side hip flexors 0/5, quadriceps 0/5, plantar flexors and extensors 0/5 voluntary movement L side biceps, triceps, SCM, wrist flexors/extensors, finger agriculture extension specialist 5/5 L side finger abductors, hip flexors, quadriceps, plantar flexors and extensors 5/5 Reflexes L biceps +2, L patellar +1 R biceps +3, R patellar +1 Babinski reflex: + R upwards, - L downwards Sensation: No facial sensation to soft touch on R UE, R LE, and R torso. Sensation intact to soft touch in B/L face. Sensation intact to soft touch throughout L side of body Cerebellar fxn: Rapid alternating movements: normal on L, absent on R Finger to nose: Mild impairment Gait: Not tested due to hemiparesis Labs: CBC, BMP 04/26/17 05:40 04/26/17 05:40 Anion Gap Anion Gap 9 (8-16) 04/25/17 06:00 Intake & Output 04/23/17 04/24/17 04/25/17 04/26/17 23:59 23:59 23:59 23:59 Intake Total 203 312 6357 119 Output Total 800 700 600 500 Balance -440 -100 688 -381 INR, PTT INR 1.66 (0.82-1.09) H 04/25/17 06:00 Fibrinogen 195.0 mg/dL (238-498) L 04/19/17 05:00 Abnormal Lab Results 04/25/17 04/25/17 04/25/17 06:00 06:00 16:35 RBC Hgb Hct RDW Plt Count Lymphocytes % PTT (Actin FS) 91.1 H 85.8 H Chloride 112 H Carbon Dioxide 19 L BUN 28 H D Creatinine 1.1 H D Random Glucose 138 H D Calcium 7.5 L Total Bilirubin 1.5 H D AST 240 H ALT 249 H Alkaline Phosphatase 400 H Total Protein 5.1 L Albumin 2.1 L 04/26/17 05:40 RBC 2.71 L Hgb 7.8 L Hct 24.3 L RDW 15.7 H Plt Count 128 L Lymphocytes % 7.9 L PTT (Actin FS) Chloride Carbon Dioxide BUN Creatinine Random Glucose Calcium Total Bilirubin AST ALT Alkaline Phosphatase Total Protein Albumin Laboratory Results - last 24 hr 04/25/17 04/25/17 04/25/17 06:00 06:00 16:35 WBC RBC Hgb Hct MCV MCH MCHC RDW Plt Count MPV Neutrophils % Lymphocytes % Monocytes % Eosinophils % Basophils % PTT (Actin FS) 91.1 H 85.8 H Sodium 140 Potassium 4.4 Chloride 112 H Carbon Dioxide 19 L Anion Gap 9 BUN 28 H D Creatinine 1.1 H D Creat Clearance w eGFR 48.04 Random Glucose 138 H D Calcium 7.5 L Total Bilirubin 1.5 H D AST 240 H ALT 249 H Alkaline Phosphatase 400 H Total Protein 5.1 L Albumin 2.1 L 04/26/17 05:40 WBC 9.5 RBC 2.71 L Hgb 7.8 L Hct 24.3 L MCV 89.6 MCH 28.8 MCHC 32.1 RDW 15.7 H Plt Count 128 L MPV 9.3 Neutrophils % 81.8 Lymphocytes % 7.9 L Monocytes % 9.0 Eosinophils % 0.6 Basophils % 0.7 PTT (Actin FS) Sodium Potassium Chloride Carbon Dioxide Anion Gap BUN Creatinine Creat Clearance w eGFR Random Glucose Calcium Total Bilirubin AST ALT Alkaline Phosphatase Total Protein Albumin Microbiology 04/24/17 13:25 Urine Culture - Preliminary Urine - Urine Edwards Group D Strep Or Entero Coccus 04/25/17 01:27 Blood Culture - Preliminary Blood - Peripheral Venous NO GROWTH OBTAINED AFTER 24 HOURS, INCUBATION TO CONTINUE FOR 4 DAYS. 04/25/17 01:27 Blood Culture - Preliminary Blood - Peripheral Venous NO GROWTH OBTAINED AFTER 24 HOURS, INCUBATION TO CONTINUE FOR 4 DAYS. Hepatic Panel Total Bilirubin 2.2 mg/dL (0.2-1.0) H D 04/26/17 05:40 Direct Bilirubin 0.9 mg/dL (0.0-0.2) H 04/24/17 06:00 AST 208 U/L (15-37) H 04/26/17 05:40 ALT 219 U/L (12-78) H 04/26/17 05:40 Alkaline Phosphatase 405 U/L (45-117) H 04/26/17 05:40 Albumin 2.1 g/dl (3.4-5.0) L 04/26/17 05:40 Active Medications Generic Name Dose Route Start Last Admin Trade Name Freq PRN Reason Stop Dose Admin Acetaminophen 650 mg 04/25/17 00:53 04/25/17 21:22 Tylenol - PO 650 mg Q6H PRN Administration FEVER OR PAIN Albuterol/Ipratropium 1 amp 04/25/17 13:49 04/25/17 22:30 Duoneb - NEB 1 amp Q4H PRN Administration SHORTNESS OF BREATH Atorvastatin Calcium 40 mg 04/20/17 22:00 04/25/17 21:22 Lipitor - PO 40 mg HS ELANA Administration Diltiazem HCl 360 mg 04/26/17 10:03 Cardizem Cd - PO DAILY [facility] Ferrous Sulfate 325 mg 04/21/17 15:00 04/26/17 09:08 Feosol - PO 325 mg BID ELANA Administration Heparin Sodium (Porcine) 5,000 unit 04/24/17 16:45 Heparin - IVPUSH PRN PRN Heparin Sodium (Porcine) 1,000 unit 04/24/17 16:45 Heparin - IVPUSH PRN PRN Heparin Sodium/Dextrose 25,000 units in 500 mls @ 20 mls/hr 04/24/17 16:45 21:23 Heparin Infusion - IVPB 850 units/hr TITR ELANA 17 mls/hr Protocol Administration 1,000 UNITS/HR Polyethylene Glycol 17 gm 04/21/17 16:15 04/26/17 09:08 Miralax (For Daily Use) - PO 17 gm BID ELANA Administration Ranitidine HCl 150 mg 04/21/17 10:00 04/26/17 09:08 Zantac - PO 150 mg DAILY [facility] Administration Vancomycin HCl 1,000 mg 04/25/17 01:30 Vancomycin (Pre-Docked) IVPB DAILY [facility] Protocol Imaging: Non contrast Head CT 04/16 - No acute pathology, mass or acute bleed. Chest CT 04/16 - No CT findings of acute pathology are identified involving the chest. Minimal to mild bilateral lower lobe discoid atelectasis/linear scarring. Stable benign 0.4 cm left lower lobe pulmonary nodule in comparison to a [address] study. Possible mild cardiomegaly. Head MRI 04/18 - Multiple bilateral cerebral and cerebellar acute infarcts are noted as discussed above. An acute left frontal cortical infarct is seen containing a trace amount of acute petechial blood. Non contrast Head CT 04/21 AM- L MCA territory acute/subacute infarct with faint hemorrhagic transformation seen along its anterior margin. Moderate chronic microvascular ischemic changes are present. Previously visualized small other acute/subacute infarcts difficult to evaluate on this exam. Recommended follow up MRI of head for further eval. Echo 04/20/17 - Normal L ventricular size, thickness and function. Normal L vent. EF. Upper septal hypertrophy sigmoid septum, normal variant. Mild dilation of L atrium. Mild dilation of R atrium. Mild mitral valve thickening. Mild wen regurg. Mild tricuspid regurg. R ventricular systolic pressure normal. Moderate aortic regurg. Mild pulmonic valvular regurg. R ventricular not well visualized. -- study technically difficult due to suboptimal images. Regional wall motion abnormalities cannot be excluded due to limited visualization. Repeat non contrast head CT 04/21 PM - Unchanged extent of L MCA territory infarct with stable local mass effects and no evidence of hemorrhagic transformation. CXR 04/24 - Possible infiltrate at L base. RUQ U/S w/ doppler 04/24 - Multiple hepatic masses with the largest measuring 11.7 cm in maximum dimension. Limited Doppler evaluation of the liver due to the presence of masses. However, there is normal vascular flow in the main portal vein, right and left portal vein as well as at the confluence of the hepatic veins. Status post cholecystectomy. Mild dilatation of the common bile duct measuring 1.2 cm in AP dimension. Noncontrast Head CT 04/24 - Since 04/21/17, large area of low attenuation density again seen in L frontal lobe, lateral/left MCA territory. Faint increased attenuation along superior margin, axial image 19 that may represent residual minimal hemorrhage. No mass lesion, interval new acute intracranial hemorhage or shift of midline structures identified. Mild volume loss and mild ventricular prominence. No significant interval change. No interval new acute intracranial hemorrhage is seen. CXR 04/25 0:41 - Possible infiltrate at L base. Rotation to L with large heart, unfolded aorta, increased density in retrocardiac area compatible with atelectasis, fluid/infiltrate. Similar findings seen on 04/24. Repeat AP CXR 04/25 06:00 - better visualization of L base. No sign of true infiltrate ASSESSMENT/PLAN 77 year old woman with PMHx of paroxysmal afib, colon ca w/ liver mets s/p liver resection & colectomy, HTN, HLD, PUD and diverticulosis admitted for R side facial droop, R hand weakness and dysarthria that resolved then worsened during admission to include fixed R hemiparesis. Pt remains stable with no new focal neurologic deficits. #Possible HAP - lactic acid 04/25 1:27 1.1 (normal); 1+ pitting edema B/L - duoneb 1 amp neb q4hr PRN; given 1 amp 04/25 22:30; consider D/C since pt does not exhibit or c/o of SOB - D/C tylenol 650 mg PO q6hr PRN ; given 650 mg 04/25 21:22; consider D/C since pt currently afebrile and tylenol may mask fever - Vancomycin 1 g daily - awaiting ID, pending; 1st dose ok 250 cc/hr; given 04/25 02:45 - repeat CXR 04/27 6:00 AM for further evaluation - fluids stopped 04/25 due to possible fluid overload - JVD, wheezing as reported by night team - f/u finalized Urine Culture results #Acute multi-infarct CVA - MRI w/ multiple bilateral cerebral/cerebellar infarcts and large infarct in L MCA territory. Pt with R sided hemiparesis/ paralysis, dysarthria. - IV Hep restarted - 850 U/hr, 17 cc/hr; ASA D/C 04/24 - Serial neuro exams qshift - Atorvastatin 40mg daily - Neurology following. Recs appreciated. 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 Hold off on beginning coumadin until after further evaluation of abdomen (MRI, MRCP) in case biliary stent is needed #Afib - Pt on xarelto for AC as outpatient. - IV Hep - 850 U/hr, 17 cc/hr - Cardiology following. Recs appreciated. - Cardizem Cd 240 mg PO daily increased to Cardizem Cd 360 mg PO daily due to elevated HR and BP; continue to monitor closely #Mild HERBERTH - BUN/Cr 23/1.2 on admission. Remained in range of 1.1-1.3 - IVF currently held secondary to possible symptomatic fluid overload - Daily BMPs; continue to trend BUN/Cr #Anemia - Hb 7.8 04/26 Hb 8.2 04/23 Hb 8.7 04/22 Hb 9.7 04/21 - Continue to Trend H/H; likely anemia of chronic disease given iron studies - Monitor for signs of bleeding - High risk of bleeding/clotting given malignancy, liver mets, baseline elevated INR - Heme/onc following. Continued recs appreciated. #Urinary retention - Edwards placed 12/19 PM for urinary retention; pt tolerating well - Start voiding trials - continue to monitor urine output and I&Os #Liver mets - Oncology team following - RUQ U/S w/ doppler 04/24 for elevated liver enzymes - no abnormalities in vascular flow, limited due to presence of liver mets. - MRI of abdomen w/o contrast ordered 04/25 for evaluation of dilated CBD (as seen on US) and possible need for biliary stent placement; f/u MRI abd results - Continue to trend LFTs - Will need outpt f/u for further management #HTN - Cardizem Cd 360 mg PO daily - Monitor closely for bradycardia, hypotension #HLD - Atorvastatin 40mg PO daily #Chronic back pain - MS contin 15mg BID PO #PUD - Zantac 150 mg PO daily #PPX: - SCDs - IV Heparin 850 U/hr, 17 cc/hr FEN: Fluids: currently held secondary to possible symptomatic fluid overload Electrolytes: Trend BUN/Cr Nutrition: chopped diet with nectar thickened liquids Code status: DNR/DNI
[2017-04-26 07:34] LABS: ALBUMIN 2.1 g/dl (3.4-5.0); ANION GAP 6 (8-16); CALCIUM 7.4 mg/dL (8.5-10.1); CO2 23 mmol/L (21-32); GLUCOSE,RANDOM 126 mg/dL (74-106); MAGNESIUM 2.4 mg/dL (1.8-2.4)
[2017-04-26 07:38] LABS: ALK PHOS 405 U/L (45-117); BILIRUBIN,TOTAL 2.2 mg/dL (0.2-1.0); CREATININE 0.8 mg/dL (0.55-1.02); SGOT/AST 208 U/L (15-37); SGPT/ALT 219 U/L (12-78); TOT PROT 5.2 g/dl (6.4-8.2)
--- NOTE | 2017-04-26 08:17 | PN ---
Progress Note, Physician Chief Complaint: cva History of Present Illness: denies sob, cp, palpitations, abd pain - Current Medication List Current Medications: Active Medications Acetaminophen (Tylenol -) 650 mg PO Q6H PRN PRN Reason: FEVER OR PAIN Last Admin: 04/25/17 21:22 Dose: 650 mg Albuterol/Ipratropium (Duoneb -) 1 amp NEB Q4H PRN PRN Reason: SHORTNESS OF BREATH Last Admin: 04/25/17 22:30 Dose: 1 amp Atorvastatin Calcium (Lipitor -) 40 mg PO HS [facility] Last Admin: 04/25/17 21:22 Dose: 40 mg Diltiazem HCl (Cardizem Cd -) 240 mg PO DAILY [facility] Last Admin: 04/25/17 09:47 Dose: 240 mg Ferrous Sulfate (Feosol -) 325 mg PO BID [facility] Last Admin: 04/25/17 21:22 Dose: 325 mg Heparin Sodium (Porcine) (Heparin -) 5,000 unit IVPUSH PRN PRN Heparin Sodium (Porcine) (Heparin -) 1,000 unit IVPUSH PRN PRN Heparin Sodium/Dextrose (Heparin Infusion -) 25,000 units in 500 mls @ 20 mls/ hr IVPB TITR ELANA; 1,000 UNITS/HR PRN Reason: Protocol Last Admin: 04/25/17 21:23 Dose: 850 units/hr, 17 mls/hr Polyethylene Glycol (Miralax (For Daily Use) -) 17 gm PO BID [facility] Last Admin: 04/25/17 21:24 Dose: 17 gm Ranitidine HCl (Zantac -) 150 mg PO DAILY [facility] Last Admin: 04/25/17 09:47 Dose: 150 mg Vancomycin HCl (Vancomycin (Pre-Docked)) 1,000 mg IVPB DAILY [facility] PRN Reason: Protocol - Objective Vital Signs: Vital Signs Temperature 98.6 F 04/26/17 05:42 Pulse Rate 100 H 04/26/17 05:42 Respiratory Rate 18 04/26/17 05:42 Blood Pressure 148/65 04/26/17 05:42 O2 Sat by Pulse Oximetry (%) 94 L 04/25/17 22:00 Constitutional: Yes: Well Nourished, No Distress, Calm Cardiovascular: Yes: Pulse Irregular, JVD, S1, S2. No: Gallop, Murmur Respiratory: Yes: Regular, Rales (L base), Wheezes (L base). No: Accessory Muscle Use Extremities: No: Cold Neurological: Yes: Alert. No: Seizure Psychiatric: No: Agitated Labs: CBC, BMP 04/26/17 05:40 04/26/17 05:40 INR, PTT INR 1.66 (0.82-1.09) H 04/25/17 06:00 Fibrinogen 195.0 mg/dL (238-498) L 04/19/17 05:00 - ....Imaging EKG: Other (tele: AF 90s-120s) Assessment/Plan carotids: mild athero, no stenosis echo 03/2017: tds; nl lv, rv not seen, mild lily, mild mr, mild pr, mild tr, mod ar, nl rvsp MRI brain: multiple bilateral cerebral and cerebellar acute infarcts; trace amount of acute petechila blood in L frontal infarct Assessment/Plan acute CVA: -2 episodes on DOA, in setting of missing home AC dose x 2d (has afib) -neuro input reviewed: embolic shower ( with largest in L MCa distribution) -holding ac for now as per neuro due to minimal hemoragic transformation on imaging -carotid dopplers unremarkable -echo tds but unremarkable PAF, sick sinus syndrome: -intolerant of low dose metoprolol and bystolic at low doses (profound fatigue, bronchospasm) -has tolerated high dose diltiazem (without signif GERD s.e.) -tolerated digoxin in past, but stopped given age and decr GFR--could add back if rapid HRs -rapid AF 150s on 04/18, began when pt was transported back to the floor from testing. she had not received any of her home cardizem CD 360 mg since admit, hence this may have contributed. Given very short AF duration, with pt's previously known refractory HRs (160) despite this dose of cardizem as outpt, and marked intolerance to even low doses of BB, she was pharmacologically cardioverted with amio bolus. 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 -if recurrent rapid AF, will consider flecainide or other anti-arrhythmic, with EP input (if any are safe with liver dysfunction) -hope to avoid AVN ablation/PPM; -04/19: currently sinus esteban 40s consistently, ? hi vagal tone given ongoing GI sx's and bedrest decr diltiazem dose - 04/20-04/23: bradycardia improved, con't same mgm't. can change to long acting cardizem when able to tolerate (cannot be crushed). -04/24-3: on long acting dilt now. monitor tele, may need to increase dose if still with rvr. -04/26: per neuro, clinical presentation c/w embolic shower and she is cleared to begin coumadinization (see their 04/25 note)--however holding until MRCP completed (? needs biliary stent). continuing therapeutic UFH gtt for now. - rapid HRs at times--agree with incr cardizem CD dose as doing HTN: -stable CKD: -baseline creat runs 1.1-1.5 -renal fxn stable here. 04/19 hyponatremia slightly worse. IVF changed from D5 to NS. CAD: -cor calcium score intermediate (slightly above 50th %ile) -MPI in past equivocal ? apical ischemia vs variable breast artifact -never had anginal sx's -ecg no acute ischemic changes here -cont home regimen: statin (atorva 10 at home), no ASA (on AC) HPL: -cont statin asthma: -intolerant of B-B in past -mild wheezing at L base heard today, no sx's with this. L base looks clear on cxr. +/-JVD (EJs) noted. routine asthma meds per hospitalist. defer lasix, observe clinically colon cancer with liver mets/anemia/anorexia/abd pain: -? sx's related to tumor -all LFTs mildly elevated, abd distended -per hospitalist +/- Onc as indicated
[2017-04-26] MEDS: POLYETHYLENE GLYCOL 3350 119 GM BTL PO SCH ×2 (09:08→23:12)
[2017-04-26] MEDS: FERROUS SO4 325 MG TABLET (FP) PO SCH (09:08)
[2017-04-26] MEDS: RANITIDINE HCL 150 MG TABLET (FP) PO SCH (09:08)
--- NOTE | 2017-04-26 09:42 | PN ---
Progress Note, Physician Chief Complaint: Strokes History of Present Illness: 77 yo woman w/ pmh of colon/liver ca, chronic afib, HTN, HLD, PUD and diverticulosis who presents to the ED after daughter witnessed her with R side facial droop, R hand weakness and dysarthria that lasted approximately 15-20 minutes and resolved before arrival in ED. Patient is admitted for recurrent TIA. noted to have inc right side weakness . Found to have embolic shower, Coumadin being held for last 3 days due to hemorrhagic transformation of left MCA territory infarct with minimal petechial hemorrhage. Repeat CT did not show increase in size of stroke over last couple of days nor further hemorrhage. she has restarted anticoagulation with heparin. - Current Medication List Current Medications: Active Medications Acetaminophen (Tylenol -) 650 mg PO Q6H PRN PRN Reason: FEVER OR PAIN Last Admin: 04/25/17 21:22 Dose: 650 mg Albuterol/Ipratropium (Duoneb -) 1 amp NEB Q4H PRN PRN Reason: SHORTNESS OF BREATH Last Admin: 04/25/17 22:30 Dose: 1 amp Atorvastatin Calcium (Lipitor -) 40 mg PO HS [facility] Last Admin: 04/25/17 21:22 Dose: 40 mg Diltiazem HCl (Cardizem Cd -) 240 mg PO DAILY [facility] Last Admin: 04/26/17 09:08 Dose: 240 mg Ferrous Sulfate (Feosol -) 325 mg PO BID [facility] Last Admin: 04/26/17 09:08 Dose: 325 mg Heparin Sodium (Porcine) (Heparin -) 5,000 unit IVPUSH PRN PRN Heparin Sodium (Porcine) (Heparin -) 1,000 unit IVPUSH PRN PRN Heparin Sodium/Dextrose (Heparin Infusion -) 25,000 units in 500 mls @ 20 mls/ hr IVPB TITR [facility]NA; 1,000 UNITS/HR PRN Reason: Protocol Last Admin: 04/25/17 21:23 Dose: 850 units/hr, 17 mls/hr Polyethylene Glycol (Miralax (For Daily Use) -) 17 gm PO BID [facility] Last Admin: 04/26/17 09:08 Dose: 17 gm Ranitidine HCl (Zantac -) 150 mg PO DAILY [facility] Last Admin: 04/26/17 09:08 Dose: 150 mg Vancomycin HCl (Vancomycin (Pre-Docked)) 1,000 mg IVPB DAILY [facility] PRN Reason: Protocol - Objective Vital Signs: Vital Signs Temperature 98.6 F 04/26/17 05:42 Pulse Rate 100 H 04/26/17 05:42 Respiratory Rate 18 04/26/17 05:42 Blood Pressure 148/65 04/26/17 05:42 O2 Sat by Pulse Oximetry (%) 94 L 04/25/17 22:00 Neurological: Yes: Alert, Aphasia (expressive aphasia with some improvement), Other (Right central pattern facial and right hemiplegia) Labs: CBC, BMP 04/26/17 05:40 04/26/17 05:40 INR, PTT INR 1.66 (0.82-1.09) H 04/25/17 06:00 Fibrinogen 195.0 mg/dL (238-498) L 04/19/17 05:00 - ....Imaging Cat Scan: Report Reviewed, Image Reviewed (multiple embolic infarcts and MCA branch infarction with minimal peticchial hemorrhage.) Problem List - Problems (1) Lacunar infarction Code(s): I63.9 - CEREBRAL INFARCTION, UNSPECIFIED (2) Cancer, metastatic to liver Code(s): C78.7 - SECONDARY MALIG NEOPLASM OF LIVER AND INTRAHEPATIC BILE DUCT (3) Paroxysmal atrial fibrillation Code(s): I48.0 - PAROXYSMAL ATRIAL FIBRILLATION Assessment/Plan The patient presented with transient deficits which improved and then got worse again. She had a negative CT scan on presentation but no TPA was given because of rapidly improving symptoms and recent Xarelto use. She then developed a fixed deficit with mild weakness of the face and hand and some dysarthria. This again worsened and was clearly large vessel infarction with MCA branch pattern stroke. she is now back on heparin and can be started on warfarin as well.
--- NOTE | 2017-04-26 11:55 | PN ---
Progress Note, ALGOLOGIST - Note Progress Note: Selected Entries 04/24/17 04/24/17 04/24/17 01:59 03:55 06:00 Breakfast 75% Supper Temperature 98.2 F 98.8 F 98.1 F 04/24/17 04/24/17 04/24/17 10:00 14:00 18:40 Breakfast Supper 25% Temperature 98.1 F 98.3 F 98.2 F 04/24/17 04/25/17 04/25/17 22:00 00:40 03:35 Breakfast Supper Temperature 99.3 F 101.9 F H 98.5 F 04/25/17 04/25/17 04/25/17 06:00 08:30 10:00 Breakfast 50% Supper Temperature 98.3 F 98.8 F 04/25/17 04/25/17 04/25/17 14:30 18:35 21:20 Breakfast Supper 25% Temperature 98.6 F 98.0 F 101 F H 04/25/17 04/26/17 04/26/17 22:50 02:00 05:42 Breakfast Supper Temperature 99.4 F 98.1 F 98.6 F 04/26/17 10:00 Breakfast Supper Temperature 99.1 F Laboratory Tests 04/23/17 04/24/17 04/25/17 07:00 06:00 01:27 WBC 11.3 H 10.4 H 9.4 04/26/17 05:40 WBC 9.5 Pt on chopped/nectar thick liquids with meals with nursing and family. Between meals, trial of free water protocol. Per pulmonary 04/25-ALERT,HAD EPISODE OF SOB,BRONCHOSPASM EARLIER THIS MORNING + FEBRILE 100.6. PT GIVEN NEB TX WITH IMPROVEMENT STARTED ANTIBIOTICS FOR POSSIBLE PNEUMONIA. UTI suspected per nsg. Overtly, pt toleratinmg diet, malthough appetite is less. Hold off on free water protocol for now. Continue diet, as cordered.
[2017-04-26] MEDS ORDERED: VANCOMYCIN 1,000 MG in DEXTROSE 5%-WATER - 250 ML IVPB ONE (15:31)
--- NOTE | 2017-04-26 15:34 | PN ---
Teaching Attending Note Name of Resident: Jesus Hidalgo ATTENDING PHYSICIAN STATEMENT I saw and evaluated the patient. I reviewed the resident's note and discussed the case with the resident. I agree with the resident's findings and plan as documented. SUBJECTIVE:seen at 10 am fever last night. denies SOB or cough . OBJECTIVE: NAD, AAOX3. dry MM CV: irreg irreg, trace JVD Lung: minimal bibasilar crackles. Ext: trace edema, no erythema . Neuro exam: R lower facial droop. tongue at mid line , with nl movement to both sides. round equal pupils, reactive to light . Strength: RUE: Shoulder shrug 0/5. shoulder abduction , flexion, biceps, triceps and wrist flexion/ extension 0/5 . hand mystery shopper 0/5 LUE: shoulder shrug, shoulder abduction , flexion, biceps, triceps and wrist flexion/ extension 5/5 . hand mystery shopper 4/5 RLE: hip flexion 1/5, knee flexion/extension 0/5, ankle dorsiflexion/plantar flexion 1/5. Babinski's upwards. LLE: hip flexion 5/5, knee flexion/extension 5/5, ankle dorsiflexion/plantar flexion 5/5 . Babinski's downwards reflexes : 2+ biceps b/l. knee jerk 1+ b/l ASSESSMENT AND PLAN: 77 y/o unfortunate lady with h/o A fib, TIAx2 , colon cancer and newly diagnosed liver mass HLP, PUD and other medical problems who presented with facial droop , dysarthria, and R sided weakness. 1- Acute CVA with multiple infarcts with small peticheal bleed after AC Stable neuro exam. - Cont heparin gtt - hold off on starting coumadin until after the MRCP in case a stent is needed 2- Fever: clinically no indication of fever. U cx with > 100K colonies of Group D strep . - will treat for UTI, in setting of bravo - give a dose of vanco pending ID of group D strep. - remove bravo - ID eval for abx mgt 3-A fib with RVR: tele reviewed, still tachy at times - increase cardizem to 360 - this afternoon, had an episode of esteban to 20 with feeling extremely fatigued. tele showed A flutter still with variable block but with bradycardia. will monitor , if recur might need to decrease CCB again - cont heaprin gtt 4- H/o HTN: - cont to hold losartan. - Cont cardizem 4-HERBERTH: resolved 5- Elevated LFTS: US with multiple liver masses. But also with dilation in CBD 1.2 Cm. - MRCP to evaluate CBD, tumor/Mets vs stones to evaluate possible need for stenting - monitor LFTS HLOC . DNR/DNI
[2017-04-26] MEDS ORDERED: PT OWN MED DRAWER 7, Y5N ONE (15:54)
[2017-04-26] MEDS ORDERED: ATROPINE SULFATE 1 MG/10 ML DISP.SYRIN IVPUSH ONE (17:13)
--- NOTE | 2017-04-26 17:43 | PN ---
Progress Note, Physician History of Present Illness: PULMONARY AWAKE,COMFORTABLE,-RESP DISTRESS,FEBRILE T101.6 - Current Medication List Current Medications: Active Medications Acetaminophen (Tylenol -) 650 mg PO Q6H PRN PRN Reason: FEVER OR PAIN Last Admin: 04/25/17 21:22 Dose: 650 mg Albuterol/Ipratropium (Duoneb -) 1 amp NEB Q4H PRN PRN Reason: SHORTNESS OF BREATH Last Admin: 04/25/17 22:30 Dose: 1 amp Atorvastatin Calcium (Lipitor -) 40 mg PO HS ELANA Last Admin: 04/25/17 21:22 Dose: 40 mg Diltiazem HCl (Cardizem Cd -) 240 mg PO DAILY ELANA Heparin Sodium (Porcine) (Heparin -) 5,000 unit IVPUSH PRN PRN Heparin Sodium (Porcine) (Heparin -) 1,000 unit IVPUSH PRN PRN Heparin Sodium/Dextrose (Heparin Infusion -) 25,000 units in 500 mls @ 20 mls/ hr IVPB TITR ELANA; 1,000 UNITS/HR PRN Reason: Protocol Last Admin: 04/25/17 21:23 Dose: 850 units/hr, 17 mls/hr Polyethylene Glycol (Miralax (For Daily Use) -) 17 gm PO BID [facility] Last Admin: 04/26/17 09:08 Dose: 17 gm Ranitidine HCl (Zantac -) 150 mg PO DAILY [facility] Last Admin: 04/26/17 09:08 Dose: 150 mg - Objective Vital Signs: Vital Signs Temperature 101.6 F H 04/26/17 15:54 Pulse Rate 83 04/26/17 15:54 Respiratory Rate 16 04/26/17 15:54 Blood Pressure 143/74 04/26/17 15:54 O2 Sat by Pulse Oximetry (%) 97 04/26/17 10:25 Constitutional: Yes: Calm, Thin Eyes: Yes: WNL HENT: Yes: WNL Neck: Yes: WNL Cardiovascular: Yes: Pulse Irregular, S1, S2 Respiratory: Yes: Rales (CRACKLES LEFT WITH SCATTERED WHEEZES) Gastrointestinal: Yes: Normal Bowel Sounds, Soft Extremities: Yes: WNL Edema: No Labs: CBC, BMP 04/26/17 05:40 04/26/17 05:40 INR, PTT INR 1.66 (0.82-1.09) H 04/25/17 06:00 Fibrinogen 195.0 mg/dL (238-498) L 04/19/17 05:00 - ....Imaging Chest X-ray: Report Reviewed, Image Reviewed Problem List - Problems (1) CVA (cerebral vascular accident) Code(s): I63.9 - CEREBRAL INFARCTION, UNSPECIFIED (2) Anemia Code(s): D64.9 - ANEMIA, UNSPECIFIED (3) Cancer, metastatic to liver Code(s): C78.7 - SECONDARY MALIG NEOPLASM OF LIVER AND INTRAHEPATIC BILE DUCT (4) Lacunar infarction Code(s): I63.9 - CEREBRAL INFARCTION, UNSPECIFIED (5) TIA (transient ischemic attack) Code(s): G45.9 - TRANSIENT CEREBRAL ISCHEMIC ATTACK, UNSPECIFIED (6) Dyspnea Code(s): R06.00 - DYSPNEA, UNSPECIFIED (7) Bronchospasm Code(s): J98.01 - ACUTE BRONCHOSPASM (8) Acute bronchospasm Code(s): J98.01 - ACUTE BRONCHOSPASM (9) Asthma Code(s): J45.909 - UNSPECIFIED ASTHMA, UNCOMPLICATED (10) Afib Code(s): I48.91 - UNSPECIFIED ATRIAL FIBRILLATION Assessment/Plan Impression: Bronchospasm SOB ?Asp Hypercoaguable state likely causing VENEER STACKER events with multiple infarcts. Atrial fib Colon ca Liver masses suspicious for mets Anemia Thrombocytopenia Asthma Acute kidney injury Fever Plan inhaled bronchodilators supplemental o2 cultures antibiotics as per ID f/u chest x-rays monitor lytes steroids if pt developes recurrent bronchospasm DR MARTIN
[2017-04-26] MEDS: ALBUTEROL SO4 2.5/IPRATROPIUM 0.5 INH SOL 3 ML VIAL.NEB. NEB PRN ×2 (18:30→22:12)
[2017-04-26] MEDS ORDERED: TAMSULOSIN HCL 0.4 MG CAP.ER.24H (FP) PO ONE ×2 (19:01→22:30)
[2017-04-26] MEDS: ATORVASTATIN CA 40 MG TABLET (FP) PO SCH (23:11)
[2017-04-26] MEDS: HEPARIN INFUSION - 25,000 UNITS/500 ML INFUS.BAG IVPB SCH (23:30)
[2017-04-27] MEDS ORDERED: VANCOMYCIN 1,000 MG in DEXTROSE 5%-WATER - 250 ML IVPB ONE (05:00)
--- NOTE | 2017-04-27 06:11 | PN ---
Physical Exam: SUBJECTIVE: Patient seen and examined by me this AM - Called for MRCP last night but too unstable to leave the floor per nursing. Will attempt again today. - Bladder scan overnight w/ 380cc retained. Possible neurogenic bladder. Required straight cath, draining 400cc. - No further episodes of bradycardia overnight. Febrile to 101.6 - Pt woken up in AM, noted with mild gurgling vs. congestion. Suctioned. Appeared more toxic, but denied any symptoms. - Denied any MERCER/dizziness, fevers/chills, CP/sob, palpitations, cough, N/V, abdominal pain, new neuro symptoms Later in AM: - Called to bedside by nurse due to pt being hypoxic w/ attending, Dr. Lockwood. Pt w/ vitals as noted: BP 183/90, HR 123 , Sat O2 62%, gurgling, tachypneic, noted to have JVD and R lung crackles. Pt given stat dose of lasix and escalate to BiPap at 100%. Satting improved to 100%. Pt was awake and following command. Nurse suctioned coffee ground secretions from mouth. CXR/KUB, EKG, Trops/bnp, sent suctioned fluid for occult blood. Heparin gtt stopped. Likely aspiration event. Started on meropenem for aspiration pna. ID, cardiology consulted. Son at bedside, appraised of situation, still refusing intubation. PM: - Lactate of 6.2 noted. secretions + for blood. f/u Hgb notable for 6.8. Suspicion for gastric bleed. Dr. Melgar consulted/called. Recommend PPI gtt, transfusion and will see pt in AM. Liver enzyme found to be markedly elevated, likely ischemic or congestive hepatopathy. BNP 5900, clinically consistent with heart failure. All fluids held. Family refusing CT scan of chest and abdomen. Want minimal intervention at this point. Sign-out given to night time of situation, aware. OBJECTIVE: Vital Signs Intake & Output 04/24/17 04/25/17 04/26/17 04/27/17 23:59 23:59 23:59 23:59 Intake Total 600 1288 119 Output Total 700 600 500 Balance -100 688 -381 Period Temp Pulse Resp BP Sys/Sheppard Pulse Ox Last 24 Hr 98.3 F-101.6 F 83-115 16-18 133-164/65-90 97-98 GENERAL: A&Ox2. Somnolent, tachypneic with mild gurgling HEAD: NCAT EYES: Pupils equal, round and reactive to light, sclera icteric, conjunctiva clear. No lid lag. No visual field defect. EOMI intact EARS, NOSE, THROAT: R tongue deviation, L uvular deviation. Ears normal, nares patent, oropharynx clear without exudates. Moist mucous membranes. NECK: Normal range of motion, JVD, or masses. LUNGS: bibasilar crackles, worse on R side. Course breath sounds. No wheezes. No accessory muscle use. HEART: Irregularly irregular, normal S1 and S2 without murmur, rub or gallop. ABDOMEN: More rigid today, Mildly distended, normoactive bowel sounds, no rebound, no masses. No hepatomegaly or splenomegaly. UPPER EXTREMITIES: 2+ pulses, warm, well-perfused. No cyanosis. No clubbing. LOWER EXTREMITIES: 2+ pulses, warm, well-perfused. No calf tenderness. No peripheral edema. NEUROLOGICAL: Still with Minimal dysarthria. Still R lateral tongue deviation, R facial droop. Endorses BL symmetric facial sensation to light touch. Neuro status largely unchanged. 0/5 shoulder shrug on R side, 5/5 L side. 0/5 make ready worker strength in R hand, 5/5 in L hand. 0/5 R hand, arm. 5/5 strength in L arm, leg grossly. No pronator drift, dysdiadokinesia in L hand. Legs: 1/5 in R proximal muscle groups. 2/5 dorsi/plantar flexion in R leg Still with no sensation light touch in R arm. endorses no sensation to light touch on R leg, + on L. unable to evaluate gait, bedbound. 2+ L biceps, patellar reflex. 3+ R biceps, 1+ patellar reflex BL. + babinski on R side, - on L SKIN: Warm, dry, normal turgor, normal cap refill. Laboratory Results - last 24 hr CBC, BMP 04/27/17 23:34 04/27/17 06:30 04/26/17 04/26/17 04/26/17 05:40 05:40 05:40 WBC 9.5 RBC 2.71 L Hgb 7.8 L Hct 24.3 L MCV 89.6 MCH 28.8 MCHC 32.1 RDW 15.7 H Plt Count 128 L MPV 9.3 Neutrophils % 81.8 Lymphocytes % 7.9 L Monocytes % 9.0 Eosinophils % 0.6 Basophils % 0.7 PTT (Actin FS) 66.1 H Sodium 141 Potassium 4.3 Chloride 112 H Carbon Dioxide 23 D Anion Gap 6 L BUN 22 H D Creatinine 0.8 D Creat Clearance w eGFR > 60 Random Glucose 126 H Calcium 7.4 L Phosphorus 3.0 Magnesium 2.4 Total Bilirubin 2.2 H D AST 208 H ALT 219 H Alkaline Phosphatase 405 H Total Protein 5.2 L Albumin 2.1 L Active Medications Generic Name Dose Route Start Last Admin Trade Name Freq PRN Reason Stop Dose Admin Acetaminophen 650 mg 04/25/17 00:53 04/25/17 21:22 Tylenol - PO 650 mg Q6H PRN Administration FEVER OR PAIN Albuterol/Ipratropium 1 amp 04/25/17 13:49 04/26/17 22:12 Duoneb - NEB 1 amp Q4H PRN Administration SHORTNESS OF BREATH Atorvastatin Calcium 40 mg 04/20/17 22:00 04/26/17 23:11 Lipitor - PO 40 mg HS ELANA Administration Diltiazem HCl 60 mg 04/27/17 10:00 Cardizem - PO Q6HPO [facility] Heparin Sodium (Porcine) 5,000 unit 04/24/17 16:45 Heparin - IVPUSH PRN PRN Heparin Sodium (Porcine) 1,000 unit 04/24/17 16:45 Heparin - IVPUSH PRN PRN Heparin Sodium/Dextrose 25,000 units in 500 mls @ 20 mls/hr 04/24/17 16:45 23:30 Heparin Infusion - IVPB 850 units/hr TITR ELANA 17 mls/hr Protocol Administration 1,000 UNITS/HR Polyethylene Glycol 17 gm 04/21/17 16:15 04/26/17 23:12 Miralax (For Daily Use) - PO 17 gm BID ELANA Administration Ranitidine HCl 150 mg 04/21/17 10:00 04/26/17 09:08 Zantac - PO 150 mg DAILY ELANA Administration Tamsulosin HCl 0.4 mg 04/27/17 08:30 Flomax - PO DAILY@0830 [facility] Microbiology 04/25/17 01:27 Blood - Peripheral Venous Blood Culture - Preliminary NO GROWTH OBTAINED AFTER 48 HOURS, INCUBATION TO CONTINUE FOR 3 DAYS. 04/25/17 01:27 Blood - Peripheral Venous Blood Culture - Preliminary NO GROWTH OBTAINED AFTER 48 HOURS, INCUBATION TO CONTINUE FOR 3 DAYS. 04/24/17 13:25 Urine - Urine Edwards Urine Culture - Preliminary Group D Strep Or Entero Coccus 04/17/17 16:10 Blood - Peripheral Venous Blood Culture - Final NO GROWTH AFTER 5 DAYS INCUBATION 04/17/17 16:10 Blood - Peripheral Venous Blood Culture - Final NO GROWTH AFTER 5 DAYS INCUBATION 04/20/17 11:00 Nares - Mrsa Screen - Left MRSA Screen - Final NO MRSA ISOLATED 04/20/17 11:00 Nares - Right Nares MRSA Screen - Final NO MRSA ISOLATED 04/18/17 18:00 Urine - Urine Edwards Urine Culture - Final NO GROWTH OBTAINED Tele 04/24 - Afib/flutter with variable conduction. Rates in range list above. Imaging: Non Head CT 04/16 - No acute pathology, mass or acute bleed. Chest CT 04/16 - No CT findings of acute pathology are identified involving the chest. Minimal to mild bilateral lower lobe discoid atelectasis/linear scarring. Stable benign 0.4 cm left lower lobe pulmonary nodule in comparison to a [address] study. Possible mild cardiomegaly. Head MRI 04/18 - Multiple bilateral cerebral and cerebellar acute infarcts are noted as discussed above. An acute left frontal cortical infarct is seen containing a trace amount of acute petechial blood. Echo 04/20 - LV function normal. Mild biatrial enlargement. Mild MR, TR. Moderate aortic regurgitation. Normal RV pressure. Mild pulmonic valve regurgitation. Non-con CT head 04/21 - Left middle cerebral artery territory acute/subacute infarct with faint hemorrhagic transformation seen along its anterior margin. Moderate chronic microvascular ischemic changes are present. Previously visualized small other acute/subacute infarcts are difficult to evaluate on this exam. Follow-up MRI would be the study of choice for further evaluation. F/u non-con CT 04/21 PM - Unchanged extent of the left MCA territory infarct with stable local mass effects and no evidence of hemorrhagic transformation. CXR 04/24 - Possible infiltrate at R base. RUQ U/S w/ doppler 04/24 - Multiple hepatic masses with the largest measuring 11.7 cm in maximum dimension. Limited Doppler evaluation of the liver due to the presence of masses. However, there is normal vascular flow in the main portal vein, right and left portal vein as well as at the confluence of the hepatic veins. Status post cholecystectomy. Mild dilatation of the common bile duct measuring 1.2 cm in AP dimension. CXR 04/25 - Cardiomegaly. Scoliosis. No infiltrates or failure CXR 04/26 - Since the prior study 04/25/2017, again noted is a weak inspiration with prominent mediastinum, increased central markings and degenerative changes. There is no sign of true infiltrate or failure. Correlation recommended. CXR 04/27 8AM - Airspace opacities noted in the right parahilar region concerning for infectious process. No pneumothorax, or pleural effusion is seen. KUB 04/27 - IMPRESSION: 1. No gross subdiaphragmatic free intraperitoneal air. Nonspecific bowel gas pattern with no evidence of obstruction. Please correlate clinically. 2. Right parahilar opacity is more conspicuous than on prior chest x -rays. Although this may represent pulmonary vasculature, and infiltrate is not entirely excluded. Clinical correlation and continued follow-up recommended. 3. No evidence of pulmonary vascular congestion or pleural effusion. CXR 04/27 12PM - 1. No gross subdiaphragmatic free intraperitoneal air. Nonspecific bowel gas pattern with no evidence of obstruction. Please correlate clinically. 2. Right parahilar opacity is more conspicuous than on prior chest x -rays. Although this may represent pulmonary vasculature, and infiltrate is not entirely excluded. Clinical correlation and continued follow-up recommended. 3. No evidence of pulmonary vascular congestion or pleural effusion. ASSESSMENT/PLAN: 77 yo woman w/ pmh of colon/liver ca, chronic afib, HTN, HLD, PUD and diverticulosis who presented to the ED after daughter witnessed her with R side facial droop, R hand weakness and dysarthria, intially resolved, then worsened during admission to include fixed R side paralysis/hemiparesis. Brain MRI with multiple bilateral cerebral/cerebellar infarcts, w/ evidence of mild acute bleeding, believed to be embolic shower or possible lacunar infarct. CT head 04/24 w/ no evidence of bleed, heparin restarted w/ coumadin held as pt may need biliary stent due to Moy-dil on US. F/u MRCP. Pt with multiple episodes of bradycardia to 30s due to AV steven conduction delay of Aflutter in setting of cardizem CD increase to 360. Most recently, pt with acute hypoxic respiratory failure, likely secondary to aspiration event overnight. Placed on Bipap, stabilized. Also now in acute HF w/ BNP 5900~. Possible Upper GI bleed, GI consulted and will see in morning. Cardiology and ID also consulted. Pt stable but prognosis very poor. DNR/DNI, Family aware and want minimal intervention. #Acute hypoxic respiratory failure - Events noted in hospitalist encounter note. Like aspiration event overnight, with element of heart failure - Treat as aspiration PNA. ID consulted. - On BiPap, satting well. Decreased to 50%, tolerating. - F/u all cultures - Family denied CT scan. - Cardiology consulted. #Acute CHF - BNP 5900~, crackle at lung bases, JVD - Diuresed 40mg lasix this AM. Hold all further diruesis given elevated lactate 6.2 - Cardiology consulted. recs appreciated - Consider repeat echo #Upper GI bleed - PM Hgb 6.8. Aspirate + for blood. - Dr. Melgar consulted, contacted. Recommends PPI gtt, tranfusion and will see in AM - PPI gtt - Monitor vitals, serial CBCs - Holding heparin gtt, as risks of bleed outweigh benefits #Transaminitis/Hyperbilirubinemia - LFTs significantly worsened today (AST 4331 , ALT 1648, Alk phos 554). Liver congestive hepatopathy vs. shock liver - Family refused abdominal CT scan. No MRCP per family wishes. Manage conservatively - RUQ U/S w/ doppler notable for good flow, multiple liver lesions. f/u MRCP - Continue to trend LFTs - Likely due to hypoperfusion, especially considering limited hepatic reserve from metastasis in liver #Severe sepsis - likely aspiration pna/pneumonitis vs. cholangitis. - Cont meropenem - awaiting ID recs -f/u cultures - Trend fever, WBC #Acute multi-infarct CVA - MRI w/ multiple bilateral cerebral/cerebellar infarcts. Pt with R sided hemiparesis/paralysis, dysarthria. F/u CT head 04/24 neg for bleed. Heparin now held in setting of possible bleed. - Serial neuro exams qshift - Heparin held, ASA held - Atorvastatin 40mg daily - Neurology following. Continue recs greatly appreciated. #Symptomatic bradycardia- multiple episode of prolonged steven conduction block of aflutter w/ increased cardizem CD to 360 - Switch to cardizem 30mg 6qh given hypotension - Monitor for further episodes of bradycardia - If hemodynamically unstable, atropine/external pacing pads #Afib/Aflutter - Pt on xarelto for AC as outpt. heparin gtt held - Aflutter/fib since admission - Cardiology following. Recs appreciated. - Poor BB tolerance (fatigue, bronchospasm) - Cardizem at 30mg q6 given possible acute bleed, sepsis # Fever/leukocytosis - 21 -> 15 WBC today, low grade fever again overnight to 101.6 - urine cx + for group D strep. Given one dose of vanc - f/u with ID for coverage - CXR with possible RLL infiltrate - Trend fever, WBC #HERBERTH - monitor closely - serial BMPs, trend Cr #Urinary retention - d/c Edwards. Straight cath - Flomax 0.4 mg daily #HTN - Cardizem 30mg q6h - Continue to monitor for bradycardia, hypotension #pain control - IV morphine, tylenol #HLD - Atorvastatin 40mg PO #PUD - Zantac #PPX: - SCDs FEN: Fluids: Hold fluids in setting of HF Electrolytes: Daily BMPs Nutrition: NPO given likely aspiration Code status: DNR/DNI Dispo: Prognosis very poor. Family wants limited intervention as this point. Plan discussed with attending, Dr. Mandie Hidalgo, PGY1 Visit type - Emergency Visit Emergency Visit: Yes ED Registration Date: 04/16/17 Care time: The patient presented to the Emergency Department on the above date and was hospitalized for further evaluation of their emergent condition. - New Patient This patient is new to me today: No - Critical Care Critical Care patient: No
--- NOTE | 2017-04-27 06:54 | MSN ---
Addendum entered and electronically signed by RickeyJoselynalistair PinoKeyona, 15:07: Medicine team was alerted patient condition was unstable at approximately 8:45 AM. Patient was noted to be in acute hypoxemic respiratory distress. Patient was placed on BIPAP with improvement in pO2 saturation. Coffee ground material in brown liquid was suctioned from her mouth. Stat CXR was ordered at the time with repeat CXR at 12 PM. Initial CXR showed airspace opacities were noted in R perihilar region. Repeat CXR showed R parahilar opacity was more conspicuous than prior CXR. No evidence of pleural effusion or pneumothorax. IV Meropenem 1000 mg one time dose ordered for empirical treatment of aspiration pneumonia. Heparin was stopped due to possible upper GI bleed and patient placed NPO. Gastric occult blood was reported positive. Packed cells, type & screen ordered for low Hgb of 7.8; transfuse if < 7.0. Trop and BNP were ordered. Trop <0.02 and BNP 5884.87. Lactic acid 6.2. Patient started on Pantoprazole gtt (IV Protonix) 80 mg in NS q10h. ID team consulted to evaluate patient on possible aspiration pneumonia; pt started on IV Meropenem 500 mg in D5W q8h with 7 day stop. Vanco level also ordered; will need to f/u in AM. Original Note: Progress Note (short form) - Note Progress Note: SUBJECTIVE CC: R facial droop, diplopia, slurred speech, weakness HPI: Pt was called for MRI of abdomen; pt was too unstable to perform procedure. Patient was seen and examined today. RN at bedside reported no overnight events ; however, she stated she was not the night nurse and patient is new to her. Patient appeared to be in no acute distress at time of examination (8:00 AM), breathing at 4L NC and denied any SOB, choking sensation, difficulty breathing, pain, and feeling congested. The nurse and I noted that there seemed to be a moist clear stain on her pillow in the mouth region with a few small pieces of food-like items. Patient denied feeling nauseous or vomiting overnight. Towards the end of the examination at approximately 8:25 AM, patient seemed to have difficulty breathing and began trying to cough. When asked if she felt like she was choking, patient nodded. I suctioned out about 10cc of brownish fluid that did not seem to have any coffee ground material. Patient reported she was no longer having difficulty breathing and stated she was "okay". I spoke to one of the floor RNs and asked her to tell the nurse for that the patient requires frequent suctioning. OBJECTIVE Last Vital Signs Temp Pulse Resp BP Pulse Ox 97.3 F L 104 H 18 142/62 97 04/27/17 06:00 04/27/17 06:00 04/27/17 06:00 04/27/17 06:00 04/26/17 21:00 General: Pt appears drowsy but oriented to person (knows full name), place ( hospital) and time (04/27). Head: normocephalic, atraumatic Eyes: Pupils equal, round and reactive to light. EOMI with mild difficulty on R lateral gaze unchanged. No APD, sclera anicteric, conjunctiva clear. Throat: Tongue appears desiccated- unchanged from previous; moist mucous membranes. No food particles or food regurgitation was noted with penlight examination of throat and pharynx. Neck: B/L JVD up to mid-neck. Heart: Heart sounds diminished secondary to increased lung sounds. Irregularly irregular on tele; rate of 107-109 BPM. Lungs: Loud rhonchi noted throughout B/L lungs. Increased lung sounds B/L. Crackles noted in R middle lobe. Abdomen: Soft, NT/ND, +BS in all 4 quadrants; tympanic to percussion in all 4 quadrants. Upper extremities: 2+ radial pulses, warm, well perfused. No cyanosis, clubbing or peripheral edema. Lower extremities: 1+ B/L dorsalis pedis pulse; 2+ B/L PT pulse. No cyanosis, clubbing. Possible trace edema in B/L ankles. 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 Ecchymoses noted on R patellar region. NEUROLOGICAL EXAM: dysarthric. Difficulty word finding compared to previously. Mild R lateral tongue deviation at rest, R facial droop. Patient was able to respond to all commands. Cranial nerves/Muscle strength CN II: Pupils equal, round and reactive to light. CN III/IV/: eyes mild lateral deviation to L side at rest; EOMI with mild difficulty on R lateral gaze unchanged. CN VII: Facial movement asymmetrical, R facial droop with facial expressions. CN VIII: hearing intact to voice and finger rub B/L CN IX/X/XII: tongue mild lateral deviation to R side at rest; pt unable to move tongue completely to R and L. worse moving to L. Gag reflex not tested. CN XI: Motor strength decreased from previously. 3/5 able to rotate head against gravity (not resistance); Shoulder shrug 0/5 muscle strength on R side, shoulder shrug 4/5 muscle strength on L side. Reflexes - Unable to elicit biceps reflex; L patellar +1; R patellar +1 Babinski reflex: + R upwards, - L downwards Sensation: Not tested today; patient appeared fatigued and uncomfortable. Cerebellar fxn: Not tested today; patient appeared fatigued and uncomfortable. Gait: Not tested due to hemiparesis Labs: CBC, BMP 04/27/17 09:10 04/27/17 06:30 Abnormal Lab Results 04/27/17 04/27/17 04/27/17 06:30 06:30 06:30 WBC 20.1 H D RBC 2.60 L Hgb 7.4 L Hct 23.4 L MCHC 31.4 L RDW 16.2 H Neutrophils % (Manual) 88.0 H Lymphocytes % (Manual) 5.0 L PTT (Actin FS) 61.2 H Chloride 108 H Carbon Dioxide 19 L BUN 26 H Creatinine 1.1 H D Random Glucose 188 H D Lactic Acid Calcium 8.0 L Total Bilirubin 2.9 H D AST 4331 H ALT 1648 H D Alkaline Phosphatase 554 H D B-Natriuretic Peptide Total Protein 5.7 L Albumin 2.3 L Crossmatch 04/27/17 04/27/17 04/27/17 09:10 09:10 09:10 WBC 21.9 H RBC 2.77 L Hgb 7.8 L Hct 25.1 L MCHC 30.9 L RDW 16.6 H Neutrophils % (Manual) Lymphocytes % (Manual) PTT (Actin FS) 56.8 H Chloride Carbon Dioxide BUN Creatinine Random Glucose Lactic Acid Calcium Total Bilirubin AST ALT Alkaline Phosphatase B-Natriuretic Peptide Total Protein Albumin Crossmatch See Detail 04/27/17 04/27/17 09:10 09:10 WBC RBC Hgb Hct MCHC RDW Neutrophils % (Manual) Lymphocytes % (Manual) PTT (Actin FS) Chloride Carbon Dioxide BUN Creatinine Random Glucose Lactic Acid 6.2 H* Calcium Total Bilirubin AST ALT Alkaline Phosphatase B-Natriuretic Peptide 5884.87 H Total Protein Albumin Crossmatch Laboratory Results - last 24 hr 04/27/17 04/27/17 04/27/17 06:30 06:30 06:30 WBC 20.1 H D RBC 2.60 L Hgb 7.4 L Hct 23.4 L MCV 90.1 MCH 28.3 MCHC 31.4 L RDW 16.2 H Plt Count 182 D MPV 9.0 Total Counted 100 Neutrophils % (Manual) 88.0 H Band Neutrophils % 1.0 Lymphocytes % (Manual) 5.0 L Monocytes % (Manual) 4 Metamyelocytes 2 Platelet Estimate Adequate PTT (Actin FS) 61.2 H Sodium 138 Potassium 4.6 Chloride 108 H Carbon Dioxide 19 L Anion Gap 11 BUN 26 H Creatinine 1.1 H D Creat Clearance w eGFR 48.04 Random Glucose 188 H D Lactic Acid Calcium 8.0 L Total Bilirubin 2.9 H D AST 4331 H ALT 1648 H D Alkaline Phosphatase 554 H D Creatine Kinase Troponin I B-Natriuretic Peptide Total Protein 5.7 L Albumin 2.3 L Gastric Occult Blood Stool Occult Blood Blood Type Antibody Screen Crossmatch 04/27/17 04/27/17 04/27/17 09:10 09:10 09:10 WBC 21.9 H RBC 2.77 L Hgb 7.8 L Hct 25.1 L MCV 90.7 MCH 28.1 MCHC 30.9 L RDW 16.6 H Plt Count 216 MPV 9.3 Total Counted Neutrophils % (Manual) Band Neutrophils % Lymphocytes % (Manual) Monocytes % (Manual) Metamyelocytes Platelet Estimate PTT (Actin FS) Sodium Potassium Chloride Carbon Dioxide Anion Gap BUN Creatinine Creat Clearance w eGFR Random Glucose Lactic Acid Calcium Total Bilirubin AST ALT Alkaline Phosphatase Creatine Kinase 84 Troponin I < 0.02 B-Natriuretic Peptide Total Protein Albumin Gastric Occult Blood Stool Occult Blood Blood Type A POSITIVE Antibody Screen Negative Crossmatch See Detail 04/27/17 04/27/17 04/27/17 09:10 09:10 09:10 WBC RBC Hgb Hct MCV MCH MCHC RDW Plt Count MPV Total Counted Neutrophils % (Manual) Band Neutrophils % Lymphocytes % (Manual) Monocytes % (Manual) Metamyelocytes Platelet Estimate PTT (Actin FS) 56.8 H Sodium Potassium Chloride Carbon Dioxide Anion Gap BUN Creatinine Creat Clearance w eGFR Random Glucose Lactic Acid 6.2 H* Calcium Total Bilirubin AST ALT Alkaline Phosphatase Creatine Kinase Troponin I B-Natriuretic Peptide 5884.87 H Total Protein Albumin Gastric Occult Blood Stool Occult Blood Blood Type Antibody Screen Crossmatch 04/27/17 04/27/17 11:51 11:51 WBC RBC Hgb Hct MCV MCH MCHC RDW Plt Count MPV Total Counted Neutrophils % (Manual) Band Neutrophils % Lymphocytes % (Manual) Monocytes % (Manual) Metamyelocytes Platelet Estimate PTT (Actin FS) Sodium Potassium Chloride Carbon Dioxide Anion Gap BUN Creatinine Creat Clearance w eGFR Random Glucose Lactic Acid Calcium Total Bilirubin AST ALT Alkaline Phosphatase Creatine Kinase Troponin I B-Natriuretic Peptide Total Protein Albumin Gastric Occult Blood Positive Stool Occult Blood Negative Blood Type Antibody Screen Crossmatch INR, PTT INR 1.66 (0.82-1.09) H 04/25/17 06:00 Fibrinogen 195.0 mg/dL (238-498) L 04/19/17 05:00 Hepatic Panel Total Bilirubin 2.9 mg/dL (0.2-1.0) H D 04/27/17 06:30 Direct Bilirubin 0.9 mg/dL (0.0-0.2) H 04/24/17 06:00 AST 4331 U/L (15-37) H 04/27/17 06:30 ALT 1648 U/L (12-78) H D 04/27/17 06:30 Alkaline Phosphatase 554 U/L (45-117) H D 04/27/17 06:30 Albumin 2.3 g/dl (3.4-5.0) L 04/27/17 06:30 Microbiology 04/25/17 01:27 Blood - Peripheral Venous Blood Culture - Preliminary NO GROWTH OBTAINED AFTER 48 HOURS, INCUBATION TO CONTINUE FOR 3 DAYS. 04/25/17 01:27 Blood - Peripheral Venous Blood Culture - Preliminary NO GROWTH OBTAINED AFTER 48 HOURS, INCUBATION TO CONTINUE FOR 3 DAYS. 04/24/17 13:25 Urine - Urine Edwards Urine Culture - Preliminary Group D Strep Or Entero Coccus 04/17/17 16:10 Blood - Peripheral Venous Blood Culture - Final NO GROWTH AFTER 5 DAYS INCUBATION 04/17/17 16:10 Blood - Peripheral Venous Blood Culture - Final NO GROWTH AFTER 5 DAYS INCUBATION 04/20/17 11:00 Nares - Mrsa Screen - Left MRSA Screen - Final NO MRSA ISOLATED 04/20/17 11:00 Nares - Right Nares MRSA Screen - Final NO MRSA ISOLATED 04/18/17 18:00 Urine - Urine Edwards Urine Culture - Final NO GROWTH OBTAINED Active Medications Generic Name Dose Route Start Last Admin Trade Name Freq PRN Reason Stop Dose Admin Acetaminophen 650 mg 04/25/17 00:53 04/25/17 21:22 Tylenol - PO 650 mg Q6H PRN Administration FEVER OR PAIN Albuterol/Ipratropium 1 amp 04/25/17 13:49 04/26/17 22:12 Duoneb - NEB 1 amp Q4H PRN Administration SHORTNESS OF BREATH Atorvastatin Calcium 40 mg 04/20/17 22:00 04/26/17 23:11 Lipitor - PO 40 mg HS ELANA Administration Diltiazem HCl 60 mg 04/27/17 10:00 Cardizem - PO Q6HPO [facility] Heparin Sodium (Porcine) 5,000 unit 04/24/17 16:45 Heparin - IVPUSH PRN PRN Heparin Sodium (Porcine) 1,000 unit 04/24/17 16:45 Heparin - IVPUSH PRN PRN Heparin Sodium/Dextrose 25,000 units in 500 mls @ 20 mls/hr 04/24/17 16:45 23:30 Heparin Infusion - IVPB 850 units/hr TITR ELANA 17 mls/hr Protocol Administration 1,000 UNITS/HR Polyethylene Glycol 17 gm 04/21/17 16:15 04/26/17 23:12 Miralax (For Daily Use) - PO 17 gm BID ELANA Administration Ranitidine HCl 150 mg 04/21/17 10:00 04/26/17 09:08 Zantac - PO 150 mg DAILY ELANA Administration Tamsulosin HCl 0.4 mg 04/27/17 08:30 Flomax - PO DAILY@0830 [facility] ASSESSMENT/PLAN 77 year old woman with PMHx of paroxysmal afib, colon ca w/ liver mets s/p liver resection & colectomy, HTN, HLD, PUD and diverticulosis admitted for R side facial droop, R hand weakness and dysarthria that resolved then worsened during admission to include fixed R hemiparesis. Pt became severely bradycardic with change in cardizem dose and cardiac condition remains unstable on physical exam. #Symptomatic severe bradycardia - Pt had multiple episodes of prolonged AV steven conduction block with atrial flutter after cardizem Cd was increased to 360 mg PO daily from 240 mg PO daily - Pt was switched to cardizem 60 mg q6h; atropine/external pacing pads were placed at bedside overnight if hemodynamically unstable #Possible HAP vs. aspiration pneumonia vs.CHF - lactic acid 04/25 1:27 1.1 (normal); lactic acid now increased at 6.2 - duoneb 1 amp neb q4hr PRN; given 1 amp 04/25 22:30 - tylenol 650 mg PO q6h PRN fever - Vancomycin 1 g daily - awaiting ID, pending; 1st dose ok 250 cc/hr; given 04/25 02:45 - fluids stopped 04/25 due to possible fluid overload - JVD, wheezing as reported by night team; continue to hold fluids - finalized urine culture results: no growth from Edwards - gastric occult blood positive; order GI consult #Acute multi-infarct CVA - MRI w/ multiple bilateral cerebral/cerebellar infarcts and large infarct in L MCA territory. Pt with R sided hemiparesis/ paralysis, dysarthria. - IV Hep restarted - 850 U/hr, 17 cc/hr; IV Hep currently held since GI occult blood positive - Serial neuro exams qshift - Atorvastatin 40mg daily - Neurology following. Recs appreciated. 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 Hold off on beginning coumadin until after further evaluation of abdomen (MRI, MRCP) in case biliary stent is needed ; all AC currently held due to occult gastric bleed. #Afib - Pt on xarelto for AC as outpatient. - IV Hep - 850 U/hr, 17 cc/hr -- all AC currently held due to occult gastric blood being positive. - Cardiology following. Recs appreciated. - short acting cardizem 60 mg q6h #Mild HERBERTH - BUN/Cr 23/1.2 on admission. - IVF currently held secondary to possible symptomatic fluid overload - Daily BMPs; continue to trend BUN/Cr #Anemia - Hb 7.8 04/27 Hb 7.8 04/26 Hb 8.2 04/23 Hb 8.7 04/22 Hb 9.7 04/21 - Continue to Trend H/H; transfuse if Hb below 7.0 - Type & screen completed for possible transfusion - Occult gastric blood + - High risk of bleeding/clotting given malignancy, liver mets, baseline elevated INR - Heme/onc following. Continued recs appreciated. #Urinary retention - Edwards cath placed 04/27 due to continued urinary retention and failure of voiding trials. - continue to monitor urine output and I&Os #Liver mets - Oncology team following - RUQ U/S w/ doppler 04/24 for elevated liver enzymes - no abnormalities in vascular flow, limited due to presence of liver mets. - MRI of abdomen w/o contrast ordered 04/25 for evaluation of dilated CBD (as seen on US) and possible need for biliary stent placement; pt was unable to undergo procedure today 04/27 since currently unstable. - Trend LFTs; elevated hepatic panel could be secondary to shock liver from hypoperfusion. - Will need outpt f/u for further management #HTN - Short acting cardizem 60 mg q6h - Monitor closely for bradycardia, hypotension #HLD - Atorvastatin 40mg PO daily #Chronic back pain - MS contin 15mg BID PO #PUD - Zantac 150 mg PO daily #PPX: - SCDs FEN: Fluids: currently held secondary to possible symptomatic fluid overload Electrolytes: Trend BUN/Cr Nutrition: chopped diet with nectar thickened liquids Code status: DNR/DNI
[2017-04-27 07:25] LABS: MCH 28.3 pg (25.7-33.7); MCHC 31.4 g/dl (32.0-36.0); MEAN CELL VOLUME 90.1 fl (80-96); PLATELET COUNT 182 K/MM3 (134-434); RDW 16.2 % (11.6-15.6); WHITE BLOOD COUNT 20.1 K/mm3 (4.0-10.0)
[2017-04-27 08:34] LABS: ALBUMIN 2.3 g/dl (3.4-5.0); ALK PHOS 554 U/L (45-117); ANION GAP 11 (8-16); BILIRUBIN,TOTAL 2.9 mg/dL (0.2-1.0); CO2 19 mmol/L (21-32); CREATININE 1.1 mg/dL (0.55-1.02); GLUCOSE,RANDOM 188 mg/dL (74-106); TOT PROT 5.7 g/dl (6.4-8.2)
[2017-04-27 08:35] LABS: SGOT/AST 4331 U/L (15-37); SGPT/ALT 1648 U/L (12-78)
[2017-04-27] MEDS ORDERED: FUROSEMIDE 40 MG/4 ML INJECTABLE VIAL ONE (08:39)
[2017-04-27] MEDS: TAMSULOSIN HCL 0.4 MG CAP.ER.24H (FP) PO SCH (09:00)
--- NOTE | 2017-04-27 09:14 | HOSP ---
Subjective - Review of Symptoms Events since last encounter: called for pt being hypoxic. she denies SOB , VS: BP 183/90, HR 123 , Sat O2 62%. pt is in distress, tachypnic gurgling, JVD, R lung crackles , gave a stat dos eof lasix and placed on venti mask then BIPAP 100%, 12/5. sat improved to 100% moving her L side, strength 5/5 . follows commands ,. wake then RN suctioned coffee ground material from her mouth. - stat cxray : vascular congestion , no consolidation - EKG , no ischemic changes , AFIB with RVR - trop , BNP, repeat trop. - rectal with green stool . tested for OB: neg - stop heparin gtt. - concern for bleed with droping HB, suctioned black material - send suctioned material for guaiac - son at bed side updated. still no intubation , DNR/DNI -overall, difficult to determine what happened , but likely she aspirated , as some secretions and food particles were found on her pillow. will follow up on ordered labs. blood on hold. start meropenem empirically for aspiration PNA. leukocytosis has worsened . allergic to PCN, unknown allergy Physical Examination Vital Signs: Vital Signs Temperature 97.3 F L 04/27/17 06:00 Pulse Rate 104 H 04/27/17 06:00 Respiratory Rate 18 04/27/17 06:00 Blood Pressure 142/62 04/27/17 06:00 O2 Sat by Pulse Oximetry (%) 97 04/26/17 21:00 Labs: CBC, BMP 04/27/17 06:30 04/27/17 06:30 Critical Care Total Critical Care Time (in minutes): 50 Critical Care Statement: The care of this patient involved high complexity decision making to prevent further life threatening deterioration of the patient 's condition and/or to evaluate & treat vital organ system(s) failure or risk of failure.
[2017-04-27 09:28] LABS: MCH 28.1 pg (25.7-33.7); MCHC 30.9 g/dl (32.0-36.0); MEAN CELL VOLUME 90.7 fl (80-96); MEAN PLT VOLUME 9.3 fl (7.5-11.1); PLATELET COUNT 216 K/MM3 (134-434); RDW 16.6 % (11.6-15.6); WHITE BLOOD COUNT 21.9 K/mm3 (4.0-10.0)
[2017-04-27] MEDS ORDERED: MEROPENEM 500 MG in DEXTROSE 5%-WATER - 100 ML IVPB ONE (09:33)
[2017-04-27 09:54] LABS: CPK 84 IU/L (26-192)
[2017-04-27 09:55] LABS: TROPONIN I < 0.02 ng/ml (0.00-0.05)
[2017-04-27] MEDS: dilTIAZem HCL 60 MG TABLET (FP) PO SCH ×3 (10:00→23:42)
[2017-04-27] MEDS: POLYETHYLENE GLYCOL 3350 119 GM BTL PO SCH ×2 (10:00→21:03)
[2017-04-27] MEDS ORDERED: MEROPENEM 500 MG PUSH 500 MG/10 ML DISP.SYRIN IVPB ONE (10:00)
[2017-04-27] MEDS: RANITIDINE HCL 150 MG TABLET (FP) PO SCH (10:00)
--- NOTE | 2017-04-27 10:40 | PN ---
Progress Note (short form) - Note Progress Note: Neurologically she has had no change, but had significant respiratory decompensation and hasn't been doing well overnight. She is thought to have possibly aspirated and put on antibiotics. She has DNR/ DNI status. Problem List - Problems (1) Lacunar infarction Code(s): I63.9 - CEREBRAL INFARCTION, UNSPECIFIED (2) Cancer, metastatic to liver Code(s): C78.7 - SECONDARY MALIG NEOPLASM OF LIVER AND INTRAHEPATIC BILE DUCT (3) Paroxysmal atrial fibrillation Code(s): I48.0 - PAROXYSMAL ATRIAL FIBRILLATION
--- NOTE | 2017-04-27 10:54 | PN ---
Progress Note, Physician History of Present Illness: PULMONARY AWAKE,EARLIER EVENTS NOTED DEVELOPED INCREASED RESP DISTRESS,HYPOXEMIA,PLACED ON BIPAP WITH IMPROVEMENT . - Current Medication List Current Medications: Active Medications Acetaminophen (Tylenol -) 650 mg PO Q6H PRN PRN Reason: FEVER OR PAIN Last Admin: 04/25/17 21:22 Dose: 650 mg Albuterol/Ipratropium (Duoneb -) 1 amp NEB Q4H PRN PRN Reason: SHORTNESS OF BREATH Last Admin: 04/26/17 22:12 Dose: 1 amp Atorvastatin Calcium (Lipitor -) 40 mg PO HS [facility] Last Admin: 04/26/17 23:11 Dose: 40 mg Diltiazem HCl (Cardizem -) 60 mg PO Q6HPO [facility] Heparin Sodium (Porcine) (Heparin -) 5,000 unit IVPUSH PRN PRN Heparin Sodium (Porcine) (Heparin -) 1,000 unit IVPUSH PRN PRN Heparin Sodium/Dextrose (Heparin Infusion -) 25,000 units in 500 mls @ 20 mls/ hr IVPB TITR ELANA; 1,000 UNITS/HR PRN Reason: Protocol Last Admin: 04/26/17 23:30 Dose: 850 units/hr, 17 mls/hr Pantoprazole Sodium 80 mg/ (Sodium Chloride) 100 mls @ 10 mls/hr IVPB Q10H [facility] PRN Reason: 8 MG/HR Polyethylene Glycol (Miralax (For Daily Use) -) 17 gm PO BID [facility] Last Admin: 04/26/17 23:12 Dose: 17 gm Ranitidine HCl (Zantac -) 150 mg PO DAILY [facility] Last Admin: 04/26/17 09:08 Dose: 150 mg Tamsulosin HCl (Flomax -) 0.4 mg PO DAILY@0830 [facility] - Objective Vital Signs: Vital Signs Temperature 97.3 F L 04/27/17 06:00 Pulse Rate 104 H 04/27/17 06:00 Respiratory Rate 18 04/27/17 06:00 Blood Pressure 142/62 04/27/17 06:00 O2 Sat by Pulse Oximetry (%) 97 04/26/17 21:00 Constitutional: Yes: Well Nourished Eyes: Yes: WNL HENT: Yes: WNL Neck: Yes: WNL Cardiovascular: Yes: Pulse Irregular, S1, S2 Respiratory: Yes: Rhonchi (BILATERAL RHONCHI) Gastrointestinal: Yes: Normal Bowel Sounds, Soft Extremities: Yes: WNL Edema: No Labs: CBC, BMP 04/27/17 09:10 04/27/17 06:30 INR, PTT INR 1.66 (0.82-1.09) H 04/25/17 06:00 Fibrinogen 195.0 mg/dL (238-498) L 04/19/17 05:00 - ....Imaging Chest X-ray: Report Reviewed, Image Reviewed (INCREASED MAKING R) Problem List - Problems (1) CVA (cerebral vascular accident) Code(s): I63.9 - CEREBRAL INFARCTION, UNSPECIFIED (2) Anemia Code(s): D64.9 - ANEMIA, UNSPECIFIED (3) Cancer, metastatic to liver Code(s): C78.7 - SECONDARY MALIG NEOPLASM OF LIVER AND INTRAHEPATIC BILE DUCT (4) Lacunar infarction Code(s): I63.9 - CEREBRAL INFARCTION, UNSPECIFIED (5) TIA (transient ischemic attack) Code(s): G45.9 - TRANSIENT CEREBRAL ISCHEMIC ATTACK, UNSPECIFIED (6) Dyspnea Code(s): R06.00 - DYSPNEA, UNSPECIFIED (7) Bronchospasm Code(s): J98.01 - ACUTE BRONCHOSPASM (8) Acute bronchospasm Code(s): J98.01 - ACUTE BRONCHOSPASM (9) Asthma Code(s): J45.909 - UNSPECIFIED ASTHMA, UNCOMPLICATED (10) Afib Code(s): I48.91 - UNSPECIFIED ATRIAL FIBRILLATION Assessment/Plan Impression: Acute hypoxemic respiratory failure Likely aspiration Bronchospasm SOB Hypercoaguable state likely causing [employer] COMM[employer]GER events with multiple infarcts. Atrial fib Colon ca Liver masses suspicious for mets Anemia Thrombocytopenia improved Asthma Acute kidney injury Fever Plan inhaled bronchodilators supplemental o2,nippv antibiotics as per ID f/u chest x-rays monitor zoë npo DR MARTIN
[2017-04-27] MEDS: PANTOPRAZOLE SODIUM 80 MG in SODIUM CHLORIDE 100 ML IVPB SCH ×2 (11:16→21:38)
[2017-04-27 11:33] LABS: TOTAL CELLS COUNTED 100
[2017-04-27 11:34] LABS: METAMYELOCYTE 2 % (0-2); PLATELET ESTIMATE ADEQUATE
--- NOTE | 2017-04-27 12:13 | PN ---
Progress Note, [employer] - Note Progress Note: Coffee ground emesis last evening with suspected aspiration, per nursing, CR noted. Selected Entries 04/26/17 04/26/17 04/26/17 02:00 05:42 10:00 Temperature 98.1 F 98.6 F 99.1 F 04/26/17 04/26/17 04/26/17 15:54 18:16 21:49 Temperature 101.6 F H 98.3 F 99.3 F 04/27/17 04/27/17 02:00 06:00 Temperature 99.7 F H 97.3 F L Laboratory Tests 04/26/17 04/27/17 04/27/17 05:40 06:30 09:10 WBC 9.5 20.1 H D 21.9 H Pt DNR/DNI. On BIPAP. NPO
--- NOTE | 2017-04-27 14:24 | PN ---
Progress Note (short form) - Note Progress Note: ID consult dictated imp/reccd 77 year old female history of coloncancer s/p chemo and partial liver resection , history of afib admitted with 2 week history of anorexia, then with acute onset neuro deficits prompting admission to the hospital. earlier the day of admission 04/16 she had come [facility] the hosp[facility] for elective ct scans that showed multiple liver mets- the largest bring 11 cm! now with CVA- she had self d/rocio her xarelto 2 days prior to this has had some intermittent fevers and rising bilirubin sonogram of the liver showed multiple masses and dilated CBD urine culture with enterococcus this am she was found to be acutely hypoxic with elevated wbc to 20 and lactic acid of 6. she was noted to have coffee grounds upon suctioning LFTS markedly elevated as well sepsis- ?acute aspiration, ?biliary disease, ?uti s/p cva liver mets penicillin allergy blood cultures meropenem f/u vanco level in am d/w family at bedside d/w hospitalist
--- NOTE | 2017-04-27 15:06 | PN ---
Teaching Attending Note Name of Resident: Jesus Hidalgo ATTENDING PHYSICIAN STATEMENT I saw and evaluated the patient. I reviewed the resident's note and discussed the case with the resident. I agree with the resident's findings and plan as documented. SUBJECTIVE: seen again. feels better, has heaviness on her chest since AM. denies Abd pain. OBJECTIVE: NAD, AAOX3. BIPAP mask on. CV: irreg irreg, NO JVD now Lung: course rales b/l lungs Ext: trace edema, no erythema. ASSESSMENT AND PLAN: 77 y/o unfortunate lady with h/o A fib, TIAx2 , colon cancer and newly diagnosed liver mass HLP, PUD and other medical problems who presented with facial droop , dysarthria, and R sided weakness. Hospital course was complicated with acute resp failure requiring BIPAP 1- Acute Hypoxic resp failure: events as per hospitalist encounter this am. Possibly the patient had an aspiration event. also , pt was tachycardic, and had JVD , and lasix provided some relief, which indicates a component of heart failure. - cont BIPAP , 04/27 , but decrease FiO2 to 50 %, and try to switch to venti mask if possible - repeat cxray reviewed. - treat aspiration PNA. d/w Dr. Yepez who agrees with meropenem . - repeat blood cx - CT scan of chest offered , but family declined . - D/W Dr. Faulkner who will evaluate again later for further Recs on diuresis 2- Upper GI bleed: aspirated material was positive for Blood , indicating a possible upper GI bleed. - cont to hold Heparin gtt. the risk of anticoagulating her at this point overweight the benefits. family undersatnds the risk of recurrent stroke - PPI gtt 3- Worsening LFTS: unclear why the acute jump happened. ? congestive, or obstructive process. vs ischemic process. - CT of abd declined by family - Hold off MRCP at this point, also per family whishes. - manage conservatively. 4- Severe sepsis : source could be aspiration PNA or cholangitis . lactic can be from severe hypoxia this am, but also form ischemia or infection - cont meropenem - blood cx - cT abd/pelvis declined by family 5- Afib with RVR: now HR is better after treating the resp distress - cotn cardizem if toelrated by BP - no AC at this point 6- HERBERTH: monitor closely in setting of all above 7- DNR/DNI. plan d/w family multiple times today. they understand the whole big picture of terminal cancer and poor prognosis and want to focus on comfort. will consult palliative care . DNR/DNI A
--- NOTE | 2017-04-27 15:15 | PN ---
Progress Note (short form) - Note Progress Note: Chief Complaint: cva History of Present Illness: hypoxia overnight. given IV lasix this morning, placed on bipap. remains tachypneic. Possible episode of emesis with concern for upper GIB --> hep gtt held. patient denies complaints but family states she has not been able to verbalize distress. Family states patient more sleepy today. episodes of SVR with RR delays approaching 3 seconds yesterday afternoon --> diltiazem dose decreased. Today with RVR this morning when in distress. HR now trending down. LFT's acutely worse today. Lactate significantly elevated. Current Medications Acetaminophen (Tylenol -) 650 mg PO Q6H PRN PRN Reason: FEVER OR PAIN Last Admin: 04/25/17 21:22 Dose: 650 mg Albuterol/Ipratropium (Duoneb -) 1 amp NEB Q4H PRN PRN Reason: SHORTNESS OF BREATH Last Admin: 04/26/17 22:12 Dose: 1 amp Atorvastatin Calcium (Lipitor -) 40 mg PO HS ELANA Last Admin: 04/26/17 23:11 Dose: 40 mg Diltiazem HCl (Cardizem -) 60 mg PO Q6HPO ELANA Last Admin: 04/27/17 10:00 Dose: Not Given Heparin Sodium (Porcine) (Heparin -) 5,000 unit IVPUSH PRN PRN Heparin Sodium (Porcine) (Heparin -) 1,000 unit IVPUSH PRN PRN Heparin Sodium/Dextrose (Heparin Infusion -) 25,000 units in 500 mls @ 20 mls/ hr IVPB TITR ELANA; 1,000 UNITS/HR PRN Reason: Protocol Last Admin: 04/26/17 23:30 Dose: 850 units/hr, 17 mls/hr Pantoprazole Sodium 80 mg/ (Sodium Chloride) 100 mls @ 10 mls/hr IVPB Q10H ELANA PRN Reason: 8 MG/HR Last Admin: 04/27/17 11:16 Dose: 10 mls/hr Meropenem (Merrem (Restricted To Id) -) 500 mg in 10 mls @ 60 mls/hr IVPUSH Q8H -IV ELANA Polyethylene Glycol (Miralax (For Daily Use) -) 17 gm PO BID ELANA Last Admin: 04/27/17 10:00 Dose: Not Given Ranitidine HCl (Zantac -) 150 mg PO DAILY [facility] Last Admin: 04/27/17 10:00 Dose: Not Given Tamsulosin HCl (Flomax -) 0.4 mg PO DAILY@0830 [facility] Last Admin: 04/27/17 09:00 Dose: Not Given - Objective Vital Signs: Vital Signs - 24 hr 04/26/17 04/26/17 04/26/17 15:54 18:16 21:00 Temperature 101.6 F H 98.3 F Pulse Rate 83 95 H Respiratory 16 18 18 Rate Blood Pressure 143/74 146/81 O2 Sat by Pulse 97 Oximetry (%) 04/26/17 04/27/17 04/27/17 21:49 02:00 06:00 Temperature 99.3 F 99.7 F H 97.3 F L Pulse Rate 115 H 109 H 104 H Respiratory 18 18 18 Rate Blood Pressure 146/90 164/70 142/62 O2 Sat by Pulse Oximetry (%) 04/27/17 04/27/17 04/27/17 08:50 11:55 14:34 Temperature Pulse Rate Respiratory Rate Blood Pressure O2 Sat by Pulse 98 97 95 Oximetry (%) Intake & Output 04/25/17 04/26/17 04/27/17 04/28/17 07:59 07:59 07:59 07:59 Intake Total 1380 627 304 Output Total 400 1100 400 Balance 980 -473 -96 Constitutional: Yes: Well Nourished, No Distress, Calm. tachypneic no jvd Cardiovascular: Yes: Pulse Irregular, S1, S2. No: Gallop, Murmur Respiratory: Yes: Regular, Rales (L base), Wheezes (L base). No: Accessory Muscle Use Extremities: No: Cold Neurological: Yes: Alert. No: Seizure Psychiatric: No: Agitated no edema abdomen appears mildly distended. + bs, soft, nt Labs: CBC, BMP 04/27/17 09:10 04/27/17 06:30 - ....Imaging EKG: Other (tele: AF 90s-120s, RR delay of just under 3 seconds yesterday afternoon. breakthrough RVR this morning to 120's. Now VR trending down to 100 's) Assessment/Plan carotids: mild athero, no stenosis echo 03/2017: tds; nl lv, rv not seen, mild lily, mild mr, mild pr, mild tr, mod ar, nl rvsp MRI brain: multiple bilateral cerebral and cerebellar acute infarcts; trace amount of acute petechila blood in L frontal infarct Patient with worsening respiratory status. Also with sig worsening of lfts. lactate elevated. Mild improvement with lasix this am. Reevaluating goals of care. 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 PAF, sick sinus syndrome: -intolerant of low dose metoprolol and bystolic at low doses (profound fatigue, bronchospasm) -has tolerated high dose diltiazem (without signif GERD s.e.) -tolerated digoxin in past, but stopped given age and decr GFR--could add back if rapid HRs -rapid AF 150s on 04/18, began when pt was transported back to the floor from testing. she had not received any of her home cardizem CD 360 mg since admit, hence this may have contributed. Given very short AF duration, with pt's previously known refractory HRs (160) despite this dose of cardizem as outpt, and marked intolerance to even low doses of BB, she was pharmacologically cardioverted with amio bolus. shelter po amio not a good option given lab evidence of liver dysfunction (albumin 3.0, LFTs all up) with mult liver tumors per dr kothari --> stopped amio gtt and resumed home cardizem (c/b difficulty swallowing pills --> changed to short-acting dilt 90mg q6h to be crushed for her , though not a good long-term option--reassess once appetite/GI tolerance improves). -if recurrent rapid AF, will consider flecainide or other anti-arrhythmic, with EP input (if any are safe with liver dysfunction) -hope to avoid AVN ablation/PPM; -04/19: currently sinus esteban 40s consistently, ? hi vagal tone given ongoing GI sx's and bedrest decr diltiazem dose - 04/20-04/23: bradycardia improved, con't same mgm't. can change to long acting cardizem when able to tolerate (cannot be crushed). -04/24-3: on long acting dilt now. monitor tele, may need to increase dose if still with rvr. -04/26: per neuro, clinical presentation c/w embolic shower and she is cleared to begin coumadinization (see their 04/25 note)--however holding until MRCP completed (? needs biliary stent). continuing therapeutic UFH gtt for now. rapid HRs at times--agree with incr cardizem CD dose as doing - 04/27: RR delay approaching 3 seconds after cardizem dose increased --> decreased back down. Elevation in HR this morning likely related to clinical deterioration ? aspiration/GIB. Ongoing mgm't per pmd. Holding AC due to concern for GIB. HTN: -stable CKD: -baseline creat runs 1.1-1.5 -renal fxn stable here. 04/19 hyponatremia slightly worse. IVF changed from D5 to NS. CAD: -cor calcium score intermediate (slightly above 50th %ile) -MPI in past equivocal ? apical ischemia vs variable breast artifact -never had anginal sx's -ecg no acute ischemic changes here -04/27 hold statin in light of liver abnormalities. Holding AC 2/2 possible GIB. Will not replace with ASA until GIB clarified. HPL: -hold statin asthma: -intolerant of B-B in past -mild wheezing at L base heard today, no sx's with this. L base looks clear on cxr. +/-JVD (EJs) noted. routine asthma meds per hospitalist. defer lasix, observe clinically - 04/27 hypoxia: appears to have improved s/p lasix this am, but cxr without clear signs of edema/congestion. Discussed with pmd, possible aspiration overnight --> plan for further evaluation with assess pulmonary edema vs. infection ? aspiration with chest/abd CT (also to evalute abdominal sx's). --> family declining. colon cancer with liver mets/anemia/anorexia/abd pain: -? sx's related to tumor -all LFTs mildly elevated, abd distended -per hospitalist +/- Onc as indicated GOC: + clinical deterioration, poor prognosis. GOC discussions ongoing
[2017-04-27] MEDS: MEROPENEM 500 MG PUSH 500 MG/10 ML DISP.SYRIN IVPUSH SCH (17:08)
[2017-04-27] MEDS: HEPARIN INFUSION - 25,000 UNITS/500 ML INFUS.BAG IVPB SCH (17:08)
[2017-04-27 17:42] LABS: MCHC 31.2 g/dl (32.0-36.0); MEAN CELL VOLUME 89.6 fl (80-96); MEAN PLT VOLUME 9.3 fl (7.5-11.1); PLATELET COUNT 142 K/MM3 (134-434); RDW 16.8 % (11.6-15.6)
[2017-04-27] MEDS ORDERED: MEROPENEM 500 MG VIAL (RESTRICTED TO ID) IVPB SCH (18:00)
--- NOTE | 2017-04-27 18:29 | CONS ---
DATE OF CONSULTATION: DATE OF DICTATION: 04/27/2017 INFECTIOUS DISEASE CONSULTATION REQUESTING PHYSICIAN: Hospitalist Service CONSULTING PHYSICIAN: Jacobo Sanchez M.D. HISTORY OF PRESENT ILLNESS: This is a 77-year-old woman who was admitted on the 16 of April when she had some acute neurologic changes. Prior two weeks she had had anorexia and abdominal discomfort. That morning she had come to the hospital and had CAT scans of her chest and abdomen that showed multiple liver metastases, the largest being 11 cm. That evening developed neurologic deficits, and came to the hospital, was found to have an acute CVA. She has a history as well of colon cancer status post chemotherapy and partial liver resection many years ago, has been having serial imaging studies that have been unremarkable. She has a history of atrial fibrillation as well and had self-discontinued her Xarelto 2 days prior to admission. During the course of her admission, she has had some intermittent fevers and a rising bilirubin. She had an ultrasound of her abdomen and pelvis done that showed again multiple liver metastases as well as an enlarged CBD. She had a urine culture sent that showed enterococcus. She was given 2 doses of vancomycin, given a PENICILLIN allergy; the nature of the allergy is unclear, as her family was only aware that it has been since childhood. They do not know the nature of the allergy. This morning she was noted to be hypoxic. She was found to have an elevated white count of 20,000, a possible infiltrate on x-ray as well. On suctioning, she was noted to have coffee grounds, and her heparin drip was stopped. Family reports has been eating very poorly. She has been evaluated by speech with a modified barium swallow, and was being fed a chopped diet. She is currently alert on BiPAP. 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 She has a history of hypertension, hyperlipidemia, as well. SURGICAL HISTORY: Notable for cholecystectomy, appendectomy. She had a liver resection. Breast cyst excision. She had a bowel resection. SOCIAL HISTORY: She is a former smoker. She is an artist. She spent the summer in [place] at her cabin, returned only in February at which point she had complaints of GI symptoms FAMILY HISTORY: Unremarkable. ALLERGIES: BYSTOLIC, , and PENICILLIN. Nature of the PENICILLIN allergy is not known by the family. MEDICATION: At home included Xarelto, Protonix, atorvastatin, Aldactone, Cozaar, and Cardizem. REVIEW OF SYSTEMS: Is currently as reported to be in the HPI. The patient is alert but unable to give me any report of complaints. She is on BiPAP. PHYSICAL EXAMINATION: General: She is on BiPAP at 50% saturating 95, temperature is 97.3, pulse is 104, blood pressure 142/62, respiratory rate 18. HEENT: She is awake and alert. Normocephalic. Eyes are mildly icteric. Neck: Supple. Lungs: Diminished breath sounds at the bases. Heart: Regular rate and rhythm. Abdomen: Slightly distended. Soft, nontender. She has an enlarged liver and she has with a palpable liver edge, and she has ascites. Extremities: Without edema. LABORATORY: White count is 21.9, hemoglobin 7.8, platelets are 216. Her BUN and creatinine are 26 and 1.1 with a total bilirubin of 2.9, AST of 4331, ALT of 1648, and alkaline phosphatase of 554. Her lactic acid is 6.2. She has a urine culture from the 2nd with enterococcus. Chest x-ray was done and read as a possible right perihilar infiltrate. IMPRESSION: In summary, this is a 77-year-old woman with sepsis, possibly secondary to acute aspiration, possibly biliary with the liver masses and the large common bile duct , possible urinary tract infection, worsening liver function tests, status post cerebrovascular accident, atrial fibrillation, currently liver metastases of unknown primary and lastly PENICILLIN allergy. Would recommend blood cultures, would continue meropenem. She received dose of vancomycin this morning, would get a level in the morning. Given her PENICILLIN allergy, and the need for both gram-negative as well as anaerobic coverage, meropenem would continue as ordered. Overall status is guarded. Discussed at length with the families at the bedside as well as in the hospital. JACOBO SANCHEZ M.D. [id number]
[2017-04-27] MEDS: morphine SULFATE 4 MG/ML VIAL IVPUSH PRN (18:58)
[2017-04-27] MEDS: ATORVASTATIN CA 40 MG TABLET (FP) PO SCH (21:02)
[2017-04-27 23:47] LABS: MCH 28.1 pg (25.7-33.7); MEAN CELL VOLUME 87.8 fl (80-96); MEAN PLT VOLUME 9.6 fl (7.5-11.1); PLATELET COUNT 114 K/MM3 (134-434); RDW 16.7 % (11.6-15.6); WHITE BLOOD COUNT 15.3 K/mm3 (4.0-10.0)
[2017-04-28] MEDS ORDERED: PT OWN MED DRAWER 7, Y5N ONE ×3 (01:21→22:32)
[2017-04-28] MEDS: MEROPENEM 500 MG PUSH 500 MG/10 ML DISP.SYRIN IVPUSH SCH ×2 (01:26→09:41)
[2017-04-28] MEDS: dilTIAZem HCL 60 MG TABLET (FP) PO SCH (05:11)
[2017-04-28] MEDS: PANTOPRAZOLE SODIUM 80 MG in SODIUM CHLORIDE 100 ML IVPB SCH (06:07)
--- NOTE | 2017-04-28 07:08 | PN ---
Physical Exam: SUBJECTIVE: Patient seen and examined by me this AM - Heparin gtt held. Received 2u prbcs overnight. - PPI gtt started overnight per Dr. Melgar - Pt appears better today. Still on bipap. No major events overnight. Denies any fever/chills, CP/palps, SOB/cough, N/V, abdominal pain, peripheral edema, new neuro symptoms. No MERCER/lightheadness. - Will attempt to wean down to NRB. Patient likely in acute fulminant liver failure 2/2 to HF OBJECTIVE: Vital Signs Intake & Output 04/25/17 04/26/17 04/27/17 04/28/17 23:59 23:59 23:59 23:59 Intake Total 1288 119 754 Output Total 600 500 500 80 Balance 688 -381 254 -80 Period Temp Pulse Resp BP Sys/Sheppard Pulse Ox Last 24 Hr 98.4 F-99.7 F 102-116 20-36 102-182/50-91 95-98 GENERAL: A&Ox2. Somnolent, resting in bed comfortably w/ bipap mask on HEAD: NCAT. Jaundiced EYES: Pupils equal, round and reactive to light, sclera icteric, conjunctiva clear. No lid lag. No visual field defect. EOMI intact EARS, NOSE, THROAT: MIld R tongue deviation, L uvular deviation. Ears normal, nares patent, oropharynx clear without exudates. Moist mucous membranes. NECK: Normal range of motion, JVD, or masses. LUNGS: Still with bibasilar crackles, R>L. Course breath sounds. No wheezes. No accessory muscle use. HEART: Irregularly irregular, normal S1 and S2 without murmur, rub or gallop. ABDOMEN: Less rigid, distended, normoactive bowel sounds, no rebound, no masses. No hepatomegaly or splenomegaly. Negative fluid wave. UPPER EXTREMITIES: 2+ pulses, warm, well-perfused. No cyanosis. No clubbing. LOWER EXTREMITIES: 2+ pulses, warm, well-perfused. No calf tenderness. No peripheral edema. NEUROLOGICAL: Still with Minimal dysarthria. R lateral tongue deviation, R facial droop. BL symmetric facial sensation to light touch. Neuro status largely unchanged. 0/5 shoulder shrug on R side, 5/5 L side. 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 0/5 R hand, arm. 5/5 strength in L arm, leg grossly. Legs: 1/5 in R proximal muscle groups. 2/5 dorsi/plantar flexion in R leg Still with no sensation light touch in R arm. Endorses no sensation to light touch on R leg, + on L. unable to evaluate gait, bedbound. 2+ L biceps, patellar reflex. 3+ R biceps, 1+ patellar reflex BL. + babinski on R side, - on L SKIN: Warm, dry, normal turgor, normal cap refill. Laboratory Results - last 24 hr 04/27/17 04/27/17 04/27/17 06:30 06:30 06:30 WBC 20.1 H D RBC 2.60 L Hgb 7.4 L Hct 23.4 L MCV 90.1 MCH 28.3 MCHC 31.4 L RDW 16.2 H Plt Count 182 D MPV 9.0 Total Counted 100 Neutrophils % (Manual) 88.0 H Band Neutrophils % 1.0 Lymphocytes % (Manual) 5.0 L Monocytes % (Manual) 4 Metamyelocytes 2 Platelet Estimate Adequate PTT (Actin FS) 61.2 H Sodium 138 Potassium 4.6 Chloride 108 H Carbon Dioxide 19 L Anion Gap 11 BUN 26 H Creatinine 1.1 H D Creat Clearance w eGFR 48.04 Random Glucose 188 H D Lactic Acid Calcium 8.0 L Total Bilirubin 2.9 H D AST 4331 H ALT 1648 H D Alkaline Phosphatase 554 H D Creatine Kinase Troponin I B-Natriuretic Peptide Total Protein 5.7 L Albumin 2.3 L Gastric Occult Blood Stool Occult Blood Blood Type Antibody Screen Crossmatch 04/27/17 04/27/17 04/27/17 09:10 09:10 09:10 WBC 21.9 H RBC 2.77 L Hgb 7.8 L Hct 25.1 L MCV 90.7 MCH 28.1 MCHC 30.9 L RDW 16.6 H Plt Count 216 MPV 9.3 Total Counted Neutrophils % (Manual) Band Neutrophils % Lymphocytes % (Manual) Monocytes % (Manual) Metamyelocytes Platelet Estimate PTT (Actin FS) Sodium Potassium Chloride Carbon Dioxide Anion Gap BUN Creatinine Creat Clearance w eGFR Random Glucose Lactic Acid Calcium Total Bilirubin AST ALT Alkaline Phosphatase Creatine Kinase 84 Troponin I < 0.02 B-Natriuretic Peptide Total Protein Albumin Gastric Occult Blood Stool Occult Blood Blood Type A POSITIVE Antibody Screen Negative Crossmatch See Detail 04/27/17 04/27/17 04/27/17 09:10 09:10 09:10 WBC RBC Hgb Hct MCV MCH MCHC RDW Plt Count MPV Total Counted Neutrophils % (Manual) Band Neutrophils % Lymphocytes % (Manual) Monocytes % (Manual) Metamyelocytes Platelet Estimate PTT (Actin FS) 56.8 H Sodium Potassium Chloride Carbon Dioxide Anion Gap BUN Creatinine Creat Clearance w eGFR Random Glucose Lactic Acid 6.2 H* Calcium Total Bilirubin AST ALT Alkaline Phosphatase Creatine Kinase Troponin I B-Natriuretic Peptide 5884.87 H Total Protein Albumin Gastric Occult Blood Stool Occult Blood Blood Type Antibody Screen Crossmatch 04/27/17 04/27/17 04/27/17 11:51 11:51 17:20 WBC 17.0 H RBC 2.43 L Hgb 6.8 L* D Hct 21.7 L MCV 89.6 MCH 28.0 MCHC 31.2 L RDW 16.8 H Plt Count 142 D MPV 9.3 Total Counted Neutrophils % (Manual) Band Neutrophils % Lymphocytes % (Manual) Monocytes % (Manual) Metamyelocytes Platelet Estimate PTT (Actin FS) Sodium Potassium Chloride Carbon Dioxide Anion Gap BUN Creatinine Creat Clearance w eGFR Random Glucose Lactic Acid Calcium Total Bilirubin AST ALT Alkaline Phosphatase Creatine Kinase Troponin I B-Natriuretic Peptide Total Protein Albumin Gastric Occult Blood Positive Stool Occult Blood Negative Blood Type Antibody Screen Crossmatch 04/27/17 04/27/17 04/27/17 17:25 21:30 23:34 WBC 15.3 H RBC 2.93 L D Hgb 8.2 L D Hct 25.7 L D MCV 87.8 MCH 28.1 MCHC 32.0 RDW 16.7 H Plt Count 114 L MPV 9.6 Total Counted Neutrophils % (Manual) Band Neutrophils % Lymphocytes % (Manual) Monocytes % (Manual) Metamyelocytes Platelet Estimate PTT (Actin FS) Sodium Potassium Chloride Carbon Dioxide Anion Gap BUN Creatinine Creat Clearance w eGFR Random Glucose Lactic Acid 4.5 H* 2.9 H* Calcium Total Bilirubin AST ALT Alkaline Phosphatase Creatine Kinase Troponin I B-Natriuretic Peptide Total Protein Albumin Gastric Occult Blood Stool Occult Blood Blood Type Antibody Screen Crossmatch 04/27/17 04/28/17 04/28/17 23:34 01:30 03:30 WBC RBC Hgb Hct MCV MCH MCHC RDW Plt Count MPV Total Counted Neutrophils % (Manual) Band Neutrophils % Lymphocytes % (Manual) Monocytes % (Manual) Metamyelocytes Platelet Estimate PTT (Actin FS) Sodium Potassium Chloride Carbon Dioxide Anion Gap BUN Creatinine Creat Clearance w eGFR Random Glucose Lactic Acid 2.6 H* 2.6 H* 2.2 H* Calcium Total Bilirubin AST ALT Alkaline Phosphatase Creatine Kinase Troponin I B-Natriuretic Peptide Total Protein Albumin Gastric Occult Blood Stool Occult Blood Blood Type Antibody Screen Crossmatch Active Medications Generic Name Dose Route Start Last Admin Trade Name Freq PRN Reason Stop Dose Admin Acetaminophen 650 mg 04/25/17 00:53 04/25/17 21:22 Tylenol - PO 650 mg Q6H PRN Administration FEVER OR PAIN Albuterol/Ipratropium 1 amp 04/25/17 13:49 04/26/17 22:12 Duoneb - NEB 1 amp Q4H PRN Administration SHORTNESS OF BREATH Atorvastatin Calcium 40 mg 04/20/17 22:00 04/27/17 21:02 Lipitor - PO Not Given HS [facility] Diltiazem HCl 30 mg 04/28/17 00:00 04/28/17 05:11 Cardizem - PO Not Given Q6HPO [facility] Pantoprazole Sodium 80 mg/ 100 mls @ 10 mls/hr 04/27/17 10:00 04/28/17 06:07 Sodium Chloride IVPB Not Given Q10H ELANA 8 MG/HR Meropenem 500 mg in 10 mls @ 60 mls/hr 04/27/17 18:00 04/28/17 01:26 Merrem (Restricted To Id) - IVPUSH 60 mls/hr Q8H-IV ELANA Administration Morphine Sulfate 1 mg 04/27/17 17:54 04/27/17 18:58 Morphine Sulfate IVPUSH 1 mg Q6H PRN Administration PAIN Polyethylene Glycol 17 gm 04/21/17 16:15 04/27/17 21:03 Miralax (For Daily Use) - PO Not Given BID [facility] Ranitidine HCl 150 mg 04/21/17 10:00 04/27/17 10:00 Zantac - PO Not Given DAILY [facility] Tamsulosin HCl 0.4 mg 04/27/17 08:30 04/27/17 09:00 Flomax - PO Not Given DAILY@0830 [facility] Microbiology 04/25/17 01:27 Blood - Peripheral Venous Blood Culture - Preliminary NO GROWTH OBTAINED AFTER 72 HOURS, INCUBATION TO CONTINUE FOR 2 DAYS. 04/25/17 01:27 Blood - Peripheral Venous Blood Culture - Preliminary NO GROWTH OBTAINED AFTER 72 HOURS, INCUBATION TO CONTINUE FOR 2 DAYS. 04/24/17 13:25 Urine - Urine Edwards Urine Culture - Final Enterococcus Faecalis 04/17/17 16:10 Blood - Peripheral Venous Blood Culture - Final NO GROWTH AFTER 5 DAYS INCUBATION 04/17/17 16:10 Blood - Peripheral Venous Blood Culture - Final NO GROWTH AFTER 5 DAYS INCUBATION 04/20/17 11:00 Nares - Mrsa Screen - Left MRSA Screen - Final NO MRSA ISOLATED 04/20/17 11:00 Nares - Right Nares MRSA Screen - Final NO MRSA ISOLATED 04/18/17 18:00 Urine - Urine Edwards Urine Culture - Final NO GROWTH OBTAINED Imaging: Non Head CT 04/16 - No acute pathology, mass or acute bleed. Chest CT 04/16 - No CT findings of acute pathology are identified involving the chest. Minimal to mild bilateral lower lobe discoid atelectasis/linear scarring. Stable benign 0.4 cm left lower lobe pulmonary nodule in comparison to a 2004 CT study. Possible mild cardiomegaly. Head MRI 04/18 - Multiple bilateral cerebral and cerebellar acute infarcts are noted as discussed above. An acute left frontal cortical infarct is seen containing a trace amount of acute petechial blood. Echo 04/20 - LV function normal. Mild biatrial enlargement. Mild MR, TR. Moderate aortic regurgitation. Normal RV pressure. Mild pulmonic valve regurgitation. Non-con CT head 04/21 - Left middle cerebral artery territory acute/subacute infarct with faint hemorrhagic transformation seen along its anterior margin. Moderate chronic microvascular ischemic changes are present. Previously visualized small other acute/subacute infarcts are difficult to evaluate on this exam. Follow-up MRI would be the study of choice for further evaluation. F/u non-con CT 04/21 PM - Unchanged extent of the left MCA territory infarct with stable local mass effects and no evidence of hemorrhagic transformation. CXR 04/24 - Possible infiltrate at R base. RUQ U/S w/ doppler 04/24 - Multiple hepatic masses with the largest measuring 11.7 cm in maximum dimension. Limited Doppler evaluation of the liver due to the presence of masses. However, there is normal vascular flow in the main portal vein, right and left portal vein as well as at the confluence of the hepatic veins. Status post cholecystectomy. Mild dilatation of the common bile duct measuring 1.2 cm in AP dimension. CXR 04/25 - Cardiomegaly. Scoliosis. No infiltrates or failure CXR 04/26 - Since the prior study 04/25/2017, again noted is a weak inspiration with prominent mediastinum, increased central markings and degenerative changes. There is no sign of true infiltrate or failure. Correlation recommended. CXR 04/27 8AM - Airspace opacities noted in the right parahilar region concerning for infectious process. No pneumothorax, or pleural effusion is seen. KUB 04/27 - IMPRESSION: 1. No gross subdiaphragmatic free intraperitoneal air. Nonspecific bowel gas pattern with no evidence of obstruction. Please correlate clinically. 2. Right parahilar opacity is more conspicuous than on prior chest x -rays. Although this may represent pulmonary vasculature, and infiltrate is not entirely excluded. Clinical correlation and continued follow-up recommended. 3. No evidence of pulmonary vascular congestion or pleural effusion. CXR 04/27 12PM - 1. No gross subdiaphragmatic free intraperitoneal air. Nonspecific bowel gas pattern with no evidence of obstruction. Please correlate clinically. 2. Right parahilar opacity is more conspicuous than on prior chest x -rays. Although this may represent pulmonary vasculature, and infiltrate is not entirely excluded. Clinical correlation and continued follow-up recommended. 3. No evidence of pulmonary vascular congestion or pleural effusion. CXR 04/28 - No acute pathology noted ASSESSMENT/PLAN: 77 yo woman w/ pmh of colon/liver ca, chronic afib, HTN, HLD, PUD and diverticulosis who presented to the ED after daughter witnessed her with R side facial droop, R hand weakness and dysarthria, intially resolved, then worsened during admission to include fixed R side paralysis/hemiparesis. Brain MRI with multiple bilateral cerebral/cerebellar infarcts, w/ evidence of mild acute bleeding, believed to be embolic shower or possible lacunar infarct. CT head 04/24 w/ no evidence of bleed, heparin restarted w/ coumadin held as pt may need biliary stent due to Moy-dil on US. F/u MRCP. Pt with multiple episodes of bradycardia to 30s due to AV steven conduction delay of Aflutter in setting of cardizem CD increase to 360. Most recently, pt with acute hypoxic respiratory failure, likely secondary to aspiration event overnight. Placed on Bipap, stabilized. Also now in acute HF w/ BNP 5900~. Possible Upper GI bleed, received two units overnight. Cardiology and ID also consulted. Pt stable but prognosis very poor. DNR/DNI, family aware and want minimal intervention. #Acute hypoxic respiratory failure - Events noted in hospitalist encounter note 04/27. Like aspiration event overnight, with element of heart failure - Treat as aspiration PNA. ID consulted. Recommend Meropenem for 7 days - On BiPap, satting well. Decreased to 50%, tolerating. - F/u all cultures - Family denied CT scan. - Cardiology consulted. #Acute CHF - BNP 5900~, crackle at lung bases, JVD - No further diuresis. Given 40 lasix yesterday during hypoxic episode - Cardiology consulted. Recs appreciated - Consider repeat echo - Cr uptrending (2.6) today. LFTs markedly elevated. Likely due to shock liver. Poor perfusion #Upper GI bleed - PM Hgb 6.8. Aspirate + for blood. - Dr. Melgar consulted, contacted. Recommends PPI gtt, tranfusion - Family does not desire EGD. - PPI gtt d/rocio today - Received 2 units overnight hgb 6.8 -> 8.2 this AM. - Monitor vitals, serial CBCs - Holding heparin gtt, as risks of bleed outweigh benefits #Transaminitis/Hyperbilirubinemia/Liver failure - LFTs still uptrending (AST 6200, ALT 2100, Alk phos 636). Liver congestive hepatopathy vs. shock liver. - Family refused abdominal CT scan. No MRCP per family wishes. Manage conservatively - RUQ U/S w/ doppler notable for good flow, multiple liver lesions - Continue to trend LFTs - Likely due to hypoperfusion, especially considering limited hepatic reserve from metastasis in liver #Severe sepsis - likely aspiration pna/pneumonitis vs. cholangitis. Fever of 100.8 this AM, CXR with no infiltrates this AM - WBC 13.9 today, downtrending - Cont meropenem 500 BID per ID for 7 days. Day 2/7 today - f/u cultures - Trend fever, WBC #Acute multi-infarct CVA - MRI w/ multiple bilateral cerebral/cerebellar infarcts. Pt with R sided hemiparesis/paralysis, dysarthria. F/u CT head 04/24 neg for bleed. Heparin now held in setting of possible bleed. - Serial neuro exams qshift - Heparin held, ASA held in setting of suspected GI bleed - Atorvastatin 40mg daily - Neurology following. Continue recs greatly appreciated. #Symptomatic bradycardia- multiple episode of prolonged steven conduction block of aflutter. - Rate up to 160s today. Switched to Cardizem 5mg IV push Q4h per cardiology recs - Monitor for further episodes of bradycardia - If hemodynamically unstable, atropine/external pacing pads #Afib/Aflutter - Pt on xarelto for AC as outpt. heparin gtt held - Aflutter/fib since admission - Cardiology following. Recs appreciated. - Poor BB tolerance (fatigue, bronchospasm) - Switched to Cardizem 5mg IV push Q4h per cardiology recs #HERBERTH - Cr uptrending (1.1 -> 2.6) - monitor closely - serial BMPs, trend Cr #Urinary retention - Straight cath - Flomax 0.4 mg daily #HTN - Cardizem 5mg IV push q4h. Hold all IV fluids - Continue to monitor for bradycardia, hypotension #pain control - IV morphine 1mg q6h #HLD - Holding Atorvastatin 40mg PO #Constipation - Miralax BID #PUD - Zantac #PPX: - SCDs - Protonix 40mg BID FEN: Fluids: Hold fluids in setting of HF Electrolytes: Daily BMPs Nutrition: NPO given likely aspiration Code status: DNR/DNI Dispo: Prognosis very poor. Family wants limited intervention as this point. Plan discussed with attending, Dr. Mandie Hidalgo, PGY1 Visit type - Emergency Visit Emergency Visit: Yes ED Registration Date: 04/16/17 Care time: The patient presented to the Emergency Department on the above date and was hospitalized for further evaluation of their emergent condition. - New Patient This patient is new to me today: No - Critical Care Critical Care patient: No
[2017-04-28 07:27] LABS: MCH 28.5 pg (25.7-33.7); MCHC 32.9 g/dl (32.0-36.0); MEAN CELL VOLUME 86.5 fl (80-96); MEAN PLT VOLUME 9.3 fl (7.5-11.1); PLATELET COUNT 90 K/MM3 (134-434); RDW 16.8 % (11.6-15.6); WHITE BLOOD COUNT 13.9 K/mm3 (4.0-10.0)
[2017-04-28 07:44] LABS: ALBUMIN 2.2 g/dl (3.4-5.0); ALK PHOS 636 U/L (45-117); ANION GAP 10 (8-16); BILIRUBIN,TOTAL 6.5 mg/dL (0.2-1.0); CALCIUM 7.5 mg/dL (8.5-10.1); CO2 21 mmol/L (21-32); CREATININE 2.6 mg/dL (0.55-1.02); GLUCOSE,RANDOM 139 mg/dL (74-106); TOT PROT 5.3 g/dl (6.4-8.2)
--- NOTE | 2017-04-28 07:45 | EKG ---
Test Reason : Blood Pressure : / mmHG Vent. Rate : 123 BPM Atrial Rate : 352 BPM P-R Int : 000 ms QRS Dur : 070 ms QT Int : 340 ms P-R-T Axes : 000 020 082 degrees QTc Int : 486 ms ATRIAL FLUTTER WITH VARIABLE A-V BLOCK NONSPECIFIC ST ABNORMALITY ABNORMAL ECG WHEN COMPARED WITH ECG OF 16-APR-2017 20:48, ATRIAL FLUTTER HAS REPLACED SINUS RHYTHM ST NOW DEPRESSED IN ANTERIOR LEADS T WAVE AMPLITUDE HAS INCREASED IN ANTERIOR LEADS Confirmed by Patit Kevin ([id number]) on 04/27/2017 2:40:37 PM Also confirmed by MD Herberth, Patti ([id number]), acquisition editor PATTI HUERTAS ([id number]) on 04/28/2017 7:45:13 AM Referred By: Confirmed By:Patti Kevin MD
--- NOTE | 2017-04-28 07:46 | MSN ---
Progress Note (short form) - Note Progress Note: SUBJECTIVE CC: Large L MCA infarct; hospital stay complicated by acute hypoxemic respiratory distress HPI: Pt was seen and examined this AM. Pt currently on BIPAP spontaneous/timed IPAP (cmH20) 12; FiO2 50; rate 14; alarm hi pressure 25; alarm low pressure 5. Packed cells, type & screen ordered for low Hgb of 7.8; transfused 2 units overnight. Yesterday, food particles with saliva was noted on pillow, suspicious for possible aspiration; pt later noted to be in acute hypoxemic respiratory distress and placed on BIPAP. Pt also had coffee ground emesis with gastric occult blood positive. Hep was held and pt placed NPO. Patient started on Pantoprazole gtt (IV Protonix) 80 mg in NS q10h. Family declined workup for possible upper GI bleed. ID consult for possible aspiration pneumonia; ID rec IV Meropenem 500 mg in D5W q8h with 7 day stop. UA also grew laguna sensitive E. faecalis; pt treated with one dose Vanc 1g and meropenem. Vanco level this AM - 15.575. OBJECTIVE Last Vital Signs Temp Pulse Resp BP Pulse Ox 100.8 F H 112 H 20 154/66 97 04/28/17 07:31 04/28/17 06:00 04/28/17 06:00 04/28/17 06:00 04/28/17 02:30 General: Pt appears drowsy but oriented to person (knows full name), place ( hospital). Not oriented to date. Head: normocephalic, atraumatic Eyes: Pupils equal, round and reactive to light. EOMI with mild difficulty on R lateral gaze unchanged. No APD, sclera anicteric, conjunctiva clear. Throat: Tongue appears desiccated- unchanged from previous; moist mucous membranes. No food particles or food regurgitation was noted with penlight examination of throat and pharynx. Neck: B/L JVD up to mid-neck unchanged. Heart: Heart sounds diminished secondary to increased lung sounds. Irregularly irregular; rate of 112 BPM. Lungs: Increased lung sounds B/L. Crackles noted at B/L lung bases. Abdomen: Soft, ND, tender to deep palpation in RUQ. + normoactive BS in all 4 quadrants; tympanic to percussion in all 4 quadrants. Upper extremities: 2+ radial pulses, cold to touch. No cyanosis, clubbing noted. 3+ dependent edema noted in R UE, worse at fingertips. Lower extremities: 0+ B/L dorsalis pedis pulse. No cyanosis, clubbing. 2+ pitting edema at B/L dorsal feet; toes cold to touch. 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 Ecchymoses noted on R patellar region. NEUROLOGICAL EXAM: dysarthric. Drowsy but oriented to person and place. Mild R lateral tongue deviation at rest, R facial droop. Patient was able to respond to all commands. Cranial nerves/Muscle strength CN II: Pupils equal, round and reactive to light. CN III/IV/: eyes mild lateral deviation to L side at rest; EOMI with mild difficulty on R lateral gaze unchanged. CN VII: Facial movement asymmetrical, R facial droop with facial expressions. Symmetrical brow raise. Unable to puff cheeks against resistance. CN VIII: hearing intact to voice and finger rub B/L CN IX/X/XII: tongue mild lateral deviation to R side at rest; pt unable to move tongue completely to R and L. worse moving to L. Gag reflex not tested. CN XI: Motor strength unchanged from yesterday. 3/5 shoulder shrug on L; 0/5 shoulder shrug on R, 3/5 able to rotate head against gravity (not resistance) 4/ 5 muscle strength on L side. Reflexes - R biceps +3, L biceps +2; L patellar +1; R patellar +1 Babinski reflex: + R upwards, - L downwards Sensation: Pt unable to feel R face; +2 sensation on L face. 0 sensation in R UE and LE ; +2 sensation in L UE and L LE. Cerebellar fxn: Not tested today; patient appeared fatigued and uncomfortable. Gait: Not tested due to hemiparesis Labs: CBC, BMP 04/28/17 05:48 04/28/17 05:48 Abnormal Lab Results 04/27/17 04/27/17 04/27/17 09:10 17:20 17:25 WBC 17.0 H RBC 2.43 L Hgb 6.8 L* D Hct 21.7 L MCHC 31.2 L RDW 16.8 H Plt Count Chloride BUN Creatinine Random Glucose Lactic Acid 4.5 H* Calcium Total Bilirubin AST ALT Alkaline Phosphatase Total Protein Albumin Crossmatch See Detail 04/27/17 04/27/17 04/27/17 21:30 23:34 23:34 WBC 15.3 H RBC 2.93 L D Hgb 8.2 L D Hct 25.7 L D MCHC RDW 16.7 H Plt Count 114 L Chloride BUN Creatinine Random Glucose Lactic Acid 2.9 H* 2.6 H* Calcium Total Bilirubin AST ALT Alkaline Phosphatase Total Protein Albumin Crossmatch 04/28/17 04/28/17 04/28/17 01:30 03:30 05:48 WBC 13.9 H RBC 2.73 L Hgb 7.8 L Hct 23.6 L MCHC RDW 16.8 H Plt Count 90 L D Chloride BUN Creatinine Random Glucose Lactic Acid 2.6 H* 2.2 H* Calcium Total Bilirubin AST ALT Alkaline Phosphatase Total Protein Albumin Crossmatch 04/28/17 05:48 WBC RBC Hgb Hct MCHC RDW Plt Count Chloride 111 H BUN 54 H D Creatinine 2.6 H D Random Glucose 139 H D Lactic Acid Calcium 7.5 L Total Bilirubin 6.5 H D AST 6186 H ALT 2110 H D Alkaline Phosphatase 636 H Total Protein 5.3 L Albumin 2.2 L Crossmatch Intake & Output 04/25/17 04/26/17 04/27/17 04/28/17 23:59 23:59 23:59 23:59 Intake Total 1288 119 754 Output Total 600 500 500 80 Balance 066 -670 254 -80 IMAGING: CXR 04/27 showed airspace opacities in R parahilar region with no evidence of pneumothorax or pleural effusion. Repeat CXR taken 12/6 AM showed no signs of acute chest pathology or discrete infiltrate. ASSESSMENT/PLAN 77 year old woman with PMHx of paroxysmal afib, colon ca w/ liver mets s/p liver resection & colectomy, HTN, HLD, PUD and diverticulosis admitted for L frontal cortical and L MCA territory infarct. Hospital course complicated by possible aspiration pneumonia and hypoxemic respiratory failure. #Possible HAP vs. aspiration pneumonia vs.CHF - lactic acid 04/27 6.2; lactic acid now 2.2 - duoneb 1 amp neb q4hr PRN - tylenol PRN fever D/C - Meropenem as per ID decreased from q8hr to q12hr - hold fluids - finalized urine culture: laguna sensitive E. faecalis #Acute multi-infarct CVA - L frontal cortical infarct and large infarct in L MCA territory. Pt with R sided hemiparesis/paralysis, dysarthria. - All AC held Hep since GI occult blood positive - Serial neuro exams qshift - Lipitor D/C due to elevated liver enzymes - Neurology following. Recs appreciated. #Afib - Pt on xarelto for AC as outpatient. - All AC held Hep since GI occult blood positive - Cardiology following. Recs appreciated. - PO Cardizem changed to Cardizem 5mg IVPUSH q4h PRN tachycardia #HERBERTH - BUN/Cr 23/1.2 on admission. - BUN 54; Cr 2.6 - hold IVF - Daily BMPs; continue to trend BUN/Cr #Anemia - Hb 7.8 04/28 - Trend H/H; transfuse if Hb below 7.0 - Occult gastric blood +; pt family declined workup - High risk of bleeding/clotting given malignancy, liver mets, baseline elevated INR - Heme/onc following. Continued recs appreciated. #Urinary retention - Edwards cath placed 04/27 due to continued urinary retention and failure of voiding trials. - continue to monitor urine output and I&Os #Liver mets - Oncology team following #HTN - Short acting cardizem 60 mg q6h - Monitor closely for bradycardia, hypotension #HLD - Lipitor D/C due to elevated liver enzymes #Chronic back pain - MS contin PO changed to morphine sulfate 1 mg IV push q6h PRN pain #PUD - Pantoprazole gtt (IV Protonix) 80 mg in NS q10h. #FEN: Fluids: held Electrolytes: Trend BUN/Cr Nutrition: NPO Code status: DNR/DNI
[2017-04-28] MEDS ORDERED: dilTIAZem HCL 50 MG/10 ML - 10 ML VIAL IVPUSH PRN (07:54)
[2017-04-28 08:12] LABS: SGOT/AST 6186 U/L (15-37); SGPT/ALT 2110 U/L (12-78)
[2017-04-28] MEDS: TAMSULOSIN HCL 0.4 MG CAP.ER.24H (FP) PO SCH (08:39)
--- NOTE | 2017-04-28 08:44 | PN ---
Teaching Attending Note Name of Resident: Jesus Hidalgo ATTENDING PHYSICIAN STATEMENT I saw and evaluated the patient. I reviewed the resident's note and discussed the case with the resident. I agree with the resident's findings and plan as documented. SUBJECTIVE: Patient is on Bipap, comfortable, daughter at bedside. OBJECTIVE: Vital Signs Temperature 100.8 F H 04/28/17 07:31 Pulse Rate 123 H 04/28/17 08:33 Respiratory Rate 26 H 04/28/17 08:33 Blood Pressure 137/81 04/28/17 08:33 O2 Sat by Pulse Oximetry (%) 97 04/28/17 02:30 CBCD WBC 13.9 K/mm3 (4.0-10.0) H 04/28/17 05:48 RBC 2.73 M/mm3 (3.60-5.2) L 04/28/17 05:48 Hgb 7.8 GM/dL (10.7-15.3) L 04/28/17 05:48 Hct 23.6 % (32.4-45.2) L 04/28/17 05:48 MCV 86.5 fl (80-96) 04/28/17 05:48 MCHC 32.9 g/dl (32.0-36.0) 04/28/17 05:48 RDW 16.8 % (11.6-15.6) H 04/28/17 05:48 Plt Count 90 K/MM3 (134-434) L D 04/28/17 05:48 MPV 9.3 fl (7.5-11.1) 04/28/17 05:48 CMP Sodium 142 mmol/L (136-145) 04/28/17 05:48 Potassium 4.8 mmol/L (3.5-5.1) 04/28/17 05:48 Chloride 111 mmol/L (98-107) H 04/28/17 05:48 Carbon Dioxide 21 mmol/L (21-32) 04/28/17 05:48 Anion Gap 10 (8-16) 04/28/17 05:48 BUN 54 mg/dL (7-18) H D 04/28/17 05:48 Creatinine 2.6 mg/dL (0.55-1.02) H D 04/28/17 05:48 Creat Clearance w eGFR 17.80 (>60) 04/28/17 05:48 Random Glucose 139 mg/dL (74-106) H D 04/28/17 05:48 Calcium 7.5 mg/dL (8.5-10.1) L 04/28/17 05:48 Total Bilirubin 6.5 mg/dL (0.2-1.0) H D 04/28/17 05:48 AST 6186 U/L (15-37) H 04/28/17 05:48 ALT 2110 U/L (12-78) H D 04/28/17 05:48 Alkaline Phosphatase 636 U/L (45-117) H 04/28/17 05:48 Total Protein 5.3 g/dl (6.4-8.2) L 04/28/17 05:48 Albumin 2.2 g/dl (3.4-5.0) L 04/28/17 05:48 CARDIAC ENZYMES Creatine Kinase 84 IU/L (26-192) 04/27/17 09:10 Troponin I < 0.02 ng/ml (0.00-0.05) 04/27/17 09:10 Current Medications Generic Name Dose Route Start Last Admin Trade Name Freq PRN Reason Stop Dose Admin Acetaminophen 650 mg 04/25/17 00:53 04/25/17 21:22 Tylenol - PO 650 mg Q6H PRN Administration FEVER OR PAIN Albuterol/Ipratropium 1 amp 04/25/17 13:49 04/26/17 22:12 Duoneb - NEB 1 amp Q4H PRN Administration SHORTNESS OF BREATH Atorvastatin Calcium 40 mg 04/20/17 22:00 04/27/17 21:02 Lipitor - PO Not Given HS ELANA Diltiazem HCl 10 mg 04/28/17 07:54 Cardizem Injection - IVPUSH Q4H PRN TACHYCARDIA Pantoprazole Sodium 80 mg/ 100 mls @ 10 mls/hr 04/27/17 10:00 04/28/17 06:07 Sodium Chloride IVPB Not Given Q10H ELANA 8 MG/HR Meropenem 500 mg in 10 mls @ 60 mls/hr 04/27/17 18:00 04/28/17 01:26 Merrem (Restricted To Id) - IVPUSH 60 mls/hr Q8H-IV ELANA Administration Morphine Sulfate 1 mg 04/27/17 17:54 04/27/17 18:58 Morphine Sulfate IVPUSH 1 mg Q6H PRN Administration PAIN Polyethylene Glycol 17 gm 04/21/17 16:15 04/27/17 21:03 Miralax (For Daily Use) - PO Not Given BID [facility] Ranitidine HCl 150 mg 04/21/17 10:00 04/27/17 10:00 Zantac - PO Not Given DAILY [facility] Tamsulosin HCl 0.4 mg 04/27/17 08:30 04/28/17 08:39 Flomax - PO Not Given DAILY@0830 [facility] Home Medications Medication Instructions Recorded Diltiazem HCl [Cardizem] 360 mg PO AM 12/09/11 Losartan Potassium [Cozaar] 50 mg PO DAILY 12/09/11 Spironolactone [Aldactone -] 50 mg PO DAILY 12/09/11 Atorvastatin Calcium 20 mg PO DAILY tablet 07/10/14 Pantoprazole Sodium [Protonix -] 40 mg PO BID #30 tablet.ec 11/08/14 Oxycodone HCl 7.5 mg PO PRN PRN 04/24/15 Rivaroxaban [Xarelto -] 15 mg PO DAILY 04/16/17 PE:NAD, AAOX3. on BIPAP. CV: irreg irreg, NO JVD , S1S2 positive Lung: course rales b/l at basis Abdomen: Soft, NT Ext: trace edema, no erythema. ASSESSMENT AND PLAN: Patient is a 77 y/o female h/o A fib, TIAx2 , colon cancer and newly diagnosed liver mass, HLP, PUD who presented with facial droop , dysarthria, and R sided weakness. Hospital course was complicated with acute respiratory failure requiring BIPAP # Acute Hypoxic respiratory failure:improving Possibly due to aspiration , s/p Lasix IV with a component of a heart failure. on Bipap continue , continue IV ABX meropenem , ID on the case , dose was adjusted according to renal function. CT scan of chest offered , but family declined . # Acute Upper GI bleed: cont to hold Heparin gtt. the risk of anticoagulating her at this point overweight the benefits. family understands the risk of recurrent stroke , on PPI gtt continue. # LFTS elevated ;acute transaminitis mostly : most likely due to her liver mets. can't r/o Liver infarct. CT of abd declined by family. Family doesn't want any CT or MRCP , would like conservative management. # Severe sepsis : continue Meropenem source could be aspiration PNA or cholangitis . lactic can be from severe hypoxia this am, but also form ischemia or infection, blood cx pending. # Afib with RVR: now HR is better after treating the resp distress , continue cardizem, no AC due to having GI bleed. # HERBERTH:will continue to monitor DNR/DNI. palliative care on Board.
[2017-04-28] MEDS: RANITIDINE HCL 150 MG TABLET (FP) PO SCH (09:19)
[2017-04-28] MEDS: POLYETHYLENE GLYCOL 3350 119 GM BTL PO SCH ×2 (09:19→21:49)
[2017-04-28] MEDS: PANTOPRAZOLE SODIUM 40 MG VIAL IVPUSH SCH ×2 (09:40→22:41)
--- NOTE | 2017-04-28 11:15 | PN ---
Progress Note (short form) - Note Progress Note: cc: afib History of Present Illness: no cp sob palps dizzy, on bipap, having rvr now, fam considering comfort care Current Medications Albuterol/Ipratropium (Duoneb -) 1 amp NEB Q4H PRN PRN Reason: SHORTNESS OF BREATH Last Admin: 04/26/17 22:12 Dose: 1 amp Diltiazem HCl (Cardizem Injection -) 10 mg IVPUSH Q4H PRN PRN Reason: TACHYCARDIA Meropenem (Merrem (Restricted To Id) -) 500 mg in 10 mls @ 60 mls/hr IVPUSH Q12H ELANA Morphine Sulfate (Morphine Sulfate) 1 mg IVPUSH Q6H PRN PRN Reason: PAIN Last Admin: 04/27/17 18:58 Dose: 1 mg Pantoprazole Sodium (Protonix Iv) 40 mg IVPUSH BID [facility] Last Admin: 04/28/17 09:40 Dose: 40 mg Polyethylene Glycol (Miralax (For Daily Use) -) 17 gm PO BID [facility] Last Admin: 04/28/17 09:19 Dose: Not Given Tamsulosin HCl (Flomax -) 0.4 mg PO DAILY@0830 [facility] Last Admin: 04/28/17 08:39 Dose: Not Given Vital Signs Temp 100.1 F H 04/28/17 08:52 Pulse 123 H 04/28/17 08:33 Resp 26 H 04/28/17 08:33 BP 137/81 04/28/17 08:33 Pulse Ox 97 04/28/17 02:30 Intake & Output 04/27/17 04/27/17 04/28/17 11:59 23:59 11:59 Intake Total 304 450 Output Total 400 100 80 Balance -96 350 -80 Intake: IV 304 HEPARIN INFUSION - 25,000 204 units In 500 ml @ 1,000 UNITS/HR 20 mls/hr IVPB TITR [facility] Rx#:[id number] l.wrist #22 04/26/17 100 IVPB 100 Packed Cells 350 Output: Urine 400 100 80 Edwards 100 Straight Cath 400 80 Other: Voiding Method Indwelling Catheter Indwelling Catheter # Unmeasured Voids Edwards 2 Bowel Movement Yes Yes # Bowel Movements 1 Constitutional: Yes: Well Nourished, No Distress, Calm Cardiovascular: Yes: Regular Rate and Rhythm, S1, S2. No: JVD, Gallop, Murmur Respiratory: Yes: scattered rhonci. No: Accessory Muscle Use, Rales, Wheezes Gastrointestinal: nt nd pos bs Extremities: No: Cold Edema: No Neurological: Yes: Alert. No: Seizure Psychiatric: No: Agitated no jaundice diaphoresis pos dp pt Labs: Laboratory Last Values WBC 13.9 K/mm3 (4.0-10.0) H 04/28/17 05:48 RBC 2.73 M/mm3 (3.60-5.2) L 04/28/17 05:48 Hgb 7.8 GM/dL (10.7-15.3) L 04/28/17 05:48 Hct 23.6 % (32.4-45.2) L 04/28/17 05:48 MCV 86.5 fl (80-96) 04/28/17 05:48 MCH 28.5 pg (25.7-33.7) 04/28/17 05:48 MCHC 32.9 g/dl (32.0-36.0) 04/28/17 05:48 RDW 16.8 % (11.6-15.6) H 04/28/17 05:48 Plt Count 90 K/MM3 (134-434) L D 04/28/17 05:48 MPV 9.3 fl (7.5-11.1) 04/28/17 05:48 Total Counted 100 04/27/17 06:30 Neutrophils % 81.8 % (42.8-82.8) 04/26/17 05:40 Neutrophils % (Manual) 88.0 % (42.8-82.8) H 04/27/17 06:30 Band Neutrophils % 1.0 % 04/27/17 06:30 Lymphocytes % 7.9 % (8-40) L 04/26/17 05:40 Lymphocytes % (Manual) 5.0 % (8-40) L 04/27/17 06:30 Monocytes % 9.0 % (3.8-10.2) 04/26/17 05:40 Monocytes % (Manual) 4 % (3.8-10.2) 04/27/17 06:30 Eosinophils % 0.6 % (0-4.5) 04/26/17 05:40 Basophils % 0.7 % (0-2.0) 04/26/17 05:40 Metamyelocytes 2 % (0-2) 04/27/17 06:30 Manual Slide Review No Result Required. 04/19/17 05:00 Hypochromia 1+ 04/16/17 21:00 Platelet Estimate Adequate 04/27/17 06:30 Macrocytosis 1+ 04/16/17 21:00 PT with INR 18.80 SEC (9.98-11.88) H 04/25/17 06:00 INR 1.66 (0.82-1.09) H 04/25/17 06:00 PTT (Actin FS) 29.7 SECONDS (26.9-34.4) D 04/28/17 05:48 Fibrinogen 195.0 mg/dL (238-498) L 04/19/17 05:00 Sodium 142 mmol/L (136-145) 04/28/17 05:48 Potassium 4.8 mmol/L (3.5-5.1) 04/28/17 05:48 Chloride 111 mmol/L (98-107) H 04/28/17 05:48 Carbon Dioxide 21 mmol/L (21-32) 04/28/17 05:48 Anion Gap 10 (8-16) 04/28/17 05:48 BUN 54 mg/dL (7-18) H D 04/28/17 05:48 Creatinine 2.6 mg/dL (0.55-1.02) H D 04/28/17 05:48 Creat Clearance w eGFR 17.80 (>60) 04/28/17 05:48 Random Glucose 139 mg/dL (74-106) H D 04/28/17 05:48 Hemoglobin A1c % 5.4 % (4.8-6.0) D 04/17/17 06:00 Lactic Acid 1.8 mmol/L (0.4-2.0) 04/28/17 05:48 Calcium 7.5 mg/dL (8.5-10.1) L 04/28/17 05:48 Phosphorus 3.0 mg/dL (2.5-4.9) 04/26/17 05:40 Magnesium 2.4 mg/dL (1.8-2.4) 04/26/17 05:40 Iron 27 ug/dL (27-139) 04/18/17 05:20 TIBC 187 ug/dL (250-450) L 04/18/17 05:20 Iron Saturation 14 % (15-55) L 04/18/17 05:20 Ferritin 1749.629 ng/ml (6.9-282.5) H 04/18/17 05:20 Total Bilirubin 6.5 mg/dL (0.2-1.0) H D 04/28/17 05:48 Direct Bilirubin 0.9 mg/dL (0.0-0.2) H 04/24/17 06:00 AST 6186 U/L (15-37) H 04/28/17 05:48 ALT 2110 U/L (12-78) H D 04/28/17 05:48 Alkaline Phosphatase 636 U/L (45-117) H 04/28/17 05:48 Ammonia 25.6 umol/L (11-32) 04/24/17 16:10 Creatine Kinase 84 IU/L (26-192) 04/27/17 09:10 Troponin I < 0.02 ng/ml (0.00-0.05) 04/27/17 09:10 B-Natriuretic Peptide 5884.87 pg/ml (5-450) H 04/27/17 09:10 Total Protein 5.3 g/dl (6.4-8.2) L 04/28/17 05:48 Albumin 2.2 g/dl (3.4-5.0) L 04/28/17 05:48 Triglycerides 121 mg/dL (35-160) D 04/17/17 06:00 Cholesterol 157 mg/dL (50-200) D 04/17/17 06:00 Total LDL Cholesterol 98 mg/dL (5-100) 04/17/17 06:00 HDL Cholesterol 42 mg/dL (40-60) 04/17/17 06:00 Total Amylase 43 U/L (25-115) 04/16/17 21:00 Lipase 287 U/L (73-393) 04/16/17 21:00 Vitamin B12 654 pg/ml (180-914) 04/18/17 05:20 Folate 2071 ng/mL (>498) 04/18/17 05:20 Folate Hemolysate 453.5 ng/mL (Not Estab.) 04/18/17 05:20 TSH 1.71 uIU/ml (0.358-3.74) D 04/18/17 05:20 Free T4 1.21 ng/dl (0.76-1.46) 04/18/17 05:20 Gastric Occult Blood Positive 04/27/17 11:51 Stool Occult Blood Negative (NEGATIVE) 04/28/17 07:34 Random Vancomycin 15.575 ug/ml 04/28/17 05:48 Digoxin 0.0702 ng/ml (0.8-2.0) L 04/20/17 05:00 Blood Type A POSITIVE 04/27/17 09:10 Antibody Screen Negative 04/27/17 09:10 Crossmatch See Detail 04/27/17 09:10 tele: afib, rvr carotids: mild athero, no stenosis echo 03/2017: tds; nl lv, rv not seen, mild lily, mild mr, mild pr, mild tr, mod ar, nl rvsp a/p: acute CVA: -2 episodes on DOA, in setting of missing home AC dose x 2d (has afib) -neuro input reviewed: 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 PAF, sick sinus syndrome: -intolerant of low dose metoprolol and bystolic at low doses (profound fatigue, bronchospasm) -has tolerated high dose diltiazem (without signif GERD s.e.) -tolerated digoxin in past, but stopped given age and decr GFR--could add back if rapid HRs -rapid AF 150s on 04/18, began when pt was transported back to the floor from testing. she had not received any of her home cardizem CD 360 mg since admit, hence this may have contributed. Given very short AF duration, with pt's previously known refractory HRs (160) despite this dose of cardizem as outpt, and marked intolerance to even low doses of BB, she was pharmacologically cardioverted with amio bolus. buttermaker continuous churn po amio not a good option given lab evidence of liver dysfunction (albumin 3.0, LFTs all up) with mult liver tumors per dr kothari --> stopped amio gtt and resumed home cardizem (c/b difficulty swallowing pills --> changed to short-acting dilt 90mg q6h to be crushed for her , though not a good long-term option--reassess once appetite/GI tolerance improves). -if recurrent rapid AF, will consider flecainide or other anti-arrhythmic, with EP input (if any are safe with liver dysfunction) -hope to avoid AVN ablation/PPM; -04/19: currently sinus esteban 40s consistently, ? hi vagal tone given ongoing GI sx's and bedrest decr diltiazem dose - 04/20-04/23: bradycardia improved, con't same mgm't. can change to long acting cardizem when able to tolerate (cannot be crushed). -04/24-3: on long acting dilt now. monitor tele, may need to increase dose if still with rvr. -04/26: per neuro, clinical presentation c/w embolic shower and she is cleared to begin coumadinization (see their 04/25 note)--however holding until MRCP completed (? needs biliary stent). continuing therapeutic UFH gtt for now. rapid HRs at times--agree with incr cardizem CD dose as doing - 04/27: RR delay approaching 3 seconds after cardizem dose increased --> decreased back down. -04/28: Elevation in HR again this morning likely related to clinical deterioration ? aspiration/GIB. Ongoing mgm't per pmd. Holding AC due to concern for GIB. Unable to take po, will use dilt 5 mg iv q4h prn for now, cont tele HTN: -stable theodore/CKD: -baseline creat runs 1.1-1.5 -theodore now likely 2/2 infection CAD: -cor calcium score intermediate (slightly above 50th %ile) -MPI in past equivocal ? apical ischemia vs variable breast artifact -never had anginal sx's -ecg no acute ischemic changes here -04/27-6: hold statin in light of liver abnormalities. Holding AC 2/2 possible GIB. Will not replace with ASA until GIB clarified. HPL: -hold statin due to elevated lfts asthma: -intolerant of B-B in past -mild wheezing at L base heard today, no sx's with this. L base looks clear on cxr. +/-JVD (EJs) noted. routine asthma meds per hospitalist. defer lasix, observe clinically - 04/27 hypoxia: appears to have improved s/p lasix this am, but cxr without clear signs of edema/congestion. Discussed with pmd, possible aspiration overnight --> plan for further evaluation with assess pulmonary edema vs. infection ? aspiration with chest/abd CT (also to evalute abdominal sx's). --> family declining. colon cancer with liver mets/anemia/anorexia/abd pain: -? sx's related to tumor -lfts elevated -per hospitalist +/- Onc as indicated
[2017-04-28] MEDS: dilTIAZem HCL 50 MG/10 ML - 10 ML VIAL IVPUSH PRN ×2 (11:43→16:37)
--- NOTE | 2017-04-28 12:48 | PN ---
Progress Note, Physician History of Present Illness: PULMONARY MORE AWAKE,REMAINS ON BIPAP ,LESS DYSPNEIC,UNABLE TO TOLERATE VM - Current Medication List Current Medications: Active Medications Albuterol/Ipratropium (Duoneb -) 1 amp NEB Q4H PRN PRN Reason: SHORTNESS OF BREATH Last Admin: 04/26/17 22:12 Dose: 1 amp Diltiazem HCl (Cardizem Injection -) 5 mg IVPUSH Q4H PRN PRN Reason: TACHYCARDIA Last Admin: 04/28/17 11:43 Dose: 5 mg Meropenem (Merrem (Restricted To Id) -) 500 mg in 10 mls @ 60 mls/hr IVPUSH Q12H ELANA Morphine Sulfate (Morphine Sulfate) 1 mg IVPUSH Q6H PRN PRN Reason: PAIN Last Admin: 04/27/17 18:58 Dose: 1 mg Pantoprazole Sodium (Protonix Iv) 40 mg IVPUSH BID [facility] Last Admin: 04/28/17 09:40 Dose: 40 mg Polyethylene Glycol (Miralax (For Daily Use) -) 17 gm PO BID [facility] Last Admin: 04/28/17 09:19 Dose: Not Given Tamsulosin HCl (Flomax -) 0.4 mg PO DAILY@0830 [facility] Last Admin: 04/28/17 08:39 Dose: Not Given - Objective Vital Signs: Vital Signs Temperature 100.1 F H 04/28/17 08:52 Pulse Rate 123 H 04/28/17 08:33 Respiratory Rate 26 H 04/28/17 08:33 Blood Pressure 137/81 04/28/17 08:33 O2 Sat by Pulse Oximetry (%) 97 04/28/17 02:30 Constitutional: Yes: Well Nourished, Mild Distress Eyes: Yes: WNL HENT: Yes: WNL Neck: Yes: WNL Cardiovascular: Yes: Pulse Irregular, S1, S2 Respiratory: Yes: Rales (BILATERAL CRACKLES AND SCATTERED WHEEZES) Gastrointestinal: Yes: Normal Bowel Sounds, Soft Extremities: Yes: WNL Edema: No Labs: CBC, BMP 04/28/17 05:48 04/28/17 05:48 INR, PTT INR 1.66 (0.82-1.09) H 04/25/17 06:00 Fibrinogen 195.0 mg/dL (238-498) L 04/19/17 05:00 Problem List - Problems (1) CVA (cerebral vascular accident) Code(s): I63.9 - CEREBRAL INFARCTION, UNSPECIFIED (2) Anemia Code(s): D64.9 - ANEMIA, UNSPECIFIED (3) Cancer, metastatic to liver Code(s): C78.7 - SECONDARY MALIG NEOPLASM OF LIVER AND INTRAHEPATIC BILE DUCT (4) Lacunar infarction Code(s): I63.9 - CEREBRAL INFARCTION, UNSPECIFIED (5) TIA (transient ischemic attack) Code(s): G45.9 - TRANSIENT CEREBRAL ISCHEMIC ATTACK, UNSPECIFIED (6) Dyspnea Code(s): R06.00 - DYSPNEA, UNSPECIFIED (7) Bronchospasm Code(s): J98.01 - ACUTE BRONCHOSPASM (8) Acute bronchospasm Code(s): J98.01 - ACUTE BRONCHOSPASM (9) Asthma Code(s): J45.909 - UNSPECIFIED ASTHMA, UNCOMPLICATED (10) Afib Code(s): I48.91 - UNSPECIFIED ATRIAL FIBRILLATION Assessment/Plan Impression: Acute hypoxemic respiratory failure Likely aspiration Bronchospasm SOB Hypercoaguable state likely causing [employer] COMPL[employer]ANCE [employer]UDITOR events with multiple infarcts. Atrial fib Colon ca Liver masses suspicious for mets Anemia Thrombocytopenia improved Asthma Acute kidney injury Fever Plan inhaled bronchodilators supplemental o2,nippv antibiotics as per ID f/u chest x-rays monitor lytes npo aspiration precautions DR MARTIN
--- NOTE | 2017-04-28 13:19 | PN ---
Progress Note (short form) - Note Progress Note: alert and comfortable on bipap no pain Vital Signs Period Temp Pulse Resp BP Sys/Sheppard Pulse Ox Last 24 Hr 98.8 F-100.8 F 102-123 20-36 102-154/50-91 95-97 +icterus cor-rrr lungs decreased bs at bases abd soft, nt ext no edema bravo cxray no infiltrate CBC, BMP 04/28/17 05:48 04/28/17 05:48 Microbiology 04/25/17 01:27 Blood - Peripheral Venous Blood Culture - Preliminary NO GROWTH OBTAINED AFTER 72 HOURS, INCUBATION TO CONTINUE FOR 2 DAYS. 04/25/17 01:27 Blood - Peripheral Venous Blood Culture - Preliminary NO GROWTH OBTAINED AFTER 72 HOURS, INCUBATION TO CONTINUE FOR 2 DAYS. 04/24/17 13:25 Urine - Urine Bravo Urine Culture - Final Enterococcus Faecalis 04/17/17 16:10 Blood - Peripheral Venous Blood Culture - Final NO GROWTH AFTER 5 DAYS INCUBATION 04/17/17 16:10 Blood - Peripheral Venous Blood Culture - Final NO GROWTH AFTER 5 DAYS INCUBATION 04/20/17 11:00 Nares - Mrsa Screen - Left MRSA Screen - Final NO MRSA ISOLATED 04/20/17 11:00 Nares - Right Nares MRSA Screen - Final NO MRSA ISOLATED 04/18/17 18:00 Urine - Urine Bravo Urine Culture - Final NO GROWTH OBTAINED a/p sepsis- ?acute aspiration, ?biliary disease, ?uti s/p cva liver mets afib anemia- ?UGI bleed penicillin allergy blood cultures meropenem f/u vanco level in am HERBERTH worsening LFTs doing poorly d/w family
[2017-04-28] MEDS: morphine SULFATE 4 MG/ML VIAL IVPUSH PRN (15:58)
[2017-04-28] MEDS: ALBUTEROL SO4 2.5/IPRATROPIUM 0.5 INH SOL 3 ML VIAL.NEB. NEB PRN (16:23)
[2017-04-28] MEDS ORDERED: dilTIAZem HCL 50 MG/10 ML - 10 ML VIAL IVPUSH ONE ×3 (17:30→21:23)
[2017-04-28] MEDS ORDERED: FUROSEMIDE 40 MG/4 ML INJECTABLE VIAL ONE (21:12)
[2017-04-28] MEDS ORDERED: ALBUTEROL SO4 2.5/IPRATROPIUM 0.5 INH SOL 3 ML VIAL.NEB. NEB ONE (21:30)
[2017-04-28] MEDS ORDERED: FUROSEMIDE 40 MG/4 ML INJECTABLE VIAL IVPUSH ONE (21:30)
[2017-04-28] MEDS ORDERED: IBUPROFEN 800 MG/8 ML IJ IVPB ONE (21:30)
[2017-04-28] MEDS ORDERED: METOPROLOL TARTRATE 5 MG/5 ML VIAL ONE (21:34)
[2017-04-28] MEDS ORDERED: IPRATROPIUM BR 0.02% 0.5 MG/2.5 ML VIAL.NEB. NEB ONE ×2 (21:35→21:45)
[2017-04-28] MEDS ORDERED: METOPROLOL TARTRATE 5 MG/5 ML VIAL IVPUSH ONE (21:45)
[2017-04-28] MEDS ORDERED: MEROPENEM 500 MG PUSH 500 MG/10 ML DISP.SYRIN IVPUSH SCH (22:00)
[2017-04-28] MEDS ORDERED: ACETYLCYSTEINE 20% 200MG/ML 30 ML VIAL *FOR ORAL / INH USE ONLY NEB ONE (22:06)
--- NOTE | 2017-04-28 22:58 | HOSP ---
Subjective - Review of Symptoms Subjective: Was paged by Nurse because patient was progressively SOB with temp of 100.9. Patient seen and examined. Daughter at bedside. Hypertensive at 168/80, Tachy at 140 HR, Febrile at 100.9, RR 35 02 Sat 88% on BiPap. Patient w/ labored breathing, accessory muscle use Bibasilar crackles Patient sunctioned. Cardizem 10mg IV push given, repeat dose given as patient remained Tachy Lopressor 5mg Iv push for tachy Ipratroprum neb Motrin for fever Mucomyst Bipap settings adjusted to 100% Stat CBC, CMP, LA ordered. Son arrived at bedside. Discussed case with family. They refused ABG and possible intubation because of terminal illness. Patient is currently under palliative care with comfort measures. Physical Examination Vital Signs: Vital Signs Temperature 97.8 F 04/28/17 14:35 Pulse Rate 130 H 04/28/17 21:38 Respiratory Rate 28 H 04/28/17 20:31 Blood Pressure 118/89 04/28/17 21:38 O2 Sat by Pulse Oximetry (%) 99 04/28/17 20:31 Labs: CBC, BMP 04/28/17 05:48 04/28/17 05:48
[2017-04-28 23:16] VITALS: TEMP 100.9
[2017-04-28 23:18] VITALS: BP 100/30; PULSE 122
[2017-04-28 23:39] LABS: ALBUMIN 2.3 g/dl (3.4-5.0); ANION GAP 16 (8-16); BILIRUBIN,TOTAL 6.6 mg/dL (0.2-1.0); CALCIUM 8.1 mg/dL (8.5-10.1); CO2 17 mmol/L (21-32); GLUCOSE,RANDOM 155 mg/dL (74-106); TOT PROT 6.2 g/dl (6.4-8.2)
[2017-04-28 23:44] LABS: ALK PHOS 694 U/L (45-117)
--- NOTE | 2017-04-28 23:53 | HOSP ---
Subjective - Review of Symptoms Subjective: Was paged by Nurse because patient was progressively SOB with temp of 100.9. Patient seen and examined. Daughter at bedside. Hypertensive at 168/80, Tachy at 140 HR, Febrile at 100.9, RR 35 02 Sat 88% on BiPap. Patient w/ labored breathing, accessory muscle use Bibasilar crackles Patient sunctioned. Cardizem 10mg IV push given, repeat dose given as patient remained Tachy Lopressor 5mg Iv push for tachy Ipratroprum neb Motrin for fever Mucomyst Bipap settings adjusted to 100% Stat CBC, CMP, LA ordered. Son arrived at bedside. Discussed case with family. They refused ABG and possible intubation because of terminal illness. Patient is currently under palliative care with a more focused comfort care. Physical Examination Vital Signs: Vital Signs Temperature 100.9 F H 04/28/17 21:15 Pulse Rate 122 H 04/28/17 23:00 Respiratory Rate 36 H 04/28/17 23:00 Blood Pressure 100/30 04/28/17 23:00 O2 Sat by Pulse Oximetry (%) 99 04/28/17 20:31 Labs: CBC, BMP 04/28/17 05:48 Visit type - Emergency Visit Emergency Visit: Yes ED Registration Date: 04/16/17 Care time: The patient presented to the Emergency Department on the above date and was hospitalized for further evaluation of their emergent condition. - New Patient This patient is new to me today: Yes Date on this admission: 04/28/17 - Critical Care Critical Care patient: No
--- NOTE | 2017-04-28 23:58 | HOSP ---
Subjective - Review of Symptoms Events since last encounter: Was paged by nurse because patient of patient O2 sat of 80 and low blood pressure. Patient seen and examined. Family at bedside. Before examination, family requested comfort measures and no intervention. On physical examination. Patient unresponsive, even to painful stimuli, pupils fixe and non-reactive. Patient has no spontaneous breathing, no heart sounds or breath sounds. No carotid, or femoral pulses present. No heart sounds or breath sounds heard. Time of pronounced at 11:17pm on 04/28/17. Family at bedside. Grievance services offered to family Body to be released to home of family's choice. Physical Examination Vital Signs: Vital Signs Temperature 100.9 F H 04/28/17 21:15 Pulse Rate 122 H 04/28/17 23:00 Respiratory Rate 36 H 04/28/17 23:00 Blood Pressure 100/30 04/28/17 23:00 O2 Sat by Pulse Oximetry (%) 99 04/28/17 20:31 Labs: CBC, BMP 04/28/17 05:48 Visit type - Emergency Visit Emergency Visit: Yes ED Registration Date: 04/16/17 Care time: The patient presented to the Emergency Department on the above date and was hospitalized for further evaluation of their emergent condition. - New Patient This patient is new to me today: No - Critical Care Critical Care patient: No
[2017-04-29 00:04] LABS: SGPT/ALT 1638 U/L (12-78)
[2017-04-29 00:05] LABS: MAGNESIUM 3.1 mg/dL (1.8-2.4)
[2017-04-29 00:06] LABS: SGOT/AST 6100 U/L (15-37)
--- NOTE | 2017-04-29 18:45 | DS ---
Physical Exam: SUBJECTIVE: When pt last seen and examined by primary medical team: - Heparin gtt held. Received 2u prbcs overnight. - PPI gtt started overnight per Dr. Melgar - Pt appears better today. Still on bipap. No major events overnight. Denies any fever/chills, CP/palps, SOB/cough, N/V, abdominal pain, peripheral edema, new neuro symptoms. No MERCER/lightheadness. - Will attempt to wean down to NRB. Patient likely in acute fulminant liver failure 2/2 to HF - Pt status and care plan handed-off to covering night team at 7PM 04/28 Per overnight team (04/28-04/29): 12 PM: Was paged by Nurse because patient was progressively SOB with temp of 100.9. Patient seen and examined. Daughter at bedside. Hypertensive at 168/80, Tachy at 140 HR, Febrile at 100.9, RR 35 02 Sat 88% on BiPap. Patient w/ labored breathing, accessory muscle use Bibasilar crackles Patient sunctioned. Cardizem 10mg IV push given, repeat dose given as patient remained Tachy Lopressor 5mg Iv push for tachy Ipratroprum neb Motrin for fever Mucomyst Bipap settings adjusted to 100% Stat CBC, CMP, LA ordered. Son arrived at bedside. Discussed case with family. They refused ABG and possible intubation because of terminal illness. Patient is currently under palliative care with a more focused comfort care. 12 PM: Patient seen and examined. Family at bedside. Before examination, family requested comfort measures and no intervention. On physical examination. Patient unresponsive, even to painful stimuli, pupils fixe and non-reactive. Patient has no spontaneous breathing, no heart sounds or breath sounds. No carotid, or femoral pulses present. No heart sounds or breath sounds heard. Time of pronounced at 11:17pm on 04/28/17. Family at bedside. Grievance services offered to family Body to be released to home of family's choice. OBJECTIVE: Vital Signs Period Temp Pulse Resp BP Sys/Sheppard Pulse Ox Last 24 Hr 100.9 F 122-144 28-36 100-168/30-94 99 PHYSICAL EXAM On last exam by primary day team 04/28 - GENERAL: A&Ox2. Somnolent, resting in bed comfortably w/ bipap mask on HEAD: NCAT. Jaundiced EYES: Pupils equal, round and reactive to light, sclera icteric, conjunctiva clear. No lid lag. No visual field defect. EOMI intact EARS, NOSE, THROAT: MIld R tongue deviation, L uvular deviation. Ears normal, nares patent, oropharynx clear without exudates. Moist mucous membranes. NECK: Normal range of motion, JVD, or masses. LUNGS: Still with bibasilar crackles, R>L. Course breath sounds. No wheezes. No accessory muscle use. HEART: Irregularly irregular, normal S1 and S2 without murmur, rub or gallop. ABDOMEN: Less rigid, distended, normoactive bowel sounds, no rebound, no masses. No hepatomegaly or splenomegaly. Negative fluid wave. UPPER EXTREMITIES: 2+ pulses, warm, well-perfused. No cyanosis. No clubbing. LOWER EXTREMITIES: 2+ pulses, warm, well-perfused. No calf tenderness. No peripheral edema. NEUROLOGICAL: Still with Minimal dysarthria. R lateral tongue deviation, R facial droop. BL symmetric facial sensation to light touch. Neuro status largely unchanged. 0/5 shoulder shrug on R side, 5/5 L side. 0/5 orchard pruner strength in R hand, 5/5 in L hand. 0/5 R hand, arm. 5/5 strength in L arm, leg grossly. Legs: 1/5 in R proximal muscle groups. 2/5 dorsi/plantar flexion in R leg Still with no sensation light touch in R arm. Endorses no sensation to light touch on R leg, + on L. unable to evaluate gait, bedbound. 2+ L biceps, patellar reflex. 3+ R biceps, 1+ patellar reflex BL. + babinski on R side, - on L SKIN: Warm, dry, normal turgor, normal cap refill. LABS Laboratory Results - last 24 hr CBC, BMP 04/28/17 05:48 04/28/17 22:40 04/28/17 04/28/17 22:40 22:40 Sodium 143 Potassium 6.1 H* D Chloride 110 H Carbon Dioxide 17 L Anion Gap 16 BUN 74 H D Creatinine 4.0 H D Creat Clearance w eGFR 10.83 Random Glucose 155 H Lactic Acid 6.5 H* Calcium 8.1 L Magnesium 3.1 H D Total Bilirubin 6.6 H AST 6100 H ALT 1638 H D Alkaline Phosphatase 694 H Total Protein 6.2 L Albumin 2.3 L HOSPITAL COURSE: Date of Admission:04/16/17 Date of Discharge: 04/29/17 77 yo woman w/ pmh of colon/liver ca, chronic afib, HTN, HLD, PUD and diverticulosis who presented to the ED after daughter witnessed her with R side facial droop, R hand weakness and dysarthria after receiving CT scan at hospital for further work-up of Metastatic liver disease on 04/16. Of note, pt with poor PO intake and had not been taking her xarelto for prior 2-3 days. INR 1.48 on admission. Symptoms initially resolved by arrival in ED, then worsened during admission to include fixed R side paralysis/hemiparesis. Pt given Asa 325mg and high dose statin, further AC held given unknown metastatic disease and advanced age (>75), pending clearance by neurology. Carotid dopplers negative 04/17 for advanced stenosis. Xarelto restarted on 04/17 after clearance given by neurology. Pt experienced an episode of rapid afib w/ RVR w/ rates in 150s on 04/17 and was transferred to ICU and placed on amiodarone drip , with resolution of tachycardia with rate back to 60s. F/u Brain MRI with multiple bilateral cerebral/cerebellar infarcts, w/ evidence of mild acute bleeding, believed to be embolic shower or possible lacunar infarct. Pt started on cardizem 60mg q6h for rate control by cardiology (Dr. Azar) and was started on heparin gtt for AC by heme/onc team (Dr. Marquez) on 04/18, approved by neurology (Dr. Redding). She was transfused 2 units overnight given downtrending Hgb and anemia on admission (8.8 -> 7.1), deemed high bleeding risk given malignancy, liver mets and baseline elevated INR. Echo with no residual clots identified (04/20). CT head on 04/21 with suspicion for possible hemorrhagic conversion; heparin drip put on 72 hour hold per neurology, ASA still given. F/ u CT 04/24 w/ no evidence of bleed, heparin restarted, but coumadin held as pt may have needed biliary stent due to uptrending LFTs and RUQ notable for biliary dilatation, as well as multiple hepatic masses. Plan for MRCP, however family electing for minimal escalation in care and pt intermittently unstable from a cardiac perspective. Pt's cardizem dosing continually adjusted as she alternated between bradycardic steven conduction delays and episode of afib/ aflutter with RVR and unable to tolerate BBs. Pt began having mild fevers overnight beginning 04/25, laguna-cultured, started on abx (vanc/cefepime). No WBC elevation however urine cx + for enterococcus. Pt chronically constipated during admission despite multiple cathartics, also w/ urinary retention requiring bravo. Morning of 04/27, pt noted w/ increased secretions by nursing staff, desatting to 60s, tachpneic/tachycardic. Noted with coffee-ground emesis , JVD, elevated bnp 5900~ and CXR w/ increased vascular congestion. Suspected aspiration event overnight vs. possible GI bleed, also w/ clinical/lab findings of heart failure. Heparin gtt d/c'ed, stat dose of lasix given, patient placed on Bipap and O2 sat stabilized. Gastric secretions + for occult blood, lactate 6.2. GI consulted, however family continued to elect for no escalation in care; PPI drip started by GI (Dr. Melgar). Pt also w/ WBC of 20; ID consulted, pt started on vanc/meropenem for presumed aspiration pneumonia vs. cholangitis. Hgb 6.8; pt received two units overnight. 04/28 pt still febrile and tachy overnight, lactate normalized to 1.8, WBC downtrending 13.9. Markedly elevated LFTs AST 6200~, ALT 2100~, Alk phos 640~, likely due to shock liver vs. acute congestive hepatopathy. Family refused abdominal CT scan, electing for palliative care measures. Tachy again in AM to 160s, Aflutter w/ rvr. Given 5mg cardizem IV q4h per cardiology recs. 04/28 overnight: pt tachy to 140, satting 88 % on Bipap. Pt suctioned, given cardizem 10mg IV push x2, then lopressor 5mg IV and treated with iptratropium. Bipap increased to 100%. Family alerted, son at bedside, electing for palliative care only, refusing intubation. Pt made comfortable. Pt condition continued to deteriorate; became hypotensive and eventually unresponsive. No intervention per code status. Pt declared at 11:17 PM on 04/28/17. Micro: Microbiology 04/25/17 01:27 Blood - Peripheral Venous Blood Culture - Final NO GROWTH AFTER 5 DAYS INCUBATION 04/25/17 01:27 Blood - Peripheral Venous Blood Culture - Final NO GROWTH AFTER 5 DAYS INCUBATION 04/27/17 17:25 Blood - Peripheral Venous Blood Culture - Preliminary NO GROWTH OBTAINED AFTER 48 HOURS, INCUBATION TO CONTINUE FOR 3 DAYS. 04/27/17 17:25 Blood - Peripheral Venous Blood Culture - Preliminary NO GROWTH OBTAINED AFTER 48 HOURS, INCUBATION TO CONTINUE FOR 3 DAYS. 04/24/17 13:25 Urine - Urine Bravo Urine Culture - Final Enterococcus Faecalis 04/17/17 16:10 Blood - Peripheral Venous Blood Culture - Final NO GROWTH AFTER 5 DAYS INCUBATION 04/17/17 16:10 Blood - Peripheral Venous Blood Culture - Final NO GROWTH AFTER 5 DAYS INCUBATION 04/20/17 11:00 Nares - Mrsa Screen - Left MRSA Screen - Final NO MRSA ISOLATED 04/20/17 11:00 Nares - Right Nares MRSA Screen - Final NO MRSA ISOLATED 04/18/17 18:00 Urine - Urine Bravo Urine Culture - Final NO GROWTH OBTAINED Non Head CT 04/16 - No acute pathology, mass or acute bleed. Chest CT 04/16 - No CT findings of acute pathology are identified involving the chest. Minimal to mild bilateral lower lobe discoid atelectasis/linear scarring. Stable benign 0.4 cm left lower lobe pulmonary nodule in comparison to a [address] study. Possible mild cardiomegaly. Head MRI 04/18 - Multiple bilateral cerebral and cerebellar acute infarcts are noted as discussed above. An acute left frontal cortical infarct is seen containing a trace amount of acute petechial blood. Echo 04/20 - LV function normal. Mild biatrial enlargement. Mild MR, TR. Moderate aortic regurgitation. Normal RV pressure. Mild pulmonic valve regurgitation. Non-con CT head 04/21 - Left middle cerebral artery territory acute/subacute infarct with faint hemorrhagic transformation seen along its anterior margin. Moderate chronic microvascular ischemic changes are present. Previously visualized small other acute/subacute infarcts are difficult to evaluate on this exam. Follow-up MRI would be the study of choice for further evaluation. F/u non-con CT 04/21 PM - Unchanged extent of the left MCA territory infarct with stable local mass effects and no evidence of hemorrhagic transformation. CXR 04/24 - Possible infiltrate at R base. RUQ U/S w/ doppler 04/24 - Multiple hepatic masses with the largest measuring 11.7 cm in maximum dimension. Limited Doppler evaluation of the liver due to the presence of masses. However, there is normal vascular flow in the main portal vein, right and left portal vein as well as at the confluence of the hepatic veins. Status post cholecystectomy. Mild dilatation of the common bile duct measuring 1.2 cm in AP dimension. CXR 04/25 - Cardiomegaly. Scoliosis. No infiltrates or failure CXR 04/26 - Since the prior study 04/25/2017, again noted is a weak inspiration with prominent mediastinum, increased central markings and degenerative changes. There is no sign of true infiltrate or failure. Correlation recommended. CXR 04/27 8AM - Airspace opacities noted in the right parahilar region concerning for infectious process. No pneumothorax, or pleural effusion is seen. KUB 04/27 - IMPRESSION: 1. No gross subdiaphragmatic free intraperitoneal air. Nonspecific bowel gas pattern with no evidence of obstruction. Please correlate clinically. 2. Right parahilar opacity is more conspicuous than on prior chest x -rays. Although this may represent pulmonary vasculature, and infiltrate is not entirely excluded. Clinical correlation and continued follow-up recommended. 3. No evidence of pulmonary vascular congestion or pleural effusion. CXR 04/27 12PM - 1. No gross subdiaphragmatic free intraperitoneal air. Nonspecific bowel gas pattern with no evidence of obstruction. Please correlate clinically. 2. Right parahilar opacity is more conspicuous than on prior chest x -rays. Although this may represent pulmonary vasculature, and infiltrate is not entirely excluded. Clinical correlation and continued follow-up recommended. 3. No evidence of pulmonary vascular congestion or pleural effusion. CXR 04/28 AM - No acute pathology noted CXR 04/28 PM - Mild bilateral increased lung markings and minimal fluid in the minor fissure, cannot rule out mild pulmonary venous congestion. Correlate clinically. Consults: Pt seen by the following care teams during hospital stay. Cardiology Heme/Onc Neurology Pulmonology Infectious disease Pt 04/28 23:17. Family at bedside. Grievance services offered. Body to be released to home of family's choice. 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 - Instructions Referrals: Justo Calles MD [Primary Care Provider] - Renard Redding DO [Staff Physician] - Disposition: - Home Medications Comprehensive Discharge Medication List: Ambulatory Orders Diltiazem HCl [Cardizem] 360 mg PO AM 12/09/11 Losartan Potassium [Cozaar] 50 mg PO DAILY 12/09/11 Spironolactone [Aldactone -] 50 mg PO DAILY 12/09/11 Atorvastatin Calcium 20 mg PO DAILY tablet 07/10/14 Pantoprazole Sodium [Protonix -] 40 mg PO BID #30 tablet.ec 11/08/14 Oxycodone HCl 7.5 mg PO PRN PRN 04/24/15 Rivaroxaban [Xarelto -] 15 mg PO DAILY 04/16/17 This patient is new to me today: No Emergency Visit: Yes ED Registration Date: 04/16/17 Care time: The patient presented to the Emergency Department on the above date and was hospitalized for further evaluation of their emergent condition. Critical Care patient: No - Discharge Referral Referred to [facility] No
== END 2017-04-28 23:17 | disposition expired | DRG 64 ==
LOC: JER 20:26 → JERBED 22:10 → J4S 04-17 01:34 → JICU 04-17 14:47 → J4S 04-20 18:55
PROVIDERS: ADMIT Internal Medicine; ATTEND Internal Medicine
PROC: 30233N1 Transfusion of Nonautologous Red Blood Cells into Peripheral Vein, Percutaneous Approach (ICD-10-PCS; principal; 2017-04-18)
DX: I63.512 Cerebral infarction due to unspecified occlusion or stenosis of left middle cerebral artery (principal); I61.9 Nontraumatic intracerebral hemorrhage, unspecified; J96.01 Acute respiratory failure with hypoxia; J69.0 Pneumonitis due to inhalation of food and vomit; A41.9 Sepsis, unspecified organism; R65.20 Severe sepsis without septic shock; C18.9 Malignant neoplasm of colon, unspecified; C78.7 Secondary malignant neoplasm of liver and intrahepatic bile duct; N17.9 Acute kidney failure, unspecified; G81.91 Hemiplegia, unspecified affecting right dominant side; E87.1 Hypo-osmolality and hyponatremia; I48.92 Unspecified atrial flutter; K92.2 Gastrointestinal hemorrhage, unspecified; N39.0 Urinary tract infection, site not specified; K64.8 Other hemorrhoids; Z88.0 Allergy status to penicillin; Z87.891 Personal history of nicotine dependence; R29.700 NIHSS score 0; D64.9 Anemia, unspecified; I48.0 Paroxysmal atrial fibrillation; Z79.01 Long term (current) use of anticoagulants; K22.70 Barrett's esophagus without dysplasia; Z87.440 Personal history of urinary (tract) infections; M54.9 Dorsalgia, unspecified; J45.909 Unspecified asthma, uncomplicated; E86.0 Dehydration; S70.11XA Contusion of right thigh, initial encounter; W19.XXXA Unspecified fall, initial encounter; Y93.89 Activity, other specified; Y92.230 Patient room in hospital as the place of occurrence of the external cause; Y99.8 Other external cause status; I12.9 Hypertensive chronic kidney disease with stage 1 through stage 4 chronic kidney disease, or unspecified chronic kidney disease; N18.9 Chronic kidney disease, unspecified; R63.0 Anorexia; R47.1 Dysarthria and anarthria; R74.0 Nonspecific elevation of levels of transaminase and lactic acid dehydrogenase [LDH]; E80.6 Other disorders of bilirubin metabolism; I49.5 Sick sinus syndrome; D69.6 Thrombocytopenia, unspecified; Z66 Do not resuscitate; I11.0 Hypertensive heart disease with heart failure; I50.9 Heart failure, unspecified; K59.00 Constipation, unspecified
CPT/HCPCS: 36415; 36430; 36511; 70450-TC; 70551-TC; 71010-TC; 71250-TC; 73502-TC-RT; 74000-TC; 74176-TC; 74230-TC; 76705-TC; 80048; 80053; 80061; 80076; 80162; 82140; 82150; 82271; 82272; 82550; 82607; 82728; 82747; 83036; 83540; 83550; 83605; 83690; 83721; 83735; 83880; 84100; 84439; 84443; 84484; 85014; 85025; 85027; 85384; 85610; 85730; 86850; 86900; 86901; 86922; 87040; 87081; 87086; 87186; 92611-GN; 93005; 93010; 93306-TC; 93880-TC; 93976; 94640; 94660; 97116-GP; 97162-GP; 99285-25; G0480; J1644; P9038; P9058